=== PATIENT | male | born 1960 ===

== ENCOUNTER 2020-04-26 22:10 | Emergency (ER) | payer OTHER, SELFPAY ==
--- NOTE | ~2020-04-26 | XR_ITS ---
EXAMINATIONS: LUMBOSACRAL SPINE 3 VIEWS AND SACRUM 2 VIEWS CLINICAL INFORMATION: Pain. COMPARISON: 11/03/2018. TECHNIQUE: AP, lateral, spot lateral views of the lumbosacral spine are provided. AP and lateral views of the sacrum and coccyx are provided. FINDINGS: There are no fractures. The lumbar vertebrae are in normal alignment. There is mild disc height loss at L5/S1. Disc heights and vertebral body heights are otherwise well-preserved. There is increased sclerosis within the facet joints of the lumbar spine. The SI joints are unremarkable. There is bilateral medial hip joint space narrowing. XR/XR lumbar spine 2-3V IMPRESSION: Stable degenerative change within the lumbar spine without evidence of acute injury. Bilateral hip degenerative change.
--- NOTE | ~2020-04-26 | XR_ITS ---
EXAMINATIONS: LUMBOSACRAL SPINE 3 VIEWS AND SACRUM 2 VIEWS CLINICAL INFORMATION: Pain. COMPARISON: 11/03/2018. TECHNIQUE: AP, lateral, spot lateral views of the lumbosacral spine are provided. AP and lateral views of the sacrum and coccyx are provided. FINDINGS: There are no fractures. The lumbar vertebrae are in normal alignment. There is mild disc height loss at L5/S1. Disc heights and vertebral body heights are otherwise well-preserved. There is increased sclerosis within the facet joints of the lumbar spine. The SI joints are unremarkable. There is bilateral medial hip joint space narrowing. XR/XR sacrum coccyx min 2V IMPRESSION: Stable degenerative change within the lumbar spine without evidence of acute injury. Bilateral hip degenerative change.
[2020-04-26 22:27] VITALS: BP 107/59; PULSE 100; RESP 16; TEMP 37.1; O2SAT 100; BMI 28.0
[2020-04-27] MEDS: Ketorolac Tromethamine 60 MG/2 ML VIAL IM (00:05)
[2020-04-27] MEDS: Cyclobenzaprine HCl 10 MG TABLET PO (00:06)
--- NOTE | 2020-04-27 00:42 | ED.BACK ---
HPI - Back Pain/Injury General Chief Complaint: Back Pain/Injury Stated Complaint: Back pain Time Seen by Provider: 04/26/20 23:49 Source: patient Mode of arrival: ambulatory Limitations: no limitations History of Present Illness HPI Narrative: 60-year-old male with past medical history of anxiety, depression, hyperlipidemia, hypertension, history of DVT, [id number] diabetic, sleep apnea, gastric ulcers, right knee replacement, left hip surgery, and ambulates with a cane presents with chronic lower back pain and sciatica. Patient states his back pain been present for several years and has been mostly under controlled but over the past several days he has noted an increase in pain with sciatica to the left side. He does not describe any injury, trauma, repetitive motions, fevers, chills, chest pain, chest pressure, palpitations, shortness breath, abdominal pain, abdominal distention, dysuria hematuria, symptoms indicating cauda equina, or any other concerning symptoms. MD elicited complaint: back pain Pertinent past history: prior back pain and arthritis Onset (ago): year(s) Timing: constant and progressively worsening Severity: severe Pain scale (0-10): 10 Similar Symptoms Previously: Yes Quality: aching Location: lumbar spine and sacrum Radiation: left upper leg Exacerbating factors: movement and walking Relieving factors: none Associated symptoms: denies other symptoms Treatments prior to arrival: NSAIDS Work related injury: No Related Data Previous Rx's Medication Instructions Recorded cyclobenzaprine 10 mg PO TID PRN #30 tab 04/27/20 Allergies Allergy/AdvReac Type Severity Reaction Status Date / Time morphine [MORPHINE] Allergy Severe RASH Verified 04/26/20 22:30 Review of Systems Review of Systems: Constitutional: No Fever, No Chills ENT/Mouth: No Ear Pain, No Hoarseness, No sore throat Eyes: No Eye Pain, No Swelling, No Redness, No Foreign Body Cardiovascular: No Chest Pain, No SOB Respiratory: No Cough, No Dyspnea Gastrointestinal: No Nausea, No Vomiting, No Diarrhea, No abdominal Pain Genitourinary: No Dysuria, No Hematuria Musculoskeletal: positive lower back pain with left-sided sciatica, No Myalgias, No Joint Swelling Skin: No Skin lacerations, No rash Neuro: No Weakness, No Numbness, No Paresthesias, No Loss of Consciousness, No Dizziness, No Headache Psych: No Anxiety/Panic, No Depression Heme/Lymph: no easy bruising, no Lymphadenopathy Endocrine: No Polyuria, No Polydipsia Yes all other systems are reviewed and are negative PMFSH Past Medical History Attestation statement: The following information was validated with the patient. Source: old records reviewed Social History Social History Alcohol intake: never Smoking Status: Current every day smoker Use of substances other than those prescribed or required for medical reasons: No Any prior treatment program specific to substance use: No Advance Directives: No Advance Directives Information Provided: No Physical Exam Vital Signs: Vital Signs: Last Vital Signs Temp 98.8 F 04/26/20 22:27 Pulse 100 04/26/20 22:27 Resp 16 04/26/20 22:27 BP 107/59 L 04/26/20 22:27 Pulse Ox 100 04/26/20 22:27 Body Mass Index 28.0 Appearance: Alert. Oriented X3. No acute distress. Eyes: Pupils equal, round and reactive to light. ENT: Pharynx normal. Neck: Normal inspection. Neck supple. CVS: Normal heart rate and rhythm. Pulses normal. Respiratory: No respiratory distress. Breath sounds normal. Abdomen: Soft and nontender. Skin: Skin warm and dry. Normal skin color. Normal skin turgor. Extremities: No lower extremity edema. Neuro: No motor deficit. No sensory deficit. Course Course Course Narrative: 60-year-old male ambulates with a cane presents with chronic lower back pain and sciatica. He has had this chronic condition for several years, plan is for lumbar x-ray, sacrum x-ray, Toradol and cyclobenzaprine. X-rays negative for acute findings requiring emergent intervention. Plan is to refer to pain management. Patient verbalized understanding of and agrees plan of care discharge home. MDM - Back Pain/Injury Differential Diagnosis Differential diagnosis: Likely lumbar radiculopathy, sciatica, strain of lumbar region and thoracic back pain Medical Records Attestation: I reviewed the patient's medical records. Imaging Data Lumbar sacral x-ray: Attestation: I personally reviewed and interpreted this imaging study as follows: Radiologist's impression: EXAMINATIONS: LUMBOSACRAL SPINE 3 VIEWS AND SACRUM 2 VIEWS CLINICAL INFORMATION: Pain. COMPARISON: 11/03/2018. TECHNIQUE: AP, lateral, spot lateral views of the lumbosacral spine are provided. AP and lateral views of the sacrum and coccyx are provided. FINDINGS: There are no fractures. The lumbar vertebrae are in normal alignment. There is mild disc height loss at L5/S1. Disc heights and vertebral body heights are otherwise well-preserved. There is increased sclerosis within the facet joints of the lumbar spine. The SI joints are unremarkable. There is bilateral medial hip joint space narrowing. XR/XR sacrum coccyx min 2V IMPRESSION: Stable degenerative change within the lumbar spine without evidence of acute injury. Bilateral hip degenerative change. Discharge Plan Discharge Clinical Impression: Lumbar radiculopathy, Degeneration of intervertebral disc of lumbar region Patient Disposition: Home, Self-Care Instructions: Sciatica (ED), Degenerative Disc Disease (ED) Additional Instructions: You were evaluated for chronic lower back pain with sciatica. X-rays indicate chronic lumbar disc degeneration. Please consider following up with Pain Management and Physical therapy. I have made a referral to Dr. Payne. Please call and request an appointment. I prescribed cyclobenzaprine which is a muscle relaxer. This medication is designed to relax muscles to help relieve the tension on the spine. This medication may increase risk for falls, cause drowsiness, and delayed reaction time. Do not drive or operate machinery while taking this medication. Thank you for choosing this emergency department for evaluation. Please follow-up with primary care physician as needed. Return to the emergency department for any new, concerning, or worsening symptoms. Prescriptions: New cyclobenzaprine 10 mg tablet 10 mg PO TID PRN (Reason: muscle spasm) Qty: 30 RF: 0 Referrals: Robinson Payne MD [Physician] - 2 days (Chronic lumbar disc degeneration, bilateral hip degeneration)
--- NOTE | 2020-04-27 01:09 | PC.NURSE ---
report on pt given to wilmar Marsh who will resume pt care.
== END 2020-04-27 02:00 | disposition home or self-care (01) ==
PROVIDERS: Emergency Provider Student in an Organized Health Care Education/Training Program; PCP Nurse Practitioner Family
DX: M51.16 Intervertebral disc disorders with radiculopathy, lumbar region (principal); F17.200 Nicotine dependence, unspecified, uncomplicated; Z71.6 Tobacco abuse counseling; Z79.899 Other long term (current) drug therapy
CPT/HCPCS: 72100; 72220; 96372; 99284; J1885

== ENCOUNTER 2020-10-29 14:25 | Emergency (ER) | payer OTHER, SELFPAY ==
--- NOTE | ~2020-10-29 | US_ITS ---
EXAMINATION: US VENOUS ULTRASOUND WITH DOPPLER LOWER EXTREMITY, LEFT CLINICAL INFORMATION: Left lower extremity edema COMPARISON: None TECHNIQUE: Ultrasound of the deep veins is performed from the hip to the calf with compression sonography and color and pulse Doppler assessment. Spectral analysis with color-flow imaging is performed. FINDINGS: There is normal venous compression and respiratory variation and augmented flow. The visualized common femoral vein, superficial femoral vein, profunda femoral vein, popliteal vein, and the trifurcation region shows no evidence of deep venous thrombosis. There is no significant popliteal fossa cyst. If the patient's symptoms persist, followup ultrasound in 5 days 7 days might be of value to exclude proximal propagation from a non-visualized calf vein. US/US venous duplex LE LT IMPRESSION: No DVT demonstrated in the left lower extremity.
[2020-10-29 15:39] VITALS: BP 122/63; PULSE 58; RESP 18; TEMP 36.8; O2SAT 97; BMI 35.4
--- NOTE | 2020-10-29 19:36 | ED_ITS ---
HPI - General Adult General Chief complaint: General Medical Stated complaint: back pain, feet swelling Source: patient Mode of arrival: ambulatory Limitations: no limitations History of Present Illness HPI narrative: 60-year-old male presents with left lower extremity swelling and pain for 5 days. He also reports lower back pain which is chronic. Onset (ago): day(s) (4) Location: left and lower extremity Radiation: non-radiation Severity: moderate Severity scale (1-10): 6 Quality: aching Pain Consistency: constant Relieving factors: none Exacerbating factors: movement Associated symptoms: denies other symptoms Treatments prior to arrival: none Related Data Previous Rx's Medication Instructions Recorded cyclobenzaprine 10 mg tablet 10 mg PO TID PRN #30 tab 04/27/20 cephalexin 500 mg capsule 500 mg PO Q12H 10 Days #20 cap 10/29/20 doxycycline monohydrate 100 mg 100 mg PO BID 10 Days #20 cap 10/29/20 capsule Allergies Allergy/AdvReac Type Severity Reaction Status Date / Time morphine [MORPHINE] Allergy Severe RASH Verified 10/29/20 15:39 Review of Systems Review of Systems: Constitutional: No Fever, No Chills ENT/Mouth: No Ear Pain, No Hoarseness, No sore throat Eyes: No Eye Pain, No Swelling, No Redness, No Foreign Body Cardiovascular: No Chest Pain, No SOB Respiratory: No Cough, No Dyspnea Gastrointestinal: No Nausea, No Vomiting, No Diarrhea, No abdominal Pain Genitourinary: No Dysuria, No Hematuria Musculoskeletal: positive left leg pain and swelling, No Myalgias, No Joint Swelling Skin: No Skin lacerations, No rash Neuro: No Weakness, No Numbness, No Paresthesias, No Loss of Consciousness, No Dizziness, No Headache Psych: No Anxiety/Panic, No Depression Heme/Lymph: no easy bruising, no Lymphadenopathy Endocrine: No Polyuria, No Polydipsia Yes all other systems are reviewed and are negative [facility] Past Medical History Attestation statement: The following information was validated with the patient. Source: old records reviewed Medical History (Updated 10/29/20 @ 22:30 by Lizeth Anna NP) FHx: total knee replacement Sleep apnea Surgical History History of ankle surgery History of hip surgery History of surgery on arm Social History Social History Alcohol intake: never Advance Directives: No Advance Directives Information Provided: No Physical Exam Vital Signs: Vital Signs: Last Vital Signs Temp 97.6 F 10/29/20 19:55 Pulse 53 10/29/20 22:22 Resp 19 10/29/20 22:22 BP 125/63 10/29/20 22:22 Pulse Ox 100 10/29/20 22:22 Body Mass Index 35.4 Appearance: Alert. Oriented X3. No acute distress. Eyes: Pupils equal, round and reactive to light. ENT: Pharynx normal. Neck: Normal inspection. Neck supple. CVS: Normal heart rate and rhythm. Pulses normal. Respiratory: No respiratory distress. Breath sounds normal. Abdomen: Soft and nontender. Skin: Skin warm and dry. Normal skin color. Normal skin turgor. Extremities: Left lower extremity visibly swollen from toes to patella, tender to palpation, no warmth or erythema noted. Neuro: No motor deficit. No sensory deficit. Cranial nerves 2-12 intact. Course Course Course Narrative: 60-year-old male presents for left lower extremity swelling for approximately 7 days. He is more interested in his telephone than speaking to this provider. Multiple attempts to have him answer questions regarding health history, however patient was not interested. Will order duplex to rule out blood clot. Duplex negative for DVT. Will order labs to rule out gout and infection. Plan is to treat for cellulitis with doxycycline and Keflex. Patient continues to use his phone, not answering many questions from this [employer]. Patient does verbalize understanding of and agrees to plan of care discharge home. Medical Decision Making Differential Diagnosis Differential Diagnosis: DVT, cellulitis, edema Medical Records Medical records reviewed: Yes I reviewed the patient's medical records. Lab Data Lab results reviewed: Yes I reviewed the patient's lab results. Result diagrams: 10/29/20 21:43 10/29/20 21:43 Labs: Lab Results 10/29/20 10/29/20 Range/Units 21:43 21:43 WBC 7.4 (4.8-10.8) X10*3/uL RBC 3.71 L (4.60-5.80) X10*6/uL Hgb 11.2 L (14.0-18.0) g/dl Hct 35.7 L (42-52) % MCV 96.2 (80-98) fL MCH 30.2 (27.0-33.0) pg MCHC 31.4 (31.0-36.0) g/dl RDW 15.9 (11.0-16.0) % Plt Count 197 (160-400) X10*3/uL MPV 10.4 (9.4-12.4) fL Immature Gran % (Auto) 1.2 H (0.0-0.4) % Neut % (Auto) 49.5 (45-73) % Lymph % (Auto) 33.9 (20-40) % Tillman % (Auto) 12.4 H (2-11) % Eos % (Auto) 2.6 (0-4) % Baso % (Auto) 0.4 (0-2) % Lymph # (Auto) 2.5 (1.2-4.9) X10*3/uL Tillman # (Auto) 0.9 (0.1-1.2) X10*3/uL Eos # (Auto) 0.2 (0.0-0.4) X10*3/uL Baso # (Auto) 0.0 (0.0-0.2) X10*3/uL Abs Immat Gran (auto) 0.09 H (0.00-0.03) X10*3/uL Absolute Neuts (auto) 3.6 (2.0-8.3) X10*3/uL Absolute Nucleated RBC 0.000 (0.0-0.012) X10*3/uL Nucleated RBC % (auto) 0.0 (0.0-0.2) /100WBC Smear Tech's Comments VERIFIED Sodium 141 (135-145) mmol/L Potassium 4.2 (3.3-5.1) mmol/L Chloride 102 (96-108) mmol/L Carbon Dioxide 32 H (22-29) mmol/L Anion Gap 11 L (12-20) BUN 18 H (9-16) mg/dL Creatinine 0.74 (0.5-1.4) mg/dL Estim Creat Clear Calc 149.2 Estimated GFR > 60 Random Glucose 82 (60-115) mg/dL Uric Acid 4.0 (3.4-7.0) mg/dL Calcium 9.6 (8.4-10.2) mg/dL Imaging Data Left venous duplex: Attestation: I personally reviewed and interpreted this imaging study as follows: Radiologist's impression: EXAMINATION:? US VENOUS ULTRASOUND WITH DOPPLER LOWER EXTREMITY, LEFT CLINICAL INFORMATION:? Left lower extremity edema COMPARISON:? None TECHNIQUE: Ultrasound of the deep veins is performed from the hip to the calf with compression sonography and color and pulse Doppler assessment. Spectral analysis with color-flow imaging is performed. FINDINGS: There is normal venous compression and respiratory variation and augmented flow. The visualized common femoral vein, superficial femoral vein, profunda femoral vein, popliteal vein, and the trifurcation region shows no evidence of deep venous thrombosis. ? There is no significant popliteal fossa cyst. If the patient's symptoms persist, followup ultrasound in 5 days 7 days might be of value to exclude proximal propagation from a non-visualized calf vein. US/US venous duplex LE LT IMPRESSION: No DVT demonstrated in the left lower extremity. Discharge Plan Discharge Clinical Impression: Cellulitis Qualifiers: Site of cellulitis: extremity Site of cellulitis of extremity: lower extremity Laterality: left Qualified Code(s): L03.116 - Cellulitis of left lower limb Patient Disposition: Home, Self-Care Instructions: Cellulitis (ED) Additional Instructions: You were evaluated for left lower extremity pain and swelling. Your duplex was negative for DVT. Your uric acid level was normal. We are treating for cellulitis. Please take doxycycline and Keflex twice a day for the next 10 days. Please use Tylenol and Motrin as needed for pain management. Thank you for choosing this emergency department for evaluation. Please follow-up with primary care physician as needed. Return to the emergency department for any new, concerning, or worsening symptoms. Prescriptions: New doxycycline monohydrate 100 mg capsule 100 mg PO BID 10 Days Qty: 20 RF: 0 cephalexin 500 mg capsule 500 mg PO Q12H 10 Days Qty: 20 RF: 0 No Action cyclobenzaprine 10 mg tablet 10 mg PO TID PRN (Reason: muscle spasm) Qty: 30 RF: 0 Interventions: ED Discharge Assessment Last Done: 10/29/20 22:48 Discharge Date/Time: 10/29/20 22:49
[2020-10-29 19:55] VITALS: BP 139/70; PULSE 70; RESP 17; TEMP 36.4; O2SAT 98
--- NOTE | 2020-10-29 20:04 | PC.NURSE ---
Pt aaox4, c/o LLE pain and swelling. Pt aware and agreeable to plan for DVT study. pt to ultrasound at this time.
[2020-10-29 21:48] LABS: Basophils Percent Auto 0.4 % (0-2); Eosinophils Absolute Auto 0.2 X10*3/uL (0.0-0.4); Eosinophils Percent Auto 2.6 % (0-4); Hematocrit 35.7 % (42-52); Hemoglobin 11.2 g/dl (14.0-18.0); Imm Gran Abs Auto 0.09 X10*3/uL (0.00-0.03); Imm Gran Pct Auto 1.2 % (0.0-0.4); Lymphocytes Absolute Auto 2.5 X10*3/uL (1.2-4.9); Lymphocytes Percent Auto 33.9 % (20-40); MANUAL DIFF FLAG SCAN; Mean Corpuscular HGB Conc 31.4 g/dl (31.0-36.0); Mean Corpuscular Hemoglobin 30.2 pg (27.0-33.0); Mean Corpuscular Volume 96.2 fL (80-98); Mean Platelet Volume 10.4 fL (9.4-12.4); Monocytes Absolute Auto 0.9 X10*3/uL (0.1-1.2); Monocytes Percent Auto 12.4 % (2-11); Neutrophils Absolute Auto 3.6 X10*3/uL (2.0-8.3); Neutrophils Percent Auto 49.5 % (45-73); Platelet Count 197 X10*3/uL (160-400); Red Blood Count 3.71 X10*6/uL (4.60-5.80); Red Cell Distribution Width 15.9 % (11.0-16.0); SCAN SMEAR FLAG 1; White Blood Count 7.4 X10*3/uL (4.8-10.8)
[2020-10-29 22:06] LABS: SLIDE REVIEW VERIFIED
[2020-10-29 22:18] LABS: Anion Gap 11 (12-20); Blood Urea Nitrogen 18 mg/dL (9-16); Calcium 9.6 mg/dL (8.4-10.2); Carbon Dioxide 32 mmol/L (22-29); Chloride 102 mmol/L (96-108); Creatinine Clr Calc Pharmacy 149.2; Estimated Glomerular Filt Rate > 60; Glucose Random 82 mg/dL (60-115); Potassium 4.2 mmol/L (3.3-5.1); Sodium 141 mmol/L (135-145)
[2020-10-29 22:22] VITALS: BP 125/63; PULSE 53; RESP 19; O2SAT 100
[2020-10-29] MEDS: cephALEXin 500 MG CAPSULE PO (22:44)
[2020-10-29] MEDS: Acetaminophen 325 MG TABLET 650 MG PO (22:44)
[2020-10-29] MEDS: Ibuprofen 600 MG TABLET PO (22:44)
== END 2020-10-29 22:49 | disposition home or self-care (01) ==
PROVIDERS: Nurse Practitioner Family; Emergency Provider Emergency Medicine
DX: L03.116 Cellulitis of left lower limb (principal); M54.5 Low back pain; M79.662 Pain in left lower leg
CPT/HCPCS: 36415; 80048; 84550; 85025; 93971; 99284

== ENCOUNTER 2020-10-31 13:28 | Emergency (ER) | payer OTHER, SELFPAY ==
--- NOTE | ~2020-10-31 | US_ITS ---
EXAMINATION: US VENOUS ULTRASOUND WITH DOPPLER LOWER EXTREMITY, LEFT CLINICAL INFORMATION: Swelling COMPARISON: None TECHNIQUE: Ultrasound of the deep veins is performed from the hip to the calf with compression sonography and color and pulse Doppler assessment. Spectral analysis with color-flow imaging is performed. FINDINGS: There is normal venous compression and respiratory variation and augmented flow. The visualized common femoral vein, superficial femoral vein, profunda femoral vein, popliteal vein, and the trifurcation region shows no evidence of deep venous thrombosis. There is no significant popliteal fossa cyst. If the patient's symptoms persist, followup ultrasound in 5 days 7 days might be of value to exclude proximal propagation from a non-visualized calf vein. US/US venous duplex LE LT IMPRESSION: No DVT demonstrated in the left lower extremity.
[2020-10-31 15:07] VITALS: BP 115/60; PULSE 52; RESP 18; TEMP 36.8; O2SAT 98; BMI 34.9
[2020-10-31 15:54] LABS: Basophils Percent Auto 0.4 % (0-2); Eosinophils Absolute Auto 0.2 X10*3/uL (0.0-0.4); Eosinophils Percent Auto 1.8 % (0-4); Hematocrit 36.1 % (42-52); Hemoglobin 11.3 g/dl (14.0-18.0); Imm Gran Abs Auto 0.12 X10*3/uL (0.00-0.03); Imm Gran Pct Auto 1.4 % (0.0-0.4); Lymphocytes Absolute Auto 2.6 X10*3/uL (1.2-4.9); MANUAL DIFF FLAG SCAN; Mean Corpuscular HGB Conc 31.3 g/dl (31.0-36.0); Mean Corpuscular Volume 95.8 fL (80-98); Mean Platelet Volume 10.2 fL (9.4-12.4); Monocytes Absolute Auto 0.8 X10*3/uL (0.1-1.2); Monocytes Percent Auto 9.1 % (2-11); Neutrophils Absolute Auto 4.8 X10*3/uL (2.0-8.3); Neutrophils Percent Auto 56.3 % (45-73); Platelet Count 231 X10*3/uL (160-400); Red Blood Count 3.77 X10*6/uL (4.60-5.80); SCAN SMEAR FLAG 1; White Blood Count 8.4 X10*3/uL (4.8-10.8)
[2020-10-31 15:56] LABS: INTERNATIONAL NORM RATIO 0.9 (0.9-1.1)
[2020-10-31 16:09] LABS: COVID-19 Test Negative (Negative); IDNOW Serial# 9DD0AD1C
[2020-10-31 16:26] LABS: SLIDE REVIEW VERIFIED
== END 2020-10-31 17:50 | disposition left against medical advice (07) ==
PROVIDERS: Emergency Provider Emergency Medicine
DX: M79.605 Pain in left leg (principal); L03.116 Cellulitis of left lower limb
CPT/HCPCS: 36415; 80048; 85025; 85610; 87635; 93971; 99282; 99284

== ENCOUNTER 2020-11-07 12:06 | Emergency (ER) | payer OTHER, SELFPAY ==
--- NOTE | ~2020-11-07 | US_ITS ---
EXAMINATION: US VENOUS ULTRASOUND WITH DOPPLER LOWER EXTREMITY, BILATERAL CLINICAL INFORMATION: Bilateral lower extremity edema. COMPARISON: 10/31/2020 TECHNIQUE: Ultrasound of the deep veins is performed from the hip to the calf with compression sonography and color and pulse Doppler assessment. Spectral analysis with color-flow imaging is performed. FINDINGS: RIGHT: There is normal venous compression and respiratory variation and augmented flow. The visualized common femoral vein, superficial femoral vein, profunda femoral vein, popliteal vein, and the trifurcation region shows no evidence of deep venous thrombosis. There is no significant popliteal fossa cyst. LEFT: There is normal venous compression and respiratory variation and augmented flow. The visualized common femoral vein, superficial femoral vein, profunda femoral vein, popliteal vein, and the trifurcation region shows no evidence of deep venous thrombosis. There is no significant popliteal fossa cyst. If the patient's symptoms persist, followup ultrasound in 5 days 7 days might be of value to exclude proximal propagation from a non-visualized calf vein. US/US venous duplex LE BI IMPRESSION: No DVT demonstrated in the bilateral lower extremities.
--- NOTE | ~2020-11-07 | XR_ITS ---
EXAMINATION: XR CHEST CLINICAL INFORMATION: Rule out pulmonary edema. COMPARISON: 07/21/2015 TECHNIQUE: Frontal view of the chest was obtained. FINDINGS: The lungs are well expanded. Linear right basilar atelectasis. Patchy opacities of the right mid to lower lung. No pleural effusion or pneumothorax. The cardiomediastinal silhouette is within normal limits. XR/XR chest 1V IMPRESSION: Patchy right mid to lower lung opacity is nonspecific. This could be infectious or inflammatory. The appearance is unlikely to represent edema.
[2020-11-07 12:22] VITALS: BP 108/53; PULSE 74; RESP 18; TEMP 36.8; O2SAT 96; BMI 35.6
--- NOTE | 2020-11-07 15:08 | ED_ITS ---
HPI - Extremity Injury (Lower) General Chief Complaint: Extremity Injury, Lower Stated Complaint: cellulitis Time Seen by Provider: 11/07/20 14:43 Source: patient Mode of arrival: ambulatory History of Present Illness HPI Narrative: 60-year-old male with a past medical history of sleep apnea, DVT, presenting to the ED complaining of bilateral lower extremity swelling, pain, and erythema x 10 days. Admits to finishing course of p.o. Doxycycline and Keflex without relief. Denies fever, chills, SOB/CP, abdominal pain, nausea/vomiting, recent travel Related Data Home Medications Medication Instructions Recorded Confirmed albuterol sulfate 90 mcg/actuation 2 puff PO Q4H PRN 11/07/20 11/07/20 aerosol inhaler clonazepam 1 mg tablet 1 tab PO BID PRN 11/07/20 11/07/20 enalapril 10 1 tab PO DAILY 11/07/20 11/07/20 mg-hydrochlorothiazide 25 mg tablet ergocalciferol (vitamin D2) 1,250 1 cap PO QWEEK 11/07/20 11/07/20 mcg (50,000 unit) capsule metformin 850 mg tablet 1 tab PO BID 11/07/20 11/07/20 nicotine (polacrilex) 4 mg buccal 4 mg PO Q4-6H PRN 11/07/20 11/07/20 lozenge pantoprazole 40 mg tablet,delayed 1 tab PO DAILY 11/07/20 11/07/20 release simvastatin 20 mg tablet 1 tab PO BEDTIME 11/07/20 11/07/20 Previous Rx's Medication Instructions Recorded cyclobenzaprine 10 mg tablet 10 mg PO TID PRN #30 tab 04/27/20 cephalexin 500 mg capsule 500 mg PO Q12H 10 Days #20 cap 10/29/20 doxycycline monohydrate 100 mg 100 mg PO BID 10 Days #20 cap 10/29/20 capsule azithromycin 250 mg tablet See Rx Instructions .ROUTE 11/07/20 .COMPLEX #6 tab furosemide 20 mg tablet 20 mg PO DAILY 7 Days #7 tab 11/07/20 Allergies Allergy/AdvReac Type Severity Reaction Status Date / Time morphine [MORPHINE] Allergy Severe RASH Verified 10/29/20 15:39 Review of Systems Review of Systems: Constitutional: No Fever, No Chills, No Fatigue, No Malaise ENT/Mouth: No Ear Pain, No Nasal Congestion, No sore throat Eyes: No Eye Pain, No Swelling Cardiovascular: No Chest Pain, No SOB, +Edema, No Palpitations Respiratory: No Cough, No Dyspnea Gastrointestinal: No Nausea, No Vomiting, No Diarrhea, No Constipation, No Abdominal pain Genitourinary: No Dysuria Musculoskeletal: No joint pain, No Myalgias, + Joint Swelling Skin: + Skin Lesions, No rash Neuro: No Weakness, No Numbness, No Loss of Consciousness Yes all other systems are reviewed and are negative [facility] Past Medical History Attestation statement: The following information was validated with the patient. Medical History (Updated 11/07/20 @ 19:33 by JEN Sawyer) FHx: total knee replacement Sleep apnea Surgical History History of ankle surgery History of hip surgery History of surgery on arm Social History Social History Alcohol intake: never Advance Directives: No Advance Directives Information Provided: No Physical Exam Vital Signs: Vital Signs: Last Vital Signs Temp 98.2 F 11/07/20 12:22 Pulse 62 11/07/20 18:17 Resp 16 11/07/20 18:17 BP 124/64 11/07/20 18:17 Pulse Ox 98 11/07/20 18:17 Body Mass Index 35.6 Const: General: cooperative and healthy appearing Orientation/consciousness: patient oriented x3 Limitations: no limitations HENMT: Head: Yes normal to inspection Ears: hearing grossly normal bilaterally General nose exam: Normal external nose present Face and sinus: Yes normal facial exam Eyes: General: appearance normal, both eyes and all related structures EOM: EOMs intact bilaterally Neck: Neck: Yes normal visual inspection Resp: Effort & Inspection: normal respiratory effort Auscultation: clear to auscultation bilaterally, no rales, no rhonchi and no wheezes Cardio: Rate: regular rate Heart sounds: S1 normal heart sound present and S2 normal heart sound present GI: Inspection: Yes normal to inspection Palpation (GI): Soft to palpation, nontender, no guarding and not rigid Skin: Rashes: no rashes Wounds: no wounds Neuro: General: patient oriented x3 Gait exam (Neuro): Normal gait present Extrem: Other: +bilateral lower extremity pitting edema and taut skin, +warm to touch. No erythema. Neurovascularly intact distally Course Course Course Narrative: -COVID-19 negative -1813--difficulty with obtaining patient's labs. No leukocytosis. H&H at patient's baseline. Labs otherwise unremarkable including negative BNP US venous duplex LE BI IMPRESSION: No DVT demonstrated in the bilateral lower extremities XR chest 1V IMPRESSION: Patchy right mid to lower lung opacity is nonspecific. This could be infectious or inflammatory. The appearance is unlikely to represent edema. >> patient without cough/fever/leukocytosis however will empirically treat with Azithromycin, he is agreeable with plan MDM - Extremity Injury (Lower) MDM Narrative Medical decision making narrative: 60-year-old male with a past medical history of sleep apnea, DVT, presenting to the ED complaining of bilateral lower extremity swelling, pain, and erythema x 10 days. On exam VSS, NAD/well- appearing, physical exam as above. Concern for bilateral lower extremity venous stasis changes vs CHF vs ?DVT. Lower concern for cellulitis Case d/w Dr. Redd who also evaluated patient and is in agreement with plan Plan: Labs, blood culture/lactic, bilateral venous duplex ultrasound Medical Records Attestation: I reviewed the patient's medical records. Lab Data Attestation: I reviewed the patient's lab results. Result diagrams: 11/07/20 17:10 11/07/20 17:10 Labs: Lab Results 11/07/20 11/07/20 11/07/20 Range/Units 15:10 17:10 17:10 WBC 7.2 (4.8-10.8) X10*3/uL RBC 3.75 L (4.60-5.80) X10*6/uL Hgb 11.3 L (14.0-18.0) g/dl Hct 36.2 L (42-52) % MCV 96.5 (80-98) fL MCH 30.1 (27.0-33.0) pg MCHC 31.2 (31.0-36.0) g/dl RDW 16.2 H (11.0-16.0) % Plt Count 222 (160-400) X10*3/uL MPV 10.3 (9.4-12.4) fL Immature Gran % (Auto) 1.4 H (0.0-0.4) % Neut % (Auto) 52.9 (45-73) % Lymph % (Auto) 31.5 (20-40) % [place] % (Auto) 11.1 H (2-11) % Eos % (Auto) 2.8 (0-4) % Baso % (Auto) 0.3 (0-2) % Lymph # (Auto) 2.3 (1.2-4.9) X10*3/uL [place] # (Auto) 0.8 (0.1-1.2) X10*3/uL Eos # (Auto) 0.2 (0.0-0.4) X10*3/uL Baso # (Auto) 0.0 (0.0-0.2) X10*3/uL Abs Immat Gran (auto) 0.10 H (0.00-0.03) X10*3/uL Absolute Neuts (auto) 3.8 (2.0-8.3) X10*3/uL Absolute Nucleated RBC 0.000 (0.0-0.012) X10*3/uL Nucleated RBC % (auto) 0.0 (0.0-0.2) /100WBC Sodium 140 (135-145) mmol/L Potassium 4.5 (3.3-5.1) mmol/L Chloride 103 (96-108) mmol/L Carbon Dioxide 30 H (22-29) mmol/L Anion Gap 12 (12-20) BUN 16 (9-16) mg/dL Creatinine 0.75 (0.5-1.4) mg/dL Estim Creat Clear Calc 147.7 Estimated GFR > 60 Random Glucose 91 (60-115) mg/dL Lactic Acid (0.5-2.0) mmol/L Calcium 9.7 (8.4-10.2) mg/dL Magnesium 2.1 (1.6-2.6) mg/dL Total Bilirubin 0.3 (0.0-1.0) mg/dL Direct Bilirubin < 0.2 (0.0-0.5) mg/dL AST 14 (5-37) U/L ALT 11 (0-40) U/L Alkaline Phosphatase 114 (39-117) U/L B-Natriuretic Peptide (<100) pg/mL Total Protein 7.2 (6.5-8.0) g/dL Albumin 3.9 (3.5-5.0) g/dL COVID-19 (JAIME) Negative (Negative) COVID-19 Clin Com See Note 11/07/20 11/07/20 Range/Units 17:10 17:10 WBC (4.8-10.8) X10*3/uL RBC (4.60-5.80) X10*6/uL Hgb (14.0-18.0) g/dl Hct (42-52) % MCV (80-98) fL MCH (27.0-33.0) pg MCHC (31.0-36.0) g/dl RDW (11.0-16.0) % Plt Count (160-400) X10*3/uL MPV (9.4-12.4) fL Immature Gran % (Auto) (0.0-0.4) % Neut % (Auto) (45-73) % Lymph % (Auto) (20-40) % [place] % (Auto) (2-11) % Eos % (Auto) (0-4) % Baso % (Auto) (0-2) % Lymph # (Auto) (1.2-4.9) X10*3/uL [place] # (Auto) (0.1-1.2) X10*3/uL Eos # (Auto) (0.0-0.4) X10*3/uL Baso # (Auto) (0.0-0.2) X10*3/uL Abs Immat Gran (auto) (0.00-0.03) X10*3/uL Absolute Neuts (auto) (2.0-8.3) X10*3/uL Absolute Nucleated RBC (0.0-0.012) X10*3/uL Nucleated RBC % (auto) (0.0-0.2) /100WBC Sodium (135-145) mmol/L Potassium (3.3-5.1) mmol/L Chloride (96-108) mmol/L Carbon Dioxide (22-29) mmol/L Anion Gap (12-20) BUN (9-16) mg/dL Creatinine (0.5-1.4) mg/dL Estim Creat Clear Calc Estimated GFR Random Glucose (60-115) mg/dL Lactic Acid 2.0 (0.5-2.0) mmol/L Calcium (8.4-10.2) mg/dL Magnesium (1.6-2.6) mg/dL Total Bilirubin (0.0-1.0) mg/dL Direct Bilirubin (0.0-0.5) mg/dL AST (5-37) U/L ALT (0-40) U/L Alkaline Phosphatase (39-117) U/L B-Natriuretic Peptide < 10 (<100) pg/mL Total Protein (6.5-8.0) g/dL Albumin (3.5-5.0) g/dL COVID-19 (JAIME) (Negative) COVID-19 Clin Com Discharge Plan Discharge Clinical Impression: Pneumonia Venous stasis dermatitis Qualifiers: Laterality: bilateral Qualified Code(s): I87.2 - Venous insufficiency (chronic) (peripheral) Patient Disposition: Home, Self-Care Instructions: Venous Insufficiency (DC) Additional Instructions: Your blood work is reassuring You have venous stasis changes, you need to elevate your legs, wear compression stockings, follow-up with your primary care doctor Lasix as a diuretic/water pill which will help the swelling in her legs, take as prescribed daily for the next week Your chest x-ray shows a nonspecific patchy area, a Zithromax sent is antibiotic, please take as prescribed. If he developed cough, fever, shortness of breath, or chest pain return to the ED immediately You need to follow-up with her primary care doctor for repeat blood work outpatient If swelling persists or worsens, pain becomes unbearable, you fever, or legs developed redness return to the ED immediately Prescriptions: New furosemide 20 mg tablet 20 mg PO DAILY 7 Days Qty: 7 RF: 0 azithromycin 250 mg tablet See Rx Instructions .ROUTE .COMPLEX Qty: 6 RF: 0 No Action doxycycline monohydrate 100 mg capsule 100 mg PO BID 10 Days Qty: 20 RF: 0 cephalexin 500 mg capsule 500 mg PO Q12H 10 Days Qty: 20 RF: 0 clonazepam 1 mg tablet 1 tab PO BID PRN (Reason: anxiety) RF: 0 metformin 850 mg tablet 1 tab PO BID RF: 0 enalapril-hydrochlorothiazide 10-25 mg tablet 1 tab PO DAILY RF: 0 pantoprazole 40 mg tablet,delayed release (DR/EC) 1 tab PO DAILY RF: 0 simvastatin 20 mg tablet 1 tab PO BEDTIME RF: 0 ergocalciferol (vitamin D2) 1,250 mcg (50,000 unit) capsule 1 cap PO QWEEK RF: 0 albuterol sulfate 90 mcg/actuation HFA aerosol inhaler 2 puff PO Q4H PRN (Reason: Shortness Of Breath) RF: 0 nicotine (polacrilex) 4 mg lozenge 4 mg PO Q4-6H PRN (Reason: Smoking Cessation) RF: 0 cyclobenzaprine 10 mg tablet 10 mg PO TID PRN (Reason: muscle spasm) Qty: 30 RF: 0 Referrals: [facility] [Primary Care Provider] - 5 days Interventions: ED Discharge Assessment Last Done: 11/07/20 19:55 Discharge Date/Time: 11/07/20 19:57
--- NOTE | 2020-11-07 15:44 | PHA.MEDREC ---
Pharmacy Consult ? Medication Reconciliation Pharmacy has completed the medication reconciliation. Patient was not much of a historian, Med Rec based on external history fill. Yodit Reyna, PharmD [phone]
[2020-11-07 15:52] LABS: COVID-19 Test Negative (Negative)
[2020-11-07 16:01] VITALS: BP 132/78; PULSE 57; RESP 16; O2SAT 98
[2020-11-07 17:15] LABS: MANUAL DIFF FLAG NO
[2020-11-07 17:30] LABS: Basophils Percent Auto 0.3 % (0-2); Eosinophils Absolute Auto 0.2 X10*3/uL (0.0-0.4); Eosinophils Percent Auto 2.8 % (0-4); Hematocrit 36.2 % (42-52); Hemoglobin 11.3 g/dl (14.0-18.0); Imm Gran Pct Auto 1.4 % (0.0-0.4); Lymphocytes Absolute Auto 2.3 X10*3/uL (1.2-4.9); Lymphocytes Percent Auto 31.5 % (20-40); Mean Corpuscular HGB Conc 31.2 g/dl (31.0-36.0); Mean Corpuscular Hemoglobin 30.1 pg (27.0-33.0); Mean Corpuscular Volume 96.5 fL (80-98); Mean Platelet Volume 10.3 fL (9.4-12.4); Monocytes Absolute Auto 0.8 X10*3/uL (0.1-1.2); Monocytes Percent Auto 11.1 % (2-11); Neutrophils Absolute Auto 3.8 X10*3/uL (2.0-8.3); Neutrophils Percent Auto 52.9 % (45-73); Platelet Count 222 X10*3/uL (160-400); Red Blood Count 3.75 X10*6/uL (4.60-5.80); Red Cell Distribution Width 16.2 % (11.0-16.0); White Blood Count 7.2 X10*3/uL (4.8-10.8)
--- NOTE | 2020-11-07 17:39 | PC.NURSE ---
US at bedside
[2020-11-07 17:46] LABS: Alanine Aminotransferase 11 U/L (0-40); Albumin Level 3.9 g/dL (3.5-5.0); Alkaline Phosphatase 114 U/L (39-117); Anion Gap 12 (12-20); Aspartate Amino Transferase 14 U/L (5-37); Bilirubin Direct < 0.2 mg/dL (0.0-0.5); Bilirubin Total 0.3 mg/dL (0.0-1.0); Blood Urea Nitrogen 16 mg/dL (9-16); Calcium 9.7 mg/dL (8.4-10.2); Carbon Dioxide 30 mmol/L (22-29); Chloride 103 mmol/L (96-108); Creatinine Clr Calc Pharmacy 147.7; Estimated Glomerular Filt Rate > 60; Glucose Random 91 mg/dL (60-115); Magnesium 2.1 mg/dL (1.6-2.6); Potassium 4.5 mmol/L (3.3-5.1); Sodium 140 mmol/L (135-145); Total Protein 7.2 g/dL (6.5-8.0)
[2020-11-07 17:50] LABS: B Type Natriuretic Peptide < 10 pg/mL (<100)
[2020-11-07 18:17] VITALS: BP 124/64; PULSE 62; RESP 16; O2SAT 98
[2020-11-07] MEDS: Azithromycin 500 MG TABLET PO (19:44)
== END 2020-11-07 19:57 | disposition home or self-care (01) ==
PROVIDERS: Physician Assistant; Emergency Provider Emergency Medicine
DX: J18.9 Pneumonia, unspecified organism (principal); I87.2 Venous insufficiency (chronic) (peripheral); Z20.822 Contact with and (suspected) exposure to COVID-19; R22.43 Localized swelling, mass and lump, lower limb, bilateral; M79.662 Pain in left lower leg; M79.661 Pain in right lower leg
CPT/HCPCS: 36415; 71045; 80053; 82248; 83605; 83735; 83880; 85025; 87040; 87635; 93970; 99284

== ENCOUNTER 2020-11-28 10:50 | Outpatient (REF) | payer OTHER, SELFPAY ==
--- NOTE | ~2020-11-28 | XR_ITS ---
EXAMINATION: XR CHEST CLINICAL INFORMATION: Coarse rales right lower lobe. Rule out infiltrate COMPARISON: Previous chest x-ray most recent October 2020 TECHNIQUE: 2 views of the chest were obtained. FINDINGS: The cardiac and mediastinal contours are stable. There is linear scarring or subsegmental atelectasis seen at the lung bases. No evidence of pneumonia is seen. There is no pleural effusion or pneumothorax. There are degenerative changes of the spine. XR/XR chest 2V IMPRESSION: Bibasilar scarring or linear subsegmental atelectasis. No evidence of pneumonia.
== END 2020-11-28 10:51 | disposition home or self-care (01) ==
LOC: HO.XRAY 10:50
PROVIDERS: Absent Provider Registered Nurse Community Health; PCP Registered Nurse Community Health; Visit Provider Nurse Practitioner Family
DX: R91.8 Other nonspecific abnormal finding of lung field (principal)
CPT/HCPCS: 71046

== ENCOUNTER 2021-03-02 18:54 | Emergency (ER) | payer OTHER, SELFPAY ==
[2021-03-02 20:08] VITALS: BP 144/76; PULSE 79; RESP 20; TEMP 36.8; O2SAT 94; BMI 34.7
[2021-03-03 03:42] VITALS: BP 136/71; PULSE 68; RESP 20; O2SAT 95
--- NOTE | 2021-03-03 05:11 | ED.SKABFB ---
HPI - Skin/Abscess/Foreign Bdy General Chief complaint: Skin/Abscess/Foreign Body Stated complaint: legs swollen and a rash Time Seen by Provider: 03/03/21 05:10 Source: patient Mode of arrival: ambulatory Limitations: no limitations History of Present Illness HPI narrative: Patient diabetic noticed slight redness of both lower extremities started yesterday similar to that in the past when he had cellulitis no fever no chills blood sugar stable no open wound Related Data Home Medications Medication Instructions Recorded Confirmed albuterol sulfate 90 mcg/actuation 2 puff PO Q4H PRN 11/07/20 11/07/20 aerosol inhaler clonazepam 1 mg tablet 1 tab PO BID PRN 11/07/20 11/07/20 enalapril 10 1 tab PO DAILY 11/07/20 11/07/20 mg-hydrochlorothiazide 25 mg tablet ergocalciferol (vitamin D2) 1,250 1 cap PO QWEEK 11/07/20 11/07/20 mcg (50,000 unit) capsule metformin 850 mg tablet 1 tab PO BID 11/07/20 11/07/20 nicotine (polacrilex) 4 mg buccal 4 mg PO Q4-6H PRN 11/07/20 11/07/20 lozenge pantoprazole 40 mg tablet,delayed 1 tab PO DAILY 11/07/20 11/07/20 release simvastatin 20 mg tablet 1 tab PO BEDTIME 11/07/20 11/07/20 Previous Rx's Medication Instructions Recorded cyclobenzaprine 10 mg tablet 10 mg PO TID PRN #30 tab 04/27/20 cephalexin 500 mg capsule 500 mg PO Q12H 10 Days #20 cap 10/29/20 doxycycline monohydrate 100 mg 100 mg PO BID 10 Days #20 cap 10/29/20 capsule azithromycin 250 mg tablet See Rx Instructions .ROUTE 11/07/20 .COMPLEX #6 tab furosemide 20 mg tablet 20 mg PO DAILY 7 Days #7 tab 11/07/20 cephalexin 500 mg capsule 500 mg PO QID 10 Days #40 cap 03/03/21 doxycycline hyclate 100 mg tablet 100 mg PO BID #20 tab 03/03/21 Allergies Allergy/AdvReac Type Severity Reaction Status Date / Time morphine [MORPHINE] Allergy Severe RASH Verified 10/29/20 15:39 Review of Systems Review of Systems: Yes all other systems are reviewed and are negative PMFSH Past Medical History Medical History FHx: total knee replacement Sleep apnea Surgical History History of ankle surgery History of hip surgery History of surgery on arm Social History Social History Alcohol intake: never Advance Directives: No Advance Directives Information Provided: No Physical Exam Vital Signs: Vital Signs: Last Vital Signs Temp 98.3 F 03/02/21 20:08 Pulse 79 03/03/21 05:29 Resp 16 03/03/21 05:29 BP 136/71 03/03/21 03:42 Pulse Ox 97 03/03/21 05:29 BMI result Body Mass Index 34.7 Appearance: Alert. Oriented X3. No acute distress. CVS: Normal heart rate and rhythm. Pulses normal. Respiratory: No respiratory distress. Equal air entry bilateral, Abdomen: Soft and nontender. Bowel sounds are present, no mass palpable, no CVA tenderness Skin: Skin warm and dry. Normal skin color. Normal skin turgor. Extremities: No lower extremity edema. No calf tenderness diffuse erythema of both lower extremities no open wound Neuro: Oriented X 3. MDM - Skin/Abscess/Foreign Bdy Lab Data Labs: Lab Results 03/03/21 Range/Units 05:24 POC Glucose 127 H (60-115) mg/dL Discharge Plan Discharge Clinical Impression: Cellulitis Qualifiers: Site of cellulitis: extremity Site of cellulitis of extremity: lower extremity Laterality: right Qualified Code(s): L03.115 - Cellulitis of right lower limb Patient Disposition: Home, Self-Care Instructions: Cellulitis (ED) Additional Instructions: Take antibiotics as advised Follow with PCP/ ED if not better Prescriptions: New cephalexin 500 mg capsule 500 mg PO QID 10 Days Qty: 40 RF: 0 doxycycline hyclate 100 mg tablet 100 mg PO BID Qty: 20 RF: 0 No Action doxycycline monohydrate 100 mg capsule 100 mg PO BID 10 Days Qty: 20 RF: 0 cephalexin 500 mg capsule 500 mg PO Q12H 10 Days Qty: 20 RF: 0 clonazepam 1 mg tablet 1 tab PO BID PRN (Reason: anxiety) RF: 0 metformin 850 mg tablet 1 tab PO BID RF: 0 enalapril-hydrochlorothiazide 10-25 mg tablet 1 tab PO DAILY RF: 0 pantoprazole 40 mg tablet,delayed release (DR/EC) 1 tab PO DAILY RF: 0 simvastatin 20 mg tablet 1 tab PO BEDTIME RF: 0 ergocalciferol (vitamin D2) 1,250 mcg (50,000 unit) capsule 1 cap PO QWEEK RF: 0 albuterol sulfate 90 mcg/actuation HFA aerosol inhaler 2 puff PO Q4H PRN (Reason: Shortness Of Breath) RF: 0 nicotine (polacrilex) 4 mg lozenge 4 mg PO Q4-6H PRN (Reason: Smoking Cessation) RF: 0 furosemide 20 mg tablet 20 mg PO DAILY 7 Days Qty: 7 RF: 0 azithromycin 250 mg tablet See Rx Instructions .ROUTE .COMPLEX Qty: 6 RF: 0 cyclobenzaprine 10 mg tablet 10 mg PO TID PRN (Reason: muscle spasm) Qty: 30 RF: 0 Interventions: ED Discharge Assessment Last Done: 03/03/21 05:30 LWBS Worksheet Last Done: 03/02/21 23:42 Discharge Date/Time: 03/03/21 05:35
[2021-03-03] MEDS: cephALEXin 500 MG CAPSULE PO (05:27)
[2021-03-03 05:29] VITALS: PULSE 79; RESP 16; O2SAT 97
[2021-03-03 05:29] LABS: Glucose, Whole Blood 127 mg/dL (60-115)
== END 2021-03-03 05:35 | disposition home or self-care (01) ==
PROVIDERS: Emergency Provider Internal Medicine
DX: L03.115 Cellulitis of right lower limb (principal)
CPT/HCPCS: 82947; 99283; 99284

== ENCOUNTER 2021-05-27 12:40 | Emergency (ER) | payer OTHER, SELFPAY ==
--- NOTE | ~2021-05-27 | XR_ITS ---
EXAMINATION: XR CHEST CLINICAL INFORMATION: Evaluate for edema COMPARISON: November 28, 2020 TECHNIQUE: AP portable view of the chest was obtained. FINDINGS: There are bibasilar regions of discoid atelectasis or scarring. No pneumothorax or pleural effusion. No bronchial wall thickening. Heart normal size. No airspace edema. XR/XR chest 1V IMPRESSION: Bilateral lower lung scarring. No significant acute parenchymal disease.
--- NOTE | ~2021-05-27 | US_ITS ---
EXAMINATION: US VENOUS ULTRASOUND WITH DOPPLER LOWER EXTREMITY, BILATERAL CLINICAL INFORMATION: Bilateral leg pain COMPARISON: November 07, 2020 and studies dating back to November 15, 2018 TECHNIQUE: Ultrasound of the deep veins is performed from the hip to the calf with compression sonography and color and pulse Doppler assessment. Spectral analysis with color-flow imaging is performed. FINDINGS: RIGHT: There is normal venous compression and respiratory variation and augmented flow. The visualized common femoral vein, superficial femoral vein, profunda femoral vein, popliteal vein, and the trifurcation region shows no evidence of deep venous thrombosis. There is no significant popliteal fossa cyst. No popliteal artery aneurysm. LEFT: There is normal venous compression and respiratory variation and augmented flow. The visualized common femoral vein, superficial femoral vein, profunda femoral vein, popliteal vein, and the trifurcation region shows no evidence of deep venous thrombosis. There is no significant popliteal fossa cyst. No popliteal artery aneurysm. If the patient's symptoms persist, followup ultrasound in 5 days 7 days might be of value to exclude proximal propagation from a non-visualized calf vein. US/US venous duplex LE BI IMPRESSION: No acute DVT demonstrated in the bilateral lower extremity.
[2021-05-27 12:43] VITALS: BP 126/53; PULSE 66; RESP 18; TEMP 37; O2SAT 96; BMI 35.9
--- NOTE | 2021-05-27 13:06 | ED.EXTPRO ---
HPI - Extremity Problem General Chief complaint: Extremity Problem Stated complaint: Swollen Feet/Hip Pain Time Seen by Provider: 05/27/21 13:05 Source: patient Mode of arrival: ambulatory Limitations: no limitations History of Present Illness MD Complaint: extremity pain and extremity swelling Onset (ago): day(s) (5) Pain Consistency: constant Location: left, right and lower extremity Quality: aching Radiation: none Relieving factors: rest Exacerbating factors: walking Associated symptoms: denies other symptoms Context: other (denies any issues states his legs just swelled up, taking his medications, walks regularly, sleeps in a bed) Related Data Home Medications Medication Instructions Recorded Confirmed albuterol sulfate 90 mcg/actuation 2 puff PO Q4H PRN 11/07/20 11/07/20 aerosol inhaler clonazepam 1 mg tablet 1 tab PO BID PRN 11/07/20 11/07/20 enalapril 10 1 tab PO DAILY 11/07/20 11/07/20 mg-hydrochlorothiazide 25 mg tablet ergocalciferol (vitamin D2) 1,250 1 cap PO QWEEK 11/07/20 11/07/20 mcg (50,000 unit) capsule metformin 850 mg tablet 1 tab PO BID 11/07/20 11/07/20 nicotine (polacrilex) 4 mg buccal 4 mg PO Q4-6H PRN 11/07/20 11/07/20 lozenge pantoprazole 40 mg tablet,delayed 1 tab PO DAILY 11/07/20 11/07/20 release simvastatin 20 mg tablet 1 tab PO BEDTIME 11/07/20 11/07/20 Previous Rx's Medication Instructions Recorded cyclobenzaprine 10 mg tablet 10 mg PO TID PRN #30 tab 04/27/20 cephalexin 500 mg capsule 500 mg PO Q12H 10 Days #20 cap 10/29/20 doxycycline monohydrate 100 mg 100 mg PO BID 10 Days #20 cap 10/29/20 capsule azithromycin 250 mg tablet See Rx Instructions .ROUTE 11/07/20 .COMPLEX #6 tab furosemide 20 mg tablet 20 mg PO DAILY 7 Days #7 tab 11/07/20 cephalexin 500 mg capsule 500 mg PO QID 10 Days #40 cap 03/03/21 doxycycline hyclate 100 mg tablet 100 mg PO BID #20 tab 03/03/21 furosemide 20 mg tablet (Lasix) 20 mg PO DAILY 4 Days #4 tab 05/27/21 Allergies Allergy/AdvReac Type Severity Reaction Status Date / Time morphine [MORPHINE] Allergy Severe RASH Verified 10/29/20 15:39 Review of Systems Review of Systems: Constitutional : No Weight loss, No Fever, No Chills, No Fatigue, No Malaise ENT/Mouth : No sore throat, No Rhinorrhea Eyes: No Eye Pain, No Swelling, No Redness Cardiovascular : No Chest Pain, No SOB, No Dyspnea on Exertion, No Orthopnea, pos Edema, No Palpitations Respiratory : No Cough, No Sputum, No Wheezing Gastrointestinal : No Nausea, No Vomiting, No Diarrhea, No Constipation, No abdominal Pain, No Hematochezia, No Melena Genitourinary : No Dysuria, No Urinary Frequency, No Hematuria, Musculoskeletal : No joint pain, No Myalgias, No Joint Swelling Skin : No Skin Lesions, No rash Neuro : No Weakness, No Numbness, No Dizziness, No Headache Psych : No Anxiety/Panic, No Depression Heme/Lymph: No Bruising, No Bleeding,No Lymphadenopathy Endocrine : No Polyuria, No Polydipsia All other systems reviewed and are negative [facility] Past Medical History Attestation statement: The following information was validated with the patient. Medical History FHx: total knee replacement Sleep apnea Surgical History History of ankle surgery History of hip surgery History of surgery on arm Social History Social History (Updated 05/27/21 @ 13:30 by Tyesha Redd DO) Alcohol intake: never Patient Tobacco Use Status: Tobacco use Unknown Advance Directives: No Advance Directives Information Provided: Yes Physical Exam Vital Signs: Vital Signs: Last Vital Signs Temp 98.6 F 05/27/21 12:43 Pulse 66 05/27/21 12:43 Resp 18 05/27/21 12:43 BP 126/53 L 05/27/21 12:43 Pulse Ox 96 05/27/21 12:43 BMI result Body Mass Index 35.9 Appearance: Alert. Oriented X3. No acute distress. Eyes: Pupils equal, round and reactive to light. ENT: Pharynx normal. Neck: Normal inspection. Neck supple. CVS: Normal heart rate and rhythm. Pulses normal. Respiratory: No respiratory distress. Breath sounds slightly diminished Abdomen: Soft and non-tender. Obese Skin: Skin warm and dry. Normal skin color. Normal skin turgor. Extremities: Bilateral ankles to shins 1 to 2+ pitting edema Neuro: Oriented X 3. No motor deficit. No sensory deficit. Course Course Course Narrative: no erythema no WBC count no signs of infection will start on lasix and DC home - DVT study negative MDM - Extremity (Nontraumatic) MDM Narrative Medical decision making narrative: 61 yo male with hx of HTN and DM here with 5 days of LE edema no signs of infection but patient does appear swollen - distal NV intact will obtain basic labs, CXR, DVT study dispo per results and findings. Possible LE edema, DVT study, may require PO lasix. dispo per resulst and findings. Lab Data Result diagrams: 05/27/21 13:34 05/27/21 13:34 Labs: Lab Results 05/27/21 05/27/21 05/27/21 Range/Units 13:34 13:34 13:34 WBC 6.8 (4.8-10.8) X10*3/uL RBC 3.67 L (4.60-5.80) X10*6/uL Hgb 10.8 L (14.0-18.0) g/dl Hct 35.4 L (42.0-52.0) % MCV 96.5 (80.0-98.0) fL MCH 29.4 (27.0-33.0) pg MCHC 30.5 L (31.0-36.0) g/dl RDW 14.6 (11.0-16.0) % Plt Count 209 (160-400) X10*3/uL MPV 10.1 (9.4-12.4) fL Immature Gran % (Auto) 1.2 H (0.0-0.4) % Neut % (Auto) 61.5 (45-73) % Lymph % (Auto) 27.2 (20-40) % [place] % (Auto) 7.8 (2-11) % Eos % (Auto) 2.0 (0-4) % Baso % (Auto) 0.3 (0-2) % Lymph # (Auto) 1.9 (1.2-4.9) X10*3/uL [place] # (Auto) 0.5 (0.1-1.2) X10*3/uL Eos # (Auto) 0.1 (0.0-0.4) X10*3/uL Baso # (Auto) 0.0 (0.0-0.2) X10*3/uL Abs Immat Gran (auto) 0.08 H (0.00-0.03) X10*3/uL Absolute Neuts (auto) 4.2 (2.0-8.3) x10*3/uL Absolute Nucleated RBC 0.000 (0.0-0.012) X10*3/uL Nucleated RBC % (auto) 0.0 (0.0-0.2) /100WBC Sodium 139 (135-145) mmol/L Potassium 4.3 (3.3-5.1) mmol/L Chloride 103 (96-108) mmol/L Carbon Dioxide 32 H (22-29) mmol/L Anion Gap 8 L (12-20) BUN 14 (9-16) mg/dL Creatinine 0.80 (0.5-1.4) mg/dL Estim Creat Clear Calc 137.3 Estimated GFR > 60 Random Glucose 183 H D (60-115) mg/dL Calcium 9.3 (8.4-10.2) mg/dL Total Bilirubin < 0.2 (0.0-1.0) mg/dL Direct Bilirubin < 0.2 (0.0-0.5) mg/dL AST 13 (5-37) U/L ALT 12 (0-40) U/L Alkaline Phosphatase 111 (39-117) U/L B-Natriuretic Peptide < 10 (<100) pg/mL Total Protein 6.2 L (6.5-8.0) g/dL Albumin 3.4 L (3.5-5.0) g/dL ECG Data Attestation EKG: I personally reviewed and interpreted this ECG as follows: ECG interpretation date: 05/27/21 ECG interpretation time: 13:28 Interpretation: Rate: 61 Rhythm: NSR Mittie: normal Normal P waves. Normal GI. RBBB ST T wave : no SHIVAM, normal qTC: normal prior studies: normal The study has been interpreted contemporaneously by me. . Discharge Plan Discharge Clinical Impression: Lower extremity edema Patient Disposition: Home, Self-Care Instructions: Leg Edema (ED) Additional Instructions: return to ED for any worsening symptoms or concerns wear compression stockings elevate legs Prescriptions: New furosemide [Lasix] 20 mg tablet 20 mg PO DAILY 4 Days Qty: 4 0RF Rx Instructions: start on 05/28 No Action doxycycline monohydrate 100 mg capsule 100 mg PO BID 10 Days Qty: 20 0RF Label Comments: 10 DAY SUPPLY cephalexin 500 mg capsule 500 mg PO Q12H 10 Days Qty: 20 0RF Label Comments: 10 DAY SUPPLY clonazepam 1 mg tablet 1 tab PO BID PRN (Reason: anxiety) 0RF metformin 850 mg tablet 1 tab PO BID 0RF enalapril-hydrochlorothiazide 10-25 mg tablet 1 tab PO DAILY 0RF pantoprazole 40 mg tablet,delayed release (DR/EC) 1 tab PO DAILY 0RF simvastatin 20 mg tablet 1 tab PO BEDTIME 0RF ergocalciferol (vitamin D2) 1,250 mcg (50,000 unit) capsule 1 cap PO QWEEK 0RF albuterol sulfate 90 mcg/actuation HFA aerosol inhaler 2 puff PO Q4H PRN (Reason: Shortness Of Breath) 0RF nicotine (polacrilex) 4 mg lozenge 4 mg PO Q4-6H PRN (Reason: Smoking Cessation) 0RF furosemide 20 mg tablet 20 mg PO DAILY 7 Days Qty: 7 0RF azithromycin 250 mg tablet See Rx Instructions .ROUTE .COMPLEX Qty: 6 0RF Rx Instructions: take 500 mg today (day 1), then 250 mg for 4 days (days 2-5) cyclobenzaprine 10 mg tablet 10 mg PO TID PRN (Reason: muscle spasm) Qty: 30 0RF cephalexin 500 mg capsule 500 mg PO QID 10 Days Qty: 40 0RF doxycycline hyclate 100 mg tablet 100 mg PO BID Qty: 20 0RF Referrals: [facility] [Primary Care Provider] - 5 days
--- NOTE | 2021-05-27 13:17 | ECG_ITS ---
Test Reason : leg swelling Blood Pressure : / mmHG Vent. Rate : 061 BPM Atrial Rate : 061 BPM P-R Int : 150 ms QRS Dur : 144 ms QT Int : 448 ms P-R-T Axes : 049 008 017 degrees QTc Int : 450 ms Normal sinus rhythm Right bundle branch block Abnormal ECG When compared with ECG of 19-JAN-2013 16:10, Right bundle branch block is now Present Referred By: Tyesha Redd Electronically Signed By:BRITTANY PEREA
[2021-05-27 13:38] LABS: MANUAL DIFF FLAG NO
[2021-05-27 13:40] LABS: Basophils Percent Auto 0.3 % (0-2); Eosinophils Absolute Auto 0.1 X10*3/uL (0.0-0.4); Hematocrit 35.4 % (42.0-52.0); Hemoglobin 10.8 g/dl (14.0-18.0); Imm Gran Abs Auto 0.08 X10*3/uL (0.00-0.03); Imm Gran Pct Auto 1.2 % (0.0-0.4); Lymphocytes Absolute Auto 1.9 X10*3/uL (1.2-4.9); Lymphocytes Percent Auto 27.2 % (20-40); Mean Corpuscular HGB Conc 30.5 g/dl (31.0-36.0); Mean Corpuscular Hemoglobin 29.4 pg (27.0-33.0); Mean Corpuscular Volume 96.5 fL (80.0-98.0); Mean Platelet Volume 10.1 fL (9.4-12.4); Monocytes Absolute Auto 0.5 X10*3/uL (0.1-1.2); Monocytes Percent Auto 7.8 % (2-11); Neutrophils Absolute Auto 4.2 x10*3/uL (2.0-8.3); Neutrophils Percent Auto 61.5 % (45-73); Platelet Count 209 X10*3/uL (160-400); Red Blood Count 3.67 X10*6/uL (4.60-5.80); Red Cell Distribution Width 14.6 % (11.0-16.0); White Blood Count 6.8 X10*3/uL (4.8-10.8)
[2021-05-27 13:59] LABS: Alanine Aminotransferase 12 U/L (0-40); Albumin Level 3.4 g/dL (3.5-5.0); Alkaline Phosphatase 111 U/L (39-117); Anion Gap 8 (12-20); Aspartate Amino Transferase 13 U/L (5-37); Bilirubin Direct < 0.2 mg/dL (0.0-0.5); Bilirubin Total < 0.2 mg/dL (0.0-1.0); Blood Urea Nitrogen 14 mg/dL (9-16); Calcium 9.3 mg/dL (8.4-10.2); Carbon Dioxide 32 mmol/L (22-29); Chloride 103 mmol/L (96-108); Creatinine Clr Calc Pharmacy 137.3; Estimated Glomerular Filt Rate > 60; Glucose Random 183 mg/dL (60-115); Potassium 4.3 mmol/L (3.3-5.1); Sodium 139 mmol/L (135-145); Total Protein 6.2 g/dL (6.5-8.0)
[2021-05-27 14:04] LABS: B Type Natriuretic Peptide < 10 pg/mL (<100)
== END 2021-05-27 15:20 | disposition home or self-care (01) ==
PROVIDERS: Emergency Provider Emergency Medicine
DX: R60.0 Localized edema (principal); R06.02 Shortness of breath; M79.605 Pain in left leg; Z79.899 Other long term (current) drug therapy
CPT/HCPCS: 36415; 71045; 80048; 80076; 83880; 85025; 93005; 93970; 99283; 99284

== ENCOUNTER 2021-06-02 17:34 | Emergency (ER) | payer OTHER, SELFPAY ==
[2021-06-02 17:46] VITALS: BP 121/70; PULSE 69; RESP 18; TEMP 36.6; O2SAT 96; BMI 35.9
[2021-06-02 18:13] LABS: MANUAL DIFF FLAG NO
[2021-06-02 18:15] LABS: Basophils Percent Auto 0.4 % (0-2); Eosinophils Absolute Auto 0.2 X10*3/uL (0.0-0.4); Eosinophils Percent Auto 3.7 % (0-4); Hematocrit 35.2 % (42.0-52.0); Hemoglobin 10.9 g/dl (14.0-18.0); Imm Gran Abs Auto 0.04 X10*3/uL (0.00-0.03); Imm Gran Pct Auto 0.8 % (0.0-0.4); Lymphocytes Absolute Auto 1.6 X10*3/uL (1.2-4.9); Lymphocytes Percent Auto 32.6 % (20-40); Mean Corpuscular Hemoglobin 29.3 pg (27.0-33.0); Mean Corpuscular Volume 94.6 fL (80.0-98.0); Monocytes Absolute Auto 0.8 X10*3/uL (0.1-1.2); Neutrophils Absolute Auto 2.2 x10*3/uL (2.0-8.3); Neutrophils Percent Auto 45.5 % (45-73); Platelet Count 182 X10*3/uL (160-400); Red Blood Count 3.72 X10*6/uL (4.60-5.80); Red Cell Distribution Width 14.6 % (11.0-16.0); White Blood Count 4.9 X10*3/uL (4.8-10.8)
[2021-06-02 18:35] LABS: Anion Gap 9 (12-20); Blood Urea Nitrogen 10 mg/dL (9-16); Calcium 9.2 mg/dL (8.4-10.2); Carbon Dioxide 33 mmol/L (22-29); Chloride 101 mmol/L (96-108); Creatinine Clr Calc Pharmacy 137.3; Estimated Glomerular Filt Rate > 60; Glucose Random 139 mg/dL (60-115); Potassium 4.2 mmol/L (3.3-5.1); Sodium 139 mmol/L (135-145)
[2021-06-02 21:19] VITALS: BP 133/65; PULSE 61; RESP 16; TEMP 36.8; O2SAT 97
--- NOTE | 2021-06-02 21:19 | ED_ITS ---
HPI - Extremity Problem General Chief complaint: Extremity Problem Stated complaint: legs swelling Time Seen by Provider: 06/02/21 20:59 Source: patient Mode of arrival: ambulatory History of Present Illness HPI Narrative: 61-year-old male with history diabetes and presents with left lower leg pain and was evaluated here 3 days ago and had a negative ultrasound for DVT at that time was started on Lasix and instructed to use compression stockings. Patient again denies any fevers, chills and states that the pain persists, but he does have an appointment with his primary care provider tomorrow morning. Related Data Home Medications Medication Instructions Recorded Confirmed albuterol sulfate 90 mcg/actuation 2 puff PO Q4H PRN 11/07/20 11/07/20 aerosol inhaler clonazepam 1 mg tablet 1 tab PO BID PRN 11/07/20 11/07/20 enalapril 10 1 tab PO DAILY 11/07/20 11/07/20 mg-hydrochlorothiazide 25 mg tablet ergocalciferol (vitamin D2) 1,250 1 cap PO QWEEK 11/07/20 11/07/20 mcg (50,000 unit) capsule metformin 850 mg tablet 1 tab PO BID 11/07/20 11/07/20 nicotine (polacrilex) 4 mg buccal 4 mg PO Q4-6H PRN 11/07/20 11/07/20 lozenge pantoprazole 40 mg tablet,delayed 1 tab PO DAILY 11/07/20 11/07/20 release simvastatin 20 mg tablet 1 tab PO BEDTIME 11/07/20 11/07/20 Previous Rx's Medication Instructions Recorded cyclobenzaprine 10 mg tablet 10 mg PO TID PRN #30 tab 04/27/20 cephalexin 500 mg capsule 500 mg PO Q12H 10 Days #20 cap 10/29/20 doxycycline monohydrate 100 mg 100 mg PO BID 10 Days #20 cap 10/29/20 capsule azithromycin 250 mg tablet See Rx Instructions .ROUTE 11/07/20 .COMPLEX #6 tab furosemide 20 mg tablet 20 mg PO DAILY 7 Days #7 tab 11/07/20 cephalexin 500 mg capsule 500 mg PO QID 10 Days #40 cap 03/03/21 doxycycline hyclate 100 mg tablet 100 mg PO BID #20 tab 03/03/21 furosemide 20 mg tablet (Lasix) 20 mg PO DAILY 4 Days #4 tab 05/27/21 ibuprofen 400 mg tablet 400 mg PO Q6H PRN 5 Days #20 tab 06/02/21 Allergies Allergy/AdvReac Type Severity Reaction Status Date / Time morphine [MORPHINE] Allergy Severe RASH Verified 06/02/21 17:50 Review of Systems Review of Systems: Pertinent positives and negatives as stated in HPI 10 point review systems otherwise negative. [facility] Past Medical History Source: nursing notes reviewed Medical History FHx: total knee replacement Sleep apnea Surgical History History of ankle surgery History of hip surgery History of surgery on arm Social History Social History Alcohol intake: never Patient Tobacco Use Status: Current everyday Tobacco user Smoked in Last 30 Days: Yes Use of substances other than those prescribed or required for medical reasons: No Physical Exam Vital Signs: Vital Signs: Last Vital Signs Temp 97.8 F 06/02/21 17:46 Pulse 69 06/02/21 17:46 Resp 18 06/02/21 17:46 BP 121/70 06/02/21 17:46 Pulse Ox 96 06/02/21 17:46 BMI result Body Mass Index 35.9 VITAL SIGNS: Reviewed. GENERAL: Well developed, well nourished, in no acute distress. HEAD: Normocephalic/atraumatic EYES: PERRLA, EOMI OROPHARYNX: no oral lesions noted, posterior pharynx clear LUNGS: Normal breath sounds. No adventitious sounds or accessory muscle use. SpO2<96> CARDIOVASCULAR: Regular rate and rhythm without noted murmurs, no JVD or lower extremity edema. ABDOMEN: Soft, non-tender, non-distended with bowel sounds. MUSCULOSKELETAL: No tenderness, deformities, or effusions noted on gross inspection. EXTREMITIES: No cyanosis, clubbing or edema; BILATERAL LOWER LEGS: Patient has chronic venous stasis as demonstrated by skin thickening, shiny appearance and brown discoloration and also has extensive venous varicosities and noted palpat ed cord at the medial aspect of the left proximal lower leg. SKIN: Inspection of the skin reveals no rashes NEUROLOGIC: Alert and oriented x 4. Strength and sensation to light touch were grossly intact x 4. Course Course Course Narrative: 61-year-old male with history and clinical presentation consistent with thrombophlebitis, no evidence to suggest cellulitis. Counseled patient on the need for compression stockings at all times, as well as using NSAIDs for control of pain. In addition, patient was encouraged to discuss the possibility of a referral for venous surgery if indicated. MDM - Extremity (Nontraumatic) Lab Data Result diagrams: 06/02/21 18:10 06/02/21 18:10 Labs: Lab Results 06/02/21 06/02/21 Range/Units 18:10 18:10 WBC 4.9 (4.8-10.8) X10*3/uL RBC 3.72 L (4.60-5.80) X10*6/uL Hgb 10.9 L (14.0-18.0) g/dl Hct 35.2 L (42.0-52.0) % MCV 94.6 (80.0-98.0) fL MCH 29.3 (27.0-33.0) pg MCHC 31.0 (31.0-36.0) g/dl RDW 14.6 (11.0-16.0) % Plt Count 182 (160-400) X10*3/uL MPV 10.0 (9.4-12.4) fL Immature Gran % (Auto) 0.8 H (0.0-0.4) % Neut % (Auto) 45.5 (45-73) % Lymph % (Auto) 32.6 (20-40) % [place] % (Auto) 17.0 H (2-11) % Eos % (Auto) 3.7 (0-4) % Baso % (Auto) 0.4 (0-2) % Lymph # (Auto) 1.6 (1.2-4.9) X10*3/uL [place] # (Auto) 0.8 (0.1-1.2) X10*3/uL Eos # (Auto) 0.2 (0.0-0.4) X10*3/uL Baso # (Auto) 0.0 (0.0-0.2) X10*3/uL Abs Immat Gran (auto) 0.04 H (0.00-0.03) X10*3/uL Absolute Neuts (auto) 2.2 (2.0-8.3) x10*3/uL Absolute Nucleated RBC 0.000 (0.0-0.012) X10*3/uL Nucleated RBC % (auto) 0.0 (0.0-0.2) /100WBC Sodium 139 (135-145) mmol/L Potassium 4.2 (3.3-5.1) mmol/L Chloride 101 (96-108) mmol/L Carbon Dioxide 33 H (22-29) mmol/L Anion Gap 9 L (12-20) BUN 10 (9-16) mg/dL Creatinine 0.80 (0.5-1.4) mg/dL Estim Creat Clear Calc 137.3 Estimated GFR > 60 Random Glucose 139 H (60-115) mg/dL Calcium 9.2 (8.4-10.2) mg/dL Discharge Plan Discharge Clinical Impression: Superficial thrombophlebitis Patient Disposition: Home, Self-Care Instructions: Superficial Thrombophlebitis (ED), Venous Insufficiency (DC) Additional Instructions: 1. Wear compression stockings at all times unless showering, keep extremities elevated as much as possible. 2. Recommend ibuprofen, a prescription has been provided to you. 3. Keep your scheduled appointment tomorrow with your primary care provider and discuss the possibility surgical intervention for your varicose veins. Return to the ER for worsening symptoms. Prescriptions: New ibuprofen 400 mg tablet 400 mg PO Q6H PRN (Reason: pain) 5 Days Qty: 20 0RF No Action doxycycline monohydrate 100 mg capsule 100 mg PO BID 10 Days Qty: 20 0RF Label Comments: 10 DAY SUPPLY cephalexin 500 mg capsule 500 mg PO Q12H 10 Days Qty: 20 0RF Label Comments: 10 DAY SUPPLY clonazepam 1 mg tablet 1 tab PO BID PRN (Reason: anxiety) 0RF metformin 850 mg tablet 1 tab PO BID 0RF enalapril-hydrochlorothiazide 10-25 mg tablet 1 tab PO DAILY 0RF pantoprazole 40 mg tablet,delayed release (DR/EC) 1 tab PO DAILY 0RF simvastatin 20 mg tablet 1 tab PO BEDTIME 0RF ergocalciferol (vitamin D2) 1,250 mcg (50,000 unit) capsule 1 cap PO QWEEK 0RF albuterol sulfate 90 mcg/actuation HFA aerosol inhaler 2 puff PO Q4H PRN (Reason: Shortness Of Breath) 0RF nicotine (polacrilex) 4 mg lozenge 4 mg PO Q4-6H PRN (Reason: Smoking Cessation) 0RF furosemide 20 mg tablet 20 mg PO DAILY 7 Days Qty: 7 0RF azithromycin 250 mg tablet See Rx Instructions .ROUTE .COMPLEX Qty: 6 0RF Rx Instructions: take 500 mg today (day 1), then 250 mg for 4 days (days 2-5) cyclobenzaprine 10 mg tablet 10 mg PO TID PRN (Reason: muscle spasm) Qty: 30 0RF furosemide [Lasix] 20 mg tablet 20 mg PO DAILY 4 Days Qty: 4 0RF Rx Instructions: start on 05/28 cephalexin 500 mg capsule 500 mg PO QID 10 Days Qty: 40 0RF doxycycline hyclate 100 mg tablet 100 mg PO BID Qty: 20 0RF Referrals: [facility] [Primary Care Provider] - 2 days
--- NOTE | 2021-06-02 21:24 | PC.NURSE ---
pt a&ox3, vss, provider in room, seen at [facility] recently for same - thrombophlebitis, provider emphasized importance of wearing compression socks/elevating legs/following up w PCP for referral.
[2021-06-02] MEDS: Ibuprofen 400 MG TABLET PO (21:30)
== END 2021-06-02 21:41 | disposition home or self-care (01) ==
LOC: HO.ED 21:30
PROVIDERS: Emergency Provider Student in an Organized Health Care Education/Training Program
DX: I80.02 Phlebitis and thrombophlebitis of superficial vessels of left lower extremity (principal); M79.662 Pain in left lower leg; E11.9 Type 2 diabetes mellitus without complications; F17.200 Nicotine dependence, unspecified, uncomplicated
CPT/HCPCS: 36415; 80048; 85025; 99283; 99284

== ENCOUNTER 2021-09-16 15:11 | Emergency (ER) | payer OTHER, SELFPAY ==
[2021-09-16 15:14] VITALS: PULSE 81; RESP 20; TEMP 36.9; O2SAT 94; BMI 37.8
[2021-09-16 23:02] VITALS: BP 140/80; PULSE 76; RESP 16; TEMP 36.5; O2SAT 98
[2021-09-17] VITALS: BP 136/85; PULSE 68; RESP 16; TEMP 36.5; O2SAT 98
[2021-09-17 02:09] VITALS: BP 157/77; PULSE 68; RESP 16; TEMP 36.5; O2SAT 96
[2021-09-17 04:00] VITALS: BP 147/74; PULSE 77; RESP 16; TEMP 36.1; O2SAT 97
--- NOTE | 2021-09-17 04:36 | ED.GENADULT ---
HPI - General Adult General Chief complaint: General Medical Stated complaint: feet swollen Time Seen by Provider: 09/17/21 04:33 Source: patient Mode of arrival: ambulatory Limitations: no limitations History of Present Illness HPI narrative: Patient comes to the emergency room complaining of lower extremity pain, erythema, worsening swelling. Patient states that he was recently treated outpatient for cellulitis of bilateral lower extremities. Patient denies 0 chills, no chest pain or shortness of breath. No orthopnea Related Data Home Medications Medication Instructions Recorded Confirmed albuterol sulfate 90 mcg/actuation 2 puff PO Q4H PRN Shortness Of 11/07/20 11/07/20 aerosol inhaler Breath clonazepam 1 mg tablet 1 tab PO BID PRN anxiety 11/07/20 11/07/20 enalapril 10 1 tab PO DAILY 11/07/20 11/07/20 mg-hydrochlorothiazide 25 mg tablet ergocalciferol (vitamin D2) 1,250 1 cap PO QWEEK 11/07/20 11/07/20 mcg (50,000 unit) capsule metformin 850 mg tablet 1 tab PO BID 11/07/20 11/07/20 nicotine (polacrilex) 4 mg buccal 4 mg PO Q4-6H PRN Smoking Cessation 11/07/20 11/07/20 lozenge pantoprazole 40 mg tablet,delayed 1 tab PO DAILY 11/07/20 11/07/20 release simvastatin 20 mg tablet 1 tab PO BEDTIME 11/07/20 11/07/20 Previous Rx's Medication Instructions Recorded cyclobenzaprine 10 mg tablet 10 mg PO TID PRN muscle spasm #30 04/27/20 tabs cephalexin 500 mg capsule 500 mg PO Q12H 10 days #20 caps 10/29/20 doxycycline monohydrate 100 mg 100 mg PO BID 10 days #20 caps 10/29/20 capsule azithromycin 250 mg tablet See Rx Instructions PO .COMPLEX #6 11/07/20 tabs furosemide 20 mg tablet 20 mg PO DAILY 7 days #7 tabs 11/07/20 cephalexin 500 mg capsule 500 mg PO QID 10 days #40 caps 03/03/21 doxycycline hyclate 100 mg tablet 100 mg PO BID #20 tabs 03/03/21 furosemide 20 mg tablet (Lasix) 20 mg PO DAILY 4 days #4 tabs 05/27/21 ibuprofen 400 mg tablet 400 mg PO Q6H PRN pain 5 days #20 06/02/21 tabs cephalexin 500 mg capsule 500 mg PO BID #14 caps 09/17/21 doxycycline hyclate 100 mg capsule 100 mg PO BID #14 caps 09/17/21 furosemide 40 mg tablet (Lasix) 40 mg PO DAILY #5 tabs 09/17/21 Allergies Allergy/AdvReac Type Severity Reaction Status Date / Time morphine [MORPHINE] Allergy Severe RASH Verified 09/16/21 15:13 Review of Systems Review of Systems: Constitutional : No Weight loss, No Fever, No Chills, No Night Sweats, No Fatigue, No Malaise ENT/Mouth : No Hearing loss, No Ear Pain, No Nasal Congestion, No Sinus Pain, No Hoarseness, No sore throat, No Rhinorrhea, No Swallowing Difficulty Eyes: No Eye Pain, No Swelling, No Redness, No Foreign Body, No Discharge, No Vision Changes Cardiovascular : No Chest Pain, No SOB, No Dyspnea on Exertion, No Orthopnea, No Edema, No Palpitations Respiratory : No Cough, No Sputum, No Wheezing, No Smoke Exposure, No Dyspnea Gastrointestinal : No Nausea, No Vomiting, No Diarrhea, No Constipation, No abdominal Pain, No Hematochezia, No Melena Genitourinary : no irregular bleeding, No Dysuria, No Urinary Frequency, No Hematuria, No Urinary Incontinence, No Urgency, No Flank Pain, No Urinary Flow Changes, No Hesitancy Musculoskeletal : No joint pain, No Myalgias, No Joint Swelling Skin : Lower extremities erythematous, bilateral lower extremity swelling, worsening pain Neuro : No Weakness, No Numbness, No Paresthesias, No Loss of Consciousness, No Dizziness, No Headache Psych : No Anxiety/Panic, No Depression, No SI/HI/AH/VH, No Social Issues, Heme/Lymph: No Bruising, No Bleeding,No Lymphadenopathy Endocrine : No Polyuria, No Polydipsia, No Temperature Intolerance PMFSH Past Medical History Medical History FHx: total knee replacement Sleep apnea Surgical History History of ankle surgery History of hip surgery History of surgery on arm Social History Social History Alcohol intake: never Patient Tobacco Use Status: Current everyday Tobacco user Advance Directives: No Advance Directives Information Provided: No Physical Exam ED Vital Signs: Vital Signs - 24 hr 09/16/21 15:14 09/16/21 23:02 09/17/21 00:00 Temperature 98.5 F 97.7 F 97.7 F Pulse Rate 81 76 68 Respiratory Rate 20 16 16 Blood Pressure 140/80 H 136/85 Pulse Oximetry 94 98 98 Oxygen Delivery Method Room Air Room Air Room Air 09/17/21 02:09 Temperature 97.7 F Pulse Rate 68 Respiratory Rate 16 Blood Pressure 157/77 H Pulse Oximetry 96 Oxygen Delivery Method Room Air BMI result Body Mass Index 37.8 Const Other: Appearance: Alert. Oriented X3. No acute distress. Eyes: Pupils equal, round and reactive to light. ENT: Pharynx normal. Neck: Normal inspection. Neck supple. No lymph nodes noted. No crepitus CVS: Normal heart rate and rhythm. Pulses normal. Normal S1 and S2 Respiratory: No respiratory distress. Breath sounds normal. No Wheezing. No rales Abdomen: Soft and nontender. No rigidity. No distention. Skin: Skin warm and dry. Normal skin color. Normal skin turgor. Extremities: Bilateral lower extremity pitting edema +to, cellulitis/erythema in both lower extremities, increased warmth to touch Neuro: Oriented X 3. No motor deficit. No sensory deficit. Moving all extremities. No slurred speech. CN 2 through 12 grossly intact Psych: calm, cooperative, normal affect Course Course Course Narrative: Patient's nurses were able to insert an IV. However, nurses were unable to obtain any labs. Patient upset because he does not want to be poked anymore. I offered to the patient to insert an EJ or an IJ. Patient declined any further workup. We do not have any labs. Patient will get p.o. antibiotics and Lasix. Discharge Plan Discharge Clinical Impression: Cellulitis Patient Disposition: Home, Self-Care Instructions: Cellulitis (ED) Additional Instructions: Please follow-up with your primary care physician tomorrow. If you have any worsening or new symptoms, please return to the emergency room or call 911 Prescriptions: New furosemide [Lasix] 40 mg tablet 40 mg PO DAILY Qty: 5 0RF doxycycline hyclate 100 mg capsule 100 mg PO BID Qty: 14 0RF cephalexin 500 mg capsule 500 mg PO BID Qty: 14 0RF No Action doxycycline monohydrate 100 mg capsule 100 mg PO BID 10 Days Qty: 20 0RF Label Comments: 10 DAY SUPPLY cephalexin 500 mg capsule 500 mg PO Q12H 10 Days Qty: 20 0RF Label Comments: 10 DAY SUPPLY clonazepam 1 mg tablet 1 tab PO BID PRN (Reason: anxiety) metformin 850 mg tablet 1 tab PO BID enalapril-hydrochlorothiazide 10-25 mg tablet 1 tab PO DAILY pantoprazole 40 mg tablet,delayed release (DR/EC) 1 tab PO DAILY simvastatin 20 mg tablet 1 tab PO BEDTIME ergocalciferol (vitamin D2) 1,250 mcg (50,000 unit) capsule 1 cap PO QWEEK albuterol sulfate 90 mcg/actuation HFA aerosol inhaler 2 puff PO Q4H PRN (Reason: Shortness Of Breath) nicotine (polacrilex) 4 mg lozenge 4 mg PO Q4-6H PRN (Reason: Smoking Cessation) furosemide 20 mg tablet 20 mg PO DAILY 7 Days Qty: 7 0RF azithromycin 250 mg tablet See Rx Instructions .ROUTE .COMPLEX Qty: 6 0RF Rx Instructions: take 500 mg today (day 1), then 250 mg for 4 days (days 2-5) cyclobenzaprine 10 mg tablet 10 mg PO TID PRN (Reason: muscle spasm) Qty: 30 0RF furosemide [Lasix] 20 mg tablet 20 mg PO DAILY 4 Days Qty: 4 0RF Rx Instructions: start on 05/28 cephalexin 500 mg capsule 500 mg PO QID 10 Days Qty: 40 0RF doxycycline hyclate 100 mg tablet 100 mg PO BID Qty: 20 0RF ibuprofen 400 mg tablet 400 mg PO Q6H PRN (Reason: pain) 5 Days Qty: 20 0RF Interventions: LWBS Worksheet Last Done: 09/16/21 20:23
[2021-09-17] MEDS: Furosemide 20 MG TABLET 40 MG PO (05:09)
[2021-09-17] MEDS: cephALEXin 500 MG CAPSULE PO (05:10)
== END 2021-09-17 05:22 | disposition home or self-care (01) ==
PROVIDERS: Emergency Provider Emergency Medicine
DX: L03.116 Cellulitis of left lower limb (principal); L03.115 Cellulitis of right lower limb; M79.662 Pain in left lower leg; M79.661 Pain in right lower leg; F17.200 Nicotine dependence, unspecified, uncomplicated
CPT/HCPCS: 99283; 99284

== ENCOUNTER 2021-09-26 21:15 | Emergency (ER) | payer OTHER, SELFPAY ==
[2021-09-27 00:21] VITALS: BP 118/56; PULSE 77; RESP 18; TEMP 36.8; O2SAT 94; BMI 29.5
--- NOTE | 2021-09-27 01:41 | ED_ITS ---
HPI - Extremity Problem General Chief complaint: Extremity Problem <JEN Hidalgo Last Filed: 09/27/21 02:40> Stated complaint: Sciatica and bilateral feet swelling <JEN Hidalgo Last Filed: 09/27/21 02:40> Time Seen by Provider: 09/26/21 23:50 <JEN Hidalgo Last Filed: 09/27/21 02:40> Source: patient <JEN Hidalgo Last Filed: 09/27/21 02:40> Mode of arrival: ambulatory <JEN Hidalgo Last Filed: 09/27/21 02:40> Limitations: no limitations <JEN Hidalgo Last Filed: 09/27/21 02:40> History of Present Illness HPI Narrative: 61-year-old male with past medical history of Sciatica and recent cellulitis presents today with complaints of swelling in both his feet. He was recently seen at this facility for cellulitis and edema in b/l lower extremities. He states that he finished taking his antibiotics and lasix pills but has seen no relief. He tells me that he went to his primary care provider three days ago and they told him to take pain reliever, and did not prescribe him any more lasix. Patient denies any headache, fever, chills, nausea, vomiting, chest pain, shortness of breath. <JEN Hidalgo Last Filed: 09/27/21 02:40> MD Complaint: extremity pain and extremity swelling <JEN Hidalgo Last Filed: 09/27/21 02:40> Related Data Home medications: Home Medications Medication Instructions Recorded Confirmed albuterol sulfate 90 mcg/actuation 2 puff PO Q4H PRN Shortness Of 11/07/20 11/07/20 aerosol inhaler Breath clonazepam 1 mg tablet 1 tab PO BID PRN anxiety 11/07/20 11/07/20 enalapril 10 1 tab PO DAILY 11/07/20 11/07/20 mg-hydrochlorothiazide 25 mg tablet ergocalciferol (vitamin D2) 1,250 1 cap PO QWEEK 11/07/20 11/07/20 mcg (50,000 unit) capsule metformin 850 mg tablet 1 tab PO BID 11/07/20 11/07/20 nicotine (polacrilex) 4 mg buccal 4 mg PO Q4-6H PRN Smoking Cessation 11/07/20 11/07/20 lozenge pantoprazole 40 mg tablet,delayed 1 tab PO DAILY 11/07/20 11/07/20 release simvastatin 20 mg tablet 1 tab PO BEDTIME 11/07/20 11/07/20 Previous Rx's Medication Instructions Recorded cyclobenzaprine 10 mg tablet 10 mg PO TID PRN muscle spasm #30 04/27/20 tabs cephalexin 500 mg capsule 500 mg PO Q12H 10 days #20 caps 10/29/20 doxycycline monohydrate 100 mg 100 mg PO BID 10 days #20 caps 10/29/20 capsule azithromycin 250 mg tablet See Rx Instructions PO .COMPLEX #6 11/07/20 tabs furosemide 20 mg tablet 20 mg PO DAILY 7 days #7 tabs 11/07/20 cephalexin 500 mg capsule 500 mg PO QID 10 days #40 caps 03/03/21 doxycycline hyclate 100 mg tablet 100 mg PO BID #20 tabs 03/03/21 furosemide 20 mg tablet (Lasix) 20 mg PO DAILY 4 days #4 tabs 05/27/21 ibuprofen 400 mg tablet 400 mg PO Q6H PRN pain 5 days #20 06/02/21 tabs cephalexin 500 mg capsule 500 mg PO BID #14 caps 09/17/21 doxycycline hyclate 100 mg capsule 100 mg PO BID #14 caps 09/17/21 furosemide 40 mg tablet (Lasix) 40 mg PO DAILY #5 tabs 09/17/21 <JEN Hidalgo - Last Filed: 09/27/21 02:40> Allergies/Adverse reactions: Allergies Allergy/AdvReac Type Severity Reaction Status Date / Time morphine [MORPHINE] Allergy Severe RASH Verified 09/27/21 00:21 <JEN Hidalgo - Last Filed: 09/27/21 02:40> Review of Systems Review of Systems: Constitutional : No Weight loss, No Fever, No Chills, No Fatigue, No Malaise ENT/Mouth : No sore throat, No Rhinorrhea Eyes: No Eye Pain, No Swelling, No Redness Cardiovascular : No Chest Pain, No SOB, No Dyspnea on Exertion, No Orthopnea, No Edema, No Palpitations Respiratory : No Cough, No Sputum, No Wheezing Gastrointestinal : No Nausea, No Vomiting, No Diarrhea, No Constipation, No abdominal Pain, No Hematochezia, No Melena Genitourinary : No Dysuria, No Urinary Frequency, No Hematuria, Musculoskeletal : +pain in b/l feet, +b/l lower leg swelling, No joint pain, No Myalgias, No Joint Swelling Skin : No Skin Lesions, No rash Neuro : No Weakness, No Numbness, No Dizziness, No Headache Psych : No Anxiety/Panic, No Depression Heme/Lymph: No Bruising, No Bleeding,No Lymphadenopathy Endocrine : No Polyuria, No Polydipsia All other systems reviewed and are negative <JEN Hidalgo - Last Filed: 09/27/21 02:40> Yes all other systems are reviewed and are negative <JEN Hidalgo - Last Filed: 09/27/21 02:40> [facility] Past Medical History Attestation statement: The following information was validated with the patient. <JEN Hidalgo - Last Filed: 09/27/21 02:40> Source: old records reviewed and nursing notes reviewed <JEN Hidalgo - Last Filed: 09/27/21 02:40> Medical History: Medical History FHx: total knee replacement Sleep apnea <JEN Hidalgo - Last Filed: 09/27/21 02:40> Surgical History: Surgical History History of ankle surgery History of hip surgery History of surgery on arm <JEN Hidalgo - Last Filed: 09/27/21 02:40> Social History Social History: Social History Alcohol intake: never Patient Tobacco Use Status: Current everyday Tobacco user Advance Directives: No <JEN Hidalgo - Last Filed: 09/27/21 02:40> Physical Exam 2 Vital Signs: Vital Signs: Last Vital Signs Temp 98.3 F 09/27/21 00:21 Pulse 77 09/27/21 00:21 Resp 18 09/27/21 00:21 BP 118/56 L 09/27/21 00:21 Pulse Ox 94 09/27/21 00:21 O2 Del Method 09/27/21 00:21 BMI result Body Mass Index 29.5 VSS <JEN Hidalgo - Last Filed: 09/27/21 02:40> Vital Signs: Last Vital Signs Temp 98.3 F 09/27/21 00:21 Pulse 77 09/27/21 00:21 Resp 18 09/27/21 00:21 BP 118/56 L 09/27/21 00:21 Pulse Ox 94 09/27/21 00:21 O2 Del Method 09/27/21 00:21 BMI result Body Mass Index 29.5 <Valerie Rodriguez MD - Last Filed: 09/27/21 06:34> Appearance: Alert.? Oriented X3.? No acute distress.? Head: Normocephalic, atraumatic, no step-offs or deformities Eyes: Pupils equal, round and reactive to light.? ENT: Pharynx normal.? Neck: Normal inspection.? Neck supple.? CVS: Normal heart rate and rhythm.? Pulses normal.? Respiratory: No respiratory distress.? Breath sounds normal.? Abdomen: Soft and nontender.? Skin: Skin warm and dry.? Normal skin color.? Normal skin turgor.? Extremities: + Erythema from knee to foot with some overlying warmth, +b/l 2+ non-pitting lower extremity edema from knee to foot.? No calf ttp. 5/5 strength to bilateral upper and lower extremities Back: No midline tenderness, no C-spine tenderness, full range of motion, no CVA tenderness bilaterally Neuro: Oriented X 3.? No motor deficit.? No sensory deficit. CN 2-12 intact <JEN Hidalgo - Last Filed: 09/27/21 02:40> Course Reevaluation(s) Reevaluation #1: laboratory studies pending. Sign-out given to Dr. Rodriguez <JEN Hidalgo - Last Filed: 09/27/21 02:40> Time: 02:39 <JEN Hidalgo - Last Filed: 09/27/21 02:40> Reevaluation #2: I was informed by the patient's nurse that they tried getting blood several times, they were unable to do so, when they finally did, the blood hemolyzed. Patient refused to get any more blood work, patient worked out, patient eloped <Valerie Rodriguez MD - Last Filed: 09/27/21 06:34> Time: 06:34 <Valerie Rodriguez MD - Last Filed: 09/27/21 06:34> MDM - Extremity (Nontraumatic) MDM Narrative Medical decision making narrative: [id number] 61-year-old male presenting for the 2nd time this week today with bilateral nonpitting edema and swelling to lower extremities, despite Lasix in antibiotics. Patient states he saw his PCP 3 days ago and they did not continue his Lasix. Denies chest pain and shortness of breath Physical exam: +2 bilateral non-pitting edema from knee down, with erythema and slight overlying warmth. Unlikley DVT or PE. Unlikely ACS. Plan: Basic labs, BNP <JEN Hidalgo - Last Filed: 09/27/21 02:40> Lab Data Result diagrams: : 09/27/21 04:39 <JEN Hidalgo - Last Filed: 09/27/21 02:40> Labs: Lab Results 09/27/21 Range/Units 04:39 Sodium 138 (135-145) mmol/L Potassium 4.6 (3.3-5.1) mmol/L Chloride 101 (96-108) mmol/L Carbon Dioxide 28 (22-29) mmol/L Anion Gap 14 (12-20) BUN 16 D (9-16) mg/dL Creatinine 0.75 (0.5-1.4) mg/dL Estim Creat Clear Calc 115.1 Estimated GFR > 60 Random Glucose 155 H (60-115) mg/dL Calcium 8.9 (8.4-10.2) mg/dL Total Bilirubin < 0.2 (0.0-1.0) mg/dL AST 16 (5-37) U/L ALT 13 (0-40) U/L Alkaline Phosphatase 154 H D (39-117) U/L Total Protein 6.8 (6.5-8.0) g/dL Albumin 3.5 (3.5-5.0) g/dL <JEN Hidalgo - Last Filed: 09/27/21 02:40> Lab Results 09/27/21 Range/Units 04:39 Sodium 138 (135-145) mmol/L Potassium 4.6 (3.3-5.1) mmol/L Chloride 101 (96-108) mmol/L Carbon Dioxide 28 (22-29) mmol/L Anion Gap 14 (12-20) BUN 16 D (9-16) mg/dL Creatinine 0.75 (0.5-1.4) mg/dL Estim Creat Clear Calc 115.1 Estimated GFR > 60 Random Glucose 155 H (60-115) mg/dL Calcium 8.9 (8.4-10.2) mg/dL Total Bilirubin < 0.2 (0.0-1.0) mg/dL AST 16 (5-37) U/L ALT 13 (0-40) U/L Alkaline Phosphatase 154 H D (39-117) U/L Total Protein 6.8 (6.5-8.0) g/dL Albumin 3.5 (3.5-5.0) g/dL <Valerie Rodriguez MD - Last Filed: 09/27/21 06:34> Critical Care Time Critical Care Time Critical Care Time: No <JEN Hidalgo - Last Filed: 09/27/21 02:40> Discharge Plan Discharge Clinical Impression: Swelling of both lower extremities <JEN Hidalgo - Last Filed: 09/27/21 02:40> Patient Disposition: Elopement <JEN Hidalgo - Last Filed: 09/27/21 02:40> Additional Instructions: Take your medications as prescribed. If you were prescribed antibiotics today, it is important that you take your medication to their entirety, do not skip any doses, do not finish them early. Follow-up with your primary care provider this week. Return to the emergency department with new or worsening symptoms. Such as fevers, chills, chest pain, shortness of breath, nausea, vomiting, dizziness, headache, vision changes, lethargy In case of emergency call 911 <JEN Hidalgo - Last Filed: 09/27/21 02:40> Prescriptions: No Action doxycycline monohydrate 100 mg capsule 100 mg PO BID 10 Days Qty: 20 0RF Label Comments: 10 DAY SUPPLY cephalexin 500 mg capsule 500 mg PO Q12H 10 Days Qty: 20 0RF Label Comments: 10 DAY SUPPLY clonazepam 1 mg tablet 1 tab PO BID PRN (Reason: anxiety) metformin 850 mg tablet 1 tab PO BID enalapril-hydrochlorothiazide 10-25 mg tablet 1 tab PO DAILY pantoprazole 40 mg tablet,delayed release (DR/EC) 1 tab PO DAILY simvastatin 20 mg tablet 1 tab PO BEDTIME ergocalciferol (vitamin D2) 1,250 mcg (50,000 unit) capsule 1 cap PO QWEEK albuterol sulfate 90 mcg/actuation HFA aerosol inhaler 2 puff PO Q4H PRN (Reason: Shortness Of Breath) nicotine (polacrilex) 4 mg lozenge 4 mg PO Q4-6H PRN (Reason: Smoking Cessation) furosemide 20 mg tablet 20 mg PO DAILY 7 Days Qty: 7 0RF azithromycin 250 mg tablet See Rx Instructions .ROUTE .COMPLEX Qty: 6 0RF Rx Instructions: take 500 mg today (day 1), then 250 mg for 4 days (days 2-5) cyclobenzaprine 10 mg tablet 10 mg PO TID PRN (Reason: muscle spasm) Qty: 30 0RF furosemide [Lasix] 20 mg tablet 20 mg PO DAILY 4 Days Qty: 4 0RF Rx Instructions: start on 05/28 furosemide [Lasix] 40 mg tablet 40 mg PO DAILY Qty: 5 0RF doxycycline hyclate 100 mg capsule 100 mg PO BID Qty: 14 0RF cephalexin 500 mg capsule 500 mg PO BID Qty: 14 0RF cephalexin 500 mg capsule 500 mg PO QID 10 Days Qty: 40 0RF doxycycline hyclate 100 mg tablet 100 mg PO BID Qty: 20 0RF ibuprofen 400 mg tablet 400 mg PO Q6H PRN (Reason: pain) 5 Days Qty: 20 0RF <JEN Hidalgo - Last Filed: 09/27/21 02:40> Referrals: Ishmael Angeles MD [Physician] - 1 week Physician,Unknown J [Primary Care Provider] - 2 days <JEN Hidalgo - Last Filed: 09/27/21 02:40> Interventions: LWBS Worksheet Last Done: 09/27/21 00:32 <JEN Hidalgo - Last Filed: 09/27/21 02:40>
--- NOTE | 2021-09-27 03:00 | PC.NURSE ---
report received from ALINA Kohli
[2021-09-27 05:13] LABS: Alanine Aminotransferase 13 U/L (0-40); Albumin Level 3.5 g/dL (3.5-5.0); Alkaline Phosphatase 154 U/L (39-117); Anion Gap 14 (12-20); Aspartate Amino Transferase 16 U/L (5-37); Bilirubin Total < 0.2 mg/dL (0.0-1.0); Blood Urea Nitrogen 16 mg/dL (9-16); Calcium 8.9 mg/dL (8.4-10.2); Carbon Dioxide 28 mmol/L (22-29); Chloride 101 mmol/L (96-108); Creatinine Clr Calc Pharmacy 115.1; Estimated Glomerular Filt Rate > 60; Glucose Random 155 mg/dL (60-115); Potassium 4.6 mmol/L (3.3-5.1); Sodium 138 mmol/L (135-145); Total Protein 6.8 g/dL (6.5-8.0)
[2021-09-27 06:00] VITALS: BP 121/60; PULSE 88; RESP 16; TEMP 36.8; O2SAT 94
--- NOTE | 2021-09-27 07:04 | PC.NURSE ---
pt eloped Dr. Martin aware. no iv in place
== END 2021-09-27 07:04 | disposition left against medical advice (07) ==
PROVIDERS: Physician Assistant; Emergency Provider Emergency Medicine
DX: M54.41 Lumbago with sciatica, right side (principal); M54.42 Lumbago with sciatica, left side; Z79.899 Other long term (current) drug therapy
CPT/HCPCS: 36415; 80053; 83880; 99283

== ENCOUNTER 2022-01-05 10:58 | Emergency (ER) | payer OTHER, SELFPAY ==
--- NOTE | ~2022-01-05 | CT_ITS ---
EXAMINATION: CT HEAD WITHOUT CONTRAST CLINICAL INFORMATION: Fall. Head injury. COMPARISON: None. TECHNIQUE: Contiguous axial imaging was performed from the skull base to vertex without intravenous administration of contrast. Coronal and sagittal reformatted images are performed at the CT scanner. [This CT examination was performed using dose optimization techniques as appropriate, variously including the following: *Automated exposure control *Adjustment of mA and/or kV according to patient size (this includes techniques or standardized protocols for targeted exams where dose is matched to indication/reason for exam; i.e. extremities or head) *Use of iterative reconstruction technique] DLP: 774 mGy-cm. FINDINGS: There is no evidence of acute intracranial hemorrhage or territorial infarction. No abnormal mass-effect or midline shift is seen. Thomas to white matter differentiation is well preserved. Prominent extra-axial space in the left temporal fossa anteriorly may be subarachnoid cyst. The ventricles are normal in size. There is no abnormal attenuation within the brain parenchyma. There is no osseous abnormality. The mastoid air cells and visualized portions of the paranasal sinuses are well-aerated. CT/CT head/brain wo IV con IMPRESSION: No acute intracranial pathology.
--- NOTE | ~2022-01-05 | XR_ITS ---
EXAMINATION: XR HIP, LEFT CLINICAL INFORMATION: Fall with left hip pain COMPARISON: None TECHNIQUE: Two views of the left hip. AP pelvis. FINDINGS: Previous screw fixation hardware appears intact traversing the left femoral neck. No acute fracture or malalignment. There is severe osteoarthritis of the left hip joint with obliteration of the superior joint space, sclerosis, surface remodeling and osteophyte formation. Mild right hip osteoarthritis is noted. XR/XR hip LT w PEL1V IMPRESSION: No acute fracture or malalignment. Severe left hip osteoarthritis.
--- NOTE | ~2022-01-05 | CT_ITS ---
EXAMINATION: CT HIP WITHOUT CONTRAST, LEFT CLINICAL INFORMATION: Fall with pain and unsteady gait with question of fracture COMPARISON: Plain film radiographs earlier today TECHNIQUE: CT scan of the hip was performed. Additional 2-D coronal and sagittal reformatted images and axial 3-D maximum intensity projection MIP images are generated on the CT workstation. This CT examination was performed using dose optimization techniques as appropriate, variously including the following: *Automated exposure control *Adjustment of mA and/or kV according to patient size (this includes techniques or standardized protocols for targeted exams where dose is matched to indication/reason for exam; i.e. extremities or head) *Use of iterative reconstruction technique DLP: 363 mGy-cm FINDINGS: Again seen is screw fixation of the left femoral neck with 3 screws extending from just below the greater trochanter into the femoral head. The screws are intact without fracture. Severe osteoarthritis is again demonstrated with obliteration of the superior joint space, sclerosis and subchondral cyst formation. No fractures are seen. The visualized soft tissue as well as bony pelvis shows no evidence of a traumatic injury. CT/CT hip LT wo IV con IMPRESSION: 1. No evidence of an acute fracture or dislocation. 2. Severe osteoarthritis of the left hip.
--- NOTE | ~2022-01-05 | XR_ITS ---
EXAMINATION: XR SHOULDER, LEFT CLINICAL INFORMATION: Left shoulder pain after a fall COMPARISON: 10/10/2019 TECHNIQUE: AP external rotation, Grashey, scapular Y, and axillary views of the left shoulder. FINDINGS: No acute fracture or malalignment. Mild degenerative spurring along the glenoid rim and lesser tuberosity with a degenerative cyst. Mild acromioclavicular osteoarthritis. XR/XR shoulder LT min 2V IMPRESSION: No acute fracture or malalignment. Mild degenerative changes as described.
[2022-01-05 11:40] VITALS: BP 148/61; PULSE 61; RESP 20; TEMP 35.8; O2SAT 94; BMI 36.6
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
[2022-01-05] MEDS: Acetaminophen 325 MG TABLET 650 MG PO (16:19)
[2022-01-05] MEDS: Ibuprofen 600 MG TABLET PO (16:20)
== END 2022-01-05 18:53 | disposition home or self-care (01) ==
PROVIDERS: Emergency Provider Emergency Medicine
DX: M16.12 Unilateral primary osteoarthritis, left hip (principal); R51.9 Headache, unspecified; M54.2 Cervicalgia; M25.512 Pain in left shoulder; Z79.899 Other long term (current) drug therapy
CPT/HCPCS: 70450; 73030; 73502; 73700; 99284

== ENCOUNTER 2022-02-06 10:22 | Emergency (ER) | payer OTHER, SELFPAY ==
--- NOTE | ~2022-02-06 | US_ITS ---
EXAMINATION: LEFT LOWER EXTREMITY DEEP VENOUS ULTRASOUND CLINICAL INFORMATION: Pain. Edema. COMPARISON: Bilateral lower extremity DVT study May 27, 2021 TECHNIQUE: Duplex Doppler imaging with compression maneuvers were performed of the left lower extremity deep venous system. FINDINGS: The visualized common femoral, femoral and popliteal veins demonstrate normal compressibility and color flow without evidence of venous thrombosis. Visualized portions of the calf veins demonstrate normal color fill-in suggesting patency. There is no evidence of a Ruiz's cyst. US/US venous duplex LE LT IMPRESSION: No evidence of deep venous thrombosis involving the left lower extremity.
[2022-02-06 10:27] VITALS: BP 134/69; PULSE 90; RESP 18; TEMP 36.9; O2SAT 95; BMI 36.6
--- NOTE | 2022-02-06 10:46 | ED_ITS ---
HPI - Extremity Problem General Chief complaint: Extremity Problem Stated complaint: l leg pain Time Seen by Provider: 02/06/22 10:40 Source: patient Mode of arrival: ambulatory Limitations: no limitations History of Present Illness HPI Narrative: A 61-year-old male with history of diabetes, history of recurrent lower extremity cellulitis, hx chronic LE edema, history of DVT, gastric ulcers, HTN, HLD, anxiety, depression who presents to the ER for evaluation of left leg pain and swelling that has been worsening for the last 3 days. He states the left lower leg has been more swollen than usual, becoming red and painful. He reports the pain radiates proximally and is worse just above the knee on the anterior aspect of the distal thigh. He denies any injury or fall. He denies any fever or chills. He feels like he may be getting cellulitis again. MD Complaint: extremity pain and extremity swelling Onset (ago): day(s) (3) Pain Consistency: constant Location: left and lower extremity Severity scale (1-10): 7 Quality: aching Radiation: proximal Relieving factors: immobilization and rest Exacerbating factors: weight bearing, walking and palpation Associated symptoms: denies other symptoms Related Data Home Medications Medication Instructions Recorded Confirmed albuterol sulfate 90 mcg/actuation 2 puff PO Q4H PRN Shortness Of 11/07/20 11/07/20 aerosol inhaler Breath clonazepam 1 mg tablet 1 tab PO BID PRN anxiety 11/07/20 11/07/20 enalapril 10 1 tab PO DAILY 11/07/20 11/07/20 mg-hydrochlorothiazide 25 mg tablet ergocalciferol (vitamin D2) 1,250 1 cap PO QWEEK 11/07/20 11/07/20 mcg (50,000 unit) capsule metformin 850 mg tablet 1 tab PO BID 11/07/20 11/07/20 nicotine (polacrilex) 4 mg buccal 4 mg PO Q4-6H PRN Smoking Cessation 11/07/20 11/07/20 lozenge pantoprazole 40 mg tablet,delayed 1 tab PO DAILY 11/07/20 11/07/20 release simvastatin 20 mg tablet 1 tab PO BEDTIME 11/07/20 11/07/20 Previous Rx's Medication Instructions Recorded cyclobenzaprine 10 mg tablet 10 mg PO TID PRN muscle spasm #30 04/27/20 tabs cephalexin 500 mg capsule 500 mg PO Q12H 10 days #20 caps 10/29/20 doxycycline monohydrate 100 mg 100 mg PO BID 10 days #20 caps 10/29/20 capsule azithromycin 250 mg tablet See Rx Instructions PO .COMPLEX #6 11/07/20 tabs furosemide 20 mg tablet 20 mg PO DAILY 7 days #7 tabs 11/07/20 cephalexin 500 mg capsule 500 mg PO QID 10 days #40 caps 03/03/21 doxycycline hyclate 100 mg tablet 100 mg PO BID #20 tabs 03/03/21 furosemide 20 mg tablet (Lasix) 20 mg PO DAILY 4 days #4 tabs 05/27/21 ibuprofen 400 mg tablet 400 mg PO Q6H PRN pain 5 days #20 06/02/21 tabs cephalexin 500 mg capsule 500 mg PO BID #14 caps 09/17/21 doxycycline hyclate 100 mg capsule 100 mg PO BID #14 caps 09/17/21 furosemide 40 mg tablet (Lasix) 40 mg PO DAILY #5 tabs 09/17/21 tramadol 50 mg tablet 50 mg PO Q8H PRN pain #10 tabs 01/05/22 cephalexin 500 mg capsule 500 mg PO Q6H 7 days #28 caps 02/06/22 doxycycline hyclate 100 mg tablet 100 mg PO BID #14 tabs 02/06/22 Allergies Allergy/AdvReac Type Severity Reaction Status Date / Time morphine [MORPHINE] Allergy Severe RASH Verified 09/27/21 00:21 Review of Systems Review of Systems: Constitutional: No Fever, No Chills ENT/Mouth: No sore throat, No Rhinorrhea Cardiovascular: No Chest Pain, No SOB, No Orthopnea, + Edema Respiratory: No Cough, No Sputum, No Wheezing, No dyspnea Gastrointestinal: No Nausea, No Vomiting, No Diarrhea, No abdominal Pain Genitourinary: No Dysuria, No Urinary Frequency, No Hematuria Musculoskeletal: + joint pain, + Myalgias Skin: No Skin Lesions, No rash, +redness Neuro: No Weakness, No Numbness, No Dizziness, No Headache Psych: No Anxiety/Panic, No Depression Heme/Lymph: No Bruising, No Lymphadenopathy Endocrine: No Polyuria, No Polydipsia PMFSH Past Medical History Medical History FHx: total knee replacement Sleep apnea Surgical History History of ankle surgery History of hip surgery History of surgery on arm Social History Social History Alcohol intake: never Patient Tobacco Use Status: Current everyday Tobacco user Advance Directives: No Advance Directives Information Provided: No Physical Exam Vital Signs: Vital Signs: Last Vital Signs Temp 98.4 F 02/06/22 10:27 Pulse 90 02/06/22 10:27 Resp 18 02/06/22 10:27 BP 134/69 02/06/22 10:27 Pulse Ox 95 02/06/22 10:27 O2 Del Method 02/06/22 10:27 BMI result Body Mass Index 36.6 Appearance: Alert. Oriented X3. No acute distress. Eyes: Pupils equal, round and reactive to light. ENT: Pharynx normal. Neck: Normal inspection. Neck supple. CVS: Normal heart rate and rhythm. Pulses normal. Respiratory: No respiratory distress. Breath sounds normal. Abdomen: Soft and nontender. +BS x4 Skin: Skin warm and dry. Normal skin color. Normal skin turgor. No rashes. Extremities: 1+ bilateral LE edema. left lower leg with circumfrential erythema and tenderness. left knee with pain upon flexion at 90 degrees. no palpable mass in the popliteal fossa. tenderness of the medial, proximal knee. +varicose veins present. +calf tenderness on the left. Neuro: Oriented X 3. No motor deficit. No sensory deficit. Course Course Course Narrative: 61-year-old male presents to the ER for evaluation of acute on chronic lower extremity edema, the left is now more painful and red for the last 3 days. No shortness of breath or chest pain. Will get Dopplers to rule out DVT, most likely early cellulitis. Reevaluation(s) Reevaluation #1: DVT negative on Doppler study. Started on dual coverage with doxycycline and Keflex. He was given strict of her precautions and encourage up with his PCP for close monitoring. Comfortable with discharge home. Medications Administered Discontinued Medications Generic Name Dose Route Start Last Admin Trade Name Freq PRN Reason Stop Dose Admin Cephalexin HCl 500 mg 02/06/22 13:17 02/06/22 13:47 Cephalexin 500 Mg Capsule PO 02/06/22 13:18 500 mg ONCE ONE Administration Doxycycline Monohydrate 100 mg 02/06/22 13:17 02/06/22 13:47 Doxycycline Monohydrate 100 Mg Capsule PO 02/06/22 13:18 100 mg ONCE ONE Administration Oxycodone HCl 5 mg 02/06/22 13:17 02/06/22 13:47 Oxycodone Hcl Immed Release 5 Mg Tablet PO 02/06/22 13:18 5 mg ONCE ONE Administration Critical Care Time Critical Care Time Critical Care Time: No Discharge Plan Discharge Clinical Impression: Cellulitis Patient Disposition: Home, Self-Care Instructions: Cellulitis (ED) Additional Instructions: Your ultrasound today did not show any evidence of blood clot. Take the prescribed antibiotics as directed for early cellulitis of your leg. If your symptoms get worse despite antibiotics for 48 hours, call your doctor or come back to the ER for further evaluation. Rest and elevate your leg whenever possible. Wear your compression stockings. Follow-up with your primary care doctor. Prescriptions: New cephalexin 500 mg capsule 500 mg PO Q6H 7 Days Qty: 28 0RF doxycycline hyclate 100 mg tablet 100 mg PO BID Qty: 14 0RF No Action doxycycline monohydrate 100 mg capsule 100 mg PO BID 10 Days Qty: 20 0RF Label Comments: 10 DAY SUPPLY cephalexin 500 mg capsule 500 mg PO Q12H 10 Days Qty: 20 0RF Label Comments: 10 DAY SUPPLY clonazepam 1 mg tablet 1 tab PO BID PRN (Reason: anxiety) metformin 850 mg tablet 1 tab PO BID enalapril-hydrochlorothiazide 10-25 mg tablet 1 tab PO DAILY pantoprazole 40 mg tablet,delayed release (DR/EC) 1 tab PO DAILY simvastatin 20 mg tablet 1 tab PO BEDTIME ergocalciferol (vitamin D2) 1,250 mcg (50,000 unit) capsule 1 cap PO QWEEK albuterol sulfate 90 mcg/actuation HFA aerosol inhaler 2 puff PO Q4H PRN (Reason: Shortness Of Breath) nicotine (polacrilex) 4 mg lozenge 4 mg PO Q4-6H PRN (Reason: Smoking Cessation) furosemide 20 mg tablet 20 mg PO DAILY 7 Days Qty: 7 0RF azithromycin 250 mg tablet See Rx Instructions .ROUTE .COMPLEX Qty: 6 0RF Rx Instructions: take 500 mg today (day 1), then 250 mg for 4 days (days 2-5) cyclobenzaprine 10 mg tablet 10 mg PO TID PRN (Reason: muscle spasm) Qty: 30 0RF furosemide [Lasix] 20 mg tablet 20 mg PO DAILY 4 Days Qty: 4 0RF Rx Instructions: start on 05/28 furosemide [Lasix] 40 mg tablet 40 mg PO DAILY Qty: 5 0RF doxycycline hyclate 100 mg capsule 100 mg PO BID Qty: 14 0RF cephalexin 500 mg capsule 500 mg PO BID Qty: 14 0RF tramadol 50 mg tablet 50 mg PO Q8H PRN (Reason: pain) Qty: 10 0RF cephalexin 500 mg capsule 500 mg PO QID 10 Days Qty: 40 0RF doxycycline hyclate 100 mg tablet 100 mg PO BID Qty: 20 0RF ibuprofen 400 mg tablet 400 mg PO Q6H PRN (Reason: pain) 5 Days Qty: 20 0RF Referrals: [facility] [Primary Care Provider] -
--- NOTE | 2022-02-06 12:03 | PC.NURSE ---
US at bedside
[2022-02-06] MEDS: Doxycycline Monohydrate 100 MG CAPSULE PO (13:47)
[2022-02-06] MEDS: cephALEXin 500 MG CAPSULE PO (13:47)
[2022-02-06] MEDS: oxyCODONE HCl Immed Release 5 MG TABLET PO (13:47)
== END 2022-02-06 14:05 | disposition home or self-care (01) ==
PROVIDERS: Emergency Provider Emergency Medicine
DX: L03.116 Cellulitis of left lower limb (principal); M79.605 Pain in left leg; R60.0 Localized edema; E11.9 Type 2 diabetes mellitus without complications; I10 Essential (primary) hypertension; E78.5 Hyperlipidemia, unspecified; Z86.718 Personal history of other venous thrombosis and embolism
CPT/HCPCS: 93971; 99283; 99284

== ENCOUNTER 2022-02-13 12:32 | Emergency (ER) | payer OTHER, SELFPAY ==
--- NOTE | ~2022-02-13 | US_ITS ---
EXAMINATION: US VENOUS ULTRASOUND WITH DOPPLER LOWER EXTREMITY, BILATERAL CLINICAL INFORMATION: Edema COMPARISON: Lower extremity DVT 02/06/2022 TECHNIQUE: Ultrasound of the deep veins is performed from the hip to the calf with compression sonography and color and pulse Doppler assessment. Spectral analysis with color-flow imaging is performed. FINDINGS: RIGHT: There is normal venous compression and respiratory variation and augmented flow. The visualized common femoral vein, superficial femoral vein, profunda femoral vein, popliteal vein, and the trifurcation region shows no evidence of deep venous thrombosis. The peroneal vein was not identified. There is no significant popliteal fossa cyst. LEFT: There is normal venous compression and respiratory variation and augmented flow. The visualized common femoral vein, superficial femoral vein, profunda femoral vein, popliteal vein, and the trifurcation region shows no evidence of deep venous thrombosis. Peroneal vein was not identified. There is no significant popliteal fossa cyst. If the patient's symptoms persist, followup ultrasound in 5 days 7 days might be of value to exclude proximal propagation from a non-visualized calf vein. US/US venous duplex LE BI IMPRESSION: No DVT demonstrated in the visualized bilateral lower extremity however the peroneal veins were not visualized bilaterally.
--- NOTE | ~2022-02-13 | CT_ITS ---
EXAMINATION: CT HEAD WITHOUT CONTRAST CLINICAL INFORMATION: Lethargy and weakness COMPARISON: Head CT 01/05/2022 TECHNIQUE: Imaging was performed from the skull base to vertex without intravenous administration of contrast. This CT examination was performed using dose optimization techniques as appropriate, variously including the following: *Automated exposure control *Adjustment of mA and/or kV according to patient size (this includes techniques or standardized protocols for targeted exams where dose is matched to indication/reason for exam; i.e. extremities or head) *Use of iterative reconstruction technique Total exam dose length product: 868 mGy-cm FINDINGS: Unchanged small 3.9 x 1.5 cm low-density extra-axial collection in the anterior aspect of the left middle cranial fossa consistent with a benign arachnoid cyst. Minimal local mass effect on the anterior tip of the left temporal lobe, unchanged. No new intra or extra-axial fluid collection, hemorrhage, or mass. No midline shift or herniation. Basal cisterns are patent. Thomas-white matter differentiation is maintained. No ventriculomegaly. No territorial encephalomalacia. No significant volume loss. Patchy periventricular and deep white matter hypoattenuation is consistent with mild small vessel ischemic changes. No calvarial fracture or soft tissue abnormality. The mastoid air cells and visualized portions of the paranasal sinuses are well aerated. CT/CT head/brain wo IV con IMPRESSION: 1. No acute intracranial pathology. 2. Unchanged small left middle cranial fossa arachnoid cyst.
[2022-02-13 12:46] VITALS: BP 143/75; PULSE 87; RESP 18; TEMP 36.8; O2SAT 95; BMI 41.7
--- NOTE | 2022-02-13 12:47 | ED.SKABFB ---
HPI - Skin/Abscess/Foreign Bdy General Chief complaint: Extremity Injury, Lower <Gloria Cortez NP - Last Filed: 02/13/22 12:51> Stated complaint: Leg redness/pain on both legs <Gloria Cortez NP - Last Filed: 02/13/22 12:51> Time Seen by Provider: 02/13/22 16:21 <Gloria Cortez NP - Last Filed: 02/13/22 12:51> Source: patient and old records reviewed <JEN Nieto - Last Filed: 02/13/22 17:36> Mode of arrival: ambulatory <JEN Nieto - Last Filed: 02/13/22 17:36> Limitations: no limitations <JEN Nieto - Last Filed: 02/13/22 17:36> History of Present Illness HPI narrative: 61-year-old male with a history of diabetes, recurrent lower extremity cellulitis, chronic lower extremity edema, history of DVT, no longer on anticoagulation, gastric ulcers, HTN, HLD, anxiety/depression, LORA who presents to the ER for evaluation of ongoing lower extremity pain. He was recently seen here on February 06 for left leg pain and swelling along with redness and warmth. He had negative lower extremity Doppler at that time and was discharged with oral doxycycline and Keflex for lower extremity cellulitis. Patient states he completed the antibiotics. He states the left lower extremity is mostly unchanged, still slightly red and warm, swelling persists bilaterally. He reports the pain is now travel to the right lower extremity. Pain is making it difficult for him to walk. He denies any fever or chills. Family reports that he has had increased daytime lethargy and cannot maintain wakefulness. He has LORA and has been noncompliant with his CPAP. Family and patient deny any illicit drug use or alcohol use. <JEN Nieto - Last Filed: 02/13/22 17:36> MD complaint: rash and other (Swelling of the lower extremities) <JEN Nieto - Last Filed: 02/13/22 17:36> Onset (ago): day(s) <JEN Nieto Last Filed: 02/13/22 17:36> Location: LLE and RLE <JEN Nieto - Last Filed: 02/13/22 17:36> Severity: moderate <JEN Nieto - Last Filed: 02/13/22 17:36> Severity scale (1-10): 8 <JEN Nieto - Last Filed: 02/13/22 17:36> Quality: aching <JEN Nieto - Last Filed: 02/13/22 17:36> Pain Consistency: constant <JEN Nieto - Last Filed: 02/13/22 17:36> Relieving factors: rest <JEN Nieto - Last Filed: 02/13/22 17:36> Exacerbating factors: palpation and movement <JEN Nieto - Last Filed: 02/13/22 17:36> Context: recent antibiotic <JEN Nieto - Last Filed: 02/13/22 17:36> Associated symptoms: myalgias <JEN Nieto - Last Filed: 02/13/22 17:36> Treatments prior to arrival: antibiotic <JEN Nieto - Last Filed: 02/13/22 17:36> Related Data Home medications: Home Medications Medication Instructions Recorded Confirmed albuterol sulfate 90 mcg/actuation 2 puff PO Q4H PRN Shortness Of 11/07/20 11/07/20 aerosol inhaler Breath clonazepam 1 mg tablet 1 tab PO BID PRN anxiety 11/07/20 11/07/20 enalapril 10 1 tab PO DAILY 11/07/20 11/07/20 mg-hydrochlorothiazide 25 mg tablet ergocalciferol (vitamin D2) 1,250 1 cap PO QWEEK 11/07/20 11/07/20 mcg (50,000 unit) capsule metformin 850 mg tablet 1 tab PO BID 11/07/20 11/07/20 nicotine (polacrilex) 4 mg buccal 4 mg PO Q4-6H PRN Smoking Cessation 11/07/20 11/07/20 lozenge pantoprazole 40 mg tablet,delayed 1 tab PO DAILY 11/07/20 11/07/20 release simvastatin 20 mg tablet 1 tab PO BEDTIME 11/07/20 11/07/20 Previous Rx's Medication Instructions Recorded cyclobenzaprine 10 mg tablet 10 mg PO TID PRN muscle spasm #30 04/27/20 tabs cephalexin 500 mg capsule 500 mg PO Q12H 10 days #20 caps 10/29/20 doxycycline monohydrate 100 mg 100 mg PO BID 10 days #20 caps 10/29/20 capsule azithromycin 250 mg tablet See Rx Instructions PO .COMPLEX #6 11/07/20 tabs furosemide 20 mg tablet 20 mg PO DAILY 7 days #7 tabs 11/07/20 cephalexin 500 mg capsule 500 mg PO QID 10 days #40 caps 03/03/21 doxycycline hyclate 100 mg tablet 100 mg PO BID #20 tabs 03/03/21 furosemide 20 mg tablet (Lasix) 20 mg PO DAILY 4 days #4 tabs 05/27/21 ibuprofen 400 mg tablet 400 mg PO Q6H PRN pain 5 days #20 06/02/21 tabs cephalexin 500 mg capsule 500 mg PO BID #14 caps 09/17/21 doxycycline hyclate 100 mg capsule 100 mg PO BID #14 caps 09/17/21 furosemide 40 mg tablet (Lasix) 40 mg PO DAILY #5 tabs 09/17/21 tramadol 50 mg tablet 50 mg PO Q8H PRN pain #10 tabs 01/05/22 cephalexin 500 mg capsule 500 mg PO Q6H 7 days #28 caps 02/06/22 doxycycline hyclate 100 mg tablet 100 mg PO BID #14 tabs 02/06/22 <Gloria Cortez NP - Last Filed: 02/13/22 12:51> Allergies/Adverse reactions: Allergies Allergy/AdvReac Type Severity Reaction Status Date / Time morphine [MORPHINE] Allergy Severe RASH Verified 02/13/22 12:46 <Gloria Cortez NP - Last Filed: 02/13/22 12:51> Review of Systems Review of Systems: Constitutional: No Fever, No Chills, +Fatigue ENT/Mouth: No sore throat, No Rhinorrhea Cardiovascular: No Chest Pain, No SOB, No Orthopnea, + Edema Respiratory: No Cough, No Sputum, No Wheezing, No dyspnea Gastrointestinal: No Nausea, No Vomiting, No Diarrhea, No abdominal Pain Genitourinary: No Dysuria, No Urinary Frequency, No Hematuria Musculoskeletal: No joint pain, No Myalgias Skin: No Skin Lesions, No rash Neuro: No Weakness, No Numbness, No Dizziness, No Headache Heme/Lymph: No Bruising, No Lymphadenopathy Endocrine: No Polyuria, No Polydipsia <JEN Nieto - Last Filed: 02/13/22 17:36> [facility]LY [facility] Past Medical History Medical History: Medical History FHx: total knee replacement Sleep apnea <Gloria Cortez NP - Last Filed: 02/13/22 12:51> Surgical History: Surgical History History of ankle surgery History of hip surgery History of surgery on arm <Gloria Cortez NP - Last Filed: 02/13/22 12:51> Social History Social History: Social History Alcohol intake: never Patient Tobacco Use Status: Current everyday Tobacco user Smoked in Last 30 Days: Yes Use of substances other than those prescribed or required for medical reasons: No Advance Directives: No Advance Directives Information Provided: No <Gloria Cortez NP - Last Filed: 02/13/22 12:51> Physical Exam Vital Signs: Vital Signs: Last Vital Signs Temp 97.8 F 02/13/22 19:39 Pulse 76 02/13/22 19:39 Resp 20 02/13/22 19:39 BP 140/83 H 02/13/22 19:39 Pulse Ox 95 02/13/22 19:39 O2 Del Method 02/13/22 19:39 BMI result Body Mass Index 41.7 <Gloria Cortez NP - Last Filed: 02/13/22 12:51> Vital Signs: Last Vital Signs Temp 97.8 F 02/13/22 19:39 Pulse 76 02/13/22 19:39 Resp 20 02/13/22 19:39 BP 140/83 H 02/13/22 19:39 Pulse Ox 95 02/13/22 19:39 O2 Del Method 02/13/22 19:39 BMI result Body Mass Index 41.7 <JEN Nieto - Last Filed: 02/13/22 17:36> Vital Signs: Last Vital Signs Temp 97.8 F 02/13/22 19:39 Pulse 76 02/13/22 19:39 Resp 20 02/13/22 19:39 BP 140/83 H 02/13/22 19:39 Pulse Ox 95 02/13/22 19:39 O2 Del Method 02/13/22 19:39 BMI result Body Mass Index 41.7 <Lizeth Anna NP - Last Filed: 02/13/22 21:52> Appearance: Lethargic but oriented X3. No acute distress. Eyes: Pupils equal, round and reactive to light. ENT: Pharynx normal. Neck: Normal inspection. Neck supple. CVS: Normal heart rate and rhythm. Pulses normal. Respiratory: No respiratory distress. Breath sounds normal. Abdomen: Soft and nontender. +BS x4 Skin: Skin warm and dry. Normal skin color. Normal skin turgor. No rashes. Extremities: 3+ lower extremity edema with bilateral warmth and tenderness throughout lower legs. Mild erythema of left lower leg, none appreciated on the right Neuro: Oriented X 3. No motor deficit. No sensory deficit. Slow shuffling gait from wheelchair to bed <JEN Nieto - Last Filed: 02/13/22 17:36> Course Course Course Narrative: This is a rapid medical exam. Additional HPI/ROS/PE deferred to primary provider. 61-year-old male with history of diabetes, history of recurrent lower extremity cellulitis, hx chronic LE edema, history of DVT, gastric ulcers, HTN, HLD, anxiety, depression here with bilateral LE swelling/redness/pain. Seen here 02/06 and diagnosed with LLE cellulitis, stared on keflex/doxycyline. Has follow-up next week, finished antibiotics but feels like his worse. ARIZMENDI, no chest pain. Is on lasix. Will check labs including BNP. VSS. <Gloria Cortez NP - Last Filed: 02/13/22 12:51> This is a rapid medical exam. Additional HPI/ROS/PE deferred to primary provider. 61-year-old male with history of diabetes, history of recurrent lower extremity cellulitis, hx chronic LE edema, history of DVT, gastric ulcers, HTN, HLD, anxiety, depression here with bilateral LE swelling/redness/pain. Seen here 02/06 and diagnosed with LLE cellulitis, stared on keflex/doxycyline. Has follow-up next week, finished antibiotics but feels like his worse. ARIZMENDI, no chest pain. Is on lasix. Will check labs including BNP. VSS. 21:46 CT head and duplex are negative for acute findings. Tox screen positive for opioids and fentanyl which is the most likely reason for his lethargy. Patient would like to be discharged home. Patient declines detox. Patient verbalized understanding of and agrees to plan of care discharge home. Verbalized understanding signs symptoms indicating need for emergent intervention. <Lizeth Anna NP - Last Filed: 02/13/22 21:52> Reevaluation(s) Reevaluation #1: Patient presents back with ongoing lower extremity pain and swelling. Status post recent antibiotic course. Today he has no leukocytosis on his labs. He is afebrile. His BNP is less than 10. Will check ESR and CRP. No significant cellulitis from a prior examination. Given his persistent and ongoing symptoms will get bilateral lower extremity ultrasounds today to rule out propagating DVT. His symptoms are most likely due to peripheral vascular disease however. Will get VBG given his lethargy as well as CT of his head. U tox and alcohol level also ordered. <JEN Nieto - Last Filed: 02/13/22 17:36> Reevaluation #2: VBG shows no evidence of CO2 retention. Lower extremity Dopplers and CT head are still pending. Will sign out to night provider who will follow-up results and disposition. <JEN Nieto - Last Filed: 02/13/22 17:36> MDM - Skin/Abscess/Foreign Bdy Medical Records Attestation: I reviewed the patient's medical records. <Lizeth Anna NP - Last Filed: 02/13/22 21:52> Lab Data Attestation: I reviewed the patient's lab results. <Lizeth Anna NP - Last Filed: 02/13/22 21:52> Result diagrams: : 02/13/22 13:09 02/13/22 13:09 <Gloria Cortez NP - Last Filed: 02/13/22 12:51> Labs: Lab Results 02/13/22 02/13/2222 Range/Units 13:09 13:09 13:09 WBC 6.3 (4.8-10.8) X10*3/uL RBC 3.62 L (4.60-5.80) X10*6/uL Hgb 10.6 L (14.0-18.0) g/dl Hct 34.2 L (42.0-52.0) % MCV 94.5 (80.0-98.0) fL MCH 29.3 (27.0-33.0) pg MCHC 31.0 (31.0-36.0) g/dl RDW 15.3 (11.0-16.0) % Plt Count 221 (160-400) X10*3/uL MPV 10.2 (9.4-12.4) fL Immature Gran % (Auto) 0.8 H (0.0-0.4) % Neut % (Auto) 57.0 (45-73) % Lymph % (Auto) 29.8 (20-40) % [place] % (Auto) 9.4 (2-11) % Eos % (Auto) 2.5 (0-4) % Baso % (Auto) 0.5 (0-2) % Lymph # (Auto) 1.9 (1.2-4.9) X10*3/uL [place] # (Auto) 0.6 (0.1-1.2) X10*3/uL Eos # (Auto) 0.2 (0.0-0.4) X10*3/uL Baso # (Auto) 0.0 (0.0-0.2) X10*3/uL Abs Immat Gran (auto) 0.05 H (0.00-0.03) X10*3/uL Absolute Neuts (auto) 3.6 (2.0-8.3) x10*3/uL Absolute Nucleated RBC 0.000 (0.0-0.012) X10*3/uL Nucleated RBC % (auto) 0.0 (0.0-0.2) /100WBC ESR (0-15) MM/HR VBG pH (7.32-7.43) VBG pCO2 mmHg VBG pO2 mmHg VBG HCO3 (22-26) mmol/L VBG O2 Saturation % VBG Base Excess mmol/L Sodium 132 L (135-145) mmol/L Potassium 4.4 (3.3-5.1) mmol/L Chloride 99 (96-108) mmol/L Carbon Dioxide 29 (22-29) mmol/L Anion Gap 8 L (12-20) BUN 13 (9-16) mg/dL Creatinine 0.79 (0.5-1.4) mg/dL Estim Creat Clear Calc 150.3 Estimated GFR > 60 Random Glucose 255 H (60-115) mg/dL Calcium 8.9 (8.4-10.2) mg/dL Total Bilirubin 0.2 (0.0-1.0) mg/dL Direct Bilirubin < 0.2 (0.0-0.5) mg/dL AST 14 (5-37) U/L ALT 13 (0-40) U/L Alkaline Phosphatase 119 H (39-117) U/L C-Reactive Protein (< or = 0.50) mg/dL B-Natriuretic Peptide < 10 (<100) pg/mL Total Protein 6.1 L (6.5-8.0) g/dL Albumin 3.4 L (3.5-5.0) g/dL Urine Color Urine Appearance Urine pH (5.0-9.0) Ur Specific [place] (1.005-1.025) Urine Protein (Neg-Trace) mg/dL Urine Glucose (UA) (Negative) mg/dL Urine Ketones (Negative) mg/dL Urine Blood (Negative) Urine Nitrite (Negative) Ur Leukocyte Esterase (Negative) Urine Opiates Screen (Not Detect) Urine Fentanyl Screen (Not Detect) Ur Barbiturates Screen (Not Detect) Ur Phencyclidine Scrn (Not Detect) Ur Amphetamines Screen (Not Detect) U Benzodiazepines Scrn (Not Detect) Urine Cocaine Screen (Not Detect) U Marijuana (THC) Screen (Not Detect) Ethyl Alcohol mg/dL Influenza Type A (MARY CARMEN) (Negative) Influenza Type B (MARY CARMEN) (Negative) Influenza A & B Note 02/13/22 02/13/22 02/13/22 Range/Units 16:56 17:03 17:03 WBC (4.8-10.8) X10*3/uL RBC (4.60-5.80) X10*6/uL Hgb (14.0-18.0) g/dl Hct (42.0-52.0) % MCV (80.0-98.0) fL MCH (27.0-33.0) pg MCHC (31.0-36.0) g/dl RDW (11.0-16.0) % Plt Count (160-400) X10*3/uL MPV (9.4-12.4) fL Immature Gran % (Auto) (0.0-0.4) % Neut % (Auto) (45-73) % Lymph % (Auto) (20-40) % [place] % (Auto) (2-11) % Eos % (Auto) (0-4) % Baso % (Auto) (0-2) % Lymph # (Auto) (1.2-4.9) X10*3/uL [place] # (Auto) (0.1-1.2) X10*3/uL Eos # (Auto) (0.0-0.4) X10*3/uL Baso # (Auto) (0.0-0.2) X10*3/uL Abs Immat Gran (auto) (0.00-0.03) X10*3/uL Absolute Neuts (auto) (2.0-8.3) x10*3/uL Absolute Nucleated RBC (0.0-0.012) X10*3/uL Nucleated RBC % (auto) (0.0-0.2) /100WBC ESR 22 H (0-15) MM/HR VBG pH (7.32-7.43) VBG pCO2 mmHg VBG pO2 mmHg VBG HCO3 (22-26) mmol/L VBG O2 Saturation % VBG Base Excess mmol/L Sodium (135-145) mmol/L Potassium (3.3-5.1) mmol/L Chloride (96-108) mmol/L Carbon Dioxide (22-29) mmol/L Anion Gap (12-20) BUN (9-16) mg/dL Creatinine (0.5-1.4) mg/dL Estim Creat Clear Calc Estimated GFR Random Glucose (60-115) mg/dL Calcium (8.4-10.2) mg/dL Total Bilirubin (0.0-1.0) mg/dL Direct Bilirubin (0.0-0.5) mg/dL AST (5-37) U/L ALT (0-40) U/L Alkaline Phosphatase (39-117) U/L C-Reactive Protein 0.55 H (< or = 0.50) mg/dL B-Natriuretic Peptide (<100) pg/mL Total Protein (6.5-8.0) g/dL Albumin (3.5-5.0) g/dL Urine Color Urine Appearance Urine pH (5.0-9.0) Ur Specific [place] (1.005-1.025) Urine Protein (Neg-Trace) mg/dL Urine Glucose (UA) (Negative) mg/dL Urine Ketones (Negative) mg/dL Urine Blood (Negative) Urine Nitrite (Negative) Ur Leukocyte Esterase (Negative) Urine Opiates Screen (Not Detect) Urine Fentanyl Screen (Not Detect) Ur Barbiturates Screen (Not Detect) Ur Phencyclidine Scrn (Not Detect) Ur Amphetamines Screen (Not Detect) U Benzodiazepines Scrn (Not Detect) Urine Cocaine Screen (Not Detect) U Marijuana (THC) Screen (Not Detect) Ethyl Alcohol < 10 mg/dL Influenza Type A (MARY CARMEN) Negative (Negative) Influenza Type B (MARY CARMEN) Negative (Negative) Influenza A & B Note See Note 02/13/22 02/13/22 02/13/22 Range/Units 17:15 19:33 19:33 WBC (4.8-10.8) X10*3/uL RBC (4.60-5.80) X10*6/uL Hgb (14.0-18.0) g/dl Hct (42.0-52.0) % MCV (80.0-98.0) fL MCH (27.0-33.0) pg MCHC (31.0-36.0) g/dl RDW (11.0-16.0) % Plt Count (160-400) X10*3/uL MPV (9.4-12.4) fL Immature Gran % (Auto) (0.0-0.4) % Neut % (Auto) (45-73) % Lymph % (Auto) (20-40) % [place] % (Auto) (2-11) % Eos % (Auto) (0-4) % Baso % (Auto) (0-2) % Lymph # (Auto) (1.2-4.9) X10*3/uL [place] # (Auto) (0.1-1.2) X10*3/uL Eos # (Auto) (0.0-0.4) X10*3/uL Baso # (Auto) (0.0-0.2) X10*3/uL Abs Immat Gran (auto) (0.00-0.03) X10*3/uL Absolute Neuts (auto) (2.0-8.3) x10*3/uL Absolute Nucleated RBC (0.0-0.012) X10*3/uL Nucleated RBC % (auto) (0.0-0.2) /100WBC ESR (0-15) MM/HR VBG pH 7.44 H (7.32-7.43) VBG pCO2 46 mmHg VBG pO2 65 mmHg VBG HCO3 31 H (22-26) mmol/L VBG O2 Saturation 93.0 % VBG Base Excess 6.8 mmol/L Sodium (135-145) mmol/L Potassium (3.3-5.1) mmol/L Chloride (96-108) mmol/L Carbon Dioxide (22-29) mmol/L Anion Gap (12-20) BUN (9-16) mg/dL Creatinine (0.5-1.4) mg/dL Estim Creat Clear Calc Estimated GFR Random Glucose (60-115) mg/dL Calcium (8.4-10.2) mg/dL Total Bilirubin (0.0-1.0) mg/dL Direct Bilirubin (0.0-0.5) mg/dL AST (5-37) U/L ALT (0-40) U/L Alkaline Phosphatase (39-117) U/L C-Reactive Protein (< or = 0.50) mg/dL B-Natriuretic Peptide (<100) pg/mL Total Protein (6.5-8.0) g/dL Albumin (3.5-5.0) g/dL Urine Color Yellow Urine Appearance Clear Urine pH 6.0 (5.0-9.0) Ur Specific [place] 1.015 (1.005-1.025) Urine Protein Negative (Neg-Trace) mg/dL Urine Glucose (UA) Negative (Negative) mg/dL Urine Ketones Negative (Negative) mg/dL Urine Blood Negative (Negative) Urine Nitrite Negative (Negative) Ur Leukocyte Esterase Negative (Negative) Urine Opiates Screen POSITIVE H (Not Detect) Urine Fentanyl Screen POSITIVE H (Not Detect) Ur Barbiturates Screen Not Detected (Not Detect) Ur Phencyclidine Scrn Not Detected (Not Detect) Ur Amphetamines Screen Not Detected (Not Detect) U Benzodiazepines Scrn Not Detected (Not Detect) Urine Cocaine Screen Not Detected (Not Detect) U Marijuana (THC) Screen Not Detected (Not Detect) Ethyl Alcohol mg/dL Influenza Type A (MARY CARMEN) (Negative) Influenza Type B (MARY CARMEN) (Negative) Influenza A & B Note <Gloria Cortez NP - Last Filed: 02/13/22 12:51> Lab Results 02/13/22 02/13/22 02/13/22 Range/Units 13:09 13:09 13:09 WBC 6.3 (4.8-10.8) X10*3/uL RBC 3.62 L (4.60-5.80) X10*6/uL Hgb 10.6 L (14.0-18.0) g/dl Hct 34.2 L (42.0-52.0) % MCV 94.5 (80.0-98.0) fL MCH 29.3 (27.0-33.0) pg MCHC 31.0 (31.0-36.0) g/dl RDW 15.3 (11.0-16.0) % Plt Count 221 (160-400) X10*3/uL MPV 10.2 (9.4-12.4) fL Immature Gran % (Auto) 0.8 H (0.0-0.4) % Neut % (Auto) 57.0 (45-73) % Lymph % (Auto) 29.8 (20-40) % [place] % (Auto) 9.4 (2-11) % Eos % (Auto) 2.5 (0-4) % Baso % (Auto) 0.5 (0-2) % Lymph # (Auto) 1.9 (1.2-4.9) X10*3/uL [place] # (Auto) 0.6 (0.1-1.2) X10*3/uL Eos # (Auto) 0.2 (0.0-0.4) X10*3/uL Baso # (Auto) 0.0 (0.0-0.2) X10*3/uL Abs Immat Gran (auto) 0.05 H (0.00-0.03) X10*3/uL Absolute Neuts (auto) 3.6 (2.0-8.3) x10*3/uL Absolute Nucleated RBC 0.000 (0.0-0.012) X10*3/uL Nucleated RBC % (auto) 0.0 (0.0-0.2) /100WBC ESR (0-15) MM/HR VBG pH (7.32-7.43) VBG pCO2 mmHg VBG pO2 mmHg VBG HCO3 (22-26) mmol/L VBG O2 Saturation % VBG Base Excess mmol/L Sodium 132 L (135-145) mmol/L Potassium 4.4 (3.3-5.1) mmol/L Chloride 99 (96-108) mmol/L Carbon Dioxide 29 (22-29) mmol/L Anion Gap 8 L (12-20) BUN 13 (9-16) mg/dL Creatinine 0.79 (0.5-1.4) mg/dL Estim Creat Clear Calc 150.3 Estimated GFR > 60 Random Glucose 255 H (60-115) mg/dL Calcium 8.9 (8.4-10.2) mg/dL Total Bilirubin 0.2 (0.0-1.0) mg/dL Direct Bilirubin < 0.2 (0.0-0.5) mg/dL AST 14 (5-37) U/L ALT 13 (0-40) U/L Alkaline Phosphatase 119 H (39-117) U/L C-Reactive Protein (< or = 0.50) mg/dL B-Natriuretic Peptide < 10 (<100) pg/mL Total Protein 6.1 L (6.5-8.0) g/dL Albumin 3.4 L (3.5-5.0) g/dL Urine Color Urine Appearance Urine pH (5.0-9.0) Ur Specific [place] (1.005-1.025) Urine Protein (Neg-Trace) mg/dL Urine Glucose (UA) (Negative) mg/dL Urine Ketones (Negative) mg/dL Urine Blood (Negative) Urine Nitrite (Negative) Ur Leukocyte Esterase (Negative) Urine Opiates Screen (Not Detect) Urine Fentanyl Screen (Not Detect) Ur Barbiturates Screen (Not Detect) Ur Phencyclidine Scrn (Not Detect) Ur Amphetamines Screen (Not Detect) U Benzodiazepines Scrn (Not Detect) Urine Cocaine Screen (Not Detect) U Marijuana (THC) Screen (Not Detect) Ethyl Alcohol mg/dL Influenza Type A (MARY CARMEN) (Negative) Influenza Type B (MARY CARMEN) (Negative) Influenza A & B Note 02/13/22 02/13/22 02/13/22 Range/Units 16:56 17:03 17:03 WBC (4.8-10.8) X10*3/uL RBC (4.60-5.80) X10*6/uL Hgb (14.0-18.0) g/dl Hct (42.0-52.0) % MCV (80.0-98.0) fL MCH (27.0-33.0) pg MCHC (31.0-36.0) g/dl RDW (11.0-16.0) % Plt Count (160-400) X10*3/uL MPV (9.4-12.4) fL Immature Gran % (Auto) (0.0-0.4) % Neut % (Auto) (45-73) % Lymph % (Auto) (20-40) % [place] % (Auto) (2-11) % Eos % (Auto) (0-4) % Baso % (Auto) (0-2) % Lymph # (Auto) (1.2-4.9) X10*3/uL [place] # (Auto) (0.1-1.2) X10*3/uL Eos # (Auto) (0.0-0.4) X10*3/uL Baso # (Auto) (0.0-0.2) X10*3/uL Abs Immat Gran (auto) (0.00-0.03) X10*3/uL Absolute Neuts (auto) (2.0-8.3) x10*3/uL Absolute Nucleated RBC (0.0-0.012) X10*3/uL Nucleated RBC % (auto) (0.0-0.2) /100WBC ESR 22 H (0-15) MM/HR VBG pH (7.32-7.43) VBG pCO2 mmHg VBG pO2 mmHg VBG HCO3 (22-26) mmol/L VBG O2 Saturation % VBG Base Excess mmol/L Sodium (135-145) mmol/L Potassium (3.3-5.1) mmol/L Chloride (96-108) mmol/L Carbon Dioxide (22-29) mmol/L Anion Gap (12-20) BUN (9-16) mg/dL Creatinine (0.5-1.4) mg/dL Estim Creat Clear Calc Estimated GFR Random Glucose (60-115) mg/dL Calcium (8.4-10.2) mg/dL Total Bilirubin (0.0-1.0) mg/dL Direct Bilirubin (0.0-0.5) mg/dL AST (5-37) U/L ALT (0-40) U/L Alkaline Phosphatase (39-117) U/L C-Reactive Protein 0.55 H (< or = 0.50) mg/dL B-Natriuretic Peptide (<100) pg/mL Total Protein (6.5-8.0) g/dL Albumin (3.5-5.0) g/dL Urine Color Urine Appearance Urine pH (5.0-9.0) Ur Specific [place] (1.005-1.025) Urine Protein (Neg-Trace) mg/dL Urine Glucose (UA) (Negative) mg/dL Urine Ketones (Negative) mg/dL Urine Blood (Negative) Urine Nitrite (Negative) Ur Leukocyte Esterase (Negative) Urine Opiates Screen (Not Detect) Urine Fentanyl Screen (Not Detect) Ur Barbiturates Screen (Not Detect) Ur Phencyclidine Scrn (Not Detect) Ur Amphetamines Screen (Not Detect) U Benzodiazepines Scrn (Not Detect) Urine Cocaine Screen (Not Detect) U Marijuana (THC) Screen (Not Detect) Ethyl Alcohol < 10 mg/dL Influenza Type A (MARY CARMEN) Negative (Negative) Influenza Type B (MARY CARMEN) Negative (Negative) Influenza A & B Note See Note 02/13/22 02/13/22 02/13/22 Range/Units 17:15 19:33 19:33 WBC (4.8-10.8) X10*3/uL RBC (4.60-5.80) X10*6/uL Hgb (14.0-18.0) g/dl Hct (42.0-52.0) % MCV (80.0-98.0) fL MCH (27.0-33.0) pg MCHC (31.0-36.0) g/dl RDW (11.0-16.0) % Plt Count (160-400) X10*3/uL MPV (9.4-12.4) fL Immature Gran % (Auto) (0.0-0.4) % Neut % (Auto) (45-73) % Lymph % (Auto) (20-40) % [place] % (Auto) (2-11) % Eos % (Auto) (0-4) % Baso % (Auto) (0-2) % Lymph # (Auto) (1.2-4.9) X10*3/uL [place] # (Auto) (0.1-1.2) X10*3/uL Eos # (Auto) (0.0-0.4) X10*3/uL Baso # (Auto) (0.0-0.2) X10*3/uL Abs Immat Gran (auto) (0.00-0.03) X10*3/uL Absolute Neuts (auto) (2.0-8.3) x10*3/uL Absolute Nucleated RBC (0.0-0.012) X10*3/uL Nucleated RBC % (auto) (0.0-0.2) /100WBC ESR (0-15) MM/HR VBG pH 7.44 H (7.32-7.43) VBG pCO2 46 mmHg VBG pO2 65 mmHg VBG HCO3 31 H (22-26) mmol/L VBG O2 Saturation 93.0 % VBG Base Excess 6.8 mmol/L Sodium (135-145) mmol/L Potassium (3.3-5.1) mmol/L Chloride (96-108) mmol/L Carbon Dioxide (22-29) mmol/L Anion Gap (12-20) BUN (9-16) mg/dL Creatinine (0.5-1.4) mg/dL Estim Creat Clear Calc Estimated GFR Random Glucose (60-115) mg/dL Calcium (8.4-10.2) mg/dL Total Bilirubin (0.0-1.0) mg/dL Direct Bilirubin (0.0-0.5) mg/dL AST (5-37) U/L ALT (0-40) U/L Alkaline Phosphatase (39-117) U/L C-Reactive Protein (< or = 0.50) mg/dL B-Natriuretic Peptide (<100) pg/mL Total Protein (6.5-8.0) g/dL Albumin (3.5-5.0) g/dL Urine Color Yellow Urine Appearance Clear Urine pH 6.0 (5.0-9.0) Ur Specific [place] 1.015 (1.005-1.025) Urine Protein Negative (Neg-Trace) mg/dL Urine Glucose (UA) Negative (Negative) mg/dL Urine Ketones Negative (Negative) mg/dL Urine Blood Negative (Negative) Urine Nitrite Negative (Negative) Ur Leukocyte Esterase Negative (Negative) Urine Opiates Screen POSITIVE H (Not Detect) Urine Fentanyl Screen POSITIVE H (Not Detect) Ur Barbiturates Screen Not Detected (Not Detect) Ur Phencyclidine Scrn Not Detected (Not Detect) Ur Amphetamines Screen Not Detected (Not Detect) U Benzodiazepines Scrn Not Detected (Not Detect) Urine Cocaine Screen Not Detected (Not Detect) U Marijuana (THC) Screen Not Detected (Not Detect) Ethyl Alcohol mg/dL Influenza Type A (MARY CARMEN) (Negative) Influenza Type B (MARY CARMEN) (Negative) Influenza A & B Note <JEN Nieto - Last Filed: 02/13/22 17:36> Lab Results 02/13/22 02/13/22 02/13/22 Range/Units 13:09 13:09 13:09 WBC 6.3 (4.8-10.8) X10*3/uL RBC 3.62 L (4.60-5.80) X10*6/uL Hgb 10.6 L (14.0-18.0) g/dl Hct 34.2 L (42.0-52.0) % MCV 94.5 (80.0-98.0) fL MCH 29.3 (27.0-33.0) pg MCHC 31.0 (31.0-36.0) g/dl RDW 15.3 (11.0-16.0) % Plt Count 221 (160-400) X10*3/uL MPV 10.2 (9.4-12.4) fL Immature Gran % (Auto) 0.8 H (0.0-0.4) % Neut % (Auto) 57.0 (45-73) % Lymph % (Auto) 29.8 (20-40) % [place] % (Auto) 9.4 (2-11) % Eos % (Auto) 2.5 (0-4) % Baso % (Auto) 0.5 (0-2) % Lymph # (Auto) 1.9 (1.2-4.9) X10*3/uL [place] # (Auto) 0.6 (0.1-1.2) X10*3/uL Eos # (Auto) 0.2 (0.0-0.4) X10*3/uL Baso # (Auto) 0.0 (0.0-0.2) X10*3/uL Abs Immat Gran (auto) 0.05 H (0.00-0.03) X10*3/uL Absolute Neuts (auto) 3.6 (2.0-8.3) x10*3/uL Absolute Nucleated RBC 0.000 (0.0-0.012) X10*3/uL Nucleated RBC % (auto) 0.0 (0.0-0.2) /100WBC ESR (0-15) MM/HR VBG pH (7.32-7.43) VBG pCO2 mmHg VBG pO2 mmHg VBG HCO3 (22-26) mmol/L VBG O2 Saturation % VBG Base Excess mmol/L Sodium 132 L (135-145) mmol/L Potassium 4.4 (3.3-5.1) mmol/L Chloride 99 (96-108) mmol/L Carbon Dioxide 29 (22-29) mmol/L Anion Gap 8 L (12-20) BUN 13 (9-16) mg/dL Creatinine 0.79 (0.5-1.4) mg/dL Estim Creat Clear Calc 150.3 Estimated GFR > 60 Random Glucose 255 H (60-115) mg/dL Calcium 8.9 (8.4-10.2) mg/dL Total Bilirubin 0.2 (0.0-1.0) mg/dL Direct Bilirubin < 0.2 (0.0-0.5) mg/dL AST 14 (5-37) U/L ALT 13 (0-40) U/L Alkaline Phosphatase 119 H (39-117) U/L C-Reactive Protein (< or = 0.50) mg/dL B-Natriuretic Peptide < 10 (<100) pg/mL Total Protein 6.1 L (6.5-8.0) g/dL Albumin 3.4 L (3.5-5.0) g/dL Urine Color Urine Appearance Urine pH (5.0-9.0) Ur Specific [place] (1.005-1.025) Urine Protein (Neg-Trace) mg/dL Urine Glucose (UA) (Negative) mg/dL Urine Ketones (Negative) mg/dL Urine Blood (Negative) Urine Nitrite (Negative) Ur Leukocyte Esterase (Negative) Urine Opiates Screen (Not Detect) Urine Fentanyl Screen (Not Detect) Ur Barbiturates Screen (Not Detect) Ur Phencyclidine Scrn (Not Detect) Ur Amphetamines Screen (Not Detect) U Benzodiazepines Scrn (Not Detect) Urine Cocaine Screen (Not Detect) U Marijuana (THC) Screen (Not Detect) Ethyl Alcohol mg/dL Influenza Type A (MARY CARMEN) (Negative) Influenza Type B (MARY CARMEN) (Negative) Influenza A & B Note 02/13/22 02/13/22 02/13/22 Range/Units 16:56 17:03 17:03 WBC (4.8-10.8) X10*3/uL RBC (4.60-5.80) X10*6/uL Hgb (14.0-18.0) g/dl Hct (42.0-52.0) % MCV (80.0-98.0) fL MCH (27.0-33.0) pg MCHC (31.0-36.0) g/dl RDW (11.0-16.0) % Plt Count (160-400) X10*3/uL MPV (9.4-12.4) fL Immature Gran % (Auto) (0.0-0.4) % Neut % (Auto) (45-73) % Lymph % (Auto) (20-40) % [place] % (Auto) (2-11) % Eos % (Auto) (0-4) % Baso % (Auto) (0-2) % Lymph # (Auto) (1.2-4.9) X10*3/uL [place] # (Auto) (0.1-1.2) X10*3/uL Eos # (Auto) (0.0-0.4) X10*3/uL Baso # (Auto) (0.0-0.2) X10*3/uL Abs Immat Gran (auto) (0.00-0.03) X10*3/uL Absolute Neuts (auto) (2.0-8.3) x10*3/uL Absolute Nucleated RBC (0.0-0.012) X10*3/uL Nucleated RBC % (auto) (0.0-0.2) /100WBC ESR 22 H (0-15) MM/HR VBG pH (7.32-7.43) VBG pCO2 mmHg VBG pO2 mmHg VBG HCO3 (22-26) mmol/L VBG O2 Saturation % VBG Base Excess mmol/L Sodium (135-145) mmol/L Potassium (3.3-5.1) mmol/L Chloride (96-108) mmol/L Carbon Dioxide (22-29) mmol/L Anion Gap (12-20) BUN (9-16) mg/dL Creatinine (0.5-1.4) mg/dL Estim Creat Clear Calc Estimated GFR Random Glucose (60-115) mg/dL Calcium (8.4-10.2) mg/dL Total Bilirubin (0.0-1.0) mg/dL Direct Bilirubin (0.0-0.5) mg/dL AST (5-37) U/L ALT (0-40) U/L Alkaline Phosphatase (39-117) U/L C-Reactive Protein 0.55 H (< or = 0.50) mg/dL B-Natriuretic Peptide (<100) pg/mL Total Protein (6.5-8.0) g/dL Albumin (3.5-5.0) g/dL Urine Color Urine Appearance Urine pH (5.0-9.0) Ur Specific [place] (1.005-1.025) Urine Protein (Neg-Trace) mg/dL Urine Glucose (UA) (Negative) mg/dL Urine Ketones (Negative) mg/dL Urine Blood (Negative) Urine Nitrite (Negative) Ur Leukocyte Esterase (Negative) Urine Opiates Screen (Not Detect) Urine Fentanyl Screen (Not Detect) Ur Barbiturates Screen (Not Detect) Ur Phencyclidine Scrn (Not Detect) Ur Amphetamines Screen (Not Detect) U Benzodiazepines Scrn (Not Detect) Urine Cocaine Screen (Not Detect) U Marijuana (THC) Screen (Not Detect) Ethyl Alcohol < 10 mg/dL Influenza Type A (MARY CARMEN) Negative (Negative) Influenza Type B (MARY CARMEN) Negative (Negative) Influenza A & B Note See Note 02/13/22 02/13/22 02/13/22 Range/Units 17:15 19:33 19:33 WBC (4.8-10.8) X10*3/uL RBC (4.60-5.80) X10*6/uL Hgb (14.0-18.0) g/dl Hct (42.0-52.0) % MCV (80.0-98.0) fL MCH (27.0-33.0) pg MCHC (31.0-36.0) g/dl RDW (11.0-16.0) % Plt Count (160-400) X10*3/uL MPV (9.4-12.4) fL Immature Gran % (Auto) (0.0-0.4) % Neut % (Auto) (45-73) % Lymph % (Auto) (20-40) % [place] % (Auto) (2-11) % Eos % (Auto) (0-4) % Baso % (Auto) (0-2) % Lymph # (Auto) (1.2-4.9) X10*3/uL [place] # (Auto) (0.1-1.2) X10*3/uL Eos # (Auto) (0.0-0.4) X10*3/uL Baso # (Auto) (0.0-0.2) X10*3/uL Abs Immat Gran (auto) (0.00-0.03) X10*3/uL Absolute Neuts (auto) (2.0-8.3) x10*3/uL Absolute Nucleated RBC (0.0-0.012) X10*3/uL Nucleated RBC % (auto) (0.0-0.2) /100WBC ESR (0-15) MM/HR VBG pH 7.44 H (7.32-7.43) VBG pCO2 46 mmHg VBG pO2 65 mmHg VBG HCO3 31 H (22-26) mmol/L VBG O2 Saturation 93.0 % VBG Base Excess 6.8 mmol/L Sodium (135-145) mmol/L Potassium (3.3-5.1) mmol/L Chloride (96-108) mmol/L Carbon Dioxide (22-29) mmol/L Anion Gap (12-20) BUN (9-16) mg/dL Creatinine (0.5-1.4) mg/dL Estim Creat Clear Calc Estimated GFR Random Glucose (60-115) mg/dL Calcium (8.4-10.2) mg/dL Total Bilirubin (0.0-1.0) mg/dL Direct Bilirubin (0.0-0.5) mg/dL AST (5-37) U/L ALT (0-40) U/L Alkaline Phosphatase (39-117) U/L C-Reactive Protein (< or = 0.50) mg/dL B-Natriuretic Peptide (<100) pg/mL Total Protein (6.5-8.0) g/dL Albumin (3.5-5.0) g/dL Urine Color Yellow Urine Appearance Clear Urine pH 6.0 (5.0-9.0) Ur Specific [place] 1.015 (1.005-1.025) Urine Protein Negative (Neg-Trace) mg/dL Urine Glucose (UA) Negative (Negative) mg/dL Urine Ketones Negative (Negative) mg/dL Urine Blood Negative (Negative) Urine Nitrite Negative (Negative) Ur Leukocyte Esterase Negative (Negative) Urine Opiates Screen POSITIVE H (Not Detect) Urine Fentanyl Screen POSITIVE H (Not Detect) Ur Barbiturates Screen Not Detected (Not Detect) Ur Phencyclidine Scrn Not Detected (Not Detect) Ur Amphetamines Screen Not Detected (Not Detect) U Benzodiazepines Scrn Not Detected (Not Detect) Urine Cocaine Screen Not Detected (Not Detect) U Marijuana (THC) Screen Not Detected (Not Detect) Ethyl Alcohol mg/dL Influenza Type A (MARY CARMEN) (Negative) Influenza Type B (MARY CARMEN) (Negative) Influenza A & B Note <Lizeth Anna NP - Last Filed: 02/13/22 21:52> Imaging Data Venous duplex: Attestation: I personally reviewed and interpreted this imaging study as follows: <Lizeth Anna NP - Last Filed: 02/13/22 21:52> Radiologist's impression: COMPARISON:? Lower extremity DVT 02/06/2022 TECHNIQUE: Ultrasound of the deep veins is performed from the hip to the calf with compression sonography and color and pulse Doppler assessment. Spectral analysis with color-flow imaging is performed. FINDINGS: RIGHT: There is normal venous compression and respiratory variation and augmented flow. The visualized common femoral vein, superficial femoral vein, profunda femoral vein, popliteal vein, and the trifurcation region shows no evidence of deep venous thrombosis. The peroneal vein was not identified. There is no significant popliteal fossa cyst. LEFT: There is normal venous compression and respiratory variation and augmented flow. The visualized common femoral vein, superficial femoral vein, profunda femoral vein, popliteal vein, and the trifurcation region shows no evidence of deep venous thrombosis. Peroneal vein was not identified. There is no significant popliteal fossa cyst. If the patient's symptoms persist, followup ultrasound in 5 days 7 days might be of value to exclude proximal propagation from a non-visualized calf vein. US/US venous duplex LE BI IMPRESSION: No DVT demonstrated in the visualized bilateral lower extremity however the peroneal veins were not visualized bilaterally. <Lizeth Anna NP - Last Filed: 02/13/22 21:52> CT head: Attestation: I personally reviewed and interpreted this imaging study as follows: <Lizeth Anna NP - Last Filed: 02/13/22 21:52> Radiologist's impression: FINDINGS: Unchanged small 3.9 x 1.5 cm low-density extra-axial collection in the anterior aspect of the left middle cranial fossa consistent with a benign arachnoid cyst. Minimal local mass effect on the anterior tip of the left temporal lobe, unchanged. No new intra or extra-axial fluid collection, hemorrhage, or mass. No midline shift or herniation. Basal cisterns are patent. Thomas-white matter differentiation is maintained. No ventriculomegaly. No territorial encephalomalacia. No significant volume loss. Patchy periventricular and deep white matter hypoattenuation is consistent with mild small vessel ischemic changes. No calvarial fracture or soft tissue abnormality.? The mastoid air cells and visualized portions of the paranasal sinuses are well aerated. CT/CT head/brain wo IV con IMPRESSION: 1.? No acute intracranial pathology. 2.? Unchanged small left middle cranial fossa arachnoid cyst. ? <Lizeth Anna NP - Last Filed: 02/13/22 21:52> Discharge Plan Discharge Clinical Impression: Bilateral lower extremity edema, Opioid abuse <Gloria Cortez NP - Last Filed: 02/13/22 12:51> Patient Disposition: Home, Self-Care <Gloria Cortez NP - Last Filed: 02/13/22 12:51> Instructions: Narcotic Use Disorder (ED), Edema (ED) <Gloria Cortez NP - Last Filed: 02/13/22 12:51> Additional Instructions: You were evaluated for lethargy and bilateral lower extremity swelling. Your duplexes are negative for blood clots in her legs. Your CT scan of your head is negative for acute findings, CT scan read demonstrates an unchanged small left middle cranial fossa arachnoid cyst. Your toxicology screen was positive for opioids and fentanyl. You deny detox at this time. You more than welcome to return at any time for detox assistance. Thank you for choosing this emergency department for evaluation. Please follow-up with primary care physician as needed. Return to the emergency department for any new, concerning, or worsening symptoms. <Gloria Cortez NP - Last Filed: 02/13/22 12:51> Prescriptions: No Action doxycycline monohydrate 100 mg capsule 100 mg PO BID 10 Days Qty: 20 0RF Label Comments: 10 DAY SUPPLY cephalexin 500 mg capsule 500 mg PO Q12H 10 Days Qty: 20 0RF Label Comments: 10 DAY SUPPLY clonazepam 1 mg tablet 1 tab PO BID PRN (Reason: anxiety) metformin 850 mg tablet 1 tab PO BID enalapril-hydrochlorothiazide 10-25 mg tablet 1 tab PO DAILY pantoprazole 40 mg tablet,delayed release (DR/EC) 1 tab PO DAILY simvastatin 20 mg tablet 1 tab PO BEDTIME ergocalciferol (vitamin D2) 1,250 mcg (50,000 unit) capsule 1 cap PO QWEEK albuterol sulfate 90 mcg/actuation HFA aerosol inhaler 2 puff PO Q4H PRN (Reason: Shortness Of Breath) nicotine (polacrilex) 4 mg lozenge 4 mg PO Q4-6H PRN (Reason: Smoking Cessation) furosemide 20 mg tablet 20 mg PO DAILY 7 Days Qty: 7 0RF azithromycin 250 mg tablet See Rx Instructions .ROUTE .COMPLEX Qty: 6 0RF Rx Instructions: take 500 mg today (day 1), then 250 mg for 4 days (days 2-5) cyclobenzaprine 10 mg tablet 10 mg PO TID PRN (Reason: muscle spasm) Qty: 30 0RF furosemide [Lasix] 20 mg tablet 20 mg PO DAILY 4 Days Qty: 4 0RF Rx Instructions: start on 05/28 furosemide [Lasix] 40 mg tablet 40 mg PO DAILY Qty: 5 0RF doxycycline hyclate 100 mg capsule 100 mg PO BID Qty: 14 0RF cephalexin 500 mg capsule 500 mg PO BID Qty: 14 0RF tramadol 50 mg tablet 50 mg PO Q8H PRN (Reason: pain) Qty: 10 0RF cephalexin 500 mg capsule 500 mg PO Q6H 7 Days Qty: 28 0RF doxycycline hyclate 100 mg tablet 100 mg PO BID Qty: 14 0RF cephalexin 500 mg capsule 500 mg PO QID 10 Days Qty: 40 0RF doxycycline hyclate 100 mg tablet 100 mg PO BID Qty: 20 0RF ibuprofen 400 mg tablet 400 mg PO Q6H PRN (Reason: pain) 5 Days Qty: 20 0RF <Gloria Cortez NP - Last Filed: 02/13/22 12:51>
[2022-02-13 13:15] LABS: MANUAL DIFF FLAG NO
[2022-02-13 13:17] LABS: Basophils Percent Auto 0.5 % (0-2); Eosinophils Absolute Auto 0.2 X10*3/uL (0.0-0.4); Eosinophils Percent Auto 2.5 % (0-4); Hematocrit 34.2 % (42.0-52.0); Hemoglobin 10.6 g/dl (14.0-18.0); Imm Gran Abs Auto 0.05 X10*3/uL (0.00-0.03); Imm Gran Pct Auto 0.8 % (0.0-0.4); Lymphocytes Absolute Auto 1.9 X10*3/uL (1.2-4.9); Lymphocytes Percent Auto 29.8 % (20-40); Mean Corpuscular Hemoglobin 29.3 pg (27.0-33.0); Mean Corpuscular Volume 94.5 fL (80.0-98.0); Mean Platelet Volume 10.2 fL (9.4-12.4); Monocytes Absolute Auto 0.6 X10*3/uL (0.1-1.2); Monocytes Percent Auto 9.4 % (2-11); Neutrophils Absolute Auto 3.6 x10*3/uL (2.0-8.3); Platelet Count 221 X10*3/uL (160-400); Red Blood Count 3.62 X10*6/uL (4.60-5.80); Red Cell Distribution Width 15.3 % (11.0-16.0); White Blood Count 6.3 X10*3/uL (4.8-10.8)
[2022-02-13 13:40] LABS: B Type Natriuretic Peptide < 10 pg/mL (<100)
[2022-02-13 13:42] LABS: Alanine Aminotransferase 13 U/L (0-40); Albumin Level 3.4 g/dL (3.5-5.0); Alkaline Phosphatase 119 U/L (39-117); Anion Gap 8 (12-20); Aspartate Amino Transferase 14 U/L (5-37); Bilirubin Direct < 0.2 mg/dL (0.0-0.5); Bilirubin Total 0.2 mg/dL (0.0-1.0); Blood Urea Nitrogen 13 mg/dL (9-16); Calcium 8.9 mg/dL (8.4-10.2); Carbon Dioxide 29 mmol/L (22-29); Chloride 99 mmol/L (96-108); Creatinine Clr Calc Pharmacy 150.3; Estimated Glomerular Filt Rate > 60; Glucose Random 255 mg/dL (60-115); Potassium 4.4 mmol/L (3.3-5.1); Sodium 132 mmol/L (135-145); Total Protein 6.1 g/dL (6.5-8.0)
[2022-02-13 17:24] LABS: Venous Blood Gas Refer to POC result
[2022-02-13 17:24] LABS: VBG Base Excess 6.8 mmol/L; VBG HCO3 31 mmol/L (22-26); VBG pCO2 46 mmHg; VBG pH 7.44 (7.32-7.43); VBG pO2 65 mmHg
[2022-02-13 17:42] LABS: C Reactive Protein 0.55 mg/dL (< or = 0.50); Ethanol < 10 mg/dL
[2022-02-13 17:50] LABS: Erythrocyte Sedimentation Rate 22 MM/HR (0-15)
[2022-02-13 17:51] LABS: IDNOW Serial# BCCEAD1C; Influenza A Negative (Negative); Influenza B2 Negative (Negative)
[2022-02-13 19:39] VITALS: BP 140/83; PULSE 76; RESP 20; TEMP 36.6; O2SAT 95
[2022-02-13 19:40] LABS: Appearance Urine Clear; Color Urine Yellow; Glucose Urine UA Negative (Negative); Leukocyte Esterase Urine Negative (Negative); Nitrite Urine Negative (Negative); Specific Gravity - Urine 1.015 (1.005-1.025); Urine Blood Negative (Negative); Urine Ketones Negative (Negative); Urine Protein Negative (Neg-Trace)
[2022-02-13 20:02] LABS: Amphetamine Screen Urine Not Detected (Not Detect); Barbiturates, Urine Not Detected (Not Detect); Benzodiazepines Screen Urine Not Detected (Not Detect); Cannabinoid Screen Urine Not Detected (Not Detect); Cocaine Screen Urine Not Detected (Not Detect); Fentanyl, urine POSITIVE (Not Detect); Opiate Screen Urine POSITIVE (Not Detect); Phencyclidine Screen Urine Not Detected (Not Detect)
== END 2022-02-13 22:31 | disposition home or self-care (01) ==
PROVIDERS: Nurse Practitioner Family; Physician Assistant; Emergency Provider Emergency Medicine Emergency Medical Services
DX: R60.0 Localized edema (principal); F11.10 Opioid abuse, uncomplicated; L03.116 Cellulitis of left lower limb; M79.605 Pain in left leg; M79.604 Pain in right leg; Z20.822 Contact with and (suspected) exposure to COVID-19; E11.9 Type 2 diabetes mellitus without complications; I10 Essential (primary) hypertension; E78.5 Hyperlipidemia, unspecified; F17.200 Nicotine dependence, unspecified, uncomplicated; Z79.02 Long term (current) use of antithrombotics/antiplatelets; Z79.84 Long term (current) use of oral hypoglycemic drugs; Z79.899 Other long term (current) drug therapy
CPT/HCPCS: 36415; 70450; 80048; 80076; 80307; 81003; 82077; 82803; 83880; 85025; 85652; 86140; 87502; 93970; 99284

== ENCOUNTER 2022-03-30 12:09 | Emergency (ER) | payer OTHER, SELFPAY ==
--- NOTE | ~2022-03-30 | XR_ITS ---
EXAMINATION: XR knee LT 4V CLINICAL INFORMATION: Reason for Exam left knee pain COMPARISON: None available at the time of this dictation. TECHNIQUE: frontal, lateral, tunnel and patella sunrise views FINDINGS: BONES: No fracture or dislocation is present. JOINTS: Narrowing of joint spaces and developed osteophytes from the edges of articular surfaces suggest degenerative osteoarthritis. SOFT TISSUE: Normal XR/XR knee LT 4V IMPRESSION: Mild to moderate tricompartment degenerative osteoarthritis.
--- NOTE | ~2022-03-30 | XR_ITS ---
EXAMINATION: XR HAND, LEFT CLINICAL INFORMATION: Fall COMPARISON: None available at the time of this dictation. TECHNIQUE with: Frontal lateral oblique views of the hand and scaphoid view were obtained. FINDINGS: There is no fracture or dislocation. Radiocarpal, intercarpal, carpometacarpal, metacarpophalangeal and interphalangeal joints are intact. There are no osteolytic or osteoblastic lesions. There are no bone erosions. Surrounding soft tissue unremarkable. XR/XR hand wrist LT IMPRESSION: No radiographic evidence of acute fracture.
--- NOTE | ~2022-03-30 | CT_ITS ---
EXAMINATION: CT CERVICAL SPINE noncontrast CLINICAL INFORMATION: Reason for Exam Fall and hit head COMPARISON: No prior CT available, TECHNIQUE: Computed axial sagittal and coronal images acquired using department's standard protocol. This CT examination was performed using dose optimization techniques as appropriate, variously including the following: *Automated exposure control *Adjustment of mA and/or kV according to patient size (this includes techniques or standardized protocols for targeted exams where dose is matched to indication/reason for exam; i.e. extremities or head) *Use of iterative reconstruction technique CONTRAST: None DLP: 737 mGy-cm FINDINGS: SKULL BASE: Visualized structures at skull base are normal, Included facial sinuses are clear, CERVICAL VERTEBRAE: Seven cervical vertebrae identified maintaining proper height and alignment, DISCS: C1-C2: There is no CT evidence of significant osseous narrowing of the central canal or neural foramen. C2-C3: There is no CT evidence of significant osseous narrowing of the central canal or neural foramen. C3-C4: There is no CT evidence of significant osseous narrowing of the central canal or neural foramen. C4-C5: There is no CT evidence of significant osseous narrowing of the central canal or neural foramen. C5-C6: There is no CT evidence of significant osseous narrowing of the central canal or neural foramen. C6-C7: There is no CT evidence of significant osseous narrowing of the central canal or neural foramen. C7-T1: There is no CT evidence of significant osseous narrowing of the central canal or neural foramen. PARAVERTEBRAL SOFT TISSUE: Paravertebral soft tissues unremarkable. Included lung apices are clear. CT/CT cervical spine wo IV con IMPRESSION: No CT evidence of cervical spine fracture.
--- NOTE | ~2022-03-30 | CT_ITS ---
CT head/brain wo IV con CLINICAL INFORMATION: Reason for Exam Fall and hit head COMPARISON: Prior CT February 2022 TECHNIQUE: Department standard protocol. This CT examination was performed using dose optimization techniques as appropriate, variously including the following: *Automated exposure control *Adjustment of mA and/or kV according to patient size (this includes techniques or standardized protocols for targeted exams where dose is matched to indication/reason for exam; i.e. extremities or head) *Use of iterative reconstruction technique DLP: 1649 mGy-cm FINDINGS: CEREBRAL HEMISPHERES: There is no evidence of intra-axial or extra-axial mass, hemorrhage or acute infarct. BRAIN PARENCHYMA: Normal bautista-white matter differentiation. SUBDURAL SPACE: No bleed. BASAL GANGLIA AND PINEAL GLAND: Unremarkable VENTRICLES: Symmetric and normal in size. Redemonstration of a small arachnoid cyst in the left temporal fossa 3.7 x 1.2 cm unchanged from prior CT. CEREBELLUM AND BRAINSTEM: No space-occupying mass, hemorrhage or acute infarct. CEREBELLOPONTINE ANGLES: No lesion found. ORBITS: No intraorbital mass. VESSELS: Unremarkable SKULL BASE: Unremarkable INCLUDED SINUSES AT SKULL BASE: Clear SKULL AND SKIN: No fracture or bone lesion found. CT/CT head/brain wo IV con IMPRESSION: * No CT evidence of intracranial space-occupying mass, bleed or infarct. * Redemonstration of a small arachnoid cyst in the left temporal fossa unchanged.
--- NOTE | ~2022-03-30 | XR_ITS ---
EXAMINATION: XR TIBIA AND FIBULA, LEFT CLINICAL INFORMATION: Fall COMPARISON: None TECHNIQUE: AP and lateral views of the left tibia and fibula were obtained. FINDINGS: The bones and soft tissues are normal. No fracture. No osseous lesions. XR/XR tibia fibula LT 2V IMPRESSION: No fracture or dislocation.
--- NOTE | ~2022-03-30 | XR_ITS ---
EXAMINATION: XR SHOULDER , LEFT CLINICAL INFORMATION: Fall COMPARISON: None available at the time of this dictation. TECHNIQUE: AP external rotation, Grashey, scapular Y, and axillary views of the shoulder. FINDINGS: BONES: There is no fracture or dislocation, no osteolytic or osteoblastic lesion. JOINTS: Glenohumeral joint is properly positioned. There is mild degenerative osteoarthritis of the acromioclavicular joint. SOFT TISSUE AND INCLUDED LUNG: Normal. XR/XR shoulder LT min 2V IMPRESSION: No fracture or dislocation. Mild degenerative osteoarthritis of the AC joint.
[2022-03-30 13:23] VITALS: BP 145/80; PULSE 60; RESP 16; TEMP 36.6; O2SAT 97
--- NOTE | 2022-03-30 13:28 | ED_ITS ---
HPI - General Adult General Chief complaint: Fall <JEN Perales - Last Filed: 03/30/22 19:30> Stated complaint: Fall/L hand pain/L leg swelling <JEN Perales - Last Filed: 03/30/22 19:30> Time Seen by Provider: 03/30/22 14:13 <JEN Perales - Last Filed: 03/30/22 19:30> Source: patient <JEN Burton - Last Filed: 03/30/22 16:33> Mode of arrival: ambulatory <JEN Burton - Last Filed: 03/30/22 16:33> History of Present Illness HPI narrative: 61-year-old male with past medical history of sleep apnea, sciatica presenting to the ED complaining of headache, left hand/wrist, and posterior left leg pain s/p fall this morning. Patient states left knee gave out secondary to sciatic pain and fell on left side hitting head, denies LOC. denies taking anticoagulation. Reports acute on chronic back pain radiating down left lower extremity, unchanged, with associated paresthesias. Denies fever, chills, nausea/vomiting, CP/SOB, urinary incontinence/retention. Denies sx prior to fall <JEN Burton Last Filed: 03/30/22 16:33> Onset (ago): hour(s) <JEN Burton - Last Filed: 03/30/22 16:33> Related Data Home medications: Home Medications Medication Instructions Recorded Confirmed albuterol sulfate 90 mcg/actuation 2 puff PO Q4H PRN Shortness Of 11/07/20 11/07/20 aerosol inhaler Breath clonazepam 1 mg tablet 1 tab PO BID PRN anxiety 11/07/20 11/07/20 enalapril 10 1 tab PO DAILY 11/07/20 11/07/20 mg-hydrochlorothiazide 25 mg tablet ergocalciferol (vitamin D2) 1,250 1 cap PO QWEEK 11/07/20 11/07/20 mcg (50,000 unit) capsule metformin 850 mg tablet 1 tab PO BID 11/07/20 11/07/20 nicotine (polacrilex) 4 mg buccal 4 mg PO Q4-6H PRN Smoking Cessation 11/07/20 11/07/20 lozenge pantoprazole 40 mg tablet,delayed 1 tab PO DAILY 11/07/20 11/07/20 release simvastatin 20 mg tablet 1 tab PO BEDTIME 11/07/20 11/07/20 Previous Rx's Medication Instructions Recorded cyclobenzaprine 10 mg tablet 10 mg PO TID PRN muscle spasm #30 04/27/20 tabs cephalexin 500 mg capsule 500 mg PO Q12H 10 days #20 caps 10/29/20 doxycycline monohydrate 100 mg 100 mg PO BID 10 days #20 caps 10/29/20 capsule azithromycin 250 mg tablet See Rx Instructions PO .COMPLEX #6 11/07/20 tabs furosemide 20 mg tablet 20 mg PO DAILY 7 days #7 tabs 11/07/20 cephalexin 500 mg capsule 500 mg PO QID 10 days #40 caps 03/03/21 doxycycline hyclate 100 mg tablet 100 mg PO BID #20 tabs 03/03/21 furosemide 20 mg tablet (Lasix) 20 mg PO DAILY 4 days #4 tabs 05/27/21 ibuprofen 400 mg tablet 400 mg PO Q6H PRN pain 5 days #20 06/02/21 tabs cephalexin 500 mg capsule 500 mg PO BID #14 caps 09/17/21 doxycycline hyclate 100 mg capsule 100 mg PO BID #14 caps 09/17/21 furosemide 40 mg tablet (Lasix) 40 mg PO DAILY #5 tabs 09/17/21 tramadol 50 mg tablet 50 mg PO Q8H PRN pain #10 tabs 01/05/22 cephalexin 500 mg capsule 500 mg PO Q6H 7 days #28 caps 02/06/22 doxycycline hyclate 100 mg tablet 100 mg PO BID #14 tabs 02/06/22 acetaminophen 500 mg tablet 500 mg PO Q6H PRN fever or pain 03/30/22 (Tylenol Extra Strength) #14 tabs cyclobenzaprine 5 mg tablet 5 mg PO Q8H PRN pain (scale score 03/30/22 7-10) 5 days #14 tabs lidocaine 5 % topical patch 1 patch topical DAILY PRN pain #30 03/30/22 (Lidoderm) ea naproxen 500 mg tablet 500 mg PO BID PRN pain 10 days #20 03/30/22 tabs <JEN Perales - Last Filed: 03/30/22 19:30> Allergies/adverse reactions: Allergies Allergy/AdvReac Type Severity Reaction Status Date / Time morphine [MORPHINE] Allergy Severe RASH Verified 03/30/22 13:23 <JEN Perales - Last Filed: 03/30/22 19:30> Review of Systems Review of Systems: Constitutional: No Fever, No Chills, No Fatigue, No Malaise ENT/Mouth: No Ear Pain, No Nasal Congestion,No sore throat, No Rhinorrhea, No Swallowing Difficulty Eyes: No Eye Pain, No Swelling, No Redness, No Vision Changes Cardiovascular: No Chest Pain, No SOB, No Edema, No Palpitations Respiratory: No Cough, No Sputum, No Dyspnea Gastrointestinal: No Nausea, No Vomiting, No Diarrhea, No Constipation, No Abdominal pain Genitourinary:No Dysuria, No Urinary Frequency, No Hematuria, No Urinary Incontinence/retention Musculoskeletal: + joint pain, + Myalgias, No Joint Swelling Skin: No Skin Lesions, No rash Neuro: No Weakness, No Numbness, + Paresthesias, No Loss of Consciousness, No Dizziness, + Headache <JEN Burton Last Filed: 03/30/22 16:33> Yes all other systems are reviewed and are negative <JEN Burton Last Filed: 03/30/22 16:33> Constitutional: Constitutional: Reports as per HPI <JEN Burton - Last Filed: 03/30/22 16:33> Neurologic: Denies Abnormal speech present <JEN Burton Last Filed: 03/30/22 16:33> [facility] Past Medical History Attestation statement: The following information was validated with the patient. <JEN Burton - Last Filed: 03/30/22 16:33> Medical History: Medical History FHx: total knee replacement Sleep apnea <JEN Perales - Last Filed: 03/30/22 19:30> Surgical History: Surgical History History of ankle surgery History of hip surgery History of surgery on arm <JEN Perales Last Filed: 03/30/22 19:30> Social History Social History: Social History Alcohol intake: never Patient Tobacco Use Status: Current everyday Tobacco user Advance Directives: No Advance Directives Information Provided: Yes <JEN Perales - Last Filed: 03/30/22 19:30> Physical Exam ED Vital Signs: Vital Signs - 24 hr 03/30/22 13:23 Temperature 97.9 F Pulse Rate 60 Respiratory Rate 16 Blood Pressure 145/80 H Pulse Oximetry 97 Oxygen Delivery Method Room Air BMI result Body Mass Index 3.2 <JEN Perales - Last Filed: 03/30/22 19:30> Vital Signs - 24 hr 03/30/22 13:23 Temperature 97.9 F Pulse Rate 60 Respiratory Rate 16 Blood Pressure 145/80 H Pulse Oximetry 97 Oxygen Delivery Method Room Air BMI result Body Mass Index 3.2 <JEN Burton - Last Filed: 03/30/22 16:33> Const General: cooperative, healthy appearing and no acute distress <JEN Burton Last Filed: 03/30/22 16:33> Orientation/consciousness: patient oriented x3 <JEN Burton - Last Filed: 03/30/22 16:33> Limitations: no limitations <JEN Burton - Last Filed: 03/30/22 16:33> HENMT Head: Yes normal to inspection and Yes atraumatic <JEN Burton - Last Filed: 03/30/22 16:33> Ears: hearing grossly normal bilaterally <JEN Burton Last Filed: 16:33> General nose exam: Normal external nose present <JEN Burton Last Filed: 03/30/22 16:33> Face and sinus: Yes normal facial exam <JEN Burton Last Filed: 03/30/22 16:33> Throat: Yes posterior oropharynx normal, Yes tonsils normal, Yes uvula midline, No peritonsillar mass and No uvula laterally displaced <JEN Burton Last Filed: 03/30/22 16:33> Eyes General: appearance normal, both eyes and all related structures <JEN Burton - Last Filed: 03/30/22 16:33> Pupils: Equal, round and reactive pupils present <Angélica Poulnichot, PA - Last Filed: 03/30/22 16:33> EOM: EOMs intact bilaterally <Angélica Poulnichot, PA - Last Filed: 03/30/22 16:33> Neck Neck: Yes normal visual inspection and Yes no meningeal signs <Angélica Poulnichot, PA - Last Filed: 03/30/22 16:33> Resp Effort & Inspection: normal respiratory effort and no respiratory distress <Angélica Pouliot, PA - Last Filed: 03/30/22 16:33> Cardio Rate: regular rate <Angélica Poulnichot, PA - Last Filed: 03/30/22 16:33> Heart sounds: S1 normal heart sound present and S2 normal heart sound present <Angélica Poulnichot, PA - Last Filed: 03/30/22 16:33> GI Inspection: Yes normal to inspection <Angélica Poulnichot, PA - Last Filed: 03/30/22 16:33> Palpation (GI): Soft to palpation, nontender, no guarding and not rigid <Angélica Poulnichot, PA - Last Filed: 03/30/22 16:33> General: Yes no CVA tenderness <Angélica Poulnichot, PA - Last Filed: 03/30/22 16:33> Back/Spine/Pelvis Other: No midline thoracic/lumbar spinous tenderness/step-off or deformity. +mild left lumbar MSK ttp <Angélica Al, PA - Last Filed: 03/30/22 16:33> Back: no CVA tenderness <Angélica Pouliot, PA - Last Filed: 03/30/22 16:33> Thoracic/Lumbar Spine: thoracic and lumbar spine normal to inspection <Angélica Poulnichot, PA - Last Filed: 03/30/22 16:33> Pelvis: no pain with anterior-posterior compression <Angélica Poulnichot, PA - Last Filed: 03/30/22 16:33> Skin Rashes: no rashes <Angélica Poulnichot, PA - Last Filed: 03/30/22 16:33> Wounds: no wounds <Angélica Poulnichot, PA - Last Filed: 03/30/22 16:33> Neuro Other: Strength intact throughout. No saddle anesthesia. Sensation intact to light touch. Neurovascular intact distally <JEN Burton - Last Filed: 03/30/22 16:33> General: patient oriented x3, tone normal, moves all extremities, no meningeal signs, no focal motor deficits and CN's II-XI intact bilaterally <JEN Burton - Last Filed: 03/30/22 16:33> Cranial nerves: Yes CN's II-XII intact bilaterally and Yes Equal, round and reactive pupils present <JEN Burton - Last Filed: 03/30/22 16:33> Cognition (Neuro): normal cognition <JEN Burton - Last Filed: 03/30/22 16:33> Speech: No Abnormal speech present <JEN Burton - Last Filed: 03/30/22 16:33> Gait exam (Neuro): Normal gait present <JEN Burton - Last Filed: 03/30/22 16:33> Motor exam (neuro): 5/5 motor strength present throughout and Pronator motor function not present <JEN Burton - Last Filed: 03/30/22 16:33> Extrem Other: + left hand/wrist with mild swelling. + tenderness to palpation to radial aspect of wrist with +snuffbox tenderness. Full ROM mildly limited secondary to pain. Neurovascularly intact. Elbow/shoulder nontender. Left knee/tib-fib and ankle nontender. Neurovascular intact distally. <JEN Burton - Last Filed: 03/30/22 16:33> Course Course Course Narrative: RME: 61 yold male presents to the ED for fall. patient hit his head. patient states his left knee gave out and caused the fall. patient states left leg and hand wirst pain and headache also. Imaging ordered <JEN Perales - Last Filed: 03/30/22 19:30> RME: 61 yold male presents to the ED for fall. patient hit his head. patient states his left knee gave out and caused the fall. patient states left leg and hand wirst pain and headache also. Imaging ordered 1625--CT head/brain wo IV con IMPRESSION: *? No CT evidence of intracranial space-occupying mass, bleed or infarct. *? Redemonstration of a small arachnoid cyst in the left temporal fossa unchanged. CT cervical spine wo IV con IMPRESSION: No CT evidence of cervical spine fracture. XR hand wrist LT IMPRESSION: No radiographic evidence of acute fracture. >> due to patient's snuffbox tenderness placed in thumb spica splint to follow- up with orthopedics XR shoulder LT min 2V IMPRESSION:? No fracture or dislocation. Mild degenerative osteoarthritis of the AC joint XR knee LT 4V IMPRESSION: Mild to moderate tricompartment degenerative osteoarthritis.? XR tibia fibula LT 2V IMPRESSION: No fracture or dislocation. Results discussed with patient including worrisome signs and symptoms and strict return precautions, and when to return to the emergency department. They verbalized understanding and feel safe for discharge at this time. <JEN Burton - Last Filed: 03/30/22 16:33> Medications Administered Discontinued Medications Generic Name Dose Route Start Last Admin Trade Name Freq PRN Reason Stop Dose Admin Ketorolac Tromethamine 30 mg 03/30/22 17:39 03/30/22 17:45 Ketorolac Tromethamine 30 Mg/Ml Vial IM 03/30/22 17:40 30 mg ONCE ONE Administration <JEN Perales - Last Filed: 03/30/22 19:30> Medications Administered Discontinued Medications Generic Name Dose Route Start Last Admin Trade Name Freq PRN Reason Stop Dose Admin Ketorolac Tromethamine 30 mg 03/30/22 17:39 03/30/22 17:45 Ketorolac Tromethamine 30 Mg/Ml Vial IM 03/30/22 17:40 30 mg ONCE ONE Administration <JEN Burton - Last Filed: 03/30/22 16:33> Procedures Orthopedic Splinting/Casting Injury #1: Side: left <JEN Burton - Last Filed: 03/30/22 16:33> Upper Extremity Injury Location: wrist <JEN Burton Last Filed: 03/30/22 16:33> Upper Extremity Immobilizer: thumb spica <JEN Burton - Last Filed: 03/30/22 16:33> Medical Decision Making Medical Decision Making MDM Narrative: 61-year-old male with past medical history of sleep apnea, sciatica presenting to the ED complaining of headache, left hand/wrist, and posterior left leg pain s/p fall this morning. On exam vital signs stable, NAD, nontoxic appearing, no midline spinous tenderness throughout or red flag symptoms. Left wrist with snuffbox tenderness. No focal neuro deficits. Concern for fractures vs sprain vs sciatica. Rule out ICH. Low suspicion for CVA/TIA, ACS, PE, cauda equina or epidural abscess Plan: Imaging ordered in triage Please refer to course for remaining clinical decision making, interpretation of labs/imaging results, and discussions with consultants and/or family members. <JEN Burton - Last Filed: 03/30/22 16:33> Differential Diagnosis Differential Diagnoses: The differential diagnosis associated with the presentation includes <JEN Burton - Last Filed: 03/30/22 16:33> as above <JEN Burton - Last Filed: 03/30/22 16:33> Radiology Impression Discussion of test interpretation with radiology: I have reviewed the radiologist's reading. <JEN Burton - Last Filed: 03/30/22 16:33> Discharge Plan Discharge Clinical Impression: Osteoarthritis, Sciatica, Fall, Head injury <JEN Perales - Last Filed: 03/30/22 19:30> Patient Disposition: Home, Self-Care <JEN Perales - Last Filed: 03/30/22 19:30> Instructions: Osteoarthritis (ED), Sciatica (ED), Head Injury (ED), Fall Prevention (ED) <JEN Perales Last Filed: 03/30/22 19:30> Additional Instructions: Your imaging studies do not show any acute findings. You have osteoarthritis. Due to the pain in your left wrist please keep splint on, you may only take off to shower. You need to follow-up with orthopedics Your pain is likely musculoskeletal Flexeril is a muscle relaxer, take at night as it makes you drowsy, do not drive, drink alcohol, or operate machinery while taking it Naproxen as an anti-inflammatory / pain medication, take with food Lidoderm patches are numbing patches, apply to painful area In addition take Tylenol at home If symptoms persist or worsen, pain becomes unbearable, you developed urinary retention or incontinence, or weakness return to the ED <JEN Perales - Last Filed: 03/30/22 19:30> Prescriptions: New acetaminophen [Tylenol Extra Strength] 500 mg tablet 500 mg PO Q6H PRN (Reason: fever or pain) Qty: 14 0RF lidocaine [Lidoderm] 5 % adhesive patch,medicated 1 patch topical DAILY MDD remove after 12 hours PRN (Reason: pain) Qty: 30 0RF Rx Instructions: leave on most painful area for up to 12 hrs naproxen 500 mg tablet 500 mg PO BID PRN (Reason: pain) 10 Days Qty: 20 0RF cyclobenzaprine 5 mg tablet 5 mg PO Q8H PRN (Reason: pain (scale score 7-10)) 5 Days Qty: 14 0RF No Action doxycycline monohydrate 100 mg capsule 100 mg PO BID 10 Days Qty: 20 0RF Label Comments: 10 DAY SUPPLY cephalexin 500 mg capsule 500 mg PO Q12H 10 Days Qty: 20 0RF Label Comments: 10 DAY SUPPLY clonazepam 1 mg tablet 1 tab PO BID PRN (Reason: anxiety) metformin 850 mg tablet 1 tab PO BID enalapril-hydrochlorothiazide 10-25 mg tablet 1 tab PO DAILY pantoprazole 40 mg tablet,delayed release (DR/EC) 1 tab PO DAILY simvastatin 20 mg tablet 1 tab PO BEDTIME ergocalciferol (vitamin D2) 1,250 mcg (50,000 unit) capsule 1 cap PO QWEEK albuterol sulfate 90 mcg/actuation HFA aerosol inhaler 2 puff PO Q4H PRN (Reason: Shortness Of Breath) nicotine (polacrilex) 4 mg lozenge 4 mg PO Q4-6H PRN (Reason: Smoking Cessation) furosemide 20 mg tablet 20 mg PO DAILY 7 Days Qty: 7 0RF azithromycin 250 mg tablet See Rx Instructions .ROUTE .COMPLEX Qty: 6 0RF Rx Instructions: take 500 mg today (day 1), then 250 mg for 4 days (days 2-5) cyclobenzaprine 10 mg tablet 10 mg PO TID PRN (Reason: muscle spasm) Qty: 30 0RF furosemide [Lasix] 20 mg tablet 20 mg PO DAILY 4 Days Qty: 4 0RF Rx Instructions: start on 05/28 furosemide [Lasix] 40 mg tablet 40 mg PO DAILY Qty: 5 0RF doxycycline hyclate 100 mg capsule 100 mg PO BID Qty: 14 0RF cephalexin 500 mg capsule 500 mg PO BID Qty: 14 0RF tramadol 50 mg tablet 50 mg PO Q8H PRN (Reason: pain) Qty: 10 0RF cephalexin 500 mg capsule 500 mg PO Q6H 7 Days Qty: 28 0RF doxycycline hyclate 100 mg tablet 100 mg PO BID Qty: 14 0RF cephalexin 500 mg capsule 500 mg PO QID 10 Days Qty: 40 0RF doxycycline hyclate 100 mg tablet 100 mg PO BID Qty: 20 0RF ibuprofen 400 mg tablet 400 mg PO Q6H PRN (Reason: pain) 5 Days Qty: 20 0RF <JEN Perales - Last Filed: 03/30/22 19:30> Referrals: [facility] [place] Orth[facility] Surgeons [Provider Group] - 1 week Center,[facility] [Primary Care Provider] - 5 days <JEN Perales - Last Filed: 03/30/22 19:30> Interventions: ED Discharge Assessment Last Done: 03/30/22 18:21 <JEN Perales - Last Filed: 03/30/22 19:30> Discharge Date/Time: 03/30/22 18:22 <JEN Perales - Last Filed: 03/30/22 19:30>
[2022-03-30] MEDS: Ketorolac Tromethamine 30 MG/ML VIAL IM (17:45)
== END 2022-03-30 18:22 | disposition home or self-care (01) ==
PROVIDERS: Emergency Provider Emergency Medicine
DX: S09.90XA Unspecified injury of head, initial encounter (principal); M54.42 Lumbago with sciatica, left side; M54.41 Lumbago with sciatica, right side; R51.9 Headache, unspecified; M54.2 Cervicalgia; M79.642 Pain in left hand; M79.605 Pain in left leg; M79.604 Pain in right leg; M79.602 Pain in left arm; W01.0XXA Fall on same level from slipping, tripping and stumbling without subsequent striking against object, initial encounter; Y93.9 Activity, unspecified; Y92.9 Unspecified place or not applicable; Y99.9 Unspecified external cause status; Z79.899 Other long term (current) drug therapy
CPT/HCPCS: 70450; 72125; 73030; 73110; 73130; 73564; 73590; 96372; 99283; 99284; J1885

== ENCOUNTER → 2022-04-28 11:03 | Outpatient (BNVA) | payer OTHER, SELFPAY | PROVIDERS: Visit Provider Physician Assistant | DX: M25.532 Pain in left wrist (principal) | CPT/HCPCS: 99202 ==

== ENCOUNTER 2022-08-03 12:23 | Emergency (ER) | payer OTHER, SELFPAY ==
--- NOTE | ~2022-08-03 | XR_ITS ---
EXAMINATION: XR CHEST CLINICAL INFORMATION: Bilateral lower extremity edema COMPARISON: X-ray 05/27/2021 TECHNIQUE: 2 views of the chest were obtained. FINDINGS: Normal heart size. There is central vascular prominence, similar to previous. Mild perivascular haziness in bilateral lower lungs. Linear opacities in the right mid to lower lung. No pleural effusion. No pneumothorax. Thoracic spine degeneration. XR/XR chest 2V IMPRESSION: Central vascular prominence with possible mild interstitial pulmonary edema. Linear opacity right mid to lower lung, could reflect atelectasis or infiltrate.
--- NOTE | ~2022-08-03 | US_ITS ---
EXAMINATION: US VENOUS ULTRASOUND WITH DOPPLER LOWER EXTREMITY, BILATERAL CLINICAL INFORMATION: Bilateral lower extremity edema COMPARISON: None available. TECHNIQUE: Ultrasound of the deep veins is performed from the hip to the calf with compression sonography and color and pulse Doppler assessment. Spectral analysis with color-flow imaging is performed. FINDINGS: RIGHT: There is normal venous compression and respiratory variation and augmented flow. The visualized common femoral vein, superficial femoral vein, profunda femoral vein, popliteal vein, and the trifurcation region shows no evidence of deep venous thrombosis. Right posterior tibial vein is patent. The right peroneal vein is not visualized. There is no significant popliteal fossa cyst. . LEFT: There is normal venous compression and respiratory variation and augmented flow. The visualized common femoral vein, superficial femoral vein, profunda femoral vein, popliteal vein, and the trifurcation region shows no evidence of deep venous thrombosis. There is no significant popliteal fossa cyst. If the patient's symptoms persist, followup ultrasound in 5 days 7 days might be of value to exclude proximal propagation from a non-visualized calf vein. US/US venous duplex LE BI IMPRESSION: No DVT demonstrated in the bilateral lower extremity extending from the common femoral vein to the popliteal vein. Limited evaluation of the right calf veins. Right peroneal vein is not visualized. The visualized left calf veins appear patent. If the patient's symptoms persist, followup ultrasound in 5 days 7 days might be of value to exclude proximal propagation from a non-visualized calf vein.
[2022-08-03 12:35] VITALS: BP 181/91; PULSE 68; RESP 18; TEMP 36.8; O2SAT 98; BMI 36.6
--- NOTE | 2022-08-03 12:36 | ED.GENADULT ---
HPI - General Adult General Chief complaint: General Medical Stated complaint: Bilateral leg swelling Time Seen by Provider: 08/03/22 14:43 Source: patient Mode of arrival: ambulatory Limitations: no limitations History of Present Illness HPI narrative: 62-year-old male who presents emergency department for evaluation of bilateral lower extremity swelling x5 days. The patient states that he has had similar swelling in the past due to fluid overload in due to infection. He states that his dog scratched his left leg and he was leaking water from his leg which concerned him. He has not noticed any increased warmth or increased erythema. He denied fever, chills, rhinorrhea, sore throat, cough, chest pain. He states he does feel short of breath at his baseline and that is no worse. He has dyspnea on exertion which is at his baseline. RME was reviewed by me. Related Data Home Medications Medication Instructions Recorded Confirmed albuterol sulfate 90 mcg/actuation 2 puff PO Q4H PRN Shortness Of 11/07/20 11/07/20 aerosol inhaler Breath clonazepam 1 mg tablet 1 tab PO BID PRN anxiety 11/07/20 11/07/20 enalapril 10 1 tab PO DAILY 11/07/20 11/07/20 mg-hydrochlorothiazide 25 mg tablet ergocalciferol (vitamin D2) 1,250 1 cap PO QWEEK 11/07/20 11/07/20 mcg (50,000 unit) capsule metformin 850 mg tablet 1 tab PO BID 11/07/20 11/07/20 nicotine (polacrilex) 4 mg buccal 4 mg PO Q4-6H PRN Smoking Cessation 11/07/20 11/07/20 lozenge pantoprazole 40 mg tablet,delayed 1 tab PO DAILY 11/07/20 11/07/20 release simvastatin 20 mg tablet 1 tab PO BEDTIME 11/07/20 11/07/20 Previous Rx's Medication Instructions Recorded cyclobenzaprine 10 mg tablet 10 mg PO TID PRN muscle spasm #30 04/27/20 tabs doxycycline monohydrate 100 mg 100 mg PO BID 10 days #20 caps 10/29/20 capsule furosemide 20 mg tablet 20 mg PO DAILY 7 days #7 tabs 11/07/20 doxycycline hyclate 100 mg tablet 100 mg PO BID #20 tabs 03/03/21 furosemide 20 mg tablet (Lasix) 20 mg PO DAILY 4 days #4 tabs 05/27/21 ibuprofen 400 mg tablet 400 mg PO Q6H PRN pain 5 days #20 06/02/21 tabs doxycycline hyclate 100 mg capsule 100 mg PO BID #14 caps 09/17/21 furosemide 40 mg tablet (Lasix) 40 mg PO DAILY #5 tabs 09/17/21 doxycycline hyclate 100 mg tablet 100 mg PO BID #14 tabs 02/06/22 acetaminophen 500 mg tablet 500 mg PO Q6H PRN fever or pain 03/30/22 (Tylenol Extra Strength) #14 tabs cyclobenzaprine 5 mg tablet 5 mg PO Q8H PRN pain (scale score 03/30/22 7-10) 5 days #14 tabs lidocaine 5 % topical patch 1 patch topical DAILY PRN pain #30 03/30/22 (Lidoderm) ea naproxen 500 mg tablet 500 mg PO BID PRN pain 10 days #20 03/30/22 tabs furosemide 80 mg tablet (Lasix) 80 mg PO DAILY #14 tabs 08/03/22 Allergies Allergy/AdvReac Type Severity Reaction Status Date / Time morphine [MORPHINE] Allergy Severe RASH Verified 04/28/22 11:12 Review of Systems Review of Systems: Yes all other systems are reviewed and are negative [facility] Past Medical History [facility] Narrative: Social history: He does smoke cigarettes. He denies alcohol use. He denies drug use. Medical History Asthma Diabetes FHx: total knee replacement History of arthroplasty of left elbow Hypertension Sleep apnea Surgical History History of ankle surgery History of gastric surgery History of hip surgery History of surgery on arm Social History Social History Alcohol intake: never Patient Tobacco Use Status: Current everyday Tobacco user Tobacco use type: Cigarette Cigarettes Per Day: 5 Smoked in Last 30 Days: Yes Use of substances other than those prescribed or required for medical reasons: No Advance Directives: No Advance Directives Information Provided: No Current occupational status: disabled Current occupation: right handed Physical Exam ED Vital Signs: Vital Signs - 24 hr 08/03/22 12:35 08/03/22 15:09 08/03/22 16:34 Temperature 98.2 F Pulse Rate 68 50 59 Respiratory Rate 18 14 14 Blood Pressure 181/91 H 139/76 137/80 Pulse Oximetry 98 95 99 Oxygen Delivery Method Room Air Room Air Room Air BMI result Body Mass Index 36.6 Const Other: Awake, alert, male patient, patient is able answer all questions appropriately HENMT Head: Yes normal to inspection, Yes normocephalic and Yes atraumatic Ears: external ears normal General nose exam: Normal external nose present Face and sinus: Yes normal facial exam Mouth: Normal oral and palatal mucosa present Throat: Yes posterior oropharynx normal Eyes General: appearance normal, both eyes and all related structures Neck Neck: Yes normal visual inspection, Yes no lymphadenopathy, Yes trachea midline and Yes supple Chest Chest palpation & inspection: normal inspection of the chest and normal palpation of entire chest wall Resp Effort & Inspection: normal respiratory effort and able to speak in complete sentences Auscultation: clear to auscultation bilaterally Cardio Rate: regular rate Rhythm: regular rhythm Heart sounds: S1 normal heart sound present, S2 normal heart sound present and no murmurs GI Inspection: Yes normal to inspection Palpation (GI): Soft to palpation, nontender and no guarding Auscultation: normal bowel sounds General: Yes no CVA tenderness Back/Spine/Pelvis Back: no CVA tenderness Skin General skin exam: no rashes or lesions noted Neuro Cognition (Neuro): normal cognition Motor exam (neuro): 5/5 motor strength present throughout Extrem Other: Patient is 1 to 2+ pitting edema to both lower extremities, they appear to be symmetrically swollen. There is no increased erythema or warmth. Patient has a very small abrasion/scratch to his right medial aspect of his calf which does not appear to be infected is not leaking fluid at this time. Psych Appearance: grossly normal Speech and movement: Normal speech and movement present Affect: normal affect Attitude: cooperative Course Course Course Narrative: RME: 62-year-old male with past medical history of sleep apnea, sciatica, RLE DVT no longer on AC, presenting to the ED complaining of?Bilateral LE edema & pain x2 days w/ assoc SOB. denies CP, recent travel +B/L LE edema, skin tightening EKG, Labs, CXR, US venous duplex ordered Full HPI, ROS and PE to be performed by primary ED provider. Medical Decision Making Medical Decision Making [facility] Narrative: 62-year-old male who presents emergency department for evaluation of bilateral lower extremity swelling x5 days. Patient has had similar problems in the past. He told me that he is not taking diuretics at this time but he has been prescribed Lasix in the past. He had no significant systemic symptoms. Provider at triage ordered a CBC, BMP, liver panel, PT/INR, magnesium, troponin, BNP, duplex bilateral lower extremity ultrasounds. 1510: My interpretation patient's laboratory evaluation as follows: Anemia with an H&H of 10 and 33-this is chronic. Elevated glucose 219. High sensitive troponin I was detectable at 2.7 but not elevated. BMP was normal at 84. 1723: Patient's duplex ultrasound of both lower extremities revealed no DVT. At this time I think DVT is less likely in the patient's symptoms are consistent with peripheral edema. Patient will be started on Lasix 60 mg daily for 2 weeks. He was advised to stay on a fluid restriction. Differential Diagnosis Differential diagnosis includes was not limited to DVT, cellulitis, peripheral edema, congestive heart failure, myocardial infarction Admission/Observation Consideration of admission/observation: Escalation of care including admission/observation considered Lab Data [facility] Lab Attestation statement: I reviewed the patient's lab results. 08/03/22 13:35 08/03/22 13:35 Labs: Lab Results 08/03/22 08/03/22 08/03/22 Range/Units 13:34 13:34 13:35 WBC 6.4 (4.8-10.8) X10*3/uL RBC 3.53 L (4.60-5.80) X10*6/uL Hgb 10.2 L (14.0-18.0) g/dl Hct 33.2 L (42.0-52.0) % MCV 94.1 (80.0-98.0) fL MCH 28.9 (27.0-33.0) pg MCHC 30.7 L (31.0-36.0) g/dl RDW 15.7 (11.0-16.0) % Plt Count 182 (160-400) X10*3/uL MPV 10.6 (9.4-12.4) fL Immature Gran % (Auto) 0.9 H (0.0-0.4) % Neut % (Auto) 55.6 (45-73) % Lymph % (Auto) 30.3 (20-40) % [place] % (Auto) 9.4 (2-11) % Eos % (Auto) 3.3 (0-4) % Baso % (Auto) 0.5 (0-2) % Lymph # (Auto) 1.9 (1.2-4.9) X10*3/uL [place] # (Auto) 0.6 (0.1-1.2) X10*3/uL Eos # (Auto) 0.2 (0.0-0.4) X10*3/uL Baso # (Auto) 0.0 (0.0-0.2) X10*3/uL Abs Immat Gran (auto) 0.06 H (0.00-0.03) X10*3/uL Absolute Neuts (auto) 3.6 (2.0-8.3) x10*3/uL Absolute Nucleated RBC 0.000 (0.0-0.012) X10*3/uL Nucleated RBC % (auto) 0.0 (0.0-0.2) /100WBC PT (10.0-13.1) SEC INR (0.9-1.1) Sodium (135-145) mmol/L Potassium (3.3-5.1) mmol/L Chloride (96-108) mmol/L Carbon Dioxide (22-29) mmol/L Anion Gap (12-20) BUN (9-16) mg/dL Creatinine (0.5-1.4) mg/dL Estim Creat Clear Calc Estimated GFR Random Glucose (60-115) mg/dL Calcium (8.4-10.2) mg/dL Magnesium (1.6-2.6) mg/dL Total Bilirubin (0.0-1.0) mg/dL Direct Bilirubin (0.0-0.5) mg/dL AST (5-37) U/L ALT (0-40) U/L Alkaline Phosphatase (39-117) U/L Troponin I High Sens 2.7 (<3.5-35.0) ng/L B-Natriuretic Peptide 84 (<100) pg/mL Total Protein (6.5-8.0) g/dL Albumin (3.5-5.0) g/dL 08/03/22 08/03/22 Range/Units 13:35 13:35 WBC (4.8-10.8) X10*3/uL RBC (4.60-5.80) X10*6/uL Hgb (14.0-18.0) g/dl Hct (42.0-52.0) % MCV (80.0-98.0) fL MCH (27.0-33.0) pg MCHC (31.0-36.0) g/dl RDW (11.0-16.0) % Plt Count (160-400) X10*3/uL MPV (9.4-12.4) fL Immature Gran % (Auto) (0.0-0.4) % Neut % (Auto) (45-73) % Lymph % (Auto) (20-40) % [place] % (Auto) (2-11) % Eos % (Auto) (0-4) % Baso % (Auto) (0-2) % Lymph # (Auto) (1.2-4.9) X10*3/uL [place] # (Auto) (0.1-1.2) X10*3/uL Eos # (Auto) (0.0-0.4) X10*3/uL Baso # (Auto) (0.0-0.2) X10*3/uL Abs Immat Gran (auto) (0.00-0.03) X10*3/uL Absolute Neuts (auto) (2.0-8.3) x10*3/uL Absolute Nucleated RBC (0.0-0.012) X10*3/uL Nucleated RBC % (auto) (0.0-0.2) /100WBC PT 11.7 (10.0-13.1) SEC INR 1.0 (0.9-1.1) Sodium 139 (135-145) mmol/L Potassium 4.3 (3.3-5.1) mmol/L Chloride 104 (96-108) mmol/L Carbon Dioxide 29 (22-29) mmol/L Anion Gap 10 L (12-20) BUN 10 (9-16) mg/dL Creatinine 0.78 (0.5-1.4) mg/dL Estim Creat Clear Calc 140.3 Estimated GFR > 60 Random Glucose 219 H (60-115) mg/dL Calcium 8.9 (8.4-10.2) mg/dL Magnesium 1.9 (1.6-2.6) mg/dL Total Bilirubin 0.3 (0.0-1.0) mg/dL Direct Bilirubin 0.1 (0.0-0.5) mg/dL AST 11 (5-37) U/L ALT 11 (0-40) U/L Alkaline Phosphatase 126 H (39-117) U/L Troponin I High Sens (<3.5-35.0) ng/L B-Natriuretic Peptide (<100) pg/mL Total Protein 6.0 L (6.5-8.0) g/dL Albumin 3.2 L (3.5-5.0) g/dL Radiology Impression Discussion of test interpretation with radiology: I have reviewed the radiologist's reading. Radiologist Impression: US venous duplex LE BI IMPRESSION: No DVT demonstrated in the bilateral lower extremity extending from the common femoral vein to the popliteal vein. Limited evaluation of the right calf veins. Right peroneal vein is not visualized. The visualized left calf veins appear patent. If the patient's symptoms persist, followup ultrasound in 5 days 7 days might be of value to exclude proximal propagation from a non-visualized calf vein. Dictated By:Jose Parrish MD Discharge Plan Discharge Clinical Impression: Bilateral edema of lower extremity Patient Disposition: Home, Self-Care Instructions: Edema (ED) Additional Instructions: Your blood work was unremarkable. The duplex ultrasounds of your lower extremities did not reveal any clear evidence for blood clot. I do not think that you have an infection of your legs at this time. Your body is fluid overloaded and holding onto fluid. You need to reduce the amount of fluid that you drink over the next 2 weeks to less than 1 L of fluid per day. I am starting you on a water pill/diarrhea that will make you pee. The goal is to pee out more fluid than you drink. Take Lasix (furosemide) 80 mg once a day for 2 weeks. Follow-up with your doctor in 2 days. Please return to the emergency department if your symptoms get worse or if you develop any symptoms that are concerning to you. Prescriptions: New furosemide [Lasix] 80 mg tablet 80 mg PO DAILY Qty: 14 0RF No Action doxycycline monohydrate 100 mg capsule 100 mg PO BID 10 Days Qty: 20 0RF Patient Comments: 10 DAY SUPPLY clonazepam 1 mg tablet 1 tab PO BID PRN (Reason: anxiety) metformin 850 mg tablet 1 tab PO BID enalapril-hydrochlorothiazide 10-25 mg tablet 1 tab PO DAILY pantoprazole 40 mg tablet,delayed release (DR/EC) 1 tab PO DAILY simvastatin 20 mg tablet 1 tab PO BEDTIME ergocalciferol (vitamin D2) 1,250 mcg (50,000 unit) capsule 1 cap PO QWEEK albuterol sulfate 90 mcg/actuation HFA aerosol inhaler 2 puff PO Q4H PRN (Reason: Shortness Of Breath) nicotine (polacrilex) 4 mg lozenge 4 mg PO Q4-6H PRN (Reason: Smoking Cessation) furosemide 20 mg tablet 20 mg PO DAILY 7 Days Qty: 7 0RF cyclobenzaprine 10 mg tablet 10 mg PO TID PRN (Reason: muscle spasm) Qty: 30 0RF furosemide [Lasix] 20 mg tablet 20 mg PO DAILY 4 Days Qty: 4 0RF Rx Instructions: start on 05/28 furosemide [Lasix] 40 mg tablet 40 mg PO DAILY Qty: 5 0RF doxycycline hyclate 100 mg capsule 100 mg PO BID Qty: 14 0RF doxycycline hyclate 100 mg tablet 100 mg PO BID Qty: 14 0RF doxycycline hyclate 100 mg tablet 100 mg PO BID Qty: 20 0RF ibuprofen 400 mg tablet 400 mg PO Q6H PRN (Reason: pain) 5 Days Qty: 20 0RF acetaminophen [Tylenol Extra Strength] 500 mg tablet 500 mg PO Q6H PRN (Reason: fever or pain) Qty: 14 0RF lidocaine [Lidoderm] 5 % adhesive patch,medicated 1 patch topical DAILY MDD remove after 12 hours PRN (Reason: pain) Qty: 30 0RF Rx Instructions: leave on most painful area for up to 12 hrs naproxen 500 mg tablet 500 mg PO BID PRN (Reason: pain) 10 Days Qty: 20 0RF cyclobenzaprine 5 mg tablet 5 mg PO Q8H PRN (Reason: pain (scale score 7-10)) 5 Days Qty: 14 0RF
--- NOTE | 2022-08-03 12:38 | ECG_ITS ---
Test Reason : SOB Blood Pressure : / mmHG Vent. Rate : 053 BPM Atrial Rate : 053 BPM P-R Int : 154 ms QRS Dur : 134 ms QT Int : 482 ms P-R-T Axes : 035 005 004 degrees QTc Int : 452 ms Sinus bradycardia Right bundle branch block Abnormal ECG When compared with ECG of 27-MAY-2021 13:20, No significant change was found Referred By: Angélica Melendez Electronically Signed By:BRITTANY PEREA
[2022-08-03 13:39] LABS: MANUAL DIFF FLAG NO
[2022-08-03 13:43] LABS: Basophils Percent Auto 0.5 % (0-2); Eosinophils Absolute Auto 0.2 X10*3/uL (0.0-0.4); Eosinophils Percent Auto 3.3 % (0-4); Hematocrit 33.2 % (42.0-52.0); Hemoglobin 10.2 g/dl (14.0-18.0); Imm Gran Abs Auto 0.06 X10*3/uL (0.00-0.03); Imm Gran Pct Auto 0.9 % (0.0-0.4); Lymphocytes Absolute Auto 1.9 X10*3/uL (1.2-4.9); Lymphocytes Percent Auto 30.3 % (20-40); Mean Corpuscular HGB Conc 30.7 g/dl (31.0-36.0); Mean Corpuscular Hemoglobin 28.9 pg (27.0-33.0); Mean Corpuscular Volume 94.1 fL (80.0-98.0); Mean Platelet Volume 10.6 fL (9.4-12.4); Monocytes Absolute Auto 0.6 X10*3/uL (0.1-1.2); Monocytes Percent Auto 9.4 % (2-11); Neutrophils Absolute Auto 3.6 x10*3/uL (2.0-8.3); Neutrophils Percent Auto 55.6 % (45-73); Platelet Count 182 X10*3/uL (160-400); Red Blood Count 3.53 X10*6/uL (4.60-5.80); Red Cell Distribution Width 15.7 % (11.0-16.0); White Blood Count 6.4 X10*3/uL (4.8-10.8)
[2022-08-03 14:00] LABS: Alanine Aminotransferase 11 U/L (0-40); Albumin Level 3.2 g/dL (3.5-5.0); Alkaline Phosphatase 126 U/L (39-117); Anion Gap 10 (12-20); Aspartate Amino Transferase 11 U/L (5-37); Bilirubin Direct 0.1 mg/dL (0.0-0.5); Bilirubin Total 0.3 mg/dL (0.0-1.0); Blood Urea Nitrogen 10 mg/dL (9-16); Calcium 8.9 mg/dL (8.4-10.2); Carbon Dioxide 29 mmol/L (22-29); Chloride 104 mmol/L (96-108); Creatinine Clr Calc Pharmacy 140.3; Estimated Glomerular Filt Rate > 60; Glucose Random 219 mg/dL (60-115); Magnesium 1.9 mg/dL (1.6-2.6); Potassium 4.3 mmol/L (3.3-5.1); Prothrombin Time 11.7 SEC (10.0-13.1); Sodium 139 mmol/L (135-145)
[2022-08-03 14:03] LABS: Troponin-I High Sensitivity 2.7 ng/L (<3.5-35.0)
[2022-08-03 14:04] LABS: B Type Natriuretic Peptide 84 pg/mL (<100)
[2022-08-03 15:09] VITALS: BP 139/76; PULSE 50; RESP 14; O2SAT 95
--- NOTE | 2022-08-03 15:19 | PC.NURSE ---
pt a&o x4, sleepy on stretcher in no apparent distress. pt responds to verbal stimuli but then falls back asleep. is reporting 9/10 pain to the bilateral lower extremities. pt lower extremities are warm to touch and 1+ pitting edema. vss. wctm
[2022-08-03 16:34] VITALS: BP 137/80; PULSE 59; RESP 14; O2SAT 99
== END 2022-08-03 17:43 | disposition home or self-care (01) ==
PROVIDERS: Physician Assistant; Emergency Provider Emergency Medicine Emergency Medical Services
DX: M79.89 Other specified soft tissue disorders (principal); R60.9 Edema, unspecified
CPT/HCPCS: 36415; 71046; 80048; 80076; 83735; 83880; 84484; 85025; 85610; 93005; 93970; 99284

== ENCOUNTER 2022-10-23 15:03 | Emergency (ER) | payer OTHER, SELFPAY ==
[2022-10-23 15:33] VITALS: BP 115/61; PULSE 58; RESP 18; TEMP 36.1; O2SAT 94; BMI 36.3
--- NOTE | 2022-10-23 15:35 | ED_ITS ---
HPI - General Adult General Chief complaint: Extremity Problem Stated complaint: Foot pain/both swollen Time Seen by Provider: 10/23/22 16:34 Source: patient Mode of arrival: ambulatory Limitations: no limitations History of Present Illness HPI narrative: Patient is a 62 year old assigned male at with a history of asthma, HTN, and DM presenting to the emergency department today with bilateral feet swelling. Patient states that since yesterday he has noticed both of his feet are swelling. Patient denies any dizziness, lightheadedness, abdominal pain, nausea, vomiting, fever, chills, blurry vision, double vision, loss of vision, chest pain, difficulty breathing, shortness of breath, back pain, night sweats, pain with urination, increased urinary frequency, increased urinary urgency, blood in his urine or stool, syncope or a near syncopal episode, recent trauma or falls, bowel incontinence, bladder incontinence, bowel retention, bladder retention, or any other complaints at this time. Onset (ago): day(s) (1) Location: left, right and lower extremity Severity: mild Severity scale (1-10): 3 Relieving factors: none Exacerbating factors: none Associated symptoms: denies other symptoms Treatments prior to arrival: none Related Data Home Medications Medication Instructions Recorded Confirmed albuterol sulfate 90 mcg/actuation 2 puff PO Q4H PRN Shortness Of 11/07/20 11/07/20 aerosol inhaler Breath clonazepam 1 mg tablet 1 tab PO BID PRN anxiety 11/07/20 11/07/20 enalapril 10 1 tab PO DAILY 11/07/20 11/07/20 mg-hydrochlorothiazide 25 mg tablet ergocalciferol (vitamin D2) 1,250 1 cap PO QWEEK 11/07/20 11/07/20 mcg (50,000 unit) capsule metformin 850 mg tablet 1 tab PO BID 11/07/20 11/07/20 nicotine (polacrilex) 4 mg buccal 4 mg PO Q4-6H PRN Smoking Cessation 11/07/20 11/07/20 lozenge pantoprazole 40 mg tablet,delayed 1 tab PO DAILY 11/07/20 11/07/20 release simvastatin 20 mg tablet 1 tab PO BEDTIME 11/07/20 11/07/20 Previous Rx's Medication Instructions Recorded cyclobenzaprine 10 mg tablet 10 mg PO TID PRN muscle spasm #30 04/27/20 tabs doxycycline monohydrate 100 mg 100 mg PO BID 10 days #20 caps 10/29/20 capsule furosemide 20 mg tablet 20 mg PO DAILY 7 days #7 tabs 11/07/20 doxycycline hyclate 100 mg tablet 100 mg PO BID #20 tabs 03/03/21 furosemide 20 mg tablet (Lasix) 20 mg PO DAILY 4 days #4 tabs 05/27/21 ibuprofen 400 mg tablet 400 mg PO Q6H PRN pain 5 days #20 06/02/21 tabs doxycycline hyclate 100 mg capsule 100 mg PO BID #14 caps 09/17/21 furosemide 40 mg tablet (Lasix) 40 mg PO DAILY #5 tabs 09/17/21 doxycycline hyclate 100 mg tablet 100 mg PO BID #14 tabs 02/06/22 acetaminophen 500 mg tablet 500 mg PO Q6H PRN fever or pain 03/30/22 (Tylenol Extra Strength) #14 tabs cyclobenzaprine 5 mg tablet 5 mg PO Q8H PRN pain (scale score 03/30/22 7-10) 5 days #14 tabs lidocaine 5 % topical patch 1 patch topical DAILY PRN pain #30 03/30/22 (Lidoderm) ea naproxen 500 mg tablet 500 mg PO BID PRN pain 10 days #20 03/30/22 tabs furosemide 80 mg tablet (Lasix) 80 mg PO DAILY #14 tabs 08/03/22 Allergies Allergy/AdvReac Type Severity Reaction Status Date / Time morphine [MORPHINE] Allergy Severe RASH Verified 10/23/22 15:33 Review of Systems Constitutional: Constitutional: Reports no additional constitutional complaints, Denies chills, Denies fever(s) and Denies night sweats Eyes: Eyes: Reports no additional eye complaints, Denies blurry vision, Denies change in vision, Denies diplopia, Denies eye discharge, Denies loss of vision and Denies eye pain ENT: Denies dizziness Cardiovascular: Cardiovascular: Reports no additional cardiovascular complaints, Denies chest pain, Denies lightheadedness, Denies Loss of Consciousness and Denies dyspnea Respiratory: Respiratory: Reports no additional respiratory complaints and Denies dyspnea Gastrointestinal: Gastrointestinal: Reports no additional gastrointestinal complaints, Denies abdominal pain, Denies melena, Denies hematochezia, Denies change in bowel habits and Denies change in stool character Genitourinary: Genitourinary: Reports no additional male genitourinary complaints, Denies hematuria, Denies oliguria, Denies difficulty urinating, Denies dysuria, Denies urinary frequency, Denies urinary hesitancy, Denies urinary incontinence and Denies urinary urgency Musculoskeletal: Musculoskeletal: Reports no additional musculoskeletal complaints, Denies numbness and Denies tingling Comments: bilateral feet swelling Neurologic: Denies dizziness, Denies loss of vision, Denies numbness and Denies tingling Psychiatric: Psychiatric: Reports no additional psychiatric complaints Endocrine: Endocrine: Reports no additional endocrine complaints Hematologic/Lymphatic: Hematologic/Lymphatic: Reports no additional hematologic/lymphatic complaints Allergic/Immunologic: Allergic/Immunologic: Reports no additional allergic/immunologic complaints PMFSH Past Medical History Attestation statement: The following information was validated with the patient. Source: old records reviewed and nursing notes reviewed Medical History Asthma Diabetes FHx: total knee replacement History of arthroplasty of left elbow Hypertension Left wrist pain Sleep apnea Surgical History History of ankle surgery History of gastric surgery History of hip surgery History of surgery on arm Social History Social History Alcohol intake: never Patient Tobacco Use Status: Current everyday Tobacco user Tobacco use type: Cigarette Cigarettes Per Day: 5 Smoked in Last 30 Days: Yes Use of substances other than those prescribed or required for medical reasons: No Advance Directives: No Advance Directives Information Provided: Yes Current occupational status: disabled Current occupation: right handed Physical Exam ED Vital Signs: Vital Signs - 24 hr 10/23/22 15:33 10/23/22 16:23 Temperature 97.0 F Pulse Rate 58 56 Respiratory Rate 18 18 Blood Pressure 115/61 126/69 Pulse Oximetry 94 95 Oxygen Delivery Method Room Air Room Air BMI result Body Mass Index 36.3 Const General: cooperative, no acute distress, alert and awake Nutritional Appearance: well nourished Orientation/consciousness: patient oriented x3 Limitations: no limitations HENMT Head: Yes normal to inspection and Yes atraumatic Ears: hearing grossly normal bilaterally and external ears normal General nose exam: Normal external nose present, no nasal discharge noted and no epistaxis Face and sinus: Yes normal facial exam, No abrasion and No laceration Mouth: Normal oral and palatal mucosa present, no drooling and no muffled voice Eyes General: appearance normal, both eyes and all related structures Periorbital: periorbital findings normal Eyelids: Yes eyelids normal Conjunctivae: conjunctivae normal Pupils: Equal, round and reactive pupils present EOM: EOMs intact bilaterally Neck Neck: Yes normal visual inspection, Yes full ROM and Yes no lymphadenopathy Chest Chest palpation & inspection: normal inspection of the chest Resp Effort & Inspection: normal respiratory effort and able to speak in complete sentences Cardio Rate: regular rate Rhythm: regular rhythm Peripheral pulses: Peripheral pulses 2+ throughout GI Inspection: Yes normal to inspection Neuro General: patient oriented x3 and moves all extremities Cranial nerves: Yes Equal, round and reactive pupils present Cognition (Neuro): normal cognition Motor exam (neuro): 5/5 motor strength present throughout Sensory Exam: Normal double simultaneous stimulation for sensation Coordination: [id number] test normal Extrem Other: bilateral venous stasis dermatitis General: Yes full ROM and Yes capillary refill normal Psych Appearance: grossly normal Mental Status: mental status grossly normal Affect: normal affect Attitude: cooperative Thought process: Normal thought process present Thought content: Normal thought content present Insight: Good insight present (Psych) Course Course Course Narrative: RME- 62 year old male presents for evaluation of bilateral foot swelling since yesterday. Plan for labs Medical Decision Making Medical Decision Making [facility] Narrative: Patient is a 62 year old assigned male at with a history of DM and asthma presenting to the emergency department today with bilateral foot swelling. Ashleigh ent's physical exam showed bilateral lower leg venous stasis dermatitis but was otherwise unremarkable. Patient's dorsalis pedis pulses were present bilaterally. No erythema or warmth present to the bilateral lower extremities. Patient's blood work was unremarkable. I explained my physical exam findings as well as all test results to the patient. I answered all questions asked by the patient. I stressed the importance of the patient taking his medication as prescribed. I stressed the importance of the patient following up with his primary care provider. I stressed the importance of the patient returning to the emergency department immediately if his symptoms were to worsen or if he were to develop any dizziness, shortness of breath, difficulty breathing, chest pain, blurry vision, loss of vision, nausea, vomiting, abdominal pain, fever, chills, back pain, or any other complaints. Patient verbalized agreement and understanding with this treatment plan and discharge. Differential Diagnosis Differential Diagnoses: The differential diagnosis associated with the presentation includes Lower leg edema Dependent edema Venous stasis dermatitis Admission/Observation Consideration of admission/observation: Escalation of care including admission/observation considered Patient would have been admitted to the hospital had his work up had any find ings where hospital admission was appropriate and his clinical presentation warranted hospital admission. Lab Data MDM Lab Attestation statement: I reviewed the patient's lab results. My interpretation of these studies and their corresponding values is that they are grossly normal. 10/23/22 15:43 10/23/22 15:43 Labs: Lab Results 10/23/22 10/23/22 10/23/22 Range/Units 15:43 15:43 15:43 WBC 7.3 (4.8-10.8) X10*3/uL RBC 3.49 L (4.60-5.80) X10*6/uL Hgb 10.4 L (14.0-18.0) g/dl Hct 33.1 L (42.0-52.0) % MCV 94.8 (80.0-98.0) fL MCH 29.8 (27.0-33.0) pg MCHC 31.4 (31.0-36.0) g/dl RDW 14.4 (11.0-16.0) % Plt Count 219 (160-400) X10*3/uL MPV 10.3 (9.4-12.4) fL Immature Gran % (Auto) 0.5 H (0.0-0.4) % Neut % (Auto) 57.4 (45-73) % Lymph % (Auto) 32.1 (20-40) % [place] % (Auto) 6.4 (2-11) % Eos % (Auto) 3.3 (0-4) % Baso % (Auto) 0.3 (0-2) % Lymph # (Auto) 2.4 (1.2-4.9) X10*3/uL [place] # (Auto) 0.5 (0.1-1.2) X10*3/uL Eos # (Auto) 0.2 (0.0-0.4) X10*3/uL Baso # (Auto) 0.0 (0.0-0.2) X10*3/uL Abs Immat Gran (auto) 0.04 H (0.00-0.03) X10*3/uL Absolute Neuts (auto) 4.2 (2.0-8.3) x10*3/uL Absolute Nucleated RBC 0.000 (0.0-0.012) X10*3/uL Nucleated RBC % (auto) 0.0 (0.0-0.2) /100WBC Sodium 140 (135-145) mmol/L Potassium 4.0 (3.3-5.1) mmol/L Chloride 106 (96-108) mmol/L Carbon Dioxide 30 H (22-29) mmol/L Anion Gap 8 L (12-20) BUN 8 L (9-16) mg/dL Creatinine 0.73 (0.5-1.4) mg/dL Estim Creat Clear Calc 149.3 Estimated GFR > 60 Random Glucose 157 H (60-115) mg/dL Calcium 9.1 (8.4-10.2) mg/dL Total Bilirubin 0.2 (0.0-1.0) mg/dL AST 14 (5-37) U/L ALT 14 (0-40) U/L Alkaline Phosphatase 128 H (39-117) U/L B-Natriuretic Peptide 24 (<100) pg/mL Total Protein 6.5 (6.5-8.0) g/dL Albumin 3.4 L (3.5-5.0) g/dL Lipase < 4 L (8-78) U/L Chronic Conditions Patient?s care impacted by: Diabetes Discharge Plan Discharge Clinical Impression: Edema Patient Disposition: Home, Self-Care Instructions: Edema (ED) Additional Instructions: Elevate your legs and wear compression stockings. Follow up with your primary care provider. Return to the emergency department immediately if your symptoms worsen or if you develop any dizziness, shortness of breath, difficulty breath ing, chest pain, blurry vision, loss of vision, nausea, vomiting, abdominal pain, fever, chills, back pain, or any other complaints. Prescriptions: No Action doxycycline monohydrate 100 mg capsule 100 mg PO BID 10 Days Qty: 20 0RF Patient Comments: 10 DAY SUPPLY clonazepam 1 mg tablet 1 tab PO BID PRN (Reason: anxiety) metformin 850 mg tablet 1 tab PO BID enalapril-hydrochlorothiazide 10-25 mg tablet 1 tab PO DAILY pantoprazole 40 mg tablet,delayed release (DR/EC) 1 tab PO DAILY simvastatin 20 mg tablet 1 tab PO BEDTIME ergocalciferol (vitamin D2) 1,250 mcg (50,000 unit) capsule 1 cap PO QWEEK albuterol sulfate 90 mcg/actuation HFA aerosol inhaler 2 puff PO Q4H PRN (Reason: Shortness Of Breath) nicotine (polacrilex) 4 mg lozenge 4 mg PO Q4-6H PRN (Reason: Smoking Cessation) furosemide 20 mg tablet 20 mg PO DAILY 7 Days Qty: 7 0RF cyclobenzaprine 10 mg tablet 10 mg PO TID PRN (Reason: muscle spasm) Qty: 30 0RF furosemide [Lasix] 20 mg tablet 20 mg PO DAILY 4 Days Qty: 4 0RF Rx Instructions: start on 05/28 furosemide [Lasix] 40 mg tablet 40 mg PO DAILY Qty: 5 0RF doxycycline hyclate 100 mg capsule 100 mg PO BID Qty: 14 0RF doxycycline hyclate 100 mg tablet 100 mg PO BID Qty: 14 0RF doxycycline hyclate 100 mg tablet 100 mg PO BID Qty: 20 0RF ibuprofen 400 mg tablet 400 mg PO Q6H PRN (Reason: pain) 5 Days Qty: 20 0RF acetaminophen [Tylenol Extra Strength] 500 mg tablet 500 mg PO Q6H PRN (Reason: fever or pain) Qty: 14 0RF lidocaine [Lidoderm] 5 % adhesive patch,medicated 1 patch topical DAILY MDD remove after 12 hours PRN (Reason: pain) Qty: 30 0RF Rx Instructions: leave on most painful area for up to 12 hrs naproxen 500 mg tablet 500 mg PO BID PRN (Reason: pain) 10 Days Qty: 20 0RF cyclobenzaprine 5 mg tablet 5 mg PO Q8H PRN (Reason: pain (scale score 7-10)) 5 Days Qty: 14 0RF furosemide [Lasix] 80 mg tablet 80 mg PO DAILY Qty: 14 0RF Referrals: [facility] [Primary Care Provider] - Interventions: ED Discharge Assessment Last Done: 10/23/22 17:34 Discharge Date/Time: 10/23/22 17:34 Print Language: Sudanese
[2022-10-23 15:47] LABS: MANUAL DIFF FLAG NO
[2022-10-23 15:48] LABS: Basophils Percent Auto 0.3 % (0-2); Eosinophils Absolute Auto 0.2 X10*3/uL (0.0-0.4); Eosinophils Percent Auto 3.3 % (0-4); Hematocrit 33.1 % (42.0-52.0); Hemoglobin 10.4 g/dl (14.0-18.0); Imm Gran Abs Auto 0.04 X10*3/uL (0.00-0.03); Imm Gran Pct Auto 0.5 % (0.0-0.4); Lymphocytes Absolute Auto 2.4 X10*3/uL (1.2-4.9); Lymphocytes Percent Auto 32.1 % (20-40); Mean Corpuscular HGB Conc 31.4 g/dl (31.0-36.0); Mean Corpuscular Hemoglobin 29.8 pg (27.0-33.0); Mean Corpuscular Volume 94.8 fL (80.0-98.0); Mean Platelet Volume 10.3 fL (9.4-12.4); Monocytes Absolute Auto 0.5 X10*3/uL (0.1-1.2); Monocytes Percent Auto 6.4 % (2-11); Neutrophils Absolute Auto 4.2 x10*3/uL (2.0-8.3); Neutrophils Percent Auto 57.4 % (45-73); Platelet Count 219 X10*3/uL (160-400); Red Blood Count 3.49 X10*6/uL (4.60-5.80); Red Cell Distribution Width 14.4 % (11.0-16.0); White Blood Count 7.3 X10*3/uL (4.8-10.8)
[2022-10-23 16:16] LABS: B Type Natriuretic Peptide 24 pg/mL (<100)
[2022-10-23 16:23] VITALS: BP 126/69; PULSE 56; RESP 18; O2SAT 95
[2022-10-23 16:25] LABS: Alanine Aminotransferase 14 U/L (0-40); Albumin Level 3.4 g/dL (3.5-5.0); Alkaline Phosphatase 128 U/L (39-117); Anion Gap 8 (12-20); Aspartate Amino Transferase 14 U/L (5-37); Bilirubin Total 0.2 mg/dL (0.0-1.0); Blood Urea Nitrogen 8 mg/dL (9-16); Calcium 9.1 mg/dL (8.4-10.2); Carbon Dioxide 30 mmol/L (22-29); Chloride 106 mmol/L (96-108); Creatinine Clr Calc Pharmacy 149.3; Estimated Glomerular Filt Rate > 60; Glucose Random 157 mg/dL (60-115); Lipase < 4 U/L (8-78); Sodium 140 mmol/L (135-145); Total Protein 6.5 g/dL (6.5-8.0)
== END 2022-10-23 17:34 | disposition home or self-care (01) ==
PROVIDERS: Physician Assistant; Emergency Provider Emergency Medicine
DX: R60.0 Localized edema (principal); M79.89 Other specified soft tissue disorders; I87.2 Venous insufficiency (chronic) (peripheral); E11.9 Type 2 diabetes mellitus without complications; I10 Essential (primary) hypertension; J45.909 Unspecified asthma, uncomplicated
CPT/HCPCS: 36415; 80053; 83690; 83880; 85025; 99283; 99284

== ENCOUNTER 2022-11-15 13:03 | Emergency (ER) | payer OTHER, SELFPAY ==
--- NOTE | ~2022-11-15 | US_ITS ---
EXAMINATION: US VENOUS ULTRASOUND WITH DOPPLER LOWER EXTREMITY, LEFT CLINICAL INFORMATION: Pain and swelling COMPARISON: Ultrasound venous Doppler lower extremity bilateral from 08/03/2022 TECHNIQUE: Ultrasound of the deep veins is performed from the hip to the calf with compression sonography and color and pulse Doppler assessment. Spectral analysis with color-flow imaging is performed. FINDINGS: There is normal venous compression and respiratory variation and augmented flow. The visualized common femoral vein, superficial femoral vein, profunda femoral vein, popliteal vein, and the trifurcation region shows no evidence of deep venous thrombosis. There is no significant popliteal fossa cyst. If the patient's symptoms persist, followup ultrasound in 5 days 7 days might be of value to exclude proximal propagation from a non-visualized calf vein. US/US venous duplex LE IMPRESSION: No DVT demonstrated in the left lower extremity.
--- NOTE | 2022-11-15 13:19 | ED.GENADULT ---
HPI - General Adult General Chief complaint: Extremity Injury, Lower Stated complaint: r leg pain Time Seen by Provider: 11/15/22 16:00 Source: patient and RN notes reviewed Mode of arrival: ambulatory Limitations: no limitations History of Present Illness HPI narrative: This is a 62-year-old male, with a past medical history of asthma, hypertension, and diabetes, presenting to the emergency department with complaints of left leg pain x several weeks. Patient was seen on October 23 for similar symptoms and was told to wear compression stockings. He states that he has been wearing compression stockings without any relief. Patient denies any new trauma or injury to his leg. He denies any numbness and tingling down his leg. He denies any back pain. He states that his provider as previously prescribed diuretics but he is currently not taking these at this time. He has an appointment with a vascular surgeon in December but states that the pain is just worsening. Denies any fevers, chills, chest pain, shortness breath, pain,, vomiting or diarrhea. He denies any back pain. No saddle anesthesia. No urinary or bowel retention or incontinence. No other complaints or concerns at this time. MD complaint: Leg pain Onset (ago): week(s) Radiation: non-radiation Severity: moderate Quality: aching Pain Consistency: constant Relieving factors: none Exacerbating factors: none Associated symptoms: denies other symptoms Treatments prior to arrival: none Related Data Home Medications Medication Instructions Recorded Confirmed albuterol sulfate 90 mcg/actuation 2 puff PO Q4H PRN Shortness Of 11/07/20 11/07/20 aerosol inhaler Breath clonazepam 1 mg tablet 1 tab PO BID PRN anxiety 11/07/20 11/07/20 enalapril 10 1 tab PO DAILY 11/07/20 11/07/20 mg-hydrochlorothiazide 25 mg tablet ergocalciferol (vitamin D2) 1,250 1 cap PO QWEEK 11/07/20 11/07/20 mcg (50,000 unit) capsule metformin 850 mg tablet 1 tab PO BID 11/07/20 11/07/20 nicotine (polacrilex) 4 mg buccal 4 mg PO Q4-6H PRN Smoking Cessation 11/07/20 11/07/20 lozenge pantoprazole 40 mg tablet,delayed 1 tab PO DAILY 11/07/20 11/07/20 release simvastatin 20 mg tablet 1 tab PO BEDTIME 11/07/20 11/07/20 Previous Rx's Medication Instructions Recorded cyclobenzaprine 10 mg tablet 10 mg PO TID PRN muscle spasm #30 04/27/20 tabs doxycycline monohydrate 100 mg 100 mg PO BID 10 days #20 caps 10/29/20 capsule furosemide 20 mg tablet 20 mg PO DAILY 7 days #7 tabs 11/07/20 doxycycline hyclate 100 mg tablet 100 mg PO BID #20 tabs 03/03/21 furosemide 20 mg tablet (Lasix) 20 mg PO DAILY 4 days #4 tabs 05/27/21 ibuprofen 400 mg tablet 400 mg PO Q6H PRN pain 5 days #20 06/02/21 tabs doxycycline hyclate 100 mg capsule 100 mg PO BID #14 caps 09/17/21 furosemide 40 mg tablet (Lasix) 40 mg PO DAILY #5 tabs 09/17/21 doxycycline hyclate 100 mg tablet 100 mg PO BID #14 tabs 02/06/22 acetaminophen 500 mg tablet 500 mg PO Q6H PRN fever or pain 03/30/22 (Tylenol Extra Strength) #14 tabs cyclobenzaprine 5 mg tablet 5 mg PO Q8H PRN pain (scale score 03/30/22 7-10) 5 days #14 tabs lidocaine 5 % topical patch 1 patch topical DAILY PRN pain #30 03/30/22 (Lidoderm) ea naproxen 500 mg tablet 500 mg PO BID PRN pain 10 days #20 03/30/22 tabs furosemide 80 mg tablet (Lasix) 80 mg PO DAILY #14 tabs 08/03/22 acetaminophen 325 mg capsule 650 mg PO Q6H PRN pain #45 caps 11/15/22 (Tylenol) ibuprofen 800 mg tablet 800 mg PO Q8H PRN pain #45 tabs 11/15/22 Allergies Allergy/AdvReac Type Severity Reaction Status Date / Time morphine [MORPHINE] Allergy Severe RASH Verified 11/15/22 13:23 Review of Systems Review of Systems: Yes all other systems are reviewed and are negative Constitutional: Constitutional: Reports as per [facility] Past Medical History Medical History Asthma Diabetes FHx: total knee replacement History of arthroplasty of left elbow Hypertension Left wrist pain Sleep apnea Surgical History History of ankle surgery History of gastric surgery History of hip surgery History of surgery on arm Social History Social History Alcohol intake: never Patient Tobacco Use Status: Current everyday Tobacco user Tobacco use type: Cigarette Cigarettes Per Day: 5 Advance Directives: No Advance Directives Information Provided: No Current occupational status: disabled Current occupation: right handed Physical Exam ED Vital Signs: Vital Signs - 24 hr 11/15/22 13:20 Temperature 96.8 F Pulse Rate 81 Respiratory Rate 16 Blood Pressure 137/56 L Pulse Oximetry 94 Oxygen Delivery Method Room Air BMI result Body Mass Index 38.5 Const General: cooperative, comfortable and no acute distress Orientation/consciousness: patient oriented x3 Limitations: no limitations HENMT Head: Yes normal to inspection, Yes normocephalic and Yes atraumatic Ears: hearing grossly normal bilaterally General nose exam: Normal external nose present Face and sinus: Yes normal facial exam Mouth: Normal oral and palatal mucosa present, oropharynx normal and moist mucous membranes Throat: Yes posterior oropharynx normal Eyes General: appearance normal, both eyes and all related structures Eyelids: Yes eyelids normal Conjunctivae: conjunctivae normal Sclerae: sclerae normal Pupils: Equal, round and reactive pupils present EOM: EOMs intact bilaterally Neck Neck: Yes normal visual inspection, Yes full ROM and Yes no lymphadenopathy Lymphatic: no lymphadenopathy noted Chest Chest palpation & inspection: normal inspection of the chest Resp Effort & Inspection: normal respiratory effort and able to speak in complete sentences Auscultation: clear to auscultation bilaterally, no crackles, no rales, no rhonchi and no wheezes Cardio Rate: regular rate Rhythm: regular rhythm Heart sounds: S1 normal heart sound present and S2 normal heart sound present GI Inspection: Yes normal to inspection Skin General skin exam: no rashes or lesions noted Trauma: no lacerations or abrasions Wounds: no wounds Neuro General: patient oriented x3 and moves all extremities Cranial nerves: Yes Equal, round and reactive pupils present Extrem Other: Bilateral venous stasis dermatitis. Patient is tenderness palpation to left calf and left quadriceps, no exquisite tenderness. Pedal pulses 2+ No profound edema noted. General: Yes normal to inspection Right upper extremity: normal to inspection Left upper extremity: normal to inspection Right lower extremity: normal to inspection Left lower extremity: normal to inspection Course Course Course Narrative: This is a rapid medical exam: Additional HPI, ROS, PE not included below will be deferred to primary provider. Patient is a 62-year-old male with history of asthma, diabetes, total right knee replacement, HTN presents, sleep apnea presenting to the emergency department with complaint of left lower leg pain and swelling. Was seen here on 10/23 for similar complaint. PCP started him on diuretic. Denies any numbness or tingling to leg. Plan: US, basic labs Medical Decision Making Medical Decision Making [facility] Narrative: 62-year-old male presenting to the emergency department with complaints of left leg pain. He has had no recent trauma or injury. He states that he was seen several weeks ago for similar symptoms. He has been wearing compression stockings without any relief. Physical examination revealing bilateral lower leg venous stasis dermatitis without any signs of compartment syndrome, erythema or evidence of infection. Patient's DP pulses were present bilaterally. Labs were obtained revealing no leukocytosis, H&H around baseline, chemistry nondiagnostic. Ultrasound was obtained revealing no evidence of DVT. I explained physical exam findings as well as diagnostic testing with patient and friend at bedside. Patient has an appointment with a vascular surgeon in December, I advised patient to call vascular surgeon to see if there is any earlier appointments as this is likely the cause of his pain and symptoms. Encouraged to continue wearing compression stockings and elevate legs. Patient understands and agrees with plan. Advised to return with any new or worsening symptom. Patient stable for discharge Differential Diagnosis Differential Diagnoses: The differential diagnosis associated with the presentation includes DVT, compartment syndrome, cellulitis, dependent edema, venous stasis Lab Data [facility] Lab Attestation statement: I reviewed the patient's lab results. See above 11/15/22 14:10 11/15/22 14:10 Labs: Lab Results 11/15/22 11/15/22 11/15/22 Range/Units 14:10 14:10 14:10 WBC 6.7 (4.8-10.8) X10*3/uL RBC 3.67 L (4.60-5.80) X10*6/uL Hgb 11.0 L (14.0-18.0) g/dl Hct 35.1 L (42.0-52.0) % MCV 95.6 (80.0-98.0) fL MCH 30.0 (27.0-33.0) pg MCHC 31.3 (31.0-36.0) g/dl RDW 14.3 (11.0-16.0) % Plt Count 220 (160-400) X10*3/uL MPV 10.1 (9.4-12.4) fL Immature Gran % (Auto) 0.7 H (0.0-0.4) % Neut % (Auto) 52.6 (45-73) % Lymph % (Auto) 35.2 (20-40) % Mcminn % (Auto) 6.6 (2-11) % Eos % (Auto) 4.6 H (0-4) % Baso % (Auto) 0.3 (0-2) % Lymph # (Auto) 2.4 (1.2-4.9) X10*3/uL Mcminn # (Auto) 0.4 (0.1-1.2) X10*3/uL Eos # (Auto) 0.3 (0.0-0.4) X10*3/uL Baso # (Auto) 0.0 (0.0-0.2) X10*3/uL Abs Immat Gran (auto) 0.05 H (0.00-0.03) X10*3/uL Absolute Neuts (auto) 3.5 (2.0-8.3) x10*3/uL Absolute Nucleated RBC 0.000 (0.0-0.012) X10*3/uL Nucleated RBC % (auto) 0.0 (0.0-0.2) /100WBC PT (11.1-13.3) SEC INR (0.9-1.1) Sodium 139 (135-145) mmol/L Potassium 4.0 (3.3-5.1) mmol/L Chloride 101 (96-108) mmol/L Carbon Dioxide 30 H (22-29) mmol/L Anion Gap 12 (12-20) BUN 6 L (9-16) mg/dL Creatinine 0.78 (0.5-1.4) mg/dL Estim Creat Clear Calc 144.0 Estimated GFR > 60 Random Glucose 205 H (60-115) mg/dL Calcium 9.4 (8.4-10.2) mg/dL Total Bilirubin 0.1 (0.0-1.0) mg/dL AST 11 (5-37) U/L ALT 7 (0-40) U/L Alkaline Phosphatase 124 H (39-117) U/L B-Natriuretic Peptide < 10 (<100) pg/mL Total Protein 6.7 (6.5-8.0) g/dL Albumin 3.4 L (3.5-5.0) g/dL 11/15/22 Range/Units 14:10 WBC (4.8-10.8) X10*3/uL RBC (4.60-5.80) X10*6/uL Hgb (14.0-18.0) g/dl Hct (42.0-52.0) % MCV (80.0-98.0) fL MCH (27.0-33.0) pg MCHC (31.0-36.0) g/dl RDW (11.0-16.0) % Plt Count (160-400) X10*3/uL MPV (9.4-12.4) fL Immature Gran % (Auto) (0.0-0.4) % Neut % (Auto) (45-73) % Lymph % (Auto) (20-40) % Mcminn % (Auto) (2-11) % Eos % (Auto) (0-4) % Baso % (Auto) (0-2) % Lymph # (Auto) (1.2-4.9) X10*3/uL Mcminn # (Auto) (0.1-1.2) X10*3/uL Eos # (Auto) (0.0-0.4) X10*3/uL Baso # (Auto) (0.0-0.2) X10*3/uL Abs Immat Gran (auto) (0.00-0.03) X10*3/uL Absolute Neuts (auto) (2.0-8.3) x10*3/uL Absolute Nucleated RBC (0.0-0.012) X10*3/uL Nucleated RBC % (auto) (0.0-0.2) /100WBC PT 12.1 (11.1-13.3) SEC INR 1.0 (0.9-1.1) Sodium (135-145) mmol/L Potassium (3.3-5.1) mmol/L Chloride (96-108) mmol/L Carbon Dioxide (22-29) mmol/L Anion Gap (12-20) BUN (9-16) mg/dL Creatinine (0.5-1.4) mg/dL Estim Creat Clear Calc Estimated GFR Random Glucose (60-115) mg/dL Calcium (8.4-10.2) mg/dL Total Bilirubin (0.0-1.0) mg/dL AST (5-37) U/L ALT (0-40) U/L Alkaline Phosphatase (39-117) U/L B-Natriuretic Peptide (<100) pg/mL Total Protein (6.5-8.0) g/dL Albumin (3.5-5.0) g/dL Radiology Impression Discussion of test interpretation with radiology: I have reviewed the radiologist's reading. Radiologist Impression: EXAMINATION:? US VENOUS ULTRASOUND WITH DOPPLER LOWER EXTREMITY, LEFT CLINICAL INFORMATION:? Pain and swelling COMPARISON:? Ultrasound venous Doppler lower extremity bilateral from 08/03/2022 TECHNIQUE: Ultrasound of the deep veins is performed from the hip to the calf with compression sonography and color and pulse Doppler assessment. Spectral analysis with color-flow imaging is performed. FINDINGS: There is normal venous compression and respiratory variation and augmented flow. The visualized common femoral vein, superficial femoral vein, profunda femoral vein, popliteal vein, and the trifurcation region shows no evidence of deep venous thrombosis. ? There is no significant popliteal fossa cyst. If the patient's symptoms persist, followup ultrasound in 5 days 7 days might be of value to exclude proximal propagation from a non-visualized calf vein. US/US venous duplex LE IMPRESSION: No DVT demonstrated in the left lower extremity. Dictated By: Fritz Villalta MD Discharge Plan Discharge Clinical Impression: Leg pain, left Patient Disposition: Home, Self-Care Instructions: Leg Pain (ED) Additional Instructions: Your ultrasound did not show a blood clot. Your symptoms are likely due to vascular problems, please call your vascular surgeon tomorrow as you likely need to be seen sooner. Take ibuprofen or Tylenol as directed as needed for pain. Wear compression stockings and keep legs elevated to help with pain relief. If any new or worsening symptoms occur please return for re-evaluation. Prescriptions: New ibuprofen 800 mg tablet 800 mg PO Q8H PRN (Reason: pain) Qty: 45 0RF acetaminophen [Tylenol] 325 mg capsule 650 mg PO Q6H PRN (Reason: pain) Qty: 45 0RF No Action doxycycline monohydrate 100 mg capsule 100 mg PO BID 10 Days Qty: 20 0RF Patient Comments: 10 DAY SUPPLY clonazepam 1 mg tablet 1 tab PO BID PRN (Reason: anxiety) metformin 850 mg tablet 1 tab PO BID enalapril-hydrochlorothiazide 10-25 mg tablet 1 tab PO DAILY pantoprazole 40 mg tablet,delayed release (DR/EC) 1 tab PO DAILY simvastatin 20 mg tablet 1 tab PO BEDTIME ergocalciferol (vitamin D2) 1,250 mcg (50,000 unit) capsule 1 cap PO QWEEK albuterol sulfate 90 mcg/actuation HFA aerosol inhaler 2 puff PO Q4H PRN (Reason: Shortness Of Breath) nicotine (polacrilex) 4 mg lozenge 4 mg PO Q4-6H PRN (Reason: Smoking Cessation) furosemide 20 mg tablet 20 mg PO DAILY 7 Days Qty: 7 0RF cyclobenzaprine 10 mg tablet 10 mg PO TID PRN (Reason: muscle spasm) Qty: 30 0RF furosemide [Lasix] 20 mg tablet 20 mg PO DAILY 4 Days Qty: 4 0RF Rx Instructions: start on 05/28 furosemide [Lasix] 40 mg tablet 40 mg PO DAILY Qty: 5 0RF doxycycline hyclate 100 mg capsule 100 mg PO BID Qty: 14 0RF doxycycline hyclate 100 mg tablet 100 mg PO BID Qty: 14 0RF doxycycline hyclate 100 mg tablet 100 mg PO BID Qty: 20 0RF ibuprofen 400 mg tablet 400 mg PO Q6H PRN (Reason: pain) 5 Days Qty: 20 0RF acetaminophen [Tylenol Extra Strength] 500 mg tablet 500 mg PO Q6H PRN (Reason: fever or pain) Qty: 14 0RF lidocaine [Lidoderm] 5 % adhesive patch,medicated 1 patch topical DAILY MDD remove after 12 hours PRN (Reason: pain) Qty: 30 0RF Rx Instructions: leave on most painful area for up to 12 hrs naproxen 500 mg tablet 500 mg PO BID PRN (Reason: pain) 10 Days Qty: 20 0RF cyclobenzaprine 5 mg tablet 5 mg PO Q8H PRN (Reason: pain (scale score 7-10)) 5 Days Qty: 14 0RF furosemide [Lasix] 80 mg tablet 80 mg PO DAILY Qty: 14 0RF Interventions: ED Discharge Assessment Last Done: 11/15/22 16:46 Discharge Date/Time: 11/15/22 16:47
[2022-11-15 13:20] VITALS: BP 137/56; PULSE 81; RESP 16; TEMP 36; O2SAT 94; BMI 38.5
[2022-11-15 14:14] LABS: MANUAL DIFF FLAG NO
[2022-11-15 14:23] LABS: Basophils Percent Auto 0.3 % (0-2); Eosinophils Absolute Auto 0.3 X10*3/uL (0.0-0.4); Eosinophils Percent Auto 4.6 % (0-4); Hematocrit 35.1 % (42.0-52.0); Imm Gran Abs Auto 0.05 X10*3/uL (0.00-0.03); Imm Gran Pct Auto 0.7 % (0.0-0.4); Lymphocytes Absolute Auto 2.4 X10*3/uL (1.2-4.9); Lymphocytes Percent Auto 35.2 % (20-40); Mean Corpuscular HGB Conc 31.3 g/dl (31.0-36.0); Mean Corpuscular Volume 95.6 fL (80.0-98.0); Mean Platelet Volume 10.1 fL (9.4-12.4); Monocytes Absolute Auto 0.4 X10*3/uL (0.1-1.2); Monocytes Percent Auto 6.6 % (2-11); Neutrophils Absolute Auto 3.5 x10*3/uL (2.0-8.3); Neutrophils Percent Auto 52.6 % (45-73); Platelet Count 220 X10*3/uL (160-400); Red Blood Count 3.67 X10*6/uL (4.60-5.80); Red Cell Distribution Width 14.3 % (11.0-16.0); White Blood Count 6.7 X10*3/uL (4.8-10.8)
[2022-11-15 14:29] LABS: Prothrombin Time 12.1 SEC (11.1-13.3)
[2022-11-15 14:39] LABS: Alanine Aminotransferase 7 U/L (0-40); Albumin Level 3.4 g/dL (3.5-5.0); Alkaline Phosphatase 124 U/L (39-117); Anion Gap 12 (12-20); Aspartate Amino Transferase 11 U/L (5-37); Bilirubin Total 0.1 mg/dL (0.0-1.0); Blood Urea Nitrogen 6 mg/dL (9-16); Calcium 9.4 mg/dL (8.4-10.2); Carbon Dioxide 30 mmol/L (22-29); Chloride 101 mmol/L (96-108); Estimated Glomerular Filt Rate > 60; Glucose Random 205 mg/dL (60-115); Sodium 139 mmol/L (135-145); Total Protein 6.7 g/dL (6.5-8.0)
[2022-11-15 14:45] LABS: B Type Natriuretic Peptide < 10 pg/mL (<100)
--- OUTSIDE RECORDS SUMMARY | 2022-11-15 16:04 | XMS_ITS | Continuity of Care Document ---
Author Name Unknown Organization [facility] ter Address [address] [place] [id number] Care Team Providers Care Water Softener Installer Name Role Phone Santo Gipson NP Primary Care Physician Encounter [facility] Date(s): 08/12/20 - 08/12/[address] [id number] Discharge Disposition: A-D/C Home Attending Physician: Maikel Aguirre Jr, MD Admitting Physician: Maikel Aguirre Jr, MD Referring Physician: Maikel Aguirre Jr, MD Allergies, Adverse Reactions, Alerts Substance Reaction Severity Status morphine hives Active Immunizations Given and Recorded Vaccine Date Status Refusal Reason influenza virus vaccine, inactivated 01/16/13 Give n Not Given Vaccine Date Status Refusal Reason pneumococcal 23-valent vaccine 01/16/13 Not Given Patient Refuses Medications acetaminophen 500 mg oral capsule 1 capsule = 500 mg, By Mouth, 4 times a day, PRN for pain, not to exceed 3000 mg/day, # 60 capsule,0 Refills, Maintenance, 08/12/20 14:24:00 EDT, Capsule, [id number], Partial fill upon patient request if the prescription is for a schedule II... Start Date: 08/12/20 Status: Ordered buPROPion 100 mg oral tablet 1 tablet = 100 mg, By Mouth, Daily, 0 Refills, Maintenance, 04/22/16 10:56:27 Start Date: 04/22/16 Status: Ordered Carafate 1 gm/10 ml oral suspension 10 mL = 1 Gm, By Mouth, 4 times a day, Following endoscopic ablation therapy., # 560 mL, 0 Refills,Maintenance, 08/12/20 14:23:00 EDT, [id number], Partial fill upon patient request if the prescription is for a schedule II opioid drug., 188, c... Start Date: 08/12/20 Stop Date: 08/26/20 Status: Ordered Clonazepam = 2 mg, By Mouth, 2 times a day, 0 Refills, Maintenance Start Date: 10/28/11 Status: Ordered enalapril-hydrochlorothiazide 10 mg-25 mg oral tablet 1 tablet, By Mouth, Daily, 0 Refills, Maintenance Start Date: 03/02/13 Status: Ordered Famotidine 0 Refills, Maintenance, 04/22/16 10:57:12 Start Date: 04/22/16 Status: Ordered FLUoxetine 20 mg oral tablet 1 tablet = 20 mg, By Mouth, Daily, 0 Refills, Maintenance, 04/22/16 10:54:34 Start Date: 04/22/16 Status: Ordered KlonoPIN 1 mg oral tablet 1 tablet = 1 mg, By Mouth, 1/2 tab in am 1 and half at HS, 0 Refills, Maintenance, 04/22/16 11:00:37 Start Date: 04/22/16 Status: Ordered Lidocaine Viscous 2% solution See Instructions, PRN Pain , Moderate, take 10 mL by mouth every 6 hrs as needed for chest/throat pain., # 200 mL, 0 Refills, Maintenance, 08/12/20 14:23:00 EDT, [id number], Partial fill uponpatient request if the prescription is for a schedu... Start Date: 08/12/20 Status: Ordered metFORMIN 850 mg oral tablet 1 tablet = 850 mg, By Mouth, 2 times a day, 0 Refills, Maintenance, 02/03/15 16:09:28 Start Date: 02/03/15 Status: Ordered pantoprazole 40 mg oral delayed release tablet 1 tablet = 40 mg, By Mouth, Daily, # 90 tablet, 2 Refills, Maintenance, 08/12/20 14:23:00 EDT, EC Tablet, 188, cm, 08/12/20 11:24:00 EDT, Height, 108.9, kg, 07/18/20 7:23:00 EDT, Dry Weight Start Date: 08/12/20 Status: Ordered ProAir HFA 90 mcg/inh inhalation aerosol with adapter 2, puffs, Inhalation, 4 times a day, Refills 0, Maintenance, 04/22/16 10:57:35 Start Date: 04/22/16 Status: Ordered simvastatin 20 mg oral tablet 1 tablet = 20 mg, By Mouth, Daily at bedtime, # 30 tablet, 0 Refills, Maintenance, Tablet Start Date: 10/28/11 Status: Ordered Ventolin 90 mcg Inhaler 2, puffs, Inhalation, 4 times a day, Refills 0, Maintenance, 04/22/16 10:57:57 Start Date: 04/22/16 Status: Ordered Vitamin D2 Vitamin D2, Refills 0, Maintenance, 04/22/16 10:55:31, Compound Start Date: 04/22/16 Status: Ordered Problem List Condition Effective Dates Status Health Status Inform ant Diabetes(Confirmed) Active Acid reflux(Confirmed) Active H/O heartburn(Confirmed) Active Encounter for screening colonoscopy(Confirmed) Active Vital Signs Most recent to oldest [Reference Range]: 1 2 3 Height 188.0 cm (08/12/20 11:24 AM) Weight 117.9 kg (08/12/20 11:24 AM) Oxygen Saturation [94-100 %] 91 % *L* (08/12/20 1:59 PM) 93 % *L* (08/12/20 1:42 PM) 94 % (08/12/20 1:35 PM) Pulse Rate [55-90 bpm] 91 bpm *H* (08/12/20 1:59 PM) 95 bpm *H* (08/12/20 1:42 PM) 60 bpm (08/12/20 11:24 AM) Body Mass Index [18.5-24.99] 33.36 *>HHI* (08/12/20 11:24 AM) Blood Pressure [90-138/55-84 mm Hg] 144/56mm Hg *H* (08/12/20 1:59 PM) 136/62mm Hg (08/12/20 1:42 PM) 135/57mm Hg (08/12/20 1:35 PM) Respiratory Rate [16-30 br/min] 14 br/min *L* (08/12/20 1:42 PM) 13 br/min *L* (08/12/20 1:35 PM) 12 br/min *L* (08/12/20 11:24 AM) Temperature [96.8-100.4 DegF] 97.2 DegF (08/12/20 1:35 PM) 97.8 DegF (08/12/20 11:24 AM) Mode of Delivery (Oxygen) Room air (08/12/20 1:42 PM) Room air (08/12/20 1:35 PM) Room air (08/12/20 11:24 AM) Temperature Route Temporal (08/12/20 1:35 PM) Femoral (08/12/20 11:24 AM) Social History Social History Type Response Smoking Status Current every day phil vale entered on: 01/29/15 Sex
--- OUTSIDE RECORDS SUMMARY | 2022-11-15 16:04 | XMS_ITS | Continuity of Care Document ---
Author Name Unknown Organization [facility] ter Address [address] [place] [id number]- Care Team Providers Care Hull Drafter Name Role Phone Santo Gipson NP Primary Care Physician Encounter [place] Date(s): 07/18/20 - 07/18/[address] [id number] Discharge Disposition: A-D/C Home Attending Physician: Maikel [...] vaccine 01/16/13 Not Given Patient Refuses Medications buPROPion 100 mg oral tablet 1 tablet = 100 mg, By Mouth, Daily, 0 Refills, Maintenance, 04/22/16 10:56:27 Start Date: 04/22/16 Status: Ordered Carafate 1 gm/10 ml oral suspension 10 mL = 1 Gm, By Mouth, 4 times a day, Following endoscopic ablation therapy., # 560 mL, 0 Refills,Maintenance, 04/16/20 15:07:00 [facility], [id number], Partial fill upon patient request if the prescription is for a schedule II opioid drug., 186, c... Start Date: 04/16/20 Stop Date: 04/30/20 Status: Ordered Clonazepam = 2 mg, By [...] pain., # 200 mL, 0 Refills, Maintenance, 04/16/20 15:07:00 EST, [id number], Partial fill uponpatient request if the prescription is for a schedu... Start Date: 04/16/20 Status: Ordered metFORMIN 850 mg oral tablet 1 tablet = 850 mg, By Mouth, 2 times a day, 0 Refills, Maintenance, 02/03/15 16:09:28 Start Date: 02/03/15 Status: Ordered pantoprazole 40 mg oral delayed release tablet 1 tablet = 40 mg, By Mouth, Daily, # 90 tablet, 2 Refills, Maintenance, 03/13/20 12:49:00 EST, EC Tablet, 186, cm, 03/13/20 10:54:00 EST, Height, 108.9, kg, 03/13/20 10:54:00 EST, Dry Weight Start Date: 03/13/20 Status: Ordered ProAir HFA 90 mcg/inh inhalation [...] to oldest [Reference Range]: 1 2 3 Oxygen Saturation [94-100 %] 90 % *L* (07/18/20 9:24 AM) 91 % *L* (07/18/20 9:15 AM) 74 % *L* (07/18/20 9:13 AM) Pulse Rate [55-90 bpm] 61 bpm (07/18/20 7:23 AM) Blood Pressure [90-138/55-84 mm Hg] 132/72mm Hg (07/18/20 9:24 AM) 134/86mm Hg (07/18/20 9:13 AM) 121/68mm Hg (07/18/20 8:50 AM) Respiratory Rate [16-30 br/min] 20 br/min (07/18/20 9:24 AM) 18 br/min (07/18/20 9:13 AM) 17 br/min (07/18/20 8:50 AM) Temperature [96.8-100.4 DegF] 98.3 DegF (07/18/20 8:46 AM) 98.2 DegF (07/18/20 7:23 AM) Liters per Minute 2 L/min (07/18/20 9:15 AM) 4 L/min (07/18/20 8:50 AM) 6 L/min (07/18/20 8:42 AM) Mode of Delivery (Oxygen) Room air (07/18/20 9:24 AM) Nasal cannula (07/18/20 9:15 AM) Room air (07/18/20 9:13 AM) Blood pressure sites Arm, left (07/18/20 9:24 AM) Arm, left (07/18/20 9:13 AM) Arm, left (07/18/20 8:50 AM) Temperature Route Temporal (07/18/20 8:46 AM) Tympanic (07/18/20 7:23 AM) Dry Weight 108.9 kg (07/18/20 7:23 AM) Social History Social History Type Response Smoking Status Current every day phil vale entered on: 01/29/15 Sex
--- OUTSIDE RECORDS SUMMARY | 2022-11-15 16:04 | XMS_ITS | Continuity of Care Document ---
Author Name Unknown Organization [facility] ter Address [address] [place] [address]- Care Team Providers Care Rate Inserter Name Role Phone Santo Gipson NP Primary Care Physician Encounter [facility] Date(s): 12/27/19 - 12/27/[address] [address]- [facility] Discharge Disposition: A-D/C Home Attending Physician: Kunal Cr MD Admitting Physician: Kunal Cr MD Referring Physician: Kunal Cr MD Allergies, Adverse Reactions, Alerts Substance Reaction Severity Status morphine Active Immunizations Given and Recorded Vaccine Date Status Refusal Reason influenza virus vaccine, inactivated 01/16/13 Give n Not Given Vaccine Date Status Refusal Reason pneumococcal 23-valent vaccine 01/16/13 Not Given Patient Refuses Medications buPROPion 100 mg oral tablet 1 tablet = 100 mg, By Mouth, Daily, 0 Refills, Maintenance, 04/22/16 10:56:27 Start Date: 04/22/16 Status: Ordered Clonazepam = 2 mg, By [...] 04/22/16 11:00:37 Start Date: 04/22/16 Status: Ordered metFORMIN 850 mg oral tablet 1 tablet = 850 mg, By Mouth, 2 times a day, 0 Refills, Maintenance, 02/03/15 16:09:28 Start Date: 02/03/15 Status: Ordered MiraLax oral powder for reconstitution = 17 Gm, By Mouth, Daily, dissolve in water before taking, # 255 Gm, 0 Refills, Acute 01/12/20 8:00:00 EDT, 12/06/19 11:11:00 EDT, REC Powder, [facility]/pharmacy #[id number], 17 Gm By Mouth Daily,Instr:dissolve in water before taking, 183.7, cm, 12/06/19 10:40:00... Start Date: 12/06/19 Stop Date: 01/12/20 Status: Ordered NuLYTELY Lemon [place] oral powder for reconstitution 240 mL, By Mouth, Every 10 minutes, # 4,000 mL, 0 Refills, Maintenance, 04/22/16 11:21:31 Start Date: 04/22/16 Status: Ordered NuLYTELY with Flavor Packs oral powder for reconstitution See Instructions, 240 mL By Mouth Every 15 minutes, # 4,000 mL, 0 Refills, Maintenance, 12/06/19 11:11:00 EDT, [facility]/pharmacy #[id number], 240 mL By Mouth Every 15 minutes, 183.7, cm, 12/06/19 10:40:00 EDT, Height Start Date: 12/06/19 Status: Ordered ProAir HFA 90 mcg/inh inhalation [...] heartburn(Confirmed) Active Encounter for screening colonoscopy(Confirmed) Active Procedures Procedure Date Related Diagnosis Body Site Status Colonoscopy with polypectomy 12/27/19 Completed Esophagogastroduodenoscopy and biopsy 12/27/19 Completed Vital Signs Most recent to oldest [Reference Range]: 1 2 3 Height 188 cm (12/27/19 9:31 AM) Oxygen Saturation [94-100 %] 99 % (12/27/19 11:12 AM) 100 % (12/27/19 10:57 AM) 100 % (12/27/19 9:31 AM) Pulse Rate [55-90 bpm] 56 bpm (12/27/19 9:31 AM) Blood Pressure [90-138/55-84 mm Hg] 118/64mm Hg (12/27/19 11:12 AM) 107/65mm Hg (12/27/19 10:57 AM) 104/56mm Hg (12/27/19 9:31 AM) Respiratory Rate [16-30 br/min] 20 br/min (12/27/19 11:12 AM) 18 br/min (12/27/19 10:57 AM) 16 br/min (12/27/19 9:31 AM) Temperature [96.8-100.4 DegF] 97 DegF (12/27/19 9:31 AM) Mode of Delivery (Oxygen) High flow nasa l cannula (12/27/19 11:12 AM) Room air (12/27/19 10:57 AM) Room air (12/27/19 9:31 AM) Temperature Route Temporal (12/27/19 9:31 AM) Dry Weight 109.5 kg (12/27/19 9:31 AM) Dry Weight Obtained Via Patient/family s tated (12/27/19 9:31 AM) Social History Social History Type Response Smoking Status Current every day phil vale entered on: 01/29/15 Sex
--- OUTSIDE RECORDS SUMMARY | 2022-11-15 16:04 | XMS_ITS | Continuity of Care Document ---
Author Name Unknown Organization [facility] Address [address] [place] [address]- Care Team Providers Care Source Inspector Name Role Phone Leonela CARDONA, Santo Welch Primary Care Physician [place] [facility] [place](s): 12/22/21 - 04/21/22 [facility] [address] [place] [address]- Attending Physician: Timothy Cheatham MD, Maikel Santizo Admitting Physician: Maikel Aguirre Jr, MD Referring Physician: Santo Gipson NP Allergies, Adverse Reactions, Alerts Substance Reaction Severity Status morphine hives Active Immunizations Given and Recorded Vaccine Date Status Refusal Reason influenza virus vaccine, inactivated 01/16/13 Give n Not Given Vaccine Date Status Refusal Reason pneumococcal 23-valent vaccine 01/16/13 Not Given Patient Refuses Medications Compression Stockings See Instructions, # 2 each, Refills 1, Tot. Refills 1, Maintenance, surgical, thigh high length 20-30 mm Hg, 07/06/21 11:12:00 EDT, Supply Start Date: 07/06/21 Status: Ordered enalapril-hydrochlorothiazide 10 mg-25 mg oral tablet 1 tablet, By Mouth, Daily, 0 Refills, Maintenance Start Date: 03/02/13 Status: Ordered famotidine 20 mg oral tablet 20 mg, 1, tablet, By Mouth, Daily at bedtime, # 90 tablet, Refills 2, Tot. Refills 2, Maintenance, 04/16/21 16:33:00 EST, Route to Pharmacy Electronically, [facility]/pharmacy #[id number], Partial fill upon patient request if the prescription is for a schedule II... Start Date: 04/16/21 Status: Ordered ibuprofen 800 mg oral tablet 800 mg, 1, tablet, By Mouth, 3 times a day, PRN, Refills 0, Maintenance, Pain , Moderate, 07/06/21 10:57:00 EDT, Partial fill upon patient request if the prescription is for a schedule II opioid drug. Start Date: 07/06/21 Status: Ordered KlonoPIN 1 mg oral tablet 1 tablet = 1 mg, By Mouth, 1/2 tab in am 1 and half at HS, 0 Refills, Maintenance, 04/22/16 11:00:37 Start Date: 04/22/16 Status: Ordered Lidocaine Viscous 2% solution See Instructions, PRN Pain , Moderate, take 10 mL by mouth every 6 hrs as needed for chest/throat pain., # 200 mL, 0 Refills, Maintenance, 01/07/22 16:42:00 EDT, [facility]/pharmacy #[id number], Partial fill uponpatient request if the prescription is for a schedu... Start Date: 01/07/22 Status: Ordered metFORMIN 850 mg oral tablet 1 tablet = 850 mg, By Mouth, 2 times a day, 0 Refills, Maintenance, 02/03/15 16:09:28 Start Date: 02/03/15 Status: Ordered Methadone = 90 mg, By Mouth, Daily, 0 Refills, Maintenance, 04/01/22 12:45:00 EST, Partial fill upon patient request if the prescription is for a schedule II opioid drug. Start Date: 04/01/22 Status: Ordered pantoprazole 40 mg oral delayed release tablet 1 tablet = 40 mg, By Mouth, 2 times a day, # 90 tablet, 2 Refills, Maintenance, 01/07/22 16:42:00 EDT, EC Tablet, 188, cm, 10/13/21 14:35:00 EDT, Height, 119.7, kg, 10/13/21 14:35:00 EDT, Dry Weight Start Date: 01/07/22 Status: Ordered ProAir HFA 90 mcg/inh inhalation aerosol with adapter 2, puffs, Inhalation, 4 times a day, Refills 0, Maintenance, 04/22/16 10:57:35 Start Date: 04/22/16 Status: Ordered simvastatin 20 mg oral tablet 1 tablet = 20 mg, By Mouth, Daily at bedtime, # 30 tablet, 0 Refills, Maintenance, Tablet Start Date: 10/28/11 Status: Ordered Problem List Condition Confirmation Course Effective Dates Status Health St atus Informant Diabetes Confirmed Active Acid reflux Confirmed Active H/O heartburn Confirmed Active Obese class II Confirmed Active Encounter for screening colonoscopy Confirmed Active Social History Social History Type Response Smoking Status Current every day sm oker entered on: 01/29/15 Sex Patient Care team information Care Team Personnel Name: Feliciano Ferrell RN Position: [facility] RN Member Role: Primary Care Nurse Name: Santo Gipson NP Position: [facility] Outreach Member Role: PCP Address: Address: [address] [place] [address]- Care Team Related Persons Name: TONIA CALDERON Address: home [address] [place] [address] Name: JANINE HOOK Address: home [address] [place] [address] Name: CLARA HSU Address: home [address] [place] [address] Name: ANAYA PAYTON Address: home [address] [place] [address] Name: BLANCA MALDONADO Address: [address] [place] [address] Name: TONIA RAUSCH Address: home [address] [place] [address] Name: KILO RAUSCH Address: home UNKNOWN [facility] [place] [address]
--- OUTSIDE RECORDS SUMMARY | 2022-11-15 16:04 | XMS_ITS | Continuity of Care Document ---
Author Name Unknown Organization [facility] ter Address [address] [place] [address]- Care Team Providers Care Indian Trader Name Role Phone Leonela CARDONA, Santo Welch Primary Care Physician Encounter [facility] [place] Date(s): 07/28/21 - 07/28/[address] [address]- Discharge Disposition: A-D/C Home Attending Physician: Maikel [...] 01/16/13 Not Given Patient Refuses Medications acetaminophen 160 mg/5 mL oral liquid 10 mL = 320 mg, By Mouth, Every 6 hours, PRN as needed for pain, # 480 mL, 0 Refills, Maintenance, 07/28/21 11:48:00 EDT, Liquid, [facility]acy #[id number], Partial fill upon patient request if the prescription is for a schedule II opioid drug., 188, cm, ... Start Date: 07/28/21 Status: Ordered buPROPion 100 mg oral tablet 1 tablet = 100 mg, By Mouth, Daily, 0 Refills, Maintenance, 04/22/16 10:56:27 Start Date: 04/22/16 Status: Ordered Carafate 1 gm/10 ml oral suspension 10 mL = 1 Gm, By Mouth, 4 times a day, Following endoscopic ablation therapy., # 560 mL, 0 Refills,Maintenance, 07/28/21 11:47:00 EDT, [id number], Partial fill upon patient request if the prescription is for a schedule II opioid drug., 188, c... Start Date: 07/28/21 Stop Date: 08/11/21 Status: Ordered Compression Stockings See Instructions, # 2 each, [...] 04/16/21 16:33:00 EST, Route to Pharmacy Electronically, [facility]/pharmacy #[id number], Partial fill upon patient request if the prescription is for a schedule II... Start Date: 04/16/21 Status: Ordered FLUoxetine 20 mg oral tablet 1 tablet = 20 mg, By Mouth, Daily, 0 Refills, Maintenance, 04/22/16 10:54:34 Start Date: 04/22/16 Status: Ordered ibuprofen 800 mg oral tablet [...] pain., # 200 mL, 0 Refills, Maintenance, 07/28/21 11:48:00 EDT, [facility]/pharmacy #[id number], Partial fill uponpatient request if the prescription is for a schedu... Start Date: 07/28/21 Status: Ordered metFORMIN 850 mg oral tablet 1 tablet = 850 mg, By Mouth, 2 times a day, 0 Refills, Maintenance, 02/03/15 16:09:28 Start Date: 02/03/15 Status: Ordered pantoprazole 40 mg oral delayed release tablet 1 tablet = 40 mg, By Mouth, 2 times a day, # 90 tablet, 2 Refills, Maintenance, 07/28/21 11:47:00 EDT, EC Tablet, 188, cm, 07/28/21 8:31:00 EDT, Height, 117.9, kg, 01/27/21 12:18:00 EST, Dry Weight Start Date: 07/28/21 Status: Ordered ProAir HFA 90 mcg/inh inhalation [...] 04/22/16 10:57:57 Start Date: 04/22/16 Status: Ordered Problem List Condition Effective Dates Status Health Status Inform ant Diabetes(Confirmed) Active Acid reflux(Confirmed) Active H/O heartburn(Confirmed) Active Obese class II(Confirmed) Active Encounter for screening colonoscopy(Confirmed) Active Vital Signs Most recent to oldest [Reference Range]: 1 2 3 Height 188 cm (07/28/21 8:31 AM) Weight 127 kg (07/28/21 8:31 AM) Oxygen Saturation [94-100 %] 100 % (07/28/21 11:47 AM) 98 % (07/28/21 11:44 AM) 97 % (07/28/21 8:31 AM) Pulse Rate [55-90 bpm] 54 bpm *L* (07/28/21 8:31 AM) Body Mass Index [18.5-24.99] 35.93 *>HHI* (07/28/21 8:31 AM) Blood Pressure [90-138/55-84 mm Hg] 143/79mm Hg *H* (07/28/21 12:16 PM) 144/78mm Hg *H* (07/28/21 12:00 PM) 146/77mm Hg *H* (07/28/21 11:47 AM) Respiratory Rate [16-30 br/min] 12 br/min *L* (07/28/21 11:47 AM) 24 br/min (07/28/21 11:44 AM) 12 br/min *L* (07/28/21 8:31 AM) Temperature [96.8-100.4 DegF] 97.0 DegF (07/28/21 11:44 AM) 97.7 DegF (07/28/21 8:31 AM) Mode of Delivery (Oxygen) Room air (07/28/21 8:31 AM) Blood pressure sites Arm, left (07/28/21 12:16 PM) Arm, left (07/28/21 11:47 AM) Arm, left (07/28/21 11:44 AM) Temperature Route Temporal (07/28/21 8:31 AM) Social History Social History Type Response Smoking Status Current every day phil vale entered on: 01/29/15 Sex
--- OUTSIDE RECORDS SUMMARY | 2022-11-15 16:04 | XMS_ITS | Continuity of Care Document ---
Author Name Unknown Organization [facility] Address [address] [place] [address]- Care Team Providers Care Car Salesman Name Role Phone Leonela CARDONA, Santo Welch Primary Care Physician Encounter [facility] [place] Date(s): 07/24/21 - 08/23/21 [facility] [address] [place], [place] [address] Attending Physician: Rico White Admitting Physician: AdmRico shelton Referring Physician: AdmtrRico Allergies, Adverse Reactions, Alerts Substance Reaction Severity [...] a schedule II opioid drug., 188, cm, 05... Start Date: 07/28/21 Status: Ordered buPROPion 100 [...] 04/16/21 16:33:00 EST, Route to Pharmacy Electronically, [facility]/pharmacy #[id number], Partial fill upon patient request if [...] mL, 0 Refills, Maintenance, 07/28/21 11:48:00 EDT, [facility]/pharmacy #[id number], Partial fill uponpatient request if [...] II(Confirmed) Active Encounter for screening colonoscopy(Confirmed) Active Social History Social History Type Response Smoking Status Current every day phil vale entered on: 01/29/15 Sex
--- OUTSIDE RECORDS SUMMARY | 2022-11-15 16:04 | XMS_ITS | Continuity of Care Document ---
Author Name Unknown Organization [facility] Address [address] [place] [address]- Care Team Providers Care Automatic Screwmaker Name Role Phone Leonela CARDONA, Santo Welch Primary Care Physician Encounter [facility] Date(s): 07/06/21 - 07/13/21 [facility] [address] [place] [address]- Attending Physician: Beni SILVER, Yodit Khoury Admitting Physician: Beni SILVER, Yodit Khoury Referring Physician: Sara CARDONA, Sarah Alvarez Allergies, Adverse Reactions, Alerts Substance Reaction Severity [...] ablation therapy., # 560 mL, 0 Refills,Maintenance, 04/16/21 16:33:00 EST, [facility]/pharmacy #[id number], Partial fill upon patient request if the prescription is for a schedule II opioid drug., 188, c... Start Date: 04/16/21 Stop Date: 04/30/21 Status: Ordered Compression Stockings See Instructions, # [...] 04/16/21 16:33:00 EST, Route to Pharmacy Electronically, [facility]/pharmacy #[id number], Partial fill upon patient request if the [...] day, # 90 tablet, 2 Refills, Maintenance, 04/16/21 16:33:00 EST, EC Tablet, 188, cm, 04/16/21 13:27:00 EST, Height, 117.9, kg, 01/27/21 12:18:00 EST, Dry Weight Start Date: 04/16/21 Status: Ordered ProAir HFA 90 mcg/inh inhalation [...] reflux(Confirmed) Active H/O heartburn(Confirmed) Active Obese class I(Confirmed) Active Encounter for screening colonoscopy(Confirmed) Active Vital Signs Most recent to oldest [Reference Range]: 1 Height 188 cm (07/06/21 10:54 AM) Oxygen Saturation [94-100 %] 96 % (07/06/21 10:54 AM) Pulse Rate [55-90 bpm] 80 bpm (07/06/21 10:54 AM) Blood Pressure [90-138/55-84 mm Hg] 128/ 70mm Hg (07/06/21 10:54 AM) Blood pressure sites Arm, right (07/06/21 10:54 AM) Social History Social History Type Response Smoking Status Current every day phil vale entered on: 01/29/15 Sex
--- OUTSIDE RECORDS SUMMARY | 2022-11-15 16:04 | XMS_ITS | Continuity of Care Document ---
Author Name Unknown Organization [facility] Address [address] [place] [address]- Care Team Providers Care Hydro Plant Operator Name Role Phone Santo Gipson NP Primary Care Physician Encounter [facility] [place] Date(s): 04/16/20 - 05/16/20 [facility] [address] [place] [id number] Attending Physician: Rico White Admitting Physician: AdmRico shelton Referring Physician: Admtr, Ar8 Allergies, Adverse Reactions, Alerts Substance Reaction Severity [...] # 560 mL, 0 Refills,Maintenance, 04/16/20 15:07:00 [facility], [facility]/pharmacy #[id number], Partial fill upon patient request if the [...] mL, 0 Refills, Maintenance, 04/16/20 15:07:00 EST, [facility]/pharmacy #[id number], Partial fill uponpatient request if the [...] heartburn(Confirmed) Active Encounter for screening colonoscopy(Confirmed) Active Social History Social History Type Response Smoking Status Current every day phil vale entered on: 01/29/15 Sex
--- OUTSIDE RECORDS SUMMARY | 2022-11-15 16:04 | XMS_ITS | Continuity of Care Document ---
Author Name Unknown Organization [facility] ter Address [address] [place] [address]- Care Team Providers Care Enrobing Machine Corder Name Role Phone Santo Gipson NP Primary Care Physician Encounter [facility] [place] Date(s): 10/20/20 - 10/20/[address] [address] Discharge Disposition: A-D/C Home Attending Physician: Maikel [...] Most recent to oldest [Reference Range]: 1 Oxygen Saturation [94-100 %] 95 % (10/20/20 9:11 AM) Pulse Rate [55-90 bpm] 56 bpm (10/20/20 9:11 AM) Blood Pressure [90-138/55-84 mm Hg] 132/ 61mm Hg (10/20/20 9:11 AM) Respiratory Rate [16-30 br/min] 12 br/mi n *L* (10/20/20 9:11 AM) Temperature [96.8-100.4 DegF] 98 DegF (10/20/20 9:11 AM) Mode of Delivery (Oxygen) Room air (10/20/20 9:11 AM) Blood pressure sites Arm, left (10/20/20 9:11 AM) Temperature Route Temporal (10/20/20 9:11 AM) Social History Social History Type Response Smoking Status Current every day phil vale entered on: 01/29/15 Sex
--- OUTSIDE RECORDS SUMMARY | 2022-11-15 16:04 | XMS_ITS | Continuity of Care Document ---
Author Name Unknown Organization [facility] ter Address [address] [place] [address]- Care Team Providers Care Car Body Mechanic Name Role Phone Leonela CARDONA, Santo Welch Primary Care Physician Encounter [facility] [place] Date(s): 10/13/21 - 10/13/[address] [address] Discharge Disposition: A-D/C Home Attending Physician: [...] pain, # 480 mL, 0 Refills, Maintenance, 10/13/21 18:26:00 EDT, Liquid, [id number], Partial fill upon patient request if the prescription is for a schedule II opioid drug., 188, cm, ... Start Date: 10/13/21 Status: Ordered Carafate 1 gm/10 ml oral suspension 10 mL = 1 Gm, By Mouth, 4 times a day, Following endoscopic ablation therapy., # 560 mL, 0 Refills,Maintenance, 07/28/21 11:47:00 EDT, [id number], Partial fill upon patient request if the prescription is for a schedule II opioid drug., 188, c... Start Date: 07/28/21 Stop Date: 08/11/21 Status: Ordered Carafate 1 gm/10 ml oral suspension 10 mL = 1 Gm, By Mouth, 4 times a day, Following endoscopic ablation therapy., # 560 mL, 0 Refills,Maintenance, 10/13/21 18:27:00 EDT, [facility]/pharmacy #[id number], Partial fill upon patient request if the prescription is for a schedule II opioid drug., 188, c... Start Date: 10/13/21 Stop Date: 10/27/21 Status: Ordered Compression Stockings See Instructions, # [...] 04/16/21 16:33:00 EST, Route to Pharmacy Electronically, [facility]/pharmacy #[id number], Partial fill upon patient request if [...] pain., # 200 mL, 0 Refills, Maintenance, 10/13/21 18:27:00 EDT, [facility]/pharmacy #[id number], Partial fill uponpatient request if the prescription is for a schedu... Start Date: 10/13/21 Status: Ordered metFORMIN 850 mg oral tablet [...] Date: 10/28/11 Status: Ordered Problem List Condition Effective Dates Status Health Status Inform ant Diabetes(Confirmed) Active Acid reflux(Confirmed) Active H/O heartburn(Confirmed) Active Obese class II(Confirmed) Active Encounter for screening colonoscopy(Confirmed) Active Vital Signs Most recent to oldest [Reference Range]: 1 2 3 Height 188 cm (10/13/21 2:35 PM) Oxygen Saturation [94-100 %] 93 % 1 *L* (10/13/21 6:18 PM) 88 % 2 *L* (10/13/21 6:06 PM) 96 % (10/13/21 6:01 PM) Pulse Rate [55-90 bpm] 55 bpm (10/13/21 2:35 PM) Blood Pressure [90-138/55-84 mm Hg] 143/82mm Hg *H* (10/13/21 6:18 PM) 136/78mm Hg (10/13/21 6:06 PM) 128/67mm Hg (10/13/21 6:01 PM) Respiratory Rate [16-30 br/min] 15 br/min *L* (10/13/21 5:55 PM) 16 br/min (10/13/21 5:48 PM) 12 br/min *L* (10/13/21 5:40 PM) Temperature [96.8-100.4 DegF] 97.2 DegF (10/13/21 5:35 PM) 97.2 DegF (10/13/21 2:35 PM) Liters per Minute 4 L/min (10/13/21 5:59 PM) 6 L/min (10/13/21 5:48 PM) 6 L/min (10/13/21 5:40 PM) Mode of Delivery (Oxygen) Room air (10/13/21 6:18 PM) Room air (10/13/21 6:06 PM) Room air (10/13/21 6:01 PM) Temperature Route Temporal (10/13/21 5:35 PM) Temporal (10/13/21 2:35 PM) Dry Weight 119.7 kg (10/13/21 2:35 PM) Dry Weight Obtained Via Patient/family s tated (10/13/21 2:35 PM) 1Result Comment: After using IS 2Result Comment: Instructed on use of Incentive Spirometer. Social History Social History Type Response Smoking Status Current every day phil vale entered on: 01/29/15 Sex
--- OUTSIDE RECORDS SUMMARY | 2022-11-15 16:04 | XMS_ITS | Continuity of Care Document ---
Author Name Unknown Organization [facility] ter Address [address] [place] [address]- Care Team Providers Care Z Os Mainframe Systems Programmer Name Role Phone Santo Gipson NP Primary Care Physician [place] [facility] [place] - 01/27/[address] [id number] Discharge Disposition: A-D/C Home Attending Physician: [...] ablation therapy., # 560 mL, 0 Refills,Maintenance, 11/14/20 14:06:00 EDT, [id number], Partial fill upon patient request if the prescription is for a schedule II opioid drug., 188, c... Start Date: 11/14/20 Stop Date: 11/28/20 Status: Ordered Clonazepam = 2 mg, By [...] pain., # 200 mL, 0 Refills, Maintenance, 11/14/20 14:07:00 EDT, [id number], Partial fill uponpatient request if the prescription is for a schedu... Start Date: 11/14/20 Status: Ordered metFORMIN 850 mg oral tablet 1 tablet = 850 mg, By Mouth, 2 times a day, 0 Refills, Maintenance, 02/03/15 16:09:28 Start Date: 02/03/15 Status: Ordered pantoprazole 40 mg oral delayed release tablet 1 tablet = 40 mg, By Mouth, 2 times a day, # 90 tablet, 2 Refills, Maintenance, 11/14/20 14:07:00 EDT, EC Tablet, 188, cm, 11/14/20 8:55:00 EDT, Height, 108.9, kg, 07/18/20 7:23:00 EDT, Dry Weight Start Date: 11/14/20 Status: Ordered ProAir HFA 90 mcg/inh inhalation [...] Range]: 1 2 3 Height 188 cm (01/27/21 12:18 PM) Weight 117.9 kg (01/27/21 12:18 PM) Oxygen Saturation [94-100 %] 94 % (01/27/21 3:23 PM) 93 % *L* (01/27/21 3:11 PM) 95 % (01/27/21 3:07 PM) Pulse Rate [55-90 bpm] 51 bpm *L* (01/27/21 12:18 PM) Body Mass Index [18.5-24.99] 33.36 *>HHI* (01/27/21 12:18 PM) Blood Pressure [90-138/55-84 mm Hg] 123/55mm Hg (01/27/21 3:11 PM) 128/66mm Hg (01/27/21 3:02 PM) 128/58mm Hg (01/27/21 2:50 PM) Respiratory Rate [16-30 br/min] 12 br/min *L* (01/27/21 3:11 PM) 12 br/min *L* (01/27/21 3:02 PM) 14 br/min *L* (01/27/21 2:50 PM) Temperature [96.8-100.4 DegF] 97.0 DegF (01/27/21 2:18 PM) 98.1 DegF (01/27/21 12:18 PM) Liters per Minute 1 L/min (01/27/21 3:11 PM) 2 L/min (01/27/21 3:07 PM) 2 L/min (01/27/21 3:02 PM) Mode of Delivery (Oxygen) Room air (01/27/21 3:23 PM) Nasal cannula (01/27/21 3:11 PM) Nasal cannula (01/27/21 3:07 PM) Blood pressure sites Arm, left (01/27/21 3:11 PM) Arm, left (01/27/21 3:02 PM) Arm, left (01/27/21 2:50 PM) Temperature Route Temporal (01/27/21 2:18 PM) Temporal (01/27/21 12:18 PM) Dry Weight 117.9 kg (01/27/21 12:18 PM) Social History Social History Type Response Smoking Status Current every day phil vale entered on: 01/29/15 Sex
--- OUTSIDE RECORDS SUMMARY | 2022-11-15 16:04 | XMS_ITS | Continuity of Care Document ---
Author Name Unknown Organization [facility] Address [address] [place] [address]- Care Team Providers Care Floor Hand Name Role Phone Leonela CARDONA, Santo S Primary Care Physician [place] [facility] [place]21 - 08/26/21 [facility] [address], [place] [address] Attending Physician: Yodit Bazan MD Admitting Physician: Yodit Bazan MD Allergies, Adverse Reactions, Alerts Substance Reaction [...] 04/16/21 16:33:00 EST, Route to Pharmacy Electronically, [facility]/pharmacy #[id number], Partial fill upon patient request [...] mL, 0 Refills, Maintenance, 07/28/21 11:48:00 EDT, [facility]/pharmacy #[id number], Partial fill uponpatient request if [...]
--- OUTSIDE RECORDS SUMMARY | 2022-11-15 16:04 | XMS_ITS | Continuity of Care Document ---
Author Name Unknown Organization [facility] ter Address [address] [place] [address]- Care Team Providers Care Livestock Feeder Name Role Phone Santo Gipson NP Primary Care Physician Encounter [facility] [place] Date(s): 04/24/20 - 04/24/[address] [address] Discharge Disposition: A-D/C Home Attending Physician: Maikel [...] # 560 mL, 0 Refills,Maintenance, 04/16/20 15:07:00 [facility], [facility]/pharmacy #[id number], Partial fill upon patient request if the [...] mL, 0 Refills, Maintenance, 04/16/20 15:07:00 EST, [facility]/pharmacy #[id number], Partial fill uponpatient request if the [...] Range]: 1 2 3 Height 188 cm (04/24/20 7:13 AM) Oxygen Saturation [94-100 %] 97 % (04/24/20 10:14 AM) 97 % (04/24/20 10:09 AM) 96 % (04/24/20 10:04 AM) Pulse Rate [55-90 bpm] 91 bpm *H* (04/24/20 7:13 AM) Blood Pressure [90-138/55-84 mm Hg] 146/83mm Hg *H* (04/24/20 10:14 AM) 138/69mm Hg (04/24/20 10:09 AM) 134/74mm Hg (04/24/20 10:04 AM) Respiratory Rate [16-30 br/min] 18 br/min (04/24/20 10:14 AM) 18 br/min (04/24/20 10:09 AM) 18 br/min (04/24/20 10:04 AM) Temperature [96.8-100.4 DegF] 97.9 DegF (04/24/20 9:44 AM) 97.6 DegF (04/24/20 7:13 AM) Liters per Minute 4 L/min (04/24/20 9:49 AM) 4 L/min (04/24/20 9:44 AM) Mode of Delivery (Oxygen) Room air (04/24/20 10:14 AM) Room air (04/24/20 10:09 AM) Room air (04/24/20 10:04 AM) Blood pressure sites Arm, left (04/24/20 10:14 AM) Arm, left (04/24/20 10:09 AM) Arm, left (04/24/20 10:04 AM) Temperature Route Temporal (04/24/20 9:44 AM) Temporal (04/24/20 7:13 AM) Dry Weight 108.9 kg (04/24/20 7:13 AM) Dry Weight Obtained Via Patient/family s tated (04/24/20 7:13 AM) Social History Social History Type Response Smoking Status Current every day phil vale entered on: 01/29/15 Sex
--- OUTSIDE RECORDS SUMMARY | 2022-11-15 16:04 | XMS_ITS | Continuity of Care Document ---
Author Name Unknown Organization [facility] Address [address] [place] [address]- Care Team Providers Care Director Pharmacovigilance Name Role Phone Santo Gipson NP Primary Care Physician [place] [facility] [place] 04/03/19 - 05/10/19 [facility] [address] [place] [address] [facility] Attending Physician: Karl Dowling MD Admitting Physician: Karl Dowling MD Referring Physician: Santo Gipson NP Allergies, [...] 02/03/15 16:09:28 Start Date: 02/03/15 Status: Ordered NuLYTELY Lemon [place] oral powder for reconstitution 240 mL, By Mouth, Every 10 minutes, # 4,000 mL, 0 Refills, Maintenance, 04/22/16 11:21:31 Start Date: 04/22/16 Status: Ordered ProAir HFA 90 mcg/inh inhalation [...]
--- OUTSIDE RECORDS SUMMARY | 2022-11-15 16:04 | XMS_ITS | Continuity of Care Document ---
Author Name Unknown Organization [facility] Address [address] [place] [address]- Care Team Providers Care Band Sawyer Name Role Phone Leonela CARDONA, Santo Welch Primary Care Physician Encounter [facility] [place] Date(s): 07/27/21 - 08/26/21 [facility] [address] [place] [address]- Attending Physician: Rico White Admitting Physician: AdmRico shelton Referring Physician: Admtr, Rico Allergies, Adverse Reactions, Alerts Substance Reaction Severity [...] 04/16/21 16:33:00 EST, Route to Pharmacy Electronically, [facility]pharmacy [id number], Partial fill upon patient request if [...] mL, 0 Refills, Maintenance, 07/28/21 11:48:00 EDT, [facility]/pharmacy #[id number], Partial fill uponpatient request if the [...]
--- OUTSIDE RECORDS SUMMARY | 2022-11-15 16:04 | XMS_ITS | Continuity of Care Document ---
Author Name Unknown Organization [facility] Address [address] [place] [address]- Care Team Providers Care Slot Operations Director Name Role Phone Santo Gipson NP Primary Care Physician Encounter [facility] [place] Date(s): 03/19/20 - 04/18/20 [facility] [address] [place] [id number] Allergies, Adverse Reactions, Alerts Substance Reaction Severity [...] 560 mL, 0 Refills,Maintenance, 04/16/20 15:07:00 [facility]/pharmacy #[id number], Partial fill upon patient request if the [...] mL, 0 Refills, Maintenance, 04/16/20 15:07:00 EST, [id number], Partial fill uponpatient request if [...]
--- OUTSIDE RECORDS SUMMARY | 2022-11-15 16:04 | XMS_ITS | Continuity of Care Document ---
Author Name Unknown Organization [facility] ter Address [address] [place] [address]- Care Team Providers Care Adding Machine Mechanic Name Role Phone Santo Gipson NP Primary Care Physician En[place] [facility] [place] Date(s): 11/14/20 - 11/14/[address] [address] Discharge Disposition: A-D/C Home Attending [...] Range]: 1 2 3 Height 188 cm (11/14/20 8:55 AM) Weight 128 kg (11/14/20 8:55 AM) Oxygen Saturation [94-100 %] 94 % (11/14/20 2:51 PM) 94 % (11/14/20 2:39 PM) 92 % *L* (11/14/20 2:31 PM) Pulse Rate [55-90 bpm] 73 bpm (11/14/20 8:55 AM) Body Mass Index [18.5-24.99] 36.22 *>HHI* (11/14/20 8:55 AM) Blood Pressure [90-138/55-84 mm Hg] 139/77mm Hg *H* (11/14/20 2:39 PM) 156/74mm Hg *H* (11/14/20 2:31 PM) 149/87mm Hg *H* (11/14/20 2:22 PM) Respiratory Rate [16-30 br/min] 16 br/min (11/14/20 2:51 PM) 18 br/min (11/14/20 2:39 PM) 16 br/min (11/14/20 2:31 PM) Temperature [96.8-100.4 DegF] 97.7 DegF (11/14/20 2:15 PM) 97.3 DegF (11/14/20 8:55 AM) Mode of Delivery (Oxygen) Room air (11/14/20 2:51 PM) Room air (11/14/20 2:39 PM) Room air (11/14/20 2:31 PM) Temperature Route Temporal (11/14/20 8:55 AM) Social History Social History Type Response Smoking Status Current every day phil vale entered on: 01/29/15 Sex
--- OUTSIDE RECORDS SUMMARY | 2022-11-15 16:04 | XMS_ITS | Continuity of Care Document ---
Author Name Unknown Organization [facility] Address [address] [place] [address]- Care Team Providers Care Senior Front End Web Developer Name Role Phone Santo Gipson NP Primary Care Physician [place] [facility] [place] 10[place]12/19 [facility] [address] [place] [address] [facility] Attending Physician: Radha Wise MD Admitting Physician: Radha Wise MD Referring Physician: Santo Gipson NP Allergies, [...] Start Date: 02/03/15 Status: Ordered NuLYTELY Lemon [place] oral powder for reconstitution 240 mL, By [...]
--- OUTSIDE RECORDS SUMMARY | 2022-11-15 16:04 | XMS_ITS | Continuity of Care Document ---
Author Name Unknown Organization [facility] Address [address] [place] [address]- Care Team Providers Care Printing Machine Mechanic Name Role Phone Leonela CARDONA, Satno Welch Primary Care Physician En[place] [facility] [place] Date(s): 07/06/21 - 08/23/21 [facility] [address] [place], [place] [address] Attending Physician: Natacha Del Cid NP Admitting Physician: Natacha Del Cid NP Allergies, Adverse Reactions, Alerts Substance Reaction [...] 04/16/21 16:33:00 EST, Route to Pharmacy Electronically, [facility]/pharmacy #[id number], Partial fill upon [...] mL, 0 Refills, Maintenance, 07/28/21 11:48:00 EDT, [facility]/pharmacy #[id number], Partial fill uponpatient [...]
--- OUTSIDE RECORDS SUMMARY | 2022-11-15 16:04 | XMS_ITS | Continuity of Care Document ---
Author Name Unknown Organization [facility] Address [address] [place] [address]- Care Team Providers Care Water Plant Pump Operator Supervisor Name Role Phone Leonela CARDONA, Santo Welch Primary Care Physician En[place] [facility] [place] Date(s): 10/05/22 - 11/04/22 [facility] [address] [place] [address] [place] Allergies, Adverse Reactions, Alerts Substance Reaction Severity Status morphine hives Active Immunizations Given and Recorded Vaccine Date Status Refusal Reason influenza virus vaccine, inactivated 01/16/13 Give n Medications acetaminophen 160 mg/5 mL oral suspension 15 mL = 480 mg, By Mouth, Every 6 hours, PRN for pain, To use post esophageal ablation not to exceed 5 doses/day, # 480 mL, 0 Refills, Maintenance, 07/02/22 17:54:00 EDT, Suspension, [id number], Partial fill upon patient request if the presc... Start Date: 07/02/22 Status: Ordered Carafate 1 gm/10 ml oral suspension 10 mL = 1 Gm, By Mouth, 4 times a day, Following endoscopic ablation therapy., # 560 mL, 0 Refills,Maintenance, 07/02/22 17:52:00 EDT, [id number], Partial fill upon patient request if the prescription is for a schedule II opioid drug., 188, c... Start Date: 07/02/22 Stop Date: 07/16/22 Status: Ordered Compression Stockings See Instructions, # [...] 04/16/21 16:33:00 EST, Route to Pharmacy Electronically, [facility]/pharmacy #[id number], Partial fill upon patient request [...] pain., # 200 mL, 0 Refills, Maintenance, 07/02/22 17:51:00 EDT, [facility]/pharmacy #[id number], Partial fill uponpatient request if the prescription is for a schedu... Start Date: 07/02/22 Status: Ordered metFORMIN 850 mg oral tablet [...] day, # 90 tablet, 2 Refills, Maintenance, 07/02/22 17:51:00 EDT, EC Tablet, 188, cm, 07/02/22 15:19:00 EDT, Height, 119.7, kg, 10/13/21 14:35:00 EDT, Dry Weight Start Date: 07/02/22 Status: Ordered ProAir HFA 90 mcg/inh inhalation [...] reflux Confirmed Active H/O heartburn Confirmed Active Encounter for screening colonoscopy Confirmed Active Severe obesity (BMI 35.0-39.9) with comorbidity Confirmed Active Social History Social History Type Response Smoking Status Current every day phil kavin entered on: 01/29/15 Sex Patient Care team information Care Team Personnel Name: Feliciano Ferrell RN Position: [facility] RN Member Role: Primary Care Nurse Name: Santo Gipson NP Position: [facility] Outreach Member Role: PCP Address: Address: [address] [place] [address]- Care Team Related Persons Name: TONIA CALDERON Address: home [address] [place] [address] Name: JANINE HOOK Address: home [address] [place] [address] Name: CLARA HSU Address: home [address] [place] [address] Name: ANAYA PAYTON Address: home [address] [place] [address] Name: BLANCA MALDONADO Address: home [address] [place] [address] Name: TONIA RAUSCH Address: home [address] [place] [address] Name: KILO RAUSCH Address: home [facility] [place] [address]
--- OUTSIDE RECORDS SUMMARY | 2022-11-15 16:04 | XMS_ITS | Continuity of Care Document ---
Author Name Unknown Organization [facility] ter Address [address] [place] [address]- Care Team Providers Care Project Control Officer Name Role Phone Santo Gipson NP Primary Care Physician [place] [facility] [place] 03/13/20 - 03/13/[address] [address] Discharge Disposition: A-D/C Home Attending Physician: [...] Start Date: 02/03/15 Status: Ordered NuLYTELY Lemon [place] oral powder for reconstitution 240 mL, By Mouth, Every 10 minutes, # 4,000 mL, 0 Refills, Maintenance, 04/22/16 11:21:31 Start Date: 04/22/16 Status: Ordered NuLYTELY with Flavor Packs oral powder for reconstitution See Instructions, 240 mL By Mouth Every 15 minutes, # 4,000 mL, 0 Refills, Maintenance, 12/06/19 11:11:00 EDT, [facility]/pharmacy #[id number], 240 mL By Mouth Every 15 minutes, 183.7, cm, 12/06/19 10:40:00 EDT, Height Start Date: 12/06/19 Status: Ordered pantoprazole 40 mg oral delayed [...] oldest [Reference Range]: 1 2 3 Height 186 cm (03/13/20 10:54 AM) Oxygen Saturation [94-100 %] 98 % (03/13/20 12:56 PM) 99 % (03/13/20 12:48 PM) 100 % (03/13/20 10:54 AM) Pulse Rate [55-90 bpm] 81 bpm (03/13/20 10:54 AM) Blood Pressure [90-138/55-84 mm Hg] 124/75mm Hg (03/13/20 12:56 PM) 125/67mm Hg (03/13/20 12:48 PM) 132/76mm Hg (03/13/20 10:54 AM) Respiratory Rate [16-30 br/min] 14 br/min *L* (03/13/20 12:56 PM) 18 br/min (03/13/20 12:48 PM) 16 br/min (03/13/20 10:54 AM) Temperature [96.8-100.4 DegF] 97.6 DegF (03/13/20 10:54 AM) Mode of Delivery (Oxygen) Room air (03/13/20 12:56 PM) Room air (03/13/20 12:48 PM) Room air (03/13/20 10:54 AM) Blood pressure sites Arm, left (03/13/20 12:56 PM) Arm, left (03/13/20 12:48 PM) Arm, left (03/13/20 10:54 AM) Temperature Route Temporal (03/13/20 10:54 AM) Dry Weight 108.9 kg (03/13/20 10:54 AM) Dry Weight Obtained Via Patient/family s tated (03/13/20 10:54 AM) Social History Social History Type Response Smoking Status Current every day phil vale entered on: 01/29/15 Sex
--- OUTSIDE RECORDS SUMMARY | 2022-11-15 16:04 | XMS_ITS | Continuity of Care Document ---
Author Name Unknown Organization [facility] ter Address [address] [place] [id number]- Care Team Providers Care Chief Station Engineer Name Role Phone Leonela CARDONA, Santo Welch Primary Care Physician Encounter [facility] Date(s): 07/02/22 - 07/02/[address] [address] Discharge Disposition: A-D/C Home Attending [...] Refuses Medications acetaminophen 160 mg/5 mL oral suspension [...] 04/16/21 16:33:00 EST, Route to Pharmacy Electronically, [facility]/pharmacy #[id number], Partial fill upon [...] mL, 0 Refills, Maintenance, 07/02/22 17:51:00 EDT, [facility]/pharmacy #[id number], Partial fill uponpatient [...] obesity (BMI 35.0-39.9) with comorbidity Confirmed Active Vital Signs Most recent to oldest [Reference Range]: 1 2 3 Height 188 cm (07/02/22 3:19 PM) Weight 129.3 kg (07/02/22 3:19 PM) Oxygen Saturation [94-100 %] 98 % (07/02/22 5:58 PM) 100 % (07/02/22 5:46 PM) 93 % *L* (07/02/22 3:19 PM) Pulse Rate [55-90 bpm] 64 bpm (07/02/22 3:19 PM) Body Mass Index [18.5-24.99 kg/m2] 36.58 kg/m2 *>HHI* (07/02/22 3:19 PM) Blood Pressure [90-138/55-84 mm Hg] 153/86mm Hg *H* (07/02/22 5:58 PM) 147/90mm Hg *H* (07/02/22 5:46 PM) 132/65mm Hg (07/02/22 3:19 PM) Respiratory Rate [16-30 br/min] 16 br/min (07/02/22 5:58 PM) 16 br/min (07/02/22 5:46 PM) 12 br/min *L* (07/02/22 3:19 PM) Temperature [96.8-100.4 DegF] 98.1 DegF (07/02/22 3:19 PM) Liters per Minute 6 L/min (07/02/22 5:46 PM) Mode of Delivery (Oxygen) Room air (07/02/22 5:58 PM) Simple face mask (07/02/22 5:46 PM) Room air (07/02/22 3:19 PM) Blood pressure sites Arm, left (07/02/22 5:58 PM) Arm, left (07/02/22 5:46 PM) Arm, left (07/02/22 3:19 PM) Temperature Route Temporal (07/02/22 3:19 PM) Weight Obtained Via Patient/family state d (07/02/22 3:19 PM) Social History Social History Type Response Smoking Status Current every day phil kavin entered on: 01/29/15 Sex Note * Ilan Mcmullen RN: PERFORM Event Display: Discharge/Transfer Note Hospital Authored Date: [id number] Nursing Discharge Note Entered On: 07/02/2022 17:46 EDT Performed On: 07/02/2022 17:46 EDT by Ilan Mcmullen RN Nursing Discharge Note 2 Discharge Time : 07/02/2022 18:19 EDT Ilan Mcmullen RN - 07/02/2022 18:20 EDT Discharge Level of Care at Discharge : Home/Skilled Nursing/Foster Care Patient Left Unit Via : Wheelchair Patient Accompanied Off Unit with : Responsible adult DC Instructions Provided & Signed by Pt : Yes Patient Understands D/C Instructions : Yes Patient Instructions Discharge Signed : Yes Did Pt have Specialty Bed or Wound Vac : No Ilan Mcmullen RN - 07/02/2022 17:46 EDT * Ilan Mcmullen RN: PERFORM Event Display: Patient Education/Instruction Authored Date: [id number] Inpatient Adult Discharge Instructions [address] [address] Name: KILO MIRACLE : 1960 Visit: 07/02/2022 14:48:00 Current Date: 07/02/2022 17:46 Account: [id number] Inpatient Adult Discharge Instructions We would like to thank you for allowing us to assist you with your healthcare needs. The following includes patient education materials and information regarding your injury/illness. Our entire staffstrives to provide an excellent experience for our patients and their families. PLEASE ENSURE YOU FOLLOW-UP PER THE INSTRUCTIONS BELOW! ?? YOUR OPINION IS IMPORTANT TO US! Please complete the survey you may receive by mail or email. Your feedback will be used to make improvements to the healthcare experiences of our patients and their families. Surveys are administered by [employer] ?? If further treatment with your primary care physician or another doctor is recommended, it is important for you to keep the appointment. Call your primary care physician or return to the Emergency Department immediately if your condition worsens, fails to improve, or new symptoms develop. If you need to find a doctor, you can call [facility] [employer] for a referral at [phone] or toll free at [phone]) or log in to [email or web address].. ?? You can view and manage your care through the patient portal or by using a health care mare of your choosing. [employer] is a website that allows you to securely view your medical information including your hospital discharge summary, office visit summaries, medications and follow-up visits. You can also request appointments, renew medications, and request access to your medical information using a health care mare of your choosing, or just ask a question. You can enroll at [email or web address] or register during your next office visit. You have been discharged from [facility], Patient Care Unit: ENDO. If you have any questions regarding these instructions after you leave, please call us and we will be happy to assist you. [facility] Your Care Team Attending Physician Timothy Cheatham MD, Maikel Santizo Reason for Your Visit BARRETTS WITH LGD Tests Performed Below is a partial list of the tests performed during your hospitalization. You may have had other tests and procedures not included in this list. Please discuss all test results with your provider. Primary Care Provider Santo Gipson NP Advance Directive . Discharge Vitals Temperature: 98.1 DegF Height: 188 cm Pulse Rate: 64 bpm Weight: 129.3 kg Respiratory Rate:??12 br/min??Low Body Mass Index:??36.58 kg/m2??Critical Systolic Blood Pressure: 132 mm Hg Body surface area: 2.6 Diastolic Blood Pressure: 65 mm Hg ?? Oxygen Saturation:??93 %??Low ?? Studies Pending All tests and labs ordered during this hospital stay have been completed unless listed below. Please discuss all pending results with your provider listed above in these instructions. ?? No incomplete studies found What to do next Instructions From Your Doctor Discharge Orders You Need to Schedule the Following Appointments Follow Up with??As Needed When?? Follow Up with??Santo Gipson When??In 0 days Where[facility] [address] [facility] [place] [address]- Business (1) Discharge Medications KILO RAUSCH :1960 Visit Date:07/02/2022 Medications: Please continue your medications until treatment is completed or stopped by your provider. Medications not listed below should be discontinued. Discuss any questions related to medications with your provider. What How Much When Instructions Next Dose Unchanged Albuterol (ProAir HFA 90 mcg/ inh inhalation aerosol with adapter) 2 puff(s) Inhalation 4 times a day Unchanged Clonazepam (KlonoPIN 1 mg oral tablet) 1 tab(s) Oral 1/ 2 tab in am 1 and half at HS ?? Unchanged Durable Medical Equipment (Compression Stockings) See instructions surgical, thigh high length 20-30 mm Hg ?? Unchanged Enalapril-Hydrochlorothiazide (enalapril-hydrochlorothiazide 10 mg-25 mg oral tablet) 1 tab(s) Oral Daily Unchanged Famotidine (famotidine 20 mg oral tablet) 1 tab(s) Oral Daily at Bedtime Unchanged Ibuprofen (ibuprofen 800 mg oral tablet) 1 tab(s) Oral 3 times a day as needed for Pain , Moderate Unchanged Lidocaine Topical (Lidocaine Viscous 2% solution) See instructions take 10 mL by mouth every 6 hrs as needed for chest/ throat pain. ?? Unchanged Metformin (metFORMIN 850 mg oral tablet) 1 tab(s) Oral Twice a day Unchanged Methadone 90 Milligram Oral Daily Unchanged Pantoprazole (pantoprazole 40 mg oral delayed release tablet) 1 tab(s) Oral Twice a day Unchanged Simvastatin (simvastatin 20 mg oral tablet) 1 tab(s) Oral Daily at Bedtime Test Results Below is a partial list of the most recent Laboratory test results done prior to this discharge. You may have had other tests and procedures not included in this list. Please discuss all test resultswith your provider. Allergies (NKA means No Known Allergies) morphine??(hives) Problems Active Problems??(5) Acid reflux?? Diabetes?? Encounter for screening colonoscopy?? H/O heartburn?? Severe obesity (BMI 35.0-39.9) with comorbidity?? Education Materials Below is the list of Educational Leaflet Providered with your Discharge Instructions. Valuables and Belongings I fully understand and agree that [facility] accepts no responsibility for all my personal property including clothing, toilet articles, radios, jewelry, dentures, hearing aids, rings, money, or any other property that is in my possession or is brought to me after admission. I understand certain valuables may be placed in a hospital safe for a short period of time. I understand that the hospital is not liable for loss or damage due to accident, fire, or other natural occurrence while said property is in the safe. I accept full responsibility for any personal property that I keep with me, and will not hold the hospital responsible in case of loss or disappearance. I acknowledge that i have been encouraged to send valuables and belongings home. ? Other Discharge Information ? Case Management Discharge Plan?? Discharge Plan?? Discharge Level of Care at Discharge: Home/Skilled Nursing/Foster Care ?? Pulmonary Rehab Status?? Pulmonary Rehab Discharge Status?? Respiratory Rate:??12 br/min??Low ? Common Emergency Awareness Tips IS IT A STROKE? Act FAST and Check for these signs: FACE Does the face look uneven? ARM Does one arm drift down? SPEECH Does their speech sound strange? TIME Call at any sign of stroke ?? Heart Attack Signs Chest discomfort: Most heart attacks involve discomfort in the center of the chest and lasts more than a few minutes, or goes away and comes back. It can feel like uncomfortable pressure, squeezing, fullness or pain. Discomfort in upper body: Symptoms can include pain or discomfort in one or both arms, back, neck, jaw or stomach. Shortness of breath: With or without discomfort. Other signs: Breaking out in a cold sweat, nausea, or lightheaded. Remember, MINUTES DO MATTER. If you experience any of these heart attack warning signs, call to get immediate medical attention! ?? Smoking can increase your chances of developing chronic health problems and can cause harmful effects to other family members in your house. If you smoke, you are strongly encouraged to quit. Please call [facility] [employer] Link at [phone] or [phone] [phone]) or log in to [email or web address] for referrals to smoking cessation programs. ?? 521 Suicide & Crisis Lifeline is available 04/10 if you or someone you know needs to find a reason to keep living. By calling 403 you'll be connected to a skilled, trained counselor at a crisis center in your area. INPATIENT DISCHARGE INSTRUCTIONS SIGNATURE PAGE KILO RAUSCH Location:[facility] Registration Date and Time:07/02/2022 14:48 EDT Primary Care Physician: Leonela CARDONA, Santo Welch, I KILO RAUSCH, have received the above patient education materials/instructions and have verbalized understanding. If ambulance or transport services are being used I further acknowledge being given a choice of service. ?? If you need to contact me, please call me at this number: . Patient/Account Services Representative Name: Patient/Account Services Representative Signature: Relationship to Patient: Witness Name/Signature: Date: * Kemi FULLER, Ilan: PERFORM, SIGN, VERIFY Event Display: Patient Education Handout Authored Date: Patient Care team information Care Team Personnel Name: Feliciano Ferrell RN Position: [facility] RN Member Role: Primary Care Nurse Name: Santo Gipson NP Position: [facility] Outreach Member Role: PCP Address: Address: [address] [place] [address]- Care Team Related Persons Name: TONIA CALDERON Address: home [address] [place] [address] Name: JANINE HOOK Address: home [address] [place] [address] Name: CLARA HSU Address: home [address] [place] [address] Name: ANAYA PAYTON Address: home [address] [place] [address] Name: BLANCA MALDONADO Address: home [address] [place] [address] Name: TONIA RAUSCH Address: home [address] [place] [address] Name: KILO RAUSCH Address: [place] [address]
--- OUTSIDE RECORDS SUMMARY | 2022-11-15 16:04 | XMS_ITS | Continuity of Care Document ---
Author Name Unknown Organization [facility] ter Address [address] [place] [address]- Care Team Providers Care Area Director Of Home Health Sales Name Role Phone Leonela CARDONA, Santo Welch Primary Care Physician Encounter [facility] Date(s): 04/01/22 - 04/01/[address] [address] Discharge Disposition: A-D/C Home Attending Physician: [...] 04/16/21 16:33:00 EST, Route to Pharmacy Electronically, [facility]/pharmacy #[id number], Partial fill upon patient request if the [...] mL, 0 Refills, Maintenance, 01/07/22 16:42:00 EDT, [facility]/pharmacy #[id number], Partial fill uponpatient request if [...] Active Encounter for screening colonoscopy Confirmed Active Vital Signs Most recent to oldest [Reference Range]: 1 2 3 Oxygen Saturation [94-100 %] 92 % *L* (04/01/22 4:14 PM) 92 % *L* (04/01/22 3:48 PM) 93 % *L* (04/01/22 3:46 PM) Blood Pressure [90-138/55-84 mm Hg] 141/74mm Hg *H* (04/01/22 3:29 PM) 133/73mm Hg (04/01/22 3:16 PM) 133/65mm Hg (04/01/22 3:11 PM) Respiratory Rate [16-30 br/min] 20 br/min (04/01/22 3:29 PM) 17 br/min (04/01/22 3:16 PM) 15 br/min *L* (04/01/22 3:11 PM) Temperature [96.8-100.4 DegF] 96.5 DegF *L* (04/01/22 3:11 PM) 97 DegF (04/01/22 12:35 PM) Liters per Minute 2 L/min (04/01/22 3:48 PM) 4 L/min (04/01/22 3:46 PM) 4 L/min (04/01/22 3:30 PM) Mode of Delivery (Oxygen) Room air (04/01/22 4:14 PM) Nasal cannula (04/01/22 3:48 PM) Nasal cannula (04/01/22 3:46 PM) Temperature Route Temporal (04/01/22 3:11 PM) Oral (04/01/22 12:35 PM) Social History Social History Type Response Smoking Status Current every day sm kavin entered on: 01/29/15 Sex Note * Skyler Miner RN: PERFORM Event Display: Discharge/Transfer Note Hospital Authored Date: [id number] Nursing Discharge Note Entered On: 04/01/2022 16:19 EST Performed On: 04/01/2022 16:18 EST by Skyler Miner RN Nursing Discharge Note 2 Discharge Time : 04/01/2022 16:30 EST Skyler Miner RN - 04/01/2022 16:28 EST Discharge Level of Care at Discharge : Home/[facility]/Foster Care Patient Left Unit Via : Wheelchair Patient Accompanied Off Unit with : Responsible adult DC Instructions Provided & Signed by Pt : Yes Patient Understands D/C Instructions : Yes Patient Instructions Discharge Signed : Yes Did Pt have Specialty Bed or Wound Vac : No Skyler Miner RN - 04/01/2022 16:18 EST * Skyler Miner RN: PERFORM Event Display: Patient Education/Instruction Authored Date: [id number] Inpatient Adult Discharge Instructions [address] [address] Name: KILO RAUSCH : 1960 Visit: 04/01/2022 12:10:00 Current Date: 04/01/2022 16:20 Account: [id number] Inpatient Adult Discharge Instructions We would like [...] and their families. Surveys are administered by [employer] ?? If further treatment with your primary care physician or another doctor is recommended, it is important for you to keep the appointment. Call your primary care physician or return to the Emergency Department immediately if your condition worsens, fails to improve, or new symptoms develop. If you need to find a doctor, you can call [facility] for a referral at [phone] or toll free at [phone] ([phone]) or log in to [email or web address].. ?? You can view and manage your care through the patient portal or by using a health care mare of your choosing. [employer] is a website that allows you to securely view your medical information including your hospital discharge summary, office visit summaries, medications and follow-up visits. You can also request appointments, renew medications, and request access to your medical information using a health care mare of your choosing, or just ask a question. You can enroll at [email or web address] or register during your next office visit. You have been discharged from [facility], Patient Care Unit: ENDO. If you have any questions regarding these instructions after you leave, please call us and we will be happy to assist you. [facility] Your Care Team Attending Physician Timothy Cheatham MD, Maikel Santizo Consulting Providers Francisca SILVER, Renato Reason for Admission BARRETTS WITH HIGH GRADEDYSPLASIA Tests Performed Below is a partial list of the tests performed during your hospitalization. You may have had other tests and procedures not included in this list. Please discuss all test results with your provider. Primary Care Provider Santo Gipson NP Advance Directive Health Care Proxy on File No Patient refuses to discuss No qualifying data available. Discharge Vitals Temperature:??96.5 DegF??Low Respiratory Rate: 20 br/min Systolic Blood Pressure:??141 mm Hg??High Diastolic Blood Pressure: 74 mm Hg Oxygen Saturation:??92 %??Low Studies Pending All tests and labs ordered during this hospital stay have been completed unless listed below. Please discuss all pending results with your provider listed above in these instructions. ?? 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 ?? This procedure was successful.? It is common to experience some mild to moderate chest discomfort following this procedure. ??It isimportant you take the following medicines as prescribed to decrease your symptoms: ?? Please take Carafate slurry 1 g 3 times a day with meals and once again at bedtime. Continue to take pantoprazole twice daily .?? For pain, you may use acetaminophen ??as needed for pain every ??6 hours for the next 3 days. Please maintain a liquid diet for 36 hours and then resume a soft diet for 1 week. Please return for repeat procedure in 12 weeks. ??Our office will call you to schedule. ?? It is very important that you follow these instructions: ?You may have a mild sore throat or hoarseness after the procedure. This is because of the tubeand the anesthetic.?You may feel nauseated today. This sometimes happens because of the medications that are used. This should get better within a few hours. If your nausea continues for more than 24 hours contact your doctor's office.?Begin taking small sips of water and progress to solid foods gradually as you are feeling better.?Do not drive any motor vehicle or operate dangerous equipment. Weakness and lack of coordinationare the result of the medications that were administered during the procedure.?Do not conduct important business or sign any legal documents on the day of the procedure, sinceyou may feel drowsy from the medications that were administered today.?If you have redness or swelling at sites where medications were given, place a warm wet washcloth over the affected area for twenty minutes. If the symptoms persist for over two days please contact your doctor's office.?Call your doctor's office if you develop fever greater than 101 degrees or chills during the next 48 hours.?Please call for any issues or questions that may arise. ??Our office phone number is [phone] ?? Discharge Orders You Need to Schedule the Following Appointments Follow Up with??Santo Gipson NP When?? Where: [address] [place] [address], [place] [address]- Discharge Medications KILO RAUSCH :1960 Visit Date:04/01/2022 Medications: Please continue your medications until treatment [...] Diabetes?? Encounter for screening colonoscopy?? H/O heartburn?? Obese class II?? Education Materials Below is the list of Educational Leaflet Providered with your Discharge Instructions. Surgery Medical Daystay Surgical Overnight Discharge Instructions?? Valuables and Belongings I fully understand and agree that [facility] accepts no responsibility for all my personal [...] Plan?? Discharge Level of Care at Discharge: Home/[facility]/Foster Care ?? Pulmonary Rehab Status?? Pulmonary Rehab Discharge Status?? Respiratory Rate: 20 br/min ? Common Emergency Awareness Tips IS IT [...] are strongly encouraged to quit. Please call [facility] [employer] Link at [phone] or [phone]) or log in to [email or web address] for referrals to smoking cessation programs. ?? The National Suicide Prevention Hotline is available 04/10 if you or someone you know needs to find a reason to keep living. By calling 8-823-921-Busy Moos (7375) you'll be connected to a skilled, trained counselor at a crisis center in your area. INPATIENT DISCHARGE INSTRUCTIONS SIGNATURE KILO ANG Location:[facility] Registration Date and Time:04/01/2022 12:10 [facility] Primary Care Physician: Leonela CARDONA, Santo S, I KILO RAUSCH, have received the above patient education materials/instructions and have verbalized understanding. If ambulance or transport services are being used I further acknowledge being given a choice of service. ?? If you need to contact me, please call me at this number: . Patient/Chief Ultrasound Technologist Name: Patient/Chief Ultrasound Technologist Signature: Relationship to Patient: Witness Name/Signature: Date: * Isidra FULLER, Skyler Ling: PERFORM Event Display: Patient Education Leaflets Authored Date: [id number] Surgery Medical Daystay Surgical Overnight Discharge Instructions ?? 295 Medical Daystay/Surgical Overnight Discharge Instructions ? Since your coordination and judgment may be altered by medication and/or anesthesia, a responsible adult must drive you home from the hospital. ? If you have received medication for pain or sedation while under our care, you should not drive, operate machinery, drink alcohol, or sign any legal documents for 24 hours.?? You should have someone with you at home tonight. ? Remain at home the day of discharge.?? You may be up and about unless otherwise instructed by your physician. ? You may resume your daily prescription medication schedule.?? Any depressant medication should be avoided for 24 hours unless otherwise instructed by your surgeon or anesthesiologist. ? Call your physician for a follow-up appointment.? If you experience unusual or severe pain not relied by your pain medication, excessive bleedingor drainage, persistent nausea and vomiting, excessive swelling or redness, foul odor from incisionsite or fever over 100.6F, you need to call your physician. ? A follow-up phone call by a nurse will be made the day after your procedure.?? If you have stayed with us over night, you will not be receiving a follow-up phone call. ? Nausea and vomiting are a common side effect of prescription pain medication.?? We recommend that pills are not taken on an empty stomach.?? While taking any prescription pain medication you should not drive or drink alcohol. ? Patient Care team information Care Team Personnel Name: Feliciano Ferrell RN Position: [facility] RN Member Role: Primary Care Nurse Name: Santo Gipson NP Position: [facility] Outreach Member Role: PCP Address: Address: [address] [facility], [place], [place] [address] Care Team Related Persons Name: TONIA CALDERON Address: home [address] [place] [address] Name: JANINE HOOK Address: home [address] [place] [address] Name: CLARA HSU Address: home [address] [place] [address] Name: ANAYA PAYTON Address: home [address] [place] [address] Name: BLANCA MALDONADO Address: [address] [place] [address] Name: TONIA RAUSCH Address: [address] [place] [address] Name: KILO RAUSCH Address: [place] [address]
--- OUTSIDE RECORDS SUMMARY | 2022-11-15 16:05 | XMS_ITS | Continuity of Care Document ---
Author Name Unknown Organization [facility] Address [address] [place] [address]- Care Team Providers Care Microbiology Manager Name Role Phone Santo Gipson NP Primary Care Physician Encounter [facility] Date(s): 12/06/19 - 01/05/20 [facility] [address] [place] [address]- [facility] Attending Physician: Rico White Admitting Physician: Rico White Referring Physician: AdmtrRico Allergies, Adverse Reactions, Alerts [...] 8:00:00 EDT, 12/06/19 11:11:00 EDT, REC Powder, [facility]/pharmacy #[id number], 17 Gm By Mouth Daily,Instr:dissolve in water before taking, 183.7, cm, 12/06/19 10:40:00... Start Date: 12/06/19 Stop Date: 01/12/20 Status: Ordered NuLYTELY Lemon [place] oral powder for reconstitution 240 mL, By Mouth, Every 10 minutes, # 4,000 mL, 0 Refills, Maintenance, 04/22/16 11:21:31 Start Date: 04/22/16 Status: Ordered NuLYTELY with Flavor Packs oral powder for reconstitution See Instructions, 240 mL By Mouth Every 15 minutes, # 4,000 mL, 0 Refills, Maintenance, 12/06/19 11:11:00 EDT, [facility]/pharmacy #[id number], 240 mL By Mouth Every 15 [...]
--- OUTSIDE RECORDS SUMMARY | 2022-11-15 16:05 | XMS_ITS | Continuity of Care Document ---
Author Name Unknown Organization [facility] ter Address [address] [place] [address]- Care Team Providers Care General Teller Name Role Phone Ritu SILVER, Rosina Rodgers Primary Care Physician Encounter [facility] Date(s): 01/07/22 - 01/07/[address] [address]- Discharge Disposition: A-D/C Home Attending Physician: Maikel [...] vaccine 01/16/13 Not Given Patient Refuses Medications Carafate 1 gm/10 ml oral suspension 10 mL = 1 Gm, By Mouth, 4 times a day, Following endoscopic ablation therapy., # 560 mL, 0 Refills,Maintenance, 01/07/22 16:42:00 EDT, [id number], Partial fill upon patient request if the prescription is for a schedule II opioid drug., 188, c... Start Date: 01/07/22 Stop Date: 01/21/22 Status: Ordered Compression Stockings See Instructions, # [...] mL, 0 Refills, Maintenance, 01/07/22 16:42:00 EDT, [facility]/pharmacy #[id number], Partial [...] 1 2 3 Oxygen Saturation [94-100 %] 96 % (01/07/22 5:55 PM) 94 % (01/07/22 5:40 PM) 95 % (01/07/22 5:26 PM) Pulse Rate [55-90 bpm] 67 bpm (01/07/22 3:06 PM) Blood Pressure [90-138/55-84 mm Hg] 158/86mm Hg *H* (01/07/22 5:55 PM) 155/81mm Hg *H* (01/07/22 5:40 PM) 153/89mm Hg *H* (01/07/22 5:26 PM) Respiratory Rate [16-30 br/min] 16 br/min (01/07/22 5:55 PM) 16 br/min (01/07/22 5:40 PM) 18 br/min (01/07/22 5:26 PM) Temperature [96.8-100.4 DegF] 97.1 DegF (01/07/22 4:56 PM) 97.4 DegF (01/07/22 3:06 PM) Liters per Minute 2 L/min (01/07/22 5:26 PM) 2 L/min (01/07/22 5:15 PM) 4 L/min (01/07/22 5:08 PM) Mode of Delivery (Oxygen) Room air (01/07/22 5:55 PM) Room air (01/07/22 5:40 PM) Simple face mask (01/07/22 5:26 PM) Blood pressure sites Arm, right (01/07/22 5:55 PM) Arm, right (01/07/22 5:40 PM) Arm, right (01/07/22 5:26 PM) Temperature Route Temporal (01/07/22 4:56 PM) Temporal (01/07/22 3:06 PM) Social History Social History Type Response Smoking Status Current every day phil vale entered on: 01/29/15 Sex Patient Care team information Personnel Name: Ritu SILVER, Rosina Rodgers Address: Address: [address] [place] [address]
--- OUTSIDE RECORDS SUMMARY | 2022-11-15 16:05 | XMS_ITS | Continuity of Care Document ---
Author Name Unknown Organization [facility] Address [address] [place] [address]- Care Team Providers Care Damper Worker Name Role Phone Santo Gipson NP Primary Care Physician Encounter [facility] Date(s): 04/10/19 - 04/20/19 [facility] [address] [place] [address]- [facility] Attending Physician: Rico White Admitting Physician: AdmRico [...] Start Date: 02/03/15 Status: Ordered NuLYTELY Lemon [place] oral powder for reconstitution 240 mL, By [...]
--- OUTSIDE RECORDS SUMMARY | 2022-11-15 16:05 | XMS_ITS | Patient Health Record ---
Author Name [facility] Care Team Providers Care Inside Parts Sales Name Role Phone Luisana Gomez Unavailable Unavailable ENCOUNTERS from 1960 to 2022-11-15 Encounter Location Date Provider Diagnosis [facility] [address] [place], [place] [id number] Dec, Luisana Gomez SOCIAL HISTORY Sex Assigned At : Social History Observation Description Sex Assigned At Unknown REASON FOR REFERRAL from 1960 to 2022-11-15 Referring Provider First Name Luisana Referring Provider Last Name Patricia Referring Provider Specialty [facility] Referred Provider Housing,Search Referral Priority Routine Referring Provider First Name Luisana Referring Provider Last Name Patricia Referring Provider Specialty Clinic or [facility] practice Referred Provider Mental Health,Suppor t Offered Referral Priority Routine REASON FOR VISIT No Information MENTAL STATUS No Information PLAN OF TREATMENT Referrals Referral Date Details Search Housing Support Offered Ment al Health Insurance Providers Payer Name Payer Address Payer Phone Insured Name Patient Relationship to Insured Coverage Start Date Coverage End Date Subscriber Number Group Number [place] [employer] [address] [place] [address] Kevon Nicholson Self - patient is the insured [phone] A & B [place] Medicaid Standard [address] [facility] [id number] Kevon Nicholson Self - patient is the insured [id number]
--- OUTSIDE RECORDS SUMMARY | 2022-11-15 16:05 | XMS_ITS | Continuity of Care Document ---
Author Name Unknown Organization [facility] ter Address [address] [place] [address]- Care Team Providers Care Dairy Specialist Name Role Phone Santo Gipson NP Primary Care Physician Encounter [facility] Date(s): 04/16/21 - 04/16/[address] [address] Discharge Disposition: A-D/C Home Attending Physician: [...] 3000 mg/day, # 60 capsule,0 Refills, Maintenance, 04/16/21 16:33:00 EST, Capsule, [id number], Partial fill upon patient request if the prescription is for a schedule II... Start Date: 04/16/21 Status: Ordered buPROPion 100 mg oral tablet 1 tablet = 100 mg, By Mouth, Daily, 0 Refills, Maintenance, 04/22/16 10:56:27 Start Date: 04/22/16 Status: Ordered Carafate 1 gm/10 ml oral suspension 10 mL = 1 Gm, By Mouth, 4 times a day, Following endoscopic ablation therapy., # 560 mL, 0 Refills,Maintenance, 04/16/21 16:33:00 EST, [id number], Partial fill upon patient request if the prescription is for a schedule II opioid drug., 188, c... Start Date: 04/16/21 Stop Date: 04/30/21 Status: Ordered Clonazepam = 2 mg, By [...] 04/16/21 16:33:00 EST, Route to Pharmacy Electronically, [facility]/pharmacy #[id number], Partial fill upon [...] pain., # 200 mL, 0 Refills, Maintenance, 04/16/21 16:33:00 EST, [facility]/pharmacy #[id number], Partial fill uponpatient request if the prescription is for a schedu... Start Date: 04/16/21 Status: Ordered metFORMIN 850 mg oral tablet [...] Range]: 1 2 3 Height 188 cm (04/16/21 1:27 PM) Weight 122.5 kg (04/16/21 1:27 PM) Oxygen Saturation [94-100 %] 94 % (04/16/21 4:40 PM) 98 % (04/16/21 4:30 PM) 100 % (04/16/21 4:22 PM) Pulse Rate [55-90 bpm] 68 bpm (04/16/21 1:27 PM) Body Mass Index [18.5-24.99] 34.66 *>HHI* (04/16/21 1:27 PM) Blood Pressure [90-138/55-84 mm Hg] 123/70mm Hg (04/16/21 4:40 PM) 129/65mm Hg (04/16/21 4:30 PM) 127/65mm Hg (04/16/21 4:22 PM) Respiratory Rate [16-30 br/min] 16 br/min (04/16/21 4:40 PM) 16 br/min (04/16/21 4:30 PM) 16 br/min (04/16/21 4:22 PM) Temperature [96.8-100.4 DegF] 97.0 DegF (04/16/21 3:59 PM) 97.3 DegF (04/16/21 1:27 PM) Liters per Minute 2 L/min (04/16/21 4:22 PM) 4 L/min (04/16/21 4:11 PM) 4 L/min (04/16/21 3:59 PM) Mode of Delivery (Oxygen) Room air (04/16/21 4:40 PM) Room air (04/16/21 4:30 PM) Simple face mask (04/16/21 4:22 PM) Blood pressure sites Arm, left (04/16/21 4:40 PM) Arm, left (04/16/21 4:30 PM) Arm, left (04/16/21 4:22 PM) Temperature Route Temporal (04/16/21 3:59 PM) Temporal (04/16/21 1:27 PM) Social History Social History Type Response Smoking Status Current every day phil vale entered on: 01/29/15 Sex
--- OUTSIDE RECORDS SUMMARY | 2022-11-15 16:05 | XMS_ITS | Continuity of Care Document ---
Author Name Unknown Organization [facility] Address [address] [place] [address]- Care Team Providers Care Engine Hostler Name Role Phone Santo Gipson NP Primary Care Physician Encounter [facility] Date(s): 08/03/21 - 09/02/21 [facility] [address] [place] [address]- [place] Allergies, Adverse Reactions, Alerts Substance Reaction [...] EST, Route to Pharmacy Electronically, [facility]/pharmacy #[id number], Partial fill upon patient request [...] mL, 0 Refills, Maintenance, 07/28/21 11:48:00 EDT, [facility]/pharmacy #[id number], Partial fill uponpatient request [...]
--- OUTSIDE RECORDS SUMMARY | 2022-11-15 16:05 | XMS_ITS | Continuity of Care Document ---
Author Name Unknown Organization [facility] ter Address [address] [place] [address]- Care Team Providers Care Typewriter Repairer Name Role Phone Leonela CARDONA, Santo Welch Primary Care Physician Encounter [facility] Date(s): 09/21/22 - 09/21/[address] [address]- Discharge Disposition: A-D/C Home Attending Physician: Maikel [...] 04/16/21 16:33:00 EST, Route to Pharmacy Electronically, [facility]/pharmacy #[id number], Partial fill upon patient request [...] mL, 0 Refills, Maintenance, 07/02/22 17:51:00 EDT, [facility]/pharmacy #[id number], Partial fill uponpatient request if [...] Range]: 1 2 3 Height 188 cm (09/21/22 9:12 AM) Weight 133.18 kg (09/21/22 9:12 AM) Oxygen Saturation [94-100 %] 95 % (09/21/22 11:41 AM) 94 % (09/21/22 11:32 AM) 94 % (09/21/22 11:22 AM) Pulse Rate [55-90 bpm] 57 bpm (09/21/22 9:12 AM) Body Mass Index [18.5-24.99 kg/m2] 37.68 kg/m2 *>HHI* (09/21/22 9:12 AM) Blood Pressure [90-138/55-84 mm Hg] 120/62mm Hg (09/21/22 11:41 AM) 132/78mm Hg (09/21/22 11:32 AM) 125/63mm Hg (09/21/22 11:22 AM) Respiratory Rate [16-30 br/min] 12 br/min *L* (09/21/22 11:41 AM) 18 br/min (09/21/22 11:32 AM) 14 br/min *L* (09/21/22 11:22 AM) Temperature [96.8-100.4 DegF] 97.0 DegF (09/21/22 9:12 AM) Mode of Delivery (Oxygen) Room air (09/21/22 11:41 AM) Room air (09/21/22 11:32 AM) Room air (09/21/22 11:22 AM) Blood pressure sites Arm, left (09/21/22 11:41 AM) Arm, left (09/21/22 11:32 AM) Arm, left (09/21/22 11:22 AM) Temperature Route Temporal (09/21/22 9:12 AM) Weight Obtained Via Patient/family state d (09/21/22 9:12 AM) Social History Social History Type Response Smoking Status Current every day sm harlaner entered on: 01/29/15 Sex Note * Nya Mcdermott RN: PERFORM Event Display: Discharge/Transfer Note Hospital Authored Date: Nursing Discharge Note Entered On: 09/21/2022 11:40 EDT Performed On: 09/21/2022 11:40 EDT by Nya Mcdermott RN Nursing Discharge Note 2 Discharge Time : 09/21/2022 12:22 EDT Nya Mcdermott RN - 09/21/2022 12:22 EDT Discharge Level of Care at Discharge : Home/Care Home/Foster Care Patient Left Unit Via : Wheelchair Patient Accompanied Off Unit with : Responsible adult DC Instructions Provided & Signed by Pt : Yes Patient Understands D/C Instructions : Yes Patient Instructions Discharge Signed : Yes Did Pt have Specialty Bed or Wound Vac : No Nya Mcdermott RN - 09/21/2022 11:40 EDT * Nya Mcdermott RN: PERFORM Event Display: Patient Education/Instruction Authored Date: [id number] Surgery Adult Discharge Instructions [address] [address] Name: KILO RAUSCH : 1960?? Visit: 09/21/2022 08:21?? Current Date: 09/21/2022 11:40 ?? Account: [id number]?? Surgery Discharge Instructions We would like to thank [...] and their families. Surveys are administered by [employer] ?? If further treatment with your primary care physician or another doctor is recommended, it is important for you to keep the appointment. Call your primary care physician or return to the Emergency Department immediately if your condition worsens, fails to improve, or new symptoms develop. If you need to find a doctor, you can call [facility] [employer] for a referral at [phone] or toll free at [phone]) or log in to www.[email or web address] [employer] ?? You can view and manage your care through the patient portal or by using a health care mare of your choosing. [employer] is a website that allows you to securely view your medical information including your hospital discharge summary, office visit summaries, medications and follow-up visits. You can also request appointments, renew medications, and request access to your medical information using a health care mare of your choosing, or just ask a question. You are entitled to know the individuals who participated in your treatment. This information is available within your medical record and will be provided upon your request. You can enroll at [email or web address] or register d uring your next office visit. You have been discharged from [facility], Patient Care Unit: ENDO??. If you have any questions regarding these instructions after you leave, please call us and we will be happy to assist you. [facility] Your Care Team Attending Physician Maikel Aguirre Jr, MD?? Discharging Providers Maikel Aguirre Jr, MD Reason for Admission BARRETTS WITH DYSPLASIA Primary Care Provider Santo Gipson NP? Advance Directive Health Care Proxy on File No What to do next Instructions From Your Doctor We completed your endoscopic today.?? We biopsied your esophagus.?? Lets see what the results show before we pursue further endoscopic ablation at this time.?? Please stay on twice a day pantoprazole. ?? It is very important that you [...] may arise. ??Our office phone number is [phone] ? Orders? 09/21/22 11:34:00 EDT?? You Need to Schedule the Following Appointments Follow Up with??follow up with your PCP Follow Up with??Santo Gipson When:??In 0 days Where: [address] [facility], [place] [address]- Business (1) Discharge Medications MIRACLEKILO :1960 Visit Date:09/21/2022 Medications: Please continue your medications until treatment is completed or stopped by your provider. You may resume your daily prescription medications. Discuss any questions related to medications with your provider. What How Much When Instructions Next Dose Unchanged Acetaminophen (acetaminophen 160 mg/ 5 mL oral suspension) 15 Milliliter Oral Every 6 hours as needed for for pain To use post esophageal ablation not to exceed 5 doses/ day ?? Unchanged Albuterol (ProAir HFA 90 mcg/ inh [...] 6 hrs as needed for chest/ throat pain., As needed for Pain , Moderate ?? Unchanged Metformin (metFORMIN 850 mg oral tablet) 1 tab(s) Oral Twice a day Unchanged Methadone 90 Milligram Oral Daily Unchanged Pantoprazole (pantoprazole 40 mg oral delayed release tablet) 1 tab(s) Oral Twice a day Unchanged Simvastatin (simvastatin 20 mg oral tablet) 1 tab(s) Oral Daily at Bedtime Unchanged Sucralfate (Carafate 1 gm/ 10 ml oral suspension) 10 Milliliter Oral 4 times a day Duration: 14 Days Following endoscopic ablation therapy. ?? Allergies (NKA means No Known Allergies) morphine??(hives) Education Materials Below is the list of Educational Leaflet Providered with your Discharge Instructions. Surgery Medical Daystay Surgical Overnight Discharge Instructions?? Valuables and Belongings I fully understand and agree that [facility] accepts no responsibility for all my [...] encouraged to send valuables and belongings home. ?? Review of Valuable and Belonging List: With patient Date for Pt to Sign Valuables/Belongings: 09/21/22 09:12:00 ?? Valuables & Belongings ?? Clothes Electronic devices Jewelry Monetary Items Personal devices Miscellaneous Medications (Valuables) Valuables at Bedside Pants, Shirt, Shoes Cell phone ?? Other: bag Cane ? Valuables Sent Home ? Valuables Sent to Security ? Other Discharge Information ? Case Management Discharge Plan?? Discharge Plan?? Discharge Level of Care at Discharge: Home/Care Home/Foster Care ?? Pulmonary Rehab Status?? Pulmonary Rehab Discharge Status?? Respiratory Rate: 18 br/min ? Common Emergency Awareness Tips IS [...] are strongly encouraged to quit. Please call [employer] at [phone] or [phone] ([phone]) or log in to [email or web address] for referrals to smoking cessation programs. ?? The National Suicide Prevention Hotline is available 04/10 if you or someone you know needs to find a reason to keep living. By calling 4-174-140-wmif (9160) you'll be connected to a skilled, trained counselor at a crisis center in your area. SURGERY DISCHARGE INSTRUCTIONS SIGNATURE PAGE KILO RAUSCH Location:[facility] Registration Date and Time:09/21/2022 08:21 EDT Primary Care Physician: Santo Gipson NP, Attending Physician: Timothy Cheatham MD, Maikel Santizo, I MIRACLE KILO, have received the above patient education materials/instructions and have verbalized understanding. If ambulance or transport services are being used I further acknowledge being given a choice of service. ?? If you need to contact me, please call me at this number: . Patient/Chief Gauger Name: Patient/Chief Gauger Signature: Relationship to Patient: Witness Name/Signature: Date: * Nya Mcdermott RN: PERFORM, SIGN, VERIFY Event Display: Patient Education Handout Authored Date: * Nya Mcdermott RN: PERFORM Event Display: Patient Education Leaflets Authored Date: Surgery Medical Daystay Surgical Overnight Discharge Instructions [...] Team Personnel Name: Feliciano Ferrell RN Position: [facility] RN Member Role: Primary Care Nurse Name: Santo Gipson NP Position: [facility] Outreach Member Role: PCP Address: Address: [address] [place] [address]- Care Team Related Persons Name: TONIA CALDERON Address: home [address] [place] [address] Name: JANINE HOOK Address: home [address] [place] [address] Name: CLARA HSU Address: home [address] [place] [address] Name: ANAYA PAYTON Address: home [address] [place] [address] Name: BLANCA MALDONADO Address: home [address] [place] [address] Name: TONIA RAUSCH Address: home [address] [place] [address] Name: KILO RAUSCH Address: [place] [address]
--- OUTSIDE RECORDS SUMMARY | 2022-11-15 16:05 | XMS_ITS | Continuity of Care Document ---
Author Name Unknown Organization [facility] Address [address] [place] [address]- Care Team Providers Care Media Technician Name Role Phone Santo Gipson NP Primary Care Physician Encounter [facility] Date(s): 09/03/21 - 10/03/21 [facility] [address] [place] [address]- Attending Physician: Rico White Admitting Physician: AdmRico [...] a schedule II opioid drug., 188, cm, 05/... Start Date: 07/28/21 Status: Ordered buPROPion 100 [...] 04/16/21 16:33:00 EST, Route to Pharmacy Electronically, [facility]/pharmacy #[id number], Partial fill upon patient [...] mL, 0 Refills, Maintenance, 07/28/21 11:48:00 EDT, [facility]/pharmacy #[id number], Partial fill uponpatient request [...]
== END 2022-11-15 16:47 | disposition home or self-care (01) ==
PROVIDERS: Registered Nurse Emergency; Emergency Provider Emergency Medicine
DX: M79.605 Pain in left leg (principal); R60.0 Localized edema; R06.02 Shortness of breath; Z79.899 Other long term (current) drug therapy; Z98.84 Bariatric surgery status; F17.210 Nicotine dependence, cigarettes, uncomplicated; Z71.6 Tobacco abuse counseling
CPT/HCPCS: 36415; 80053; 83880; 85025; 85610; 93971; 99282; 99284

== ENCOUNTER 2023-01-26 11:00 | Outpatient (RCR) | payer OTHER, SELFPAY | END 2023-03-17 14:24 | disposition home or self-care (01) | LOC: HO.PT 11:00 | PROVIDERS: PCP Internal Medicine; Visit Provider Internal Medicine | DX: R26.81 Unsteadiness on feet (principal) | CPT/HCPCS: 97110; 97162 ==

== ENCOUNTER 2023-02-21 09:31 | Emergency (ER) | payer OTHER, SELFPAY ==
--- NOTE | ~2023-02-21 | US_ITS ---
EXAMINATION: US VENOUS ULTRASOUND WITH DOPPLER LOWER EXTREMITY, BILATERAL CLINICAL INFORMATION: Bilateral lower extremity edema. COMPARISON: 11/15/2022 and 08/03/2022 TECHNIQUE: Ultrasound of the deep veins is performed from the hip to the calf with compression sonography and color and pulse Doppler assessment. Spectral analysis with color-flow imaging is performed. FINDINGS: RIGHT: There is normal venous compression and respiratory variation and augmented flow. The visualized common femoral vein, superficial femoral vein, profunda femoral vein, popliteal vein, and the trifurcation region shows no evidence of deep venous thrombosis. LEFT: There is normal venous compression and respiratory variation and augmented flow. The visualized common femoral vein, superficial femoral vein, profunda femoral vein, popliteal vein, and the trifurcation region shows no evidence of deep venous thrombosis. If the patient's symptoms persist, followup ultrasound in 5 days 7 days might be of value to exclude proximal propagation from a non-visualized calf vein. US/US venous duplex LE BI IMPRESSION: No DVT demonstrated in the bilateral lower extremities.
[2023-02-21 09:52] VITALS: BP 133/81; PULSE 67; RESP 20; TEMP 36.1; O2SAT 98; BMI 38.5
[2023-02-21 12:06] LABS: Appearance Urine Clear; Color Urine Yellow; Glucose Urine UA Negative (Negative); Leukocyte Esterase Urine Negative (Negative); Nitrite Urine Negative (Negative); Urine Blood Negative (Negative); Urine Ketones Negative (Negative); Urine Protein Negative (Neg-Trace)
--- NOTE | 2023-02-21 12:06 | ED.GENADULT ---
HPI - General Adult General Chief complaint: General Medical Stated complaint: Swollen/Red L leg no inj Time Seen by Provider: 02/21/23 11:58 Source: patient, RN notes reviewed and old records reviewed Mode of arrival: ambulatory History of Present Illness HPI narrative: 62-year-old male with a past medical history of HTN, diabetes, asthma, sleep apnea, complaining of left lower extremity pain and swelling x4 days. Patient admits to similar symptoms in the past. Admits to wearing compression stockings. Denies injury/trauma or fall, numbness/tingling, weakness, SOB/CP. Denies currently being on diuretic. Related Data Home Medications Medication Instructions Recorded Confirmed albuterol sulfate 90 mcg/actuation 2 puff PO Q4H PRN Shortness Of 11/07/20 11/07/20 aerosol inhaler Breath clonazepam 1 mg tablet 1 tab PO BID PRN anxiety 11/07/20 11/07/20 enalapril 10 1 tab PO DAILY 11/07/20 11/07/20 mg-hydrochlorothiazide 25 mg tablet ergocalciferol (vitamin D2) 1,250 1 cap PO QWEEK 11/07/20 11/07/20 mcg (50,000 unit) capsule metformin 850 mg tablet 1 tab PO BID 11/07/20 11/07/20 nicotine (polacrilex) 4 mg buccal 4 mg PO Q4-6H PRN Smoking Cessation 11/07/20 11/07/20 lozenge pantoprazole 40 mg tablet,delayed 1 tab PO DAILY 11/07/20 11/07/20 release simvastatin 20 mg tablet 1 tab PO BEDTIME 11/07/20 11/07/20 Previous Rx's Medication Instructions Recorded cyclobenzaprine 10 mg tablet 10 mg PO TID PRN muscle spasm #30 04/27/20 tabs doxycycline monohydrate 100 mg 100 mg PO BID 10 days #20 caps 10/29/20 capsule furosemide 20 mg tablet 20 mg PO DAILY 7 days #7 tabs 11/07/20 doxycycline hyclate 100 mg tablet 100 mg PO BID #20 tabs 03/03/21 furosemide 20 mg tablet (Lasix) 20 mg PO DAILY 4 days #4 tabs 05/27/21 ibuprofen 400 mg tablet 400 mg PO Q6H PRN pain 5 days #20 06/02/21 tabs doxycycline hyclate 100 mg capsule 100 mg PO BID #14 caps 09/17/21 furosemide 40 mg tablet (Lasix) 40 mg PO DAILY #5 tabs 09/17/21 doxycycline hyclate 100 mg tablet 100 mg PO BID #14 tabs 02/06/22 acetaminophen 500 mg tablet 500 mg PO Q6H PRN fever or pain 03/30/22 (Tylenol Extra Strength) #14 tabs cyclobenzaprine 5 mg tablet 5 mg PO Q8H PRN pain (scale score 03/30/22 7-10) 5 days #14 tabs lidocaine 5 % topical patch 1 patch topical DAILY PRN pain #30 03/30/22 (Lidoderm) ea naproxen 500 mg tablet 500 mg PO BID PRN pain 10 days #20 03/30/22 tabs furosemide 80 mg tablet (Lasix) 80 mg PO DAILY #14 tabs 08/03/22 acetaminophen 325 mg capsule 650 mg (2 x 325 mg) PO Q6H PRN 11/15/22 (Tylenol) pain #45 caps ibuprofen 800 mg tablet 800 mg PO Q8H PRN pain #45 tabs 11/15/22 furosemide 40 mg tablet (Lasix) 40 mg PO DAILY 7 days #7 tabs 02/21/23 Allergies Allergy/AdvReac Type Severity Reaction Status Date / Time morphine [MORPHINE] Allergy Severe RASH Verified 02/21/23 09:55 Review of Systems Review of Systems: Constitutional: No Fever, No Chills ENT/Mouth: No Ear Pain, No Nasal Congestion, No sore throat, No Rhinorrhea, No Swallowing Difficulty Cardiovascular: No Chest Pain, No SOB, +Pedal edema Respiratory: No Cough, No Sputum, No Wheezing Gastrointestinal: No Nausea, No Vomiting, No Abdominal pain Musculoskeletal: No joint pain, No Myalgias, No Joint Swelling Skin: No Skin Lesions, No rash Neuro: No Weakness, No Numbness, No Paresthesias Yes all other systems are reviewed and are negative Constitutional: Constitutional: Reports as per [facility] Past Medical History Attestation statement: The following information was validated with the patient. Source: old records reviewed Medical History Left wrist pain Hypertension Diabetes Asthma History of arthroplasty of left elbow FHx: total knee replacement Sleep apnea Surgical History History of gastric surgery History of ankle surgery History of hip surgery History of surgery on arm Social History Social History Alcohol intake: never Patient Tobacco Use Status: Current everyday Tobacco user Tobacco use type: Cigarette Cigarettes Per Day: 5 Smoked in Last 30 Days: Yes Use of substances other than those prescribed or required for medical reasons: No Advance Directives: No Advance Directives Information Provided: No Current occupational status: disabled Current occupation: right handed Physical Exam ED Vital Signs: Vital Signs - 24 hr 02/21/23 09:52 02/21/23 12:07 Temperature 96.9 F 98.1 F Pulse Rate 67 61 Respiratory Rate 20 18 Blood Pressure 133/81 153/70 H Pulse Oximetry 98 94 Oxygen Delivery Method Room Air Room Air BMI result Body Mass Index 38.5 Const General: cooperative, healthy appearing and no acute distress Orientation/consciousness: patient oriented x3 Limitations: no limitations HENMT Head: Yes normal to inspection and Yes atraumatic Ears: hearing grossly normal bilaterally General nose exam: Normal external nose present Face and sinus: Yes normal facial exam Eyes General: appearance normal, both eyes and all related structures EOM: EOMs intact bilaterally Neck Neck: Yes normal visual inspection and Yes no meningeal signs Resp Effort & Inspection: normal respiratory effort and no respiratory distress Auscultation: clear to auscultation bilaterally, no crackles, no rales, no rhonchi and no wheezes Cardio Rate: regular rate Heart sounds: S1 normal heart sound present and S2 normal heart sound present Peripheral pulses: Peripheral pulses 2+ throughout Skin Rashes: no rashes Wounds: no wounds Neuro General: patient oriented x3, tone normal and no meningeal signs Cranial nerves: Yes CN's II-XII intact bilaterally Gait exam (Neuro): Normal gait present Extrem Other: +bilateral LE pitting edema > LLE. Calf nontender. Distal pulses intact. No crepitus/erythema or warmth Course Course Course Narrative: -1540--no leukocytosis. H&H at patient's baseline her labs otherwise reassuring. BNP 20. US venous duplex LE BI IMPRESSION: No DVT demonstrated in the bilateral lower extremities. Results discussed with patient > will initiate on 40 mg of Lasix daily for 1 week > encouraged compression stockings and leg elevation with close PCP follow-up Discussed worrisome signs and symptoms and strict return precautions, and when to return to the emergency department. They verbalized understanding and feel safe for discharge at this time. Medications Administered Discontinued Medications Generic Name Dose Route Start Last Admin Trade Name [place] PRN Reason Stop Dose Admin Furosemide 40 mg 02/21/23 15:42 02/21/23 16:05 Furosemide 40 Mg Tablet PO 02/21/23 15:43 40 mg ONCE ONE Administration Protocol Medical Decision Making Medical Decision Making MDM Narrative: 62-year-old male with a past medical history of HTN, diabetes, asthma, sleep apnea, complaining of left lower extremity pain and swelling x4 days. On exam vital signs stable, NAD, nontoxic appearing, physical exam as noted above. Bilateral LE pitting edema noted > left. Distal pulses intact. No erythema/warmth or crepitus. Lungs CTA. Concern for acute on chronic edema vs CHF vs DVT. Low suspicion for dural compromise. No evidence of infection/cellulitis, septic joint or osteo Plan: Labs, venous duplex ultrasound Please refer to course for remaining clinical decision making, interpretation of labs/imaging results, and discussions with consultants and/or family members. Differential Diagnosis Differential Diagnoses: The differential diagnosis associated with the presentation includes As above Admission/Observation Consideration of admission/observation: Escalation of care including admission/observation considered Lab Data [facility] Lab Attestation statement: I reviewed the patient's lab results. 02/21/23 13:03 02/21/23 13:03 Labs: Lab Results 02/21/23 02/21/23 Range/Units 11:55 13:03 WBC 6.1 (4.8-10.8) X10*3/uL RBC 3.68 L (4.60-5.80) X10*6/uL Hgb 11.0 L (14.0-18.0) g/dl Hct 35.1 L (42.0-52.0) % MCV 95.4 (80.0-98.0) fL MCH 29.9 (27.0-33.0) pg MCHC 31.3 (31.0-36.0) g/dl RDW 14.6 (11.0-16.0) % Plt Count TNP MPV TNP Immature Gran % (Auto) 0.5 H (0.0-0.4) % Neut % (Auto) 57.3 (45-73) % Lymph % (Auto) 29.7 (20-40) % Cotton % (Auto) 7.8 (2-11) % Eos % (Auto) 4.4 H (0-4) % Baso % (Auto) 0.3 (0-2) % Lymph # (Auto) 1.8 (1.2-4.9) X10*3/uL Cotton # (Auto) 0.5 (0.1-1.2) X10*3/uL Eos # (Auto) 0.3 (0.0-0.4) X10*3/uL Baso # (Auto) 0.0 (0.0-0.2) X10*3/uL Abs Immat Gran (auto) 0.03 (0.00-0.03) X10*3/uL Absolute Neuts (auto) 3.5 (2.0-8.3) x10*3/uL Absolute Nucleated RBC 0.000 (0.0-0.012) X10*3/uL Nucleated RBC % (auto) 0.0 (0.0-0.2) /100WBC PT 11.6 (11.1-13.3) SEC INR 1.0 (0.9-1.1) Sodium 138 (135-145) mmol/L Potassium 4.5 (3.3-5.1) mmol/L Chloride 104 (96-108) mmol/L Carbon Dioxide 29 (22-29) mmol/L Anion Gap 10 L (12-20) BUN 8 L (9-16) mg/dL Creatinine 0.79 (0.5-1.4) mg/dL Estim Creat Clear Calc 142.2 Estimated GFR > 60 Random Glucose 139 H (60-115) mg/dL Calcium 9.1 (8.4-10.2) mg/dL Total Bilirubin 0.2 (0.0-1.0) mg/dL Direct Bilirubin < 0.2 (0.0-0.5) mg/dL AST 12 (5-37) U/L ALT 10 (0-40) U/L Alkaline Phosphatase 129 H (39-117) U/L B-Natriuretic Peptide 20 (<100) pg/mL Total Protein 6.8 (6.5-8.0) g/dL Albumin 3.4 L (3.5-5.0) g/dL Urine Color Yellow Urine Appearance Clear Urine pH 7.0 (5.0-9.0) Ur Specific [place] 1.010 (1.005-1.025) Urine Protein Negative (Neg-Trace) mg/dL Urine Glucose (UA) Negative (Negative) mg/dL Urine Ketones Negative (Negative) mg/dL Urine Blood Negative (Negative) Urine Nitrite Negative (Negative) Ur Leukocyte Esterase Negative (Negative) Urine RBC 0-2 (0-2) /HPF Urine WBC 0-5 (0-5) /HPF Ur Squamous Epith Cells 0-2 (0-2) /HPF Urine Bacteria None Seen (None Seen) Hyaline Casts 0-2 (0-2) /LPF Radiology Impression Discussion of test interpretation with radiology: I have reviewed the radiologist's reading. External Record Review External record reviewed: Inpatient record, Office record, Outpatient record, Prior outpatient labs, Prior outpatient radiology, Primary care record and Outside ED record Tests considered The following testing was considered but not selected: As above Chronic Conditions Patient?s care impacted by: Diabetes Discharge Plan Discharge Clinical Impression: Pedal edema Patient Disposition: Home, Self-Care Instructions: Leg Edema (ED) Additional Instructions: Your blood work and ultrasound were reassuring ELEVATE YOUR LEGS WEAR COMPRESSION STOCKINGS TAKE LASIX DAILY FOR THE NEXT WEEK PRESCRIBED If symptoms persist or worsen youre unable to ambulate, have numbness, weakness, fever or shortness of breath return to the ED Prescriptions: New furosemide [Lasix] 40 mg tablet 40 mg PO DAILY 7 Days Qty: 7 0RF No Action doxycycline monohydrate 100 mg capsule 100 mg PO BID 10 Days Qty: 20 0RF Patient Comments: 10 DAY SUPPLY clonazepam 1 mg tablet 1 tab PO BID PRN (Reason: anxiety) metformin 850 mg tablet 1 tab PO BID enalapril-hydrochlorothiazide 10-25 mg tablet 1 tab PO DAILY pantoprazole 40 mg tablet,delayed release (DR/EC) 1 tab PO DAILY simvastatin 20 mg tablet 1 tab PO BEDTIME ergocalciferol (vitamin D2) 1,250 mcg (50,000 unit) capsule 1 cap PO QWEEK albuterol sulfate 90 mcg/actuation HFA aerosol inhaler 2 puff PO Q4H PRN (Reason: Shortness Of Breath) nicotine (polacrilex) 4 mg lozenge 4 mg PO Q4-6H PRN (Reason: Smoking Cessation) furosemide 20 mg tablet 20 mg PO DAILY 7 Days Qty: 7 0RF cyclobenzaprine 10 mg tablet 10 mg PO TID PRN (Reason: muscle spasm) Qty: 30 0RF furosemide [Lasix] 20 mg tablet 20 mg PO DAILY 4 Days Qty: 4 0RF Rx Instructions: start on 05/28 furosemide [Lasix] 40 mg tablet 40 mg PO DAILY Qty: 5 0RF doxycycline hyclate 100 mg capsule 100 mg PO BID Qty: 14 0RF doxycycline hyclate 100 mg tablet 100 mg PO BID Qty: 14 0RF doxycycline hyclate 100 mg tablet 100 mg PO BID Qty: 20 0RF ibuprofen 400 mg tablet 400 mg PO Q6H PRN (Reason: pain) 5 Days Qty: 20 0RF acetaminophen [Tylenol Extra Strength] 500 mg tablet 500 mg PO Q6H PRN (Reason: fever or pain) Qty: 14 0RF lidocaine [Lidoderm] 5 % adhesive patch,medicated 1 patch topical DAILY MDD remove after 12 hours PRN (Reason: pain) Qty: 30 0RF Rx Instructions: leave on most painful area for up to 12 hrs naproxen 500 mg tablet 500 mg PO BID PRN (Reason: pain) 10 Days Qty: 20 0RF cyclobenzaprine 5 mg tablet 5 mg PO Q8H PRN (Reason: pain (scale score 7-10)) 5 Days Qty: 14 0RF ibuprofen 800 mg tablet 800 mg PO Q8H PRN (Reason: pain) Qty: 45 0RF acetaminophen [Tylenol] 325 mg capsule 650 mg PO Q6H PRN (Reason: pain) Qty: 45 0RF furosemide [Lasix] 80 mg tablet 80 mg PO DAILY Qty: 14 0RF Referrals: Ana Maria Green MD [Primary Care Provider] - Interventions: ED Discharge Assessment Last Done: 02/21/23 16:09 Discharge Date/Time: 02/21/23 16:09
[2023-02-21 12:07] VITALS: BP 153/70; PULSE 61; RESP 18; TEMP 36.7; O2SAT 94
[2023-02-21 12:09] LABS: Bacteria Urine None Seen (None Seen); Hyaline Casts Urine 0-2 /LPF (0-2); RBC Urine 0-2 /HPF (0-2); Squamous Epithelial Cell Urine 0-2 /HPF (0-2); WBC Urine 0-5 /HPF (0-5)
--- NOTE | 2023-02-21 12:10 | PC.NURSE ---
Addendum entered by Edyta Sabillon 02/21/23 12:15: wrong documentation- pt is noted to have left lower leg swelling Original Note: pt from home reporting 4 days of lower right leg pain. pt reports having a fall yesterday due to the pain. pt reports lower calf itching. 1+ pitting edema noted to the right calf. pt reports pain to the right calf when touched. no redness noted to site. provider at bedside.
[2023-02-21 13:07] LABS: MANUAL DIFF FLAG NO
[2023-02-21 13:14] LABS: Prothrombin Time 11.6 SEC (11.1-13.3)
[2023-02-21 13:20] LABS: Basophils Percent Auto 0.3 % (0-2); Eosinophils Absolute Auto 0.3 X10*3/uL (0.0-0.4); Eosinophils Percent Auto 4.4 % (0-4); Hematocrit 35.1 % (42.0-52.0); Imm Gran Abs Auto 0.03 X10*3/uL (0.00-0.03); Imm Gran Pct Auto 0.5 % (0.0-0.4); Lymphocytes Absolute Auto 1.8 X10*3/uL (1.2-4.9); Lymphocytes Percent Auto 29.7 % (20-40); Mean Corpuscular HGB Conc 31.3 g/dl (31.0-36.0); Mean Corpuscular Hemoglobin 29.9 pg (27.0-33.0); Mean Corpuscular Volume 95.4 fL (80.0-98.0); Monocytes Absolute Auto 0.5 X10*3/uL (0.1-1.2); Monocytes Percent Auto 7.8 % (2-11); Neutrophils Absolute Auto 3.5 x10*3/uL (2.0-8.3); Neutrophils Percent Auto 57.3 % (45-73); Red Blood Count 3.68 X10*6/uL (4.60-5.80); Red Cell Distribution Width 14.6 % (11.0-16.0); White Blood Count 6.1 X10*3/uL (4.8-10.8)
[2023-02-21 13:29] LABS: Alanine Aminotransferase 10 U/L (0-40); Albumin Level 3.4 g/dL (3.5-5.0); Alkaline Phosphatase 129 U/L (39-117); Anion Gap 10 (12-20); Aspartate Amino Transferase 12 U/L (5-37); Bilirubin Direct < 0.2 mg/dL (0.0-0.5); Bilirubin Total 0.2 mg/dL (0.0-1.0); Blood Urea Nitrogen 8 mg/dL (9-16); Calcium 9.1 mg/dL (8.4-10.2); Carbon Dioxide 29 mmol/L (22-29); Chloride 104 mmol/L (96-108); Creatinine Clr Calc Pharmacy 142.2; Estimated Glomerular Filt Rate > 60; Glucose Random 139 mg/dL (60-115); Potassium 4.5 mmol/L (3.3-5.1); Sodium 138 mmol/L (135-145); Total Protein 6.8 g/dL (6.5-8.0)
[2023-02-21 13:36] LABS: B Type Natriuretic Peptide 20 pg/mL (<100)
--- NOTE | 2023-02-21 15:25 | PC.NURSE ---
Patient sleeping. skin pwd,resp even and non labored. awaiting results of ultrasound
[2023-02-21] MEDS: Furosemide 40 MG TABLET PO (16:05)
== END 2023-02-21 16:09 | disposition home or self-care (01) ==
PROVIDERS: Physician Assistant; Emergency Provider Emergency Medicine; PCP Internal Medicine
DX: R60.0 Localized edema (principal); M79.605 Pain in left leg; E11.9 Type 2 diabetes mellitus without complications; I10 Essential (primary) hypertension; F17.210 Nicotine dependence, cigarettes, uncomplicated; Z79.84 Long term (current) use of oral hypoglycemic drugs; Z79.899 Other long term (current) drug therapy
CPT/HCPCS: 36415; 80048; 80076; 81001; 83880; 85025; 85610; 93970; 99284

== ENCOUNTER 2023-03-31 10:04 | Emergency (ER) | payer OTHER, SELFPAY ==
[2023-03-31] VITALS (9 sets, daily range): BP systolic 127–174; BP diastolic 61–88; PULSE 61–80; RESP 9–18; TEMP 36.6; O2SAT 92–99; BMI 37.9
--- NOTE | ~2023-03-31 | CT_ITS ---
EXAMINATION: CT HEAD WITHOUT CONTRAST CT CERVICAL SPINE WITHOUT CONTRAST CLINICAL INFORMATION: Head and neck trauma. COMPARISON: CT scan of the head and cervical spine 03/30/2022. TECHNIQUE: Multidetector CT imaging of the head and cervical spine was performed without the use of intravenous contrast. Coronal and sagittal reformatted images were generated at the technologist workstation. Some images are degraded by patient motion artifact. This CT examination was performed using dose optimization techniques as appropriate, variously including the following: *Automated exposure control *Adjustment of mA and/or kV according to patient size (this includes techniques or standardized protocols for targeted exams where dose is matched to indication/reason for exam; i.e. extremities or head) *Use of iterative reconstruction technique DLP: 1549 mGy-cm. FINDINGS: CT head: There is no evidence of acute intracranial hemorrhage or territorial infarction. No abnormal mass-effect or midline shift is seen. Thomas to white matter differentiation is well preserved. The study redemonstrates an arachnoid cyst in the anterior left middle cranial fossa. The ventricles are normal in size. There is no abnormal attenuation within the brain parenchyma. There are no acute osseous or soft tissue abnormalities. The study redemonstrates thickening of the left anterior clinoid process The mastoid air cells and visualized portions of the paranasal sinuses are well-aerated. CT cervical spine: There is anatomic alignment of the vertebral bodies. There is mild narrowing of intervertebral disc height at multiple levels. Vertebral body heights are maintained, and no fractures are demonstrated. The lateral masses of C1 and C2 are normally aligned and the dens is intact. The atlantooccipital articulations are maintained. The facets are normally aligned. There is no significant facet arthropathy. There is a moderately prominent disc protrusion posteriorly at the level of C4-C5, similar compared to prior imaging. There are mildly prominent lymph nodes at multiple levels in the neck bilaterally, similar compared to prior imaging. The visualized upper lung aj are well-aerated. The prevertebral structures are unremarkable. CT/CT cervical spine wo IV con IMPRESSION: 1. There are no acute bleeds or territorial infarcts. No masses are demonstrated. There are no acute osseous or soft tissue abnormalities. There is a stable arachnoid cyst in the anterior left middle cranial fossa. 2. There are no acute fractures or subluxations in the cervical spine. There are mild spondylitic changes. 3. There are multilevel mildly prominent lymph nodes, similar compared to prior imaging. Correlate clinically.
--- NOTE | ~2023-03-31 | CT_ITS ---
EXAMINATION: CT CHEST, ABDOMEN AND PELVIS WITHOUT CONTRAST CLINICAL INFORMATION: Left rib pain after fall along with left flank hematoma COMPARISON: CT abdomen pelvis 11/25/2014 TECHNIQUE: Multidetector volumetric imaging was performed from the thoracic inlet through the pubic symphysis without IV contrast. Sagittal and coronal reformatted images were obtained on the technologist's workstation. This CT examination was performed using dose optimization techniques as appropriate, variously including the following: *Automated exposure control *Adjustment of mA and/or kV according to patient size (this includes techniques or standardized protocols for targeted exams where dose is matched to indication/reason for exam; i.e. extremities or head) *Use of iterative reconstruction technique DLP: 474 mGy-cm for the chest and 1125 mGy-cm for the chest FINDINGS: CHEST: Lung: The lungs are clear without focal opacity or nodule. Bibasilar atelectasis is present. Mediastinum: The mediastinum is normal. The central vascular structures are unremarkable. No hilar or mediastinal lymphadenopathy. Pericardium/Pleura: No significant effusion. No pleural mass or thickening. Chest Wall/Axilla: Unremarkable ABDOMEN/PELVIS: Peritoneal Space: No significant free air or free fluid identified. Liver, Gallbladder, Biliary Tree: The liver is normal in size, shape, and attenuation. No focal hepatic lesion or biliary ductal dilatation is present. The gallbladder is unremarkable with no evidence of radiopaque gallstones, gallbladder wall thickening, or obvious pericholecystic inflammatory changes. Pancreas: There is marked fatty atrophy of the pancreas Spleen: Unremarkable Adrenal Glands: Unremarkable Kidneys and Ureters: The kidneys are normal in size, shape, and attenuation. No hydronephrosis, hydroureter, or calculi seen. No perinephric stranding. Bladder: Unremarkable Gastrointestinal Tract: The small and large bowel are unremarkable aside from colonic diverticula without diverticulitis. The appendix is unremarkable. Abdominal Wall: Is a small periumbilical hernia containing a tiny loop of small bowel. There is diastases of the rectus muscles above the level of the umbilicus. No groin hernias are seen. Some minimal streaky changes are present in the left flank which could be related to the patient's bruise (23:37). No large flank hematoma is seen. Lymph Nodes: No lymphadenopathy. Vascular: Minimal calcific atherosclerotic changes are present in the aorta and iliac vessels. There is no evidence of an abdominal aortic aneurysm.. The IVC appears unremarkable. PELVIC VISCERA: The prostate and seminal vesicles are unremarkable. OSSEUS STRUCTURES: Mild degenerative changes are noted in the spine. No bony destructive lesions are seen. There are marked degenerative changes seen in the left hip along with 3 screws through the left femoral neck. CT/CT abdomen pelvis wo IV con IMPRESSION: 1. No evidence of a traumatic injury in the chest, abdomen or pelvis. 2. Incidental note made of fatty atrophy of the pancreas, colonic diverticulosis without diverticulitis and a small periumbilical hernia containing a tiny loop of small bowel. Fleischner guidelines were followed.
--- NOTE | 2023-03-31 10:43 | ECG_ITS ---
Test Reason : fall Blood Pressure : / mmHG Vent. Rate : 061 BPM Atrial Rate : 061 BPM P-R Int : 150 ms QRS Dur : 128 ms QT Int : 462 ms P-R-T Axes : 045 005 025 degrees QTc Int : 465 ms Normal sinus rhythm Right bundle branch block Abnormal ECG When compared with ECG of 03-AUG-2022 13:20, No significant changes seen Referred By: Vicky Redd Electronically Signed By:BRITTANY PEREA
--- NOTE | 2023-03-31 10:47 | ED_ITS ---
HPI - Fall General Chief Complaint: Fall Stated Complaint: Fell - injury to knee & shoulder Time Seen by Provider: 03/31/23 10:27 Source: patient and old records reviewed Mode of arrival: ambulatory Limitations: no limitations History of Present Illness HPI Narrative: 62 yo male with PMH of obesity, arthritis, sleep apnea, HTN, asthma, diabetes, cellulitis, leg edema, not on blood thinners, here after going to urinate at 2am upon trying to get back to his bed he felt dizzy and fell forward into his bed that has a wooden frame he injured L hip, L ribs and L flank. He did not have LOC or head strike. He got himself up. He notes he had similar dizzy episode about a month ago. He has not had preceding CP/SOB or GIB symptoms. MD complaint: fall Onset (ago): hour(s) (2am today) Fall from: standing Fall witnessed: no Place fall occurred: home Loss of consciousness: none Symptoms prior to fall: dizziness Location of injury: chest, back and pelvis Severity: moderate Quality: aching Associated symptoms (after fall): other (hard to walk) Related Data Home Medications Medication Instructions Recorded Confirmed albuterol sulfate 90 mcg/actuation 2 puff PO Q4H PRN Shortness Of 11/07/20 11/07/20 aerosol inhaler Breath clonazepam 1 mg tablet 1 tab PO BID PRN anxiety 11/07/20 11/07/20 enalapril 10 1 tab PO DAILY 11/07/20 11/07/20 mg-hydrochlorothiazide 25 mg tablet ergocalciferol (vitamin D2) 1,250 1 cap PO QWEEK 11/07/20 11/07/20 mcg (50,000 unit) capsule metformin 850 mg tablet 1 tab PO BID 11/07/20 11/07/20 nicotine (polacrilex) 4 mg buccal 4 mg PO Q4-6H PRN Smoking Cessation 11/07/20 11/07/20 lozenge pantoprazole 40 mg tablet,delayed 1 tab PO DAILY 11/07/20 11/07/20 release simvastatin 20 mg tablet 1 tab PO BEDTIME 11/07/20 11/07/20 Previous Rx's Medication Instructions Recorded cyclobenzaprine 10 mg tablet 10 mg PO TID PRN muscle spasm #30 04/27/20 tabs doxycycline monohydrate 100 mg 100 mg PO BID 10 days #20 caps 10/29/20 capsule furosemide 20 mg tablet 20 mg PO DAILY 7 days #7 tabs 11/07/20 doxycycline hyclate 100 mg tablet 100 mg PO BID #20 tabs 03/03/21 furosemide 20 mg tablet (Lasix) 20 mg PO DAILY 4 days #4 tabs 05/27/21 ibuprofen 400 mg tablet 400 mg PO Q6H PRN pain 5 days #20 06/02/21 tabs doxycycline hyclate 100 mg capsule 100 mg PO BID #14 caps 09/17/21 furosemide 40 mg tablet (Lasix) 40 mg PO DAILY #5 tabs 09/17/21 doxycycline hyclate 100 mg tablet 100 mg PO BID #14 tabs 02/06/22 acetaminophen 500 mg tablet 500 mg PO Q6H PRN fever or pain 03/30/22 (Tylenol Extra Strength) #14 tabs cyclobenzaprine 5 mg tablet 5 mg PO Q8H PRN pain (scale score 03/30/22 7-10) 5 days #14 tabs lidocaine 5 % topical patch 1 patch topical DAILY PRN pain #30 03/30/22 (Lidoderm) ea naproxen 500 mg tablet 500 mg PO BID PRN pain 10 days #20 03/30/22 tabs furosemide 80 mg tablet (Lasix) 80 mg PO DAILY #14 tabs 08/03/22 acetaminophen 325 mg capsule 650 mg (2 x 325 mg) PO Q6H PRN 11/15/22 (Tylenol) pain #45 caps ibuprofen 800 mg tablet 800 mg PO Q8H PRN pain #45 tabs 11/15/22 furosemide 40 mg tablet (Lasix) 40 mg PO DAILY 7 days #7 tabs 02/21/23 lidocaine 5 % topical patch 1 patch topical DAILY #30 ea 03/31/23 Allergies Allergy/AdvReac Type Severity Reaction Status Date / Time morphine [MORPHINE] Allergy Severe RASH Verified 03/31/23 10:06 Review of Systems 2 Review of Systems: Constitutional : No Fever, No Chills ENT/Mouth : No Ear Pain, No Hoarseness, No sore throat Eyes: No Eye Pain, No Swelling, No Redness, No Foreign Body Cardiovascular : No Chest Pain, No SOB Respiratory : No Cough, No Dyspnea Gastrointestinal : No Nausea, No Vomiting, No Diarrhea, No abdominal Pain Genitourinary : No Dysuria, No Hematuria Musculoskeletal : positive joint pain, No Myalgias, No Joint Swelling Skin : No Skin lacerations, No rash Neuro : No Weakness, No Numbness, No Loss of Consciousness, No Dizziness, No Headache Psych : No Anxiety/Panic, No Depression All other systems reviewed and are negative [facility] Past Medical History Attestation statement: The following information was validated with the patient. Source: old records reviewed Onset Date is defined in the Problem List Problems that require an onset date and time if occurred within 24 hrs of arrival to the ED Aortic Dissection and Rupture; Neurologic impairment; Cardiopulmonary Arrest; Endotracheal Intubation; Insertion or Replacement of Mechanical Circulatory Assist Device Medical History Left wrist pain Hypertension Diabetes Asthma History of arthroplasty of left elbow FHx: total knee replacement Sleep apnea Surgical History History of gastric surgery History of ankle surgery History of hip surgery History of surgery on arm Social History Social History Alcohol intake: never Patient Tobacco Use Status: Current everyday Tobacco user Tobacco use type: Cigarette Cigarettes Per Day: 5 Smoked in Last 30 Days: Yes Advance Directives: No Advance Directives Information Provided: Yes Current occupational status: disabled Current occupation: right handed Physical Exam 2 Vital Signs: Vital Signs: Last Vital Signs Temp 98 F 03/31/23 10:07 Pulse 73 03/31/23 13:21 Resp 9 L 03/31/23 11:58 BP 151/76 H 03/31/23 13:21 Pulse Ox 94 03/31/23 13:41 O2 Del Method Room Air 03/31/23 13:41 O2 Flow Rate 2 03/31/23 11:58 BMI result Body Mass Index 37.9 Appearance: Alert. Oriented X3. No acute distress. Eyes: Pupils equal, round and reactive to light. ENT: Pharynx normal. atraumatic Neck: Normal inspection. Neck supple. CVS: Normal heart rate and rhythm. Pulses normal. Chest: L lower lateral ribs contusion noted Respiratory: No respiratory distress. Breath sounds normal. Abdomen: Soft and nontender. Obese, contusion to L flank small Skin: Skin warm and dry. Normal skin color. Normal skin turgor. Extremities: No lower extremity edema. No calf ttp ttp along L hip Neuro: Oriented X 3. No motor deficit. No sensory deficit. Course Course Course Narrative: has sleep apnea only needed O2 when he was asleep VBG stable, uses CPAP lungs CTAB and CT scan negative ortho neg Medications Administered Discontinued Medications Generic Name Dose Route Start Last Admin Trade Name Kelton PRN Reason Stop Dose Admin Acetaminophen 975 mg 03/31/23 10:42 03/31/23 11:12 Acetaminophen 325 Mg Tablet PO 03/31/23 10:43 975 mg ONCE ONE Administration Medical Decision Making Medical Decision Making [facility] Narrative: 62 yo male with PMH of obesity, arthritis, sleep apnea, HTN, asthma, diabetes, cellulitis, leg edema, not on blood thinners woke up and felt dizzy upon going back to his bed after urinating - fell no head strike but has sig contusions to L rib, flank, L hip, denies LOC and got himself up. This happened at 2am. Comes in due to pain in areas. He is NV intact and GCS 15. He denies CP/SOB doubt ACS or VTE denies GIB symptoms. Will need labs, EKG, orthostatics, UA, CT scan of head/neck, chest and abdomen for trauma. Differential Diagnosis Differential Diagnoses: The differential diagnosis associated with the presentation includes trauma, fracture, anemia, dehydration, orthostatic, contusion Admission/Observation Consideration of admission/observation: Escalation of care including admission/observation considered work up negative, trop flat at 6 hours, trauma CT scans negative, gait at baseline, does not feel dizzy, PRN O2 only while asleep here. no hypoxia at rest otherwise Lab Data [facility] Lab Attestation statement: I reviewed the patient's lab results. 03/31/23 11:57 03/31/23 11:57 Labs: Lab Results 03/31/23 03/31/23 03/31/23 Range/Units 11:18 11:57 12:01 WBC 7.7 (4.8-10.8) X10*3/uL RBC 3.77 L (4.60-5.80) X10*6/uL Hgb 11.2 L (14.0-18.0) g/dl Hct 35.7 L (42.0-52.0) % MCV 94.7 (80.0-98.0) fL MCH 29.7 (27.0-33.0) pg MCHC 31.4 (31.0-36.0) g/dl RDW 14.4 (11.0-16.0) % Plt Count 193 (160-400) X10*3/uL MPV 11.4 (9.4-12.4) fL Immature Gran % (Auto) 0.8 H (0.0-0.4) % Neut % (Auto) 60.2 (45-73) % Lymph % (Auto) 26.6 (20-40) % [place] % (Auto) 7.2 (2-11) % Eos % (Auto) 4.9 H (0-4) % Baso % (Auto) 0.3 (0-2) % Lymph # (Auto) 2.0 (1.2-4.9) X10*3/uL [place] # (Auto) 0.6 (0.1-1.2) X10*3/uL Eos # (Auto) 0.4 (0.0-0.4) X10*3/uL Baso # (Auto) 0.0 (0.0-0.2) X10*3/uL Abs Immat Gran (auto) 0.06 H (0.00-0.03) X10*3/uL Absolute Neuts (auto) 4.6 (2.0-8.3) x10*3/uL Absolute Nucleated RBC 0.000 (0.0-0.012) X10*3/uL Nucleated RBC % (auto) 0.0 (0.0-0.2) /100WBC Smear Tech's Comments VERIFIED PT 11.6 (11.1-13.3) SEC INR 1.0 (0.9-1.1) VBG pH 7.40 (7.32-7.43) VBG pCO2 57 mmHg VBG pO2 64 mmHg VBG HCO3 36 H (22-26) mmol/L VBG O2 Saturation 92.0 % VBG Base Excess 10.0 mmol/L Sodium 138 (135-145) mmol/L Potassium 4.1 (3.3-5.1) mmol/L Chloride 101 (96-108) mmol/L Carbon Dioxide 32 H (22-29) mmol/L Anion Gap 9 L (12-20) BUN 8 L (9-16) mg/dL Creatinine 0.85 (0.5-1.4) mg/dL Estim Creat Clear Calc 131.1 Estimated GFR > 60 Random Glucose 264 H (60-115) mg/dL Calcium 9.1 (8.4-10.2) mg/dL Magnesium 1.7 (1.6-2.6) mg/dL Total Bilirubin 0.2 (0.0-1.0) mg/dL Direct Bilirubin < 0.2 (0.0-0.5) mg/dL AST 13 (5-37) U/L ALT 14 (0-40) U/L Alkaline Phosphatase 133 H (39-117) U/L Total Creatine Kinase 47 (38-174) U/L Troponin I High Sens 3.8 (<3.5-35.0) ng/L B-Natriuretic Peptide 11 (<100) pg/mL Total Protein 6.6 (6.5-8.0) g/dL Albumin 3.3 L (3.5-5.0) g/dL Lipase 6 L (8-78) U/L Urine Color Yellow Urine Appearance Clear Urine pH 6.5 (5.0-9.0) Ur Specific [place] 1.010 (1.005-1.025) Urine Protein Negative (Neg-Trace) mg/dL Urine Glucose (UA) Negative (Negative) mg/dL Urine Ketones Negative (Negative) mg/dL Urine Blood Negative (Negative) Urine Nitrite Negative (Negative) Ur Leukocyte Esterase Negative (Negative) COVID-19 (JAIME) Negative (Negative) COVID-19 Clin Com See Note Independent Interpretation I performed an independent interpretation of an: EKG and CT Scan Interpretation: Rate: 61 Rhythm: NSR [place]: normal Normal P waves. Normal GI. RBBB ST T wave : nonspecific anterior leads, no SHIVAM qTC: 465 prior studies: no change from prior The study has been interpreted contemporaneously by me. . Radiology Impression Discussion of test interpretation with radiology: I have reviewed the radiologist's reading. External Record Review External record reviewed: Inpatient record Prescription Management I considered prescription management with: Other Discharge Plan Discharge Clinical Impression: Dizziness Contusion Qualifiers: Encounter type: initial encounter Contusion area: hip Laterality: left Q ualified Code(s): S70.02XA - Contusion of left hip, initial encounter Contusion of rib on left side Qualifiers: Encounter type: initial encounter Qualified Code(s): S20.212A - Contusion of left front wall of thorax, initial encounter Patient Disposition: Home, Self-Care Instructions: Contusion in Adults (ED), Dizziness (ED), Rib Contusion (ED) Additional Instructions: EKG, labs, test for heart reassuring, CT scan of head, neck, ribs, hip, flank and bruise area no signs of acute fracture only bruising. return for confusion, return for dizziness, worsening pain, cough, fever, difficulty breathing or any other concerns. take your time getting up and wait 30 seconds before standing. Prescriptions: New lidocaine 5 % adhesive patch,medicated 1 patch topical DAILY Qty: 30 0RF Rx Instructions: leave on most painful area for up to 12 hrs No Action doxycycline monohydrate 100 mg capsule 100 mg PO BID 10 Days Qty: 20 0RF Patient Comments: 10 DAY SUPPLY clonazepam 1 mg tablet 1 tab PO BID PRN (Reason: anxiety) metformin 850 mg tablet 1 tab PO BID enalapril-hydrochlorothiazide 10-25 mg tablet 1 tab PO DAILY pantoprazole 40 mg tablet,delayed release (DR/EC) 1 tab PO DAILY simvastatin 20 mg tablet 1 tab PO BEDTIME ergocalciferol (vitamin D2) 1,250 mcg (50,000 unit) capsule 1 cap PO QWEEK albuterol sulfate 90 mcg/actuation HFA aerosol inhaler 2 puff PO Q4H PRN (Reason: Shortness Of Breath) nicotine (polacrilex) 4 mg lozenge 4 mg PO Q4-6H PRN (Reason: Smoking Cessation) furosemide 20 mg tablet 20 mg PO DAILY 7 Days Qty: 7 0RF cyclobenzaprine 10 mg tablet 10 mg PO TID PRN (Reason: muscle spasm) Qty: 30 0RF furosemide [Lasix] 20 mg tablet 20 mg PO DAILY 4 Days Qty: 4 0RF Rx Instructions: start on 05/28 furosemide [Lasix] 40 mg tablet 40 mg PO DAILY Qty: 5 0RF doxycycline hyclate 100 mg capsule 100 mg PO BID Qty: 14 0RF doxycycline hyclate 100 mg tablet 100 mg PO BID Qty: 14 0RF doxycycline hyclate 100 mg tablet 100 mg PO BID Qty: 20 0RF ibuprofen 400 mg tablet 400 mg PO Q6H PRN (Reason: pain) 5 Days Qty: 20 0RF acetaminophen [Tylenol Extra Strength] 500 mg tablet 500 mg PO Q6H PRN (Reason: fever or pain) Qty: 14 0RF lidocaine [Lidoderm] 5 % adhesive patch,medicated 1 patch topical DAILY MDD remove after 12 hours PRN (Reason: pain) Qty: 30 0RF Rx Instructions: leave on most painful area for up to 12 hrs naproxen 500 mg tablet 500 mg PO BID PRN (Reason: pain) 10 Days Qty: 20 0RF cyclobenzaprine 5 mg tablet 5 mg PO Q8H PRN (Reason: pain (scale score 7-10)) 5 Days Qty: 14 0RF ibuprofen 800 mg tablet 800 mg PO Q8H PRN (Reason: pain) Qty: 45 0RF acetaminophen [Tylenol] 325 mg capsule 650 mg PO Q6H PRN (Reason: pain) Qty: 45 0RF furosemide [Lasix] 40 mg tablet 40 mg PO DAILY 7 Days Qty: 7 0RF furosemide [Lasix] 80 mg tablet 80 mg PO DAILY Qty: 14 0RF Interventions: ED Discharge Assessment Last Done: 03/31/23 14:03 Discharge Date/Time: 03/31/23 14:04
[2023-03-31] MEDS: Acetaminophen 325 MG TABLET 975 MG PO (11:12)
[2023-03-31 11:36] LABS: Appearance Urine Clear; Color Urine Yellow; Glucose Urine UA Negative (Negative); Leukocyte Esterase Urine Negative (Negative); Nitrite Urine Negative (Negative); PH 6.5 (5.0-9.0); Urine Blood Negative (Negative); Urine Ketones Negative (Negative); Urine Protein Negative (Neg-Trace)
[2023-03-31 12:07] LABS: VBG HCO3 36 mmol/L (22-26); VBG pCO2 57 mmHg; VBG pO2 64 mmHg
[2023-03-31 12:08] LABS: Venous Blood Gas Refer to POC result
[2023-03-31 12:11] LABS: Prothrombin Time 11.6 SEC (11.1-13.3)
[2023-03-31 12:19] LABS: COVID-19 Test Negative (Negative); IDNOW Serial# 08D9AD1C
[2023-03-31 12:21] LABS: Basophils Percent Auto 0.3 % (0-2); Eosinophils Absolute Auto 0.4 X10*3/uL (0.0-0.4); Eosinophils Percent Auto 4.9 % (0-4); Hematocrit 35.7 % (42.0-52.0); Hemoglobin 11.2 g/dl (14.0-18.0); Imm Gran Abs Auto 0.06 X10*3/uL (0.00-0.03); Imm Gran Pct Auto 0.8 % (0.0-0.4); Lymphocytes Percent Auto 26.6 % (20-40); MANUAL DIFF FLAG SCAN; Mean Corpuscular HGB Conc 31.4 g/dl (31.0-36.0); Mean Corpuscular Hemoglobin 29.7 pg (27.0-33.0); Mean Corpuscular Volume 94.7 fL (80.0-98.0); Monocytes Absolute Auto 0.6 X10*3/uL (0.1-1.2); Monocytes Percent Auto 7.2 % (2-11); Neutrophils Absolute Auto 4.6 x10*3/uL (2.0-8.3); Neutrophils Percent Auto 60.2 % (45-73); PLT CLUMP 1; Red Blood Count 3.77 X10*6/uL (4.60-5.80); Red Cell Distribution Width 14.4 % (11.0-16.0); SCAN SMEAR FLAG 1
[2023-03-31 12:24] LABS: Alanine Aminotransferase 14 U/L (0-40); Albumin Level 3.3 g/dL (3.5-5.0); Alkaline Phosphatase 133 U/L (39-117); Anion Gap 9 (12-20); Aspartate Amino Transferase 13 U/L (5-37); B Type Natriuretic Peptide 11 pg/mL (<100); Bilirubin Direct < 0.2 mg/dL (0.0-0.5); Bilirubin Total 0.2 mg/dL (0.0-1.0); Blood Urea Nitrogen 8 mg/dL (9-16); Calcium 9.1 mg/dL (8.4-10.2); Carbon Dioxide 32 mmol/L (22-29); Chloride 101 mmol/L (96-108); Creatinine Clr Calc Pharmacy 131.1; Estimated Glomerular Filt Rate > 60; Glucose Random 264 mg/dL (60-115); Lipase 6 U/L (8-78); Magnesium 1.7 mg/dL (1.6-2.6); Potassium 4.1 mmol/L (3.3-5.1); Sodium 138 mmol/L (135-145); Total Protein 6.6 g/dL (6.5-8.0)
[2023-03-31 12:25] LABS: Troponin-I High Sensitivity 3.8 ng/L (<3.5-35.0)
[2023-03-31 12:48] LABS: Mean Platelet Volume 11.4 fL (9.4-12.4); Platelet Count 193 X10*3/uL (160-400); SLIDE REVIEW VERIFIED; White Blood Count 7.7 X10*3/uL (4.8-10.8)
--- NOTE | 2023-03-31 13:08 | PC.NURSE ---
pt's o2 92% r/a, pt placed on 2L n/c, o2 went up to high 90s. pt sleeping at this time.
--- NOTE | 2023-03-31 14:04 | PC.NURSE ---
pt cleared for discharge, discharge instructions reviewed with pt. pt assisted to w/c by friend and was wheeled to waiting room. no complaints at the time of discharge.
== END 2023-03-31 14:04 | disposition home or self-care (01) ==
PROVIDERS: Emergency Provider Emergency Medicine; PCP Internal Medicine
DX: S70.02XA Contusion of left hip, initial encounter (principal); S20.212A Contusion of left front wall of thorax, initial encounter; R07.81 Pleurodynia; R42 Dizziness and giddiness; I10 Essential (primary) hypertension; I45.10 Unspecified right bundle-branch block; M54.2 Cervicalgia; R06.02 Shortness of breath; R10.2 Pelvic and perineal pain; W06.XXXA Fall from bed, initial encounter; Y93.9 Activity, unspecified; Y92.9 Unspecified place or not applicable; Y99.9 Unspecified external cause status; Z11.52 Encounter for screening for COVID-19; Z79.899 Other long term (current) drug therapy
CPT/HCPCS: 36415; 70450; 71250; 72125; 74176; 80048; 80076; 81003; 82550; 82803; 83690; 83735; 83880; 84484; 85025; 85610; 87635; 93005; 99284; 99285

== ENCOUNTER → 2023-03-31 10:43 | Outpatient (BNV) | payer OTHER, SELFPAY | PROVIDERS: Emergency Provider Emergency Medicine; PCP Internal Medicine; Visit Provider Internal Medicine | DX: R94.31 Abnormal electrocardiogram [ECG] [EKG] (principal) | CPT/HCPCS: 93010 ==

== ENCOUNTER 2024-12-20 09:42 | Outpatient (REF) | payer OTHER, SELFPAY ==
--- NOTE | ~2024-12-20 | XR_ITS ---
EXAMINATION: XR HIP, LEFT CLINICAL INFORMATION: pain COMPARISON: Previous x-ray December 2021 TECHNIQUE: Two views of the left hip. FINDINGS: There are 3 screws seen in the left proximal femur transversing the femoral neck that appear unchanged. Surgical hardware appears intact. No acute fracture or dislocation. There is severe arthritis of the left hip joint with joint space narrowing osteophyte formation and subchondral cyst formation and remodeling similar to previous exam. There are small radiopaque densities seen in the soft tissues adjacent to the left proximal femur suggestive of small soft tissue foreign bodies. These appear unchanged. XR/XR hip LT min 2V IMPRESSION: Similar appearing surgical hardware. No acute fracture or dislocation. Severe left hip osteoarthritis similar to previous exam. Electronically signed by: Johanne Hobbs MD 12/20/2024 12:19 PM EDT
--- NOTE | ~2024-12-20 | XR_ITS ---
EXAMINATION: XR LUMBOSACRAL SPINE CLINICAL INFORMATION: pain COMPARISON: Previous x-ray April 2020 TECHNIQUE: Two views of the lumbosacral spine. FINDINGS: Bone alignment is normal. No fracture or dislocation. Multilevel degenerative disc disease, spondylosis and facet arthritis, greatest at L5-S1. XR/XR lumbar spine 2-3V IMPRESSION: Degenerative changes. Electronically signed by: Johanne Hobbs MD 12/20/2024 12:21 PM EDT
== END 2024-12-20 09:43 | disposition home or self-care (01) ==
LOC: HO.HHCX 09:42
PROVIDERS: PCP Internal Medicine; Visit Provider Internal Medicine
DX: M25.552 Pain in left hip (principal); M54.42 Lumbago with sciatica, left side; G89.29 Other chronic pain
CPT/HCPCS: 72100; 73502

== ENCOUNTER → 2024-12-20 10:04 | Outpatient (BNV) | payer OTHER, SELFPAY | PROVIDERS: PCP Internal Medicine; Visit Provider Radiology Diagnostic Radiology | DX: M16.12 Unilateral primary osteoarthritis, left hip (principal); M51.370 Other intervertebral disc degeneration, lumbosacral region with discogenic back pain only | CPT/HCPCS: 72100; 73502 ==